=== PATIENT | female | born 1945 | race African-American/Black ===

== ENCOUNTER 2016-02-15 19:03 | Inpatient (IN) ==
[2016-02-15] MEDS ORDERED: LEVOFLOXACIN INJ 750 MG in PREMIX 1 EACH IV STA (19:20)
[2016-02-15] MEDS ORDERED: methylPREDNISolone SOD SUC 125 MG/2 ML VIAL IV STA (19:20)
[2016-02-15] MEDS ORDERED: ALBUTEROL/IPRATROPIUM 3 ML NEB RESP TX STA ×2 (19:20→20:26)
--- NOTE | 2016-02-15 19:30 | EKG Report ---
Stationary ECG Study [facility] ER Test Date: 02/15/2016 7:30:07 PM Pat Name: LAW MARTE Department: Room: Gender: F Tiler'S Assistant: YOBANY : 1945 Requested by: Brennen Winters Order Number: [id number] Reading MD: MICHAELLE LENTZ Intervals [place] Rate: 86 P: 46 OR: 186 QRS: 27 QRSD: 93 T: -8 QT: 370 QTc: 414 Interpretive Statements SINUS RHYTHM POSSIBLE LEFT ATRIAL ENLARGEMENT INDETERMINATE AXIS INCOMPLETE RIGHT BUNDLE BRANCH BLOCK NONSPECIFIC T-WAVE ABNORMALITY Electronically Signed On 02-16-16 04:11:19 INFORMATION DEVELOPER by MICHAELLE LENTZ [email or web address]
[2016-02-15 19:53] LABS: ABG Base Excess 2.7 MMOL/L (-2.5-2.5); ABG HCO3 26.6 MMOL/L (20-26); ABG Oxygen Saturation 90.3 % (95-100); ABG PCO2 34.1 MM HG (35-48); ABG PH 7.484 (7.35-7.45); ABG PO2 57.5 MM HG (80-95); ABG TCO2 22.3 MMOL/L (23-27); Allen Test Positive
[2016-02-15] MEDS ORDERED: methylPREDNISolone SOD SUC 125 MG/2 ML VIAL ONE (19:55)
--- NOTE | 2016-02-15 20:02 | XRay Report ---
XR chest 1V portable Indication: Shortness of breath. Comparison: Chest x-ray 04/06/2015 Technique: Portable AP chest was performed. Findings: Heart size is upper limits of normal. Linear and reticular interstitial markings in the lower right chest are demonstrated. The left lung base is not well visualized. Upper lungs are clear. Elevation right hemidiaphragm is noted. Pulmonary vasculature is within normal limits. Bones and soft tissues demonstrate no evidence of acute pathology. Impression: 1. The appearance of the right lung base has differential considerations including pulmonary edema as well as infection. A component of atelectasis is not excluded. Opacities in the left lung base are not excluded. 02/15/2016 7:57 PM PROCEDURE INTERPRETED AT [facility] DEPARTMENT OF RADIOLOGY Final Report Signed by: Dr. Eyal Meyer
[2016-02-15] MEDS ORDERED: LEVOFLOXACIN INJ 150 ML IV ONE (20:12)
[2016-02-15 20:16] LABS: Basophils # 0.1 10*3/uL (0.0-0.2); Eosinophils # 0.4 10*3/uL (0.0-0.87); Eosinophils % 6.8 % (0.00-10.9); Hematocrit 40.2 VOL% (35.7-47.0); Hemoglobin 13.1 GM/DL (12.0-16.0); Immature Granulocytes % 0.3 %; Immature Granulocytes Absolute 0.02 #; Lymphocytes % 33.3 % (21.3-54.2); Mean Corpuscular HGB Conc 32.6 GM/DL (32-36); Mean Corpuscular Hemoglobin 28 PG (27-34); Mean Corpuscular Volume 86.8 FL (87-102); Mean Platelet Volume 10.4 FL (9.6-12.0); Monocytes # 0.5 10*3/uL (0.11-0.8); Monocytes % 8.2 % (1.7-12.7); Neutrophils % 50.4 % (38.7-73.9); Platelet Count 222 10*3/uL (130-400); Red Blood Count 4.63 10*6/uL (3.8-5.5); Red Cell Distribution Width 14.3 % (9.3-17.3)
[2016-02-15 20:47] LABS: Albumin 3.6 G/DL (3.4-5.0); Bilirubin,Total 0.5 MG/DL (0.2-1.0); Osmolality,Calculated 288.8 MOS/KG (273-304); Potassium 3.7 MMOL/L (3.5-5.1); Total Protein 6.8 G/DL (6.4-8.3)
--- NOTE | 2016-02-15 20:57 | Emergency Department Note ---
Kimo Brantley Brooke, am scribing for, and in the presence of, Brennen Winters MD 19:24. Vianey Brantley Hans, MD, personally performed the services described in this documentation, ascribed by Ale Malin in my presence, and it is both accurate and complete . Arrival - Arrival Chief Complaint: Shortness of Breath Stated Complaint: sob, n/v, aching ED Nursing Triage Note: C/O SOB and weakness X "several weeks" but worse over the past two days. Pt on home O22L NC. Tachypnea noted in triage. Mode of Arrival: Wheelchair Limitations: No Limitations Source: Patient, RN Notes Reviewed Time Seen by Provider: 02/15/16 19:15 - History of Present Illness HPI Narrative: Patient is a 71 year old female who presents to the ED with c/o difficulty breathing that has been going on for the past couple of days but continues to worsen over time. Patient has history of pulmonary fibriosis and uses home oxygen. She says she does not have a Consumer Affairs Specialist in [place]. Patient also complains of having a non productive cough, headache, and "upset stomach" but denies having any leg edema or fever. Patient denies any recent traveling. She also has PMHx of IDDM, HTN, thyroid disorder, RA, and GERD. Onset (ago): day(s) ("last couple of days") Allergies/Adverse Reactions: Allergies Allergy/AdvReac Type Severity Reaction Status Date / Time No Known Allergies Allergy Verified 02/15/16 19:07 Home Medications: Home Medications Medication Instructions Recorded Confirmed Type Aliskiren [Tekturna] 150 mg PO BID 01/27/15 02/15/16 History Mycophenolate Mofetil [Cellcept] 1,000 mg PO BID 01/27/15 02/15/16 History Montelukast Tab [Singulair Tab] 10 mg PO BEDTIME #60 tablet 04/08/15 02/15/16 Rx Adalimumab [Humira] 40 mg SUBCUT Q14D 02/15/16 02/15/16 History Albuterol Neb [Proventil Neb] 0.63 mg RESP TX TID PRN 02/15/16 02/15/16 History Insulin Aspart Prot/Asp 70/30 See Protocol SUBCUT DAILY PRN 02/15/16 02/15/16 History [NovoLOG Mix 70/30] Levothyroxine Tab [Synthroid Tab] 200 mcg PO DAILY 02/15/16 02/15/16 History Omeprazole [Prilosec] 40 mg PO QPM 02/15/16 02/15/16 History amLODIPine [Norvasc] 5 mg PO DAILY 02/15/16 02/15/16 History cloNIDine TAB [Catapres Tab] 0.2 mg PO QAM 02/15/16 02/15/16 History cloNIDine TAB [Catapres Tab] 0.3 mg PO QPM 02/15/16 02/15/16 History Review of System - Review of System 12 point system: reviewed and no additional remarkable complaints except as stated - Review of System Constitutional: Absent: fever Respiratory: Present: cough (nonproductive), other ("difficulty breathing") Gastrointestinal: Present: abdominal pain ("upset stomach") Skin: Absent: rash Neurological: Present: headache Medical,Surgical,& Family Hx - Medical History Cardio: History of: Hypertension Neurology: No history of: Seizures Endocrine: History of: Diabetes Mellitus (IDDM), Thyroid Disorder Rheumatology: History of;: Rheumatoid Arthritis Respiratory: History of: Respiratory Problems (PULMONARY FIBROSIS LUNG BX HOME O2) Gastrointestinal: History of: GERD - Surgical History Thoracic Surgeries: Patient denies;: Lobectomy HEENT Surgeries: Surgical HX of: Thyroid Surgery - Social History Smoking Status: Never smoker Frequency of Alcohol Use: None Type of Drug Use: None Exam Vital Signs: Vital Signs Temperature 97.1 F L 02/15/16 19:08 Pulse Rate 98 H 02/15/16 19:08 Respiratory Rate 24 02/15/16 19:08 Blood Pressure 141/108 02/15/16 19:08 O2 Sat by Pulse Oximetry 100 02/15/16 19:08 - General General appearance: alert, in no apparent distress - Head Head exam: Present: atraumatic, normocephalic - Eye Eye exam: Present: normal appearance, PERRL, EOMI - ENT ENT exam: Present: normal exam - Neck Neck exam: Present: other (distended neck veins) - Chest Chest inspection: Present: normal inspection, symmetric chest wall rise - Respiratory Respiratory exam: Present: wheezes (bilaterally but worse on the left) - Cardiovascular Cardiovascular exam: Present: normal rhythm, tachycardia, normal heart sounds - Abdominal Exam Abdominal exam: Present: soft. Absent: distention, tenderness - Extremities Exam Extremities exam: Present: normal inspection - Back Exam Back exam: Present: normal inspection - Neurological Exam Neurological exam: Present: alert, oriented X3 - Psychiatric Psychiatric exam: Present: normal affect, normal mood - Skin Skin exam: Present: warm, dry, intact, normal color Course Course Narrative: This patient was evaluated with chest x-ray and lab work. She had a normal white blood cell count and she was treated with Solu-Medrol and to relieve treatments for expiratory wheezing. She improved some but still had some wheezing and because of her home oxygen dependence and possible right basal infiltrate I discussed her presentation with the hospitalist who agreed to come and see her in the ER to evaluate her for admission. Results - Labs CBC & BMP: 02/15/16 20:00 02/15/16 20:00 Lab Results: I have reviewed the patients labs Labs: Laboratory Tests 02/15/16 19:40 ABG pH 7.484 H ABG pCO2 34.1 L ABG pO2 57.5 L ABG HCO3 26.6 H ABG Total CO2 22.3 L ABG O2 Saturation 90.3 L ABG Base Excess 2.7 H Microbiology 02/15/16 20:18 Nasal Aspirate Influenza Types A,B Antigen (EMMANUEL) - Final Negative for Influenza A Ag Negative for Influenza B Ag Laboratory Tests 02/15/16 20:00 MCV 86.8 L Baso % (Auto) 1.0 H Laboratory Tests 02/15/16 20:00 Anion Gap 16.7 H Creatinine 1.30 H Glucose 130 H - Diagnostic Findings Procedure: Chest x-ray: report reviewed by me (1. The appearance of the right lung base has differential considerations including pulmonary edema as well as infection. A component of atelectasis is not excluded. Opacities in the left lung base are not excluded.) Disposition Clinical Impression: Acute exacerbation of chronic obstructive airways disease, Pulmonary fibrosis Case discussed with: patient Disposition: Still a Patient Condition: Guarded Instructions: Pulmonary Fibrosis (ED) Time of Disposition: 20:57
--- NOTE | 2016-02-15 21:36 | Hospitalist History & Physical ---
Assessment and Plan (1) Acute exacerbation of chronic obstructive airways disease Status: Acute Current Visit: Yes (2) Pulmonary fibrosis Status: Acute Current Visit: Yes (3) HTN (hypertension) Status: Chronic Current Visit: No (4) Type 2 diabetes mellitus Status: Chronic Current Visit: No (5) Community acquired pneumonia Status: Acute Current Visit: No (6) Acute on chronic respiratory failure Status: Acute Current Visit: No (7) Hypothyroidism Status: Acute Assessment and plan: Plan for this patient #1 admit the patient our service #2 IV antibiotics with Levaquin #3 sputum culture if possible current cough is dry #4 IV steroids #5 Accu-Cheks before meals and at bedtime with sliding scale #6 Singulair #7 Mucinex Current Visit: No History of Present Illness Chief complaint: shortness of breath History of present illness: Ms. Bowens is a 71 year old female known past medical history of pulmonary fibrosis and diabetes who reports shortness of breath 2 weeks. She said that her sats are been running in the 80s to the high 70s at times. She's had dyspnea on a least exertion. She says that she can hardly do anything right now. She reports that her on a short requirements steadily increased over the past 2 weeks and that she is on O2 [id number] now. She came into our hospital for further evaluation. Her chest x-ray had a possible infiltrate. She is to Her O2 sats on oxygen after breathing treatments 100%. Patient does need to be admitted for further evaluation and IV antibiotics steroids and breathing treatments. Home Medications Medication Instructions Recorded Confirmed Type Aliskiren [Tekturna] 150 mg PO BID 01/27/15 02/15/16 History Mycophenolate Mofetil [Cellcept] 1,000 mg PO BID 01/27/15 02/15/16 History Montelukast Tab [Singulair Tab] 10 mg PO BEDTIME #60 tablet 04/08/15 02/15/16 Rx Adalimumab [Humira] 40 mg SUBCUT Q14D 02/15/16 02/15/16 History Albuterol Neb [Proventil Neb] 0.63 mg RESP TX TID PRN 02/15/16 02/15/16 History Insulin Aspart Prot/Asp 70/30 See Protocol SUBCUT DAILY PRN 02/15/16 02/15/16 History [NovoLOG Mix 70/30] Levothyroxine Tab [Synthroid Tab] 200 mcg PO DAILY 02/15/16 02/15/16 History Omeprazole [Prilosec] 40 mg PO QPM 02/15/16 02/15/16 History amLODIPine [Norvasc] 5 mg PO DAILY 02/15/16 02/15/16 History cloNIDine TAB [Catapres Tab] 0.2 mg PO QAM 02/15/16 02/15/16 History cloNIDine TAB [Catapres Tab] 0.3 mg PO QPM 02/15/16 02/15/16 History Allergies Allergy/AdvReac Type Severity Reaction Status Date / Time No Known Allergies Allergy Verified 02/15/16 19:07 Medical,Surgical,& Family Hx - Medical History Cardio: History of: Hypertension Neurology: No history of: Seizures Endocrine: History of: Diabetes Mellitus (IDDM), Thyroid Disorder Rheumatology: History of;: Rheumatoid Arthritis Respiratory: History of: Respiratory Problems (PULMONARY FIBROSIS LUNG BX HOME O2) Gastrointestinal: History of: GERD - Surgical History Thoracic Surgeries: Patient denies;: Lobectomy HEENT Surgeries: Surgical HX of: Thyroid Surgery - Family History Family History: noncontributory - Social History Smoking Status: Never smoker Frequency of Alcohol Use: None Type of Drug Use: None 12 point system: reviewed and no additional remarkable complaints except as stated Exam - Constitutional Vitals: Period Temp Pulse Resp BP Sys/Parks Pulse Ox Last 24 Hr 97.1 F-97.1 F 98-98 24-24 141-141/108-108 100 General appearance: mild distress - Head Head exam: Present: normal inspection - Eye Eye exam: Present: EOMI Pupils: Present: BRANDI - ENT ENT exam: Present: normal exam - Neck Neck exam: Present: normal inspection - Respiratory Respiratory exam: Present: rales (diffuse), wheezes - Cardiovascular Cardiovascular exam: Present: regular rate and rhythm - GI/Abdominal GI/Abdominal exam: Present: normal bowel sounds - Extremities Exam Extremities exam: Present: normal inspection - Back Exam Back exam: Present: normal inspection - Neurological Exam Neurological exam: Present: alert, oriented X3 - Psychiatric Psychiatric exam: Present: normal affect, normal mood - Skin Skin exam: Present: normal color Results - Labs CBC & BMP: 02/15/16 20:00 02/15/16 20:00
[2016-02-15] MEDS ORDERED: ZALEPLON 5 MG CAPSULE PO PRN (21:41)
[2016-02-15] MEDS ORDERED: ALBUTEROL 2.5 MG/3 ML NEB RESP TX PRN (21:41)
[2016-02-15] MEDS ORDERED: GLUCAGON 1 MG VIAL IM PRN ×2 (21:41)
[2016-02-15] MEDS ORDERED: DEXTROSE 50% 25 GM/50 ML VIAL IV PRN ×2 (21:41)
[2016-02-15] MEDS: ACETAMINOPHEN 325 MG TABLET PO PRN (22:45)
[2016-02-15 23:14] LABS: Apearance,Urine CLEAR (Clear); Bilirubin,Urine Negative (Negative); Blood, Urine Negative (Negative); Glucose,Urine (UA) Negative (Negative); Ketones,Urine 5 mg/dL (Negative); Nitrite,Urine Negative (Negative); Protein,Urine 30 MG/DL; RBC,Urine <1 /HPF (0-4); Squamous Epithelial Cell,Urine Occasional /HPF (0-10); Urine Color Straw (Yellow); Urine Specific Gravity 1.006 (1.001-1.035); Urine Urobilinogen < 2.0 EU/DL (0.2-1.0); WBC,Urine 1 /HPF (0-6)
[2016-02-15] MEDS: ENOXAPARIN 40 MG/0.4 ML SYRINGE SUBCUT SCH (23:33)
[2016-02-16] MEDS: ALBUTEROL/IPRATROPIUM 3 ML NEB RESP TX SCH ×4 (00:40→19:30)
[2016-02-16 05:36] LABS: Basophils % 0.2 % (0.0-0.8); Hemoglobin 13.2 GM/DL (12.0-16.0); Immature Granulocytes % 0.5 %; Immature Granulocytes Absolute 0.02 #; Lymphocytes # 0.6 10*3/uL (1.4-4.0); Mean Corpuscular HGB Conc 32.2 GM/DL (32-36); Mean Corpuscular Hemoglobin 28 PG (27-34); Mean Corpuscular Volume 86.3 FL (87-102); Mean Platelet Volume 10.1 FL (9.6-12.0); Monocytes % 0.9 % (1.7-12.7); Neutrophils # 3.6 10*3/uL (1.4-7.4); Neutrophils % 84.4 % (38.7-73.9); Platelet Count 295 10*3/uL (130-400); Red Blood Count 4.75 10*6/uL (3.8-5.5); White Blood Count 4.3 10*3/uL (4.5-13.71)
[2016-02-16 06:04] LABS: Calcium 9.3 MG/DL (8.5-10.1); Osmolality,Calculated 291.3 MOS/KG (273-304); Potassium 3.5 MMOL/L (3.5-5.1)
[2016-02-16] MEDS: LEVOTHYROXINE 200 MCG TABLET PO SCH (06:34)
[2016-02-16] MEDS: methylPREDNISolone SOD SUC 125 MG/2 ML VIAL IV SCH ×3 (06:35→22:35)
[2016-02-16] MEDS: PANTOPRAZOLE 40 MG TABLET PO SCH (08:39)
[2016-02-16] MEDS: INSULIN REGULAR 100 UNIT/ML SUBCUT SCH ×4 (08:39→22:29)
[2016-02-16] MEDS: MYCOPHENOLATE MOFETIL 250 MG CAPSULE PO SCH ×2 (08:39→22:32)
[2016-02-16] MEDS: amLODIPine 5 MG TABLET PO SCH (08:39)
[2016-02-16] MEDS: MONTELUKAST 10 MG TABLET PO SCH (08:40)
--- NOTE | 2016-02-16 10:21 | Hospitalist Progress Note ---
Assessment and Plan (1) Acute exacerbation of chronic obstructive airways disease Status: Acute Current Visit: Yes (2) Pulmonary fibrosis Status: Acute Current Visit: Yes (3) HTN (hypertension) Status: Chronic Current Visit: No (4) Type 2 diabetes mellitus Status: Chronic Current Visit: No (5) Community acquired pneumonia Status: Acute Current Visit: No (6) Acute on chronic respiratory failure Status: Acute Current Visit: No (7) Hypothyroidism Status: Acute Assessment and plan: Plan for this patient #1 admit the patient our service #2 IV antibiotics with Levaquin #3 sputum culture if possible current cough is dry #4 IV steroids #5 Accu-Cheks before meals and at bedtime with sliding scale #6 Singulair #7 Mucinex 02/16/16 we'll continue current level of care treatment of the patient. Dr. Guo is going to see the patient in consultation. Appreciate his help. Overall the patient does seem to be going to right direction. Still the cough is dry. Current Visit: No Hospitalist: Subjective Interval history: patient reports feeling much better today. She says with the breathing has improved. She is not is dyspneic Exam - Constitutional Vitals: Period Temp Pulse Resp BP Sys/Parks Pulse Ox Last 24 Hr 97.5 F-98.1 F 78-89 18-24 132-145/86-101 96-100 General appearance: mild distress has improved - Head Head exam: Present: normal inspection - Eye Eye exam: Present: EOMI Pupils: Present: BRANDI - ENT ENT exam: Present: normal exam - Neck Neck exam: Present: normal inspection - Respiratory Respiratory exam: Present: rales (diffuse), wheezes - Cardiovascular Cardiovascular exam: Present: regular rate and rhythm - GI/Abdominal GI/Abdominal exam: Present: normal bowel sounds - Extremities Exam Extremities exam: Present: normal inspection - Back Exam Back exam: Present: normal inspection - Neurological Exam Neurological exam: Present: alert, oriented X3 - Psychiatric Psychiatric exam: Present: normal affect, normal mood - Skin Skin exam: Present: normal color Results - Labs CBC & BMP: 02/16/16 04:54 02/16/16 04:54 Quality Measures - Stroke Symptom Onset Unknown: No Specialty Discharge - Follow Up or Referrals - Discharge Medications No Action Mycophenolate Mofetil [Cellcept] 1,000 mg PO BID Aliskiren [Tekturna] 150 mg PO BID Montelukast Tab [Singulair Tab] 10 mg PO BEDTIME #60 tablet Insulin Aspart Prot/Asp 70/30 [NovoLOG Mix 70/30] See Protocol SUBCUT DAILY PRN PRN Reason: Glucose Management cloNIDine TAB [Catapres Tab] 0.3 mg PO QPM cloNIDine TAB [Catapres Tab] 0.2 mg PO QAM amLODIPine [Norvasc] 5 mg PO DAILY Albuterol Neb [Proventil Neb] 0.63 mg RESP TX TID PRN PRN Reason: Shortness Of Breath Adalimumab [Humira] 40 mg SUBCUT Q14D Omeprazole [Prilosec] 40 mg PO QPM Levothyroxine Tab [Synthroid Tab] 200 mcg PO DAILY
--- NOTE | 2016-02-16 10:23 | Pulmonology Consult Note ---
History of Present Illness Chief complaint: cough congestion History of present illness: Ms. Bowens is a 71 year old female who has rheumatoid arthritis and interstitial lung disease associated with that. She is chronically on CellCept and Humira. She had the acute onset about 2 weeks ago of congestion and cough and just hasn't felt well. She noted that her oxygen saturation was dropping from the low 90s to the 80s on room air. She was admitted placed on intravenous Levaquin. Also on Solu-Medrol. She feels a bit better this morning. She's not coughing up any blood. There is no pleuritic pain. She does not think she's had any fever. Since I'm unable to use the assessment and plan section we will list diagnoses and recommendations here: #1 rheumatoid arthritis on immunosuppressive drugs #2 interstitial lung disease associated with rheumatoid arthritis on CellCept. #3 acute bronchitis and possibly bronchopneumonia community-acquired an immunocompromised host. We'll recommend broadening antibiotics with Merrem. Agree with Solu-Medrol. Watch glucoses closely. #4 diabetes mellitus insulin requiring. Sliding scale insulin. Home Medications Medication Instructions Recorded Confirmed Type Aliskiren [Tekturna] 150 mg PO BID 01/27/15 02/15/16 History Mycophenolate Mofetil [Cellcept] 1,000 mg PO BID 01/27/15 02/15/16 History Montelukast Tab [Singulair Tab] 10 mg PO BEDTIME #60 tablet 04/08/15 02/15/16 Rx Adalimumab [Humira] 40 mg SUBCUT Q14D 02/15/16 02/15/16 History Albuterol Neb [Proventil Neb] 0.63 mg RESP TX TID PRN 02/15/16 02/15/16 History Insulin Aspart Prot/Asp 70/30 See Protocol SUBCUT DAILY PRN 02/15/16 02/15/16 History [NovoLOG Mix 70/30] Levothyroxine Tab [Synthroid Tab] 200 mcg PO DAILY 02/15/16 02/15/16 History Omeprazole [Prilosec] 40 mg PO QPM 02/15/16 02/15/16 History amLODIPine [Norvasc] 5 mg PO DAILY 02/15/16 02/15/16 History cloNIDine TAB [Catapres Tab] 0.2 mg PO QAM 02/15/16 02/15/16 History cloNIDine TAB [Catapres Tab] 0.3 mg PO QPM 02/15/16 02/15/16 History Allergies Allergy/AdvReac Type Severity Reaction Status Date / Time No Known Allergies Allergy Verified 02/15/16 19:07 12 point system: reviewed and no additional remarkable complaints except as stated - Constitutional Constitutional: Present: fatigue, malaise - Respiratory Respiratory: Present: cough, dyspnea on exertion - Musculoskeletal Musculoskeletal: Present: arthralgias - Endocrine Endocrine: Present: other (she is diabetic on insulin.) Exam (Pulmonay) H&P - Constitutional Vitals: Period Temp Pulse Resp BP Sys/Parks Pulse Ox Last 24 Hr 97.5 F-98.1 F 78-89 18-24 132-145/86-101 96-100 Exam: Vital signs normal. O2 sat 100% on 3 L. HEENT: Pupils react to light. Throat is clear. Neck supple no bruits. Chest sounds clear posteriorly. I do hear some expiratory rhonchi anteriorly best over the upper lobes. Heart normal rate rhythm no murmurs no rubs no gallops. Abdomen soft nontender no masses. Extremities no clubbing cyanosis or edema. Calves nontender. Medical,Surgical,& Family Hx - Medical History Cardio: History of: Hypertension Neurology: No history of: Seizures Endocrine: History of: Diabetes Mellitus (IDDM), Thyroid Disorder Rheumatology: History of;: Rheumatoid Arthritis Respiratory: History of: Respiratory Problems (PULMONARY FIBROSIS LUNG BX HOME O2) Gastrointestinal: History of: GERD - Surgical History Thoracic Surgeries: Patient denies;: Lobectomy HEENT Surgeries: Surgical HX of: Thyroid Surgery - Social History Smoking Status: Never smoker Frequency of Alcohol Use: None Type of Drug Use: None Results - Labs CBC & BMP: 02/16/16 04:54 02/16/16 04:54 Lab Results: I have reviewed the past 24 hour labs - Diagnostic Findings Procedure: Chest x-ray: image reviewed by me (yesterday's chest x-ray shows slightly increased interstitial markings in the bases. He has known interstitial lung disease. Difficult to say she has a superimposed bronchopneumonia.) Quality Measures - Stroke Symptom Onset Unknown: No Specialty Discharge - Follow Up or Referrals - Discharge Medications No Action Mycophenolate Mofetil [Cellcept] 1,000 mg PO BID Aliskiren [Tekturna] 150 mg PO BID Montelukast Tab [Singulair Tab] 10 mg PO BEDTIME #60 tablet Insulin Aspart Prot/Asp 70/30 [NovoLOG Mix 70/30] See Protocol SUBCUT DAILY PRN PRN Reason: Glucose Management cloNIDine TAB [Catapres Tab] 0.3 mg PO QPM cloNIDine TAB [Catapres Tab] 0.2 mg PO QAM amLODIPine [Norvasc] 5 mg PO DAILY Albuterol Neb [Proventil Neb] 0.63 mg RESP TX TID PRN PRN Reason: Shortness Of Breath Adalimumab [Humira] 40 mg SUBCUT Q14D Omeprazole [Prilosec] 40 mg PO QPM Levothyroxine Tab [Synthroid Tab] 200 mcg PO DAILY
--- NOTE | 2016-02-16 10:51 | Pulmonology Consult Note ---
History of Present Illness Chief complaint: Pneumonia. Pulmonary fibrosis. RA. DM. HPV. HBP History of present illness: Ms. Bowens is a 71 year old female Home Medications Medication Instructions Recorded Confirmed Type Aliskiren [Tekturna] 150 mg PO BID 01/27/15 02/15/16 History Mycophenolate Mofetil [Cellcept] 1,000 mg PO BID 01/27/15 02/15/16 History Montelukast Tab [Singulair Tab] 10 mg PO BEDTIME #60 tablet 04/08/15 02/15/16 Rx Adalimumab [Humira] 40 mg SUBCUT Q14D 02/15/16 02/15/16 History Albuterol Neb [Proventil Neb] 0.63 mg RESP TX TID PRN 02/15/16 02/15/16 History Insulin Aspart Prot/Asp 70/30 See Protocol SUBCUT DAILY PRN 02/15/16 02/15/16 History [NovoLOG Mix 70/30] Levothyroxine Tab [Synthroid Tab] 200 mcg PO DAILY 02/15/16 02/15/16 History Omeprazole [Prilosec] 40 mg PO QPM 02/15/16 02/15/16 History amLODIPine [Norvasc] 5 mg PO DAILY 02/15/16 02/15/16 History cloNIDine TAB [Catapres Tab] 0.2 mg PO QAM 02/15/16 02/15/16 History cloNIDine TAB [Catapres Tab] 0.3 mg PO QPM 02/15/16 02/15/16 History Allergies Allergy/AdvReac Type Severity Reaction Status Date / Time No Known Allergies Allergy Verified 02/15/16 19:07 Exam (Pulmonay) H&P - Constitutional Vitals: Period Temp Pulse Resp BP Sys/Parks Pulse Ox Last 24 Hr 97.5 F-98.1 F 78-89 18-24 132-145/86-101 96-100 Medical,Surgical,& Family Hx - Medical History Cardio: History of: Hypertension Neurology: No history of: Seizures Endocrine: History of: Diabetes Mellitus (IDDM), Thyroid Disorder Rheumatology: History of;: Rheumatoid Arthritis Respiratory: History of: Respiratory Problems (PULMONARY FIBROSIS LUNG BX HOME O2) Gastrointestinal: History of: GERD - Surgical History Thoracic Surgeries: Patient denies;: Lobectomy HEENT Surgeries: Surgical HX of: Thyroid Surgery - Social History Smoking Status: Never smoker Frequency of Alcohol Use: None Type of Drug Use: None Results - Labs CBC & BMP: 02/16/16 04:54 02/16/16 04:54 Quality Measures - Stroke Symptom Onset Unknown: No Specialty Discharge - Follow Up or Referrals - Discharge Medications No Action Mycophenolate Mofetil [Cellcept] 1,000 mg PO BID Aliskiren [Tekturna] 150 mg PO BID Montelukast Tab [Singulair Tab] 10 mg PO BEDTIME #60 tablet Insulin Aspart Prot/Asp 70/30 [NovoLOG Mix 70/30] See Protocol SUBCUT DAILY PRN PRN Reason: Glucose Management cloNIDine TAB [Catapres Tab] 0.3 mg PO QPM cloNIDine TAB [Catapres Tab] 0.2 mg PO QAM amLODIPine [Norvasc] 5 mg PO DAILY Albuterol Neb [Proventil Neb] 0.63 mg RESP TX TID PRN PRN Reason: Shortness Of Breath Adalimumab [Humira] 40 mg SUBCUT Q14D Omeprazole [Prilosec] 40 mg PO QPM Levothyroxine Tab [Synthroid Tab] 200 mcg PO DAILY
[2016-02-16] MEDS: MEROPENEM 1,000 MG in SODIUM CHLORIDE 0.9% 100 ML IV SCH ×2 (13:20→18:34)
[2016-02-16] MEDS: ENOXAPARIN 40 MG/0.4 ML SYRINGE SUBCUT SCH (22:30)
[2016-02-16] MEDS: ALISKIREN 150 MG TABLET PO SCH (22:30)
[2016-02-16] MEDS: ACETAMINOPHEN 325 MG TABLET PO PRN (22:32)
[2016-02-16] MEDS: LEVOFLOXACIN INJ 750 MG in PREMIX 1 EACH IV SCH (22:42)
[2016-02-17] MEDS: ALBUTEROL/IPRATROPIUM 3 ML NEB RESP TX SCH ×4 (00:55→21:26)
[2016-02-17] MEDS: MEROPENEM 1,000 MG in SODIUM CHLORIDE 0.9% 100 ML IV SCH ×3 (02:45→18:04)
[2016-02-17] MEDS: LEVOTHYROXINE 200 MCG TABLET PO SCH (07:12)
[2016-02-17] MEDS: methylPREDNISolone SOD SUC 125 MG/2 ML VIAL IV SCH ×3 (07:20→21:49)
[2016-02-17] MEDS: INSULIN REGULAR 100 UNIT/ML SUBCUT SCH ×4 (08:52→21:45)
[2016-02-17] MEDS: PANTOPRAZOLE 40 MG TABLET PO SCH (08:53)
[2016-02-17] MEDS: MONTELUKAST 10 MG TABLET PO SCH (08:53)
[2016-02-17] MEDS: ALISKIREN 150 MG TABLET PO SCH ×2 (08:53→21:57)
[2016-02-17] MEDS: MYCOPHENOLATE MOFETIL 250 MG CAPSULE PO SCH ×2 (08:53→21:47)
[2016-02-17] MEDS: amLODIPine 5 MG TABLET PO SCH (08:54)
[2016-02-17] MEDS: ACETAMINOPHEN 325 MG TABLET PO PRN ×2 (08:54→14:25)
[2016-02-17] MEDS: ONDANSETRON 4 MG/2 ML VIAL IV PRN (09:04)
--- NOTE | 2016-02-17 09:26 | Pulmonology Progress Note ---
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 She is on immunosuppressive drugs long- term. She came in with an acute episode of bronchitis and probably bronchopneumonia. She feels better today. She still coughing up some phlegm. No fever. Exam (Progress Note) - Constitutional Vitals: Period Temp Pulse Resp BP Sys/Parks Pulse Ox Last 24 Hr 97.5 F-98.4 F 64-83 18-20 113-133/78-90 97-100 Exam: She is alert oriented vital signs are normal. HEENT: Pupils react to light. Throat is clear. Neck supple no bruits. Chest reveals minimal expiratory physical rhonchi. Minimal basilar crackles the bases. Heart normal rate rhythm no murmurs. Abdomen soft nontender no masses. Bowel sounds present. Extremities no clubbing cyanosis or edema. Calves nontender. Results - Labs CBC & BMP: 02/16/16 04:54 02/16/16 04:54 Lab Results: I have reviewed the past 24 hour labs Assessment and Plan (1) Rheumatoid arthritis Status: Acute Assessment and plan: Patient has long-term history of a maternal arthritis and is on Humira for that. She is immunocompromised with that. Current Visit: Yes (2) Nonspecific interstitial pneumonitis Status: Acute Assessment and plan: She has interstitial lung disease that is associated with her rheumatoid arthritis. She takes CellCept for that long-term. Again she is immunocompromised from that medication. Current Visit: Yes (3) Acute bronchitis Status: Acute Assessment and plan: Patient came in with cough congestion sputum production and some bronchospasm. Being treated with broad-spectrum antibiotics and Solu-Medrol as well as bronchodilators. Current Visit: Yes (4) Bronchopneumonia Status: Acute Assessment and plan: I do think she has some acute bronchopneumonia. She is on broad-spectrum antibiotics. Current Visit: Yes (5) Diabetes mellitus Status: Acute Assessment and plan: Watch glucoses closely on steroids. Glucoses are running from 180-220. Current Visit: Yes Specialty Discharge - Follow Up or Referrals - Discharge Medications No Action Mycophenolate Mofetil [Cellcept] 1,000 mg PO BID Aliskiren [Tekturna] 150 mg PO BID Montelukast Tab [Singulair Tab] 10 mg PO BEDTIME #60 tablet Insulin Aspart Prot/Asp 70/30 [NovoLOG Mix 70/30] See Protocol SUBCUT DAILY PRN PRN Reason: Glucose Management cloNIDine TAB [Catapres Tab] 0.3 mg PO QPM cloNIDine TAB [Catapres Tab] 0.2 mg PO QAM amLODIPine [Norvasc] 5 mg PO DAILY Albuterol Neb [Proventil Neb] 0.63 mg RESP TX TID PRN PRN Reason: Shortness Of Breath Adalimumab [Humira] 40 mg SUBCUT Q14D Omeprazole [Prilosec] 40 mg PO QPM Levothyroxine Tab [Synthroid Tab] 200 mcg PO DAILY
--- NOTE | 2016-02-17 14:32 | Hospitalist Progress Note ---
Assessment and Plan (1) Acute exacerbation of chronic obstructive airways disease Status: Acute Current Visit: Yes (2) Pulmonary fibrosis Status: Acute Current Visit: Yes (3) HTN (hypertension) Status: Chronic Current Visit: No (4) Type 2 diabetes mellitus Status: Chronic Current Visit: No (5) Community acquired pneumonia Status: Acute Current Visit: No (6) Acute on chronic respiratory failure Status: Acute Current Visit: No (7) Hypothyroidism Status: Acute Assessment and plan: Plan for this patient #1 admit the patient our service #2 IV antibiotics with Levaquin #3 sputum culture if possible current cough is dry #4 IV steroids #5 Accu-Cheks before meals and at bedtime with sliding scale #6 Singulair #7 Mucinex 02/16/16 we'll continue current level of care treatment of the patient. Dr. Guo is going to see the patient in consultation. Appreciate his help. Overall the patient does seem to be going to right direction. Still the cough is dry. 02/17/16 we'll continue current level of care for this patient. She is on broad coverage antibiotics. She is starting to mobilize her sputum a little bit more. Glucose is running a little bit on the higher side with the steroids. Continue to watch that Current Visit: No Hospitalist: Subjective Interval history: Patient reports that her breathing has gotten better. She'll get short winded with exertion but overall she has made some improvement Exam - Constitutional Vitals: Period Temp Pulse Resp BP Sys/Parks Pulse Ox Last 24 Hr 97.0 F-98.4 F 64-83 18-20 113-133/71-90 91-100 General appearance: mild distress has improved - Head Head exam: Present: normal inspection - Eye Eye exam: Present: EOMI Pupils: Present: BRANDI - ENT ENT exam: Present: normal exam - Neck Neck exam: Present: normal inspection - Respiratory Respiratory exam: Present: rales bases, wheezes improved - Cardiovascular Cardiovascular exam: Present: regular rate and rhythm - GI/Abdominal GI/Abdominal exam: Present: normal bowel sounds - Extremities Exam Extremities exam: Present: normal inspection - Back Exam Back exam: Present: normal inspection - Neurological Exam Neurological exam: Present: alert, oriented X3 - Psychiatric Psychiatric exam: Present: normal affect, normal mood - Skin Skin exam: Present: normal color Results - Labs CBC & BMP: 02/16/16 04:54 02/16/16 04:54 Quality Measures - Stroke Symptom Onset Unknown: No Specialty Discharge - Follow Up or Referrals - Discharge Medications No Action Mycophenolate Mofetil [Cellcept] 1,000 mg PO BID Aliskiren [Tekturna] 150 mg PO BID Montelukast Tab [Singulair Tab] 10 mg PO BEDTIME #60 tablet Insulin Aspart Prot/Asp 70/30 [NovoLOG Mix 70/30] See Protocol SUBCUT DAILY PRN PRN Reason: Glucose Management cloNIDine TAB [Catapres Tab] 0.3 mg PO QPM cloNIDine TAB [Catapres Tab] 0.2 mg PO QAM amLODIPine [Norvasc] 5 mg PO DAILY Albuterol Neb [Proventil Neb] 0.63 mg RESP TX TID PRN PRN Reason: Shortness Of Breath Adalimumab [Humira] 40 mg SUBCUT Q14D Omeprazole [Prilosec] 40 mg PO QPM Levothyroxine Tab [Synthroid Tab] 200 mcg PO DAILY
[2016-02-17] MEDS: ENOXAPARIN 40 MG/0.4 ML SYRINGE SUBCUT SCH (21:45)
[2016-02-17] MEDS: LEVOFLOXACIN INJ 750 MG in PREMIX 1 EACH IV SCH (21:56)
[2016-02-18] MEDS: MEROPENEM 1,000 MG in SODIUM CHLORIDE 0.9% 100 ML IV SCH ×3 (02:15→18:14)
[2016-02-18] MEDS: ALBUTEROL/IPRATROPIUM 3 ML NEB RESP TX SCH ×4 (03:39→19:05)
[2016-02-18 05:45] LABS: Basophils % 0.1 % (0.0-0.8); Hematocrit 40.8 VOL% (35.7-47.0); Immature Granulocytes % 1.2 %; Immature Granulocytes Absolute 0.21 #; Lymphocytes # 0.7 10*3/uL (1.4-4.0); Lymphocytes % 3.8 % (21.3-54.2); Mean Corpuscular HGB Conc 31.9 GM/DL (32-36); Mean Corpuscular Hemoglobin 28 PG (27-34); Mean Corpuscular Volume 87.6 FL (87-102); Mean Platelet Volume 10.5 FL (9.6-12.0); Monocytes # 0.3 10*3/uL (0.11-0.8); Monocytes % 1.8 % (1.7-12.7); Neutrophils # 16.8 10*3/uL (1.4-7.4); Neutrophils % 93.1 % (38.7-73.9); Platelet Count 272 10*3/uL (130-400); Red Blood Count 4.66 10*6/uL (3.8-5.5); Red Cell Distribution Width 14.3 % (9.3-17.3)
[2016-02-18 06:15] LABS: Band Neutrophils 1 % (0-10); Hypochromasia 1+; Lymphocytes 2 % (20-55); Nucleated Red Blood Cells 1 (0-5); Segmented Neutrophils 96 % (50-85); Total Cells Counted 100
[2016-02-18 06:16] LABS: Microcytosis Slight; Platelet Estimate Adequate
[2016-02-18 06:20] LABS: Calcium 8.9 MG/DL (8.5-10.1); Magnesium 1.9 MG/DL (1.8-2.4); Osmolality,Calculated 285.4 MOS/KG (273-304); Potassium 3.9 MMOL/L (3.5-5.1)
[2016-02-18] MEDS: methylPREDNISolone SOD SUC 125 MG/2 ML VIAL IV SCH ×3 (07:10→21:24)
[2016-02-18] MEDS: LEVOTHYROXINE 200 MCG TABLET PO SCH (07:13)
--- NOTE | 2016-02-18 08:46 | Pulmonology Progress Note ---
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 She is on immunosuppressive drugs long- term. She came in with an acute episode of bronchitis and probably bronchopneumonia. She feels better today. She still coughing up some phlegm. No fever. 02/18/2016 patient is feeling a little better but he gets very short of breath with minimal effort. She asked me today if I will follow her from a pulmonary standpoint post discharge. She will continue to follow at [facility] pulmonary clinic , as well. It may be a few more days before she can be discharged. Exam (Progress Note) - Constitutional Vitals: Period Temp Pulse Resp BP Sys/Parks Pulse Ox Last 24 Hr 97.0 F-97.9 F 6-116 16-22 111-128/71-82 91-100 Exam: She is alert oriented vital signs are normal. HEENT: Pupils react to light. Throat is clear. Neck supple no bruits. Chest reveals minimal expiratory rhonchi. Minimal basilar crackles the bases. Heart normal rate rhythm no murmurs. Abdomen soft nontender no masses. Bowel sounds present. Extremities no clubbing cyanosis or edema. Calves nontender. Results - Labs CBC & BMP: 02/18/16 04:39 02/18/16 04:39 Lab Results: I have reviewed the past 24 hour labs Assessment and Plan (1) Rheumatoid arthritis Status: Acute Assessment and plan: Patient has long-term history of a maternal arthritis and is on Humira for that. She is immunocompromised with that. 02/18/2016 continuing medications for RA. Current Visit: Yes (2) Nonspecific interstitial pneumonitis Status: Acute Assessment and plan: She has interstitial lung disease that is associated with her rheumatoid arthritis. She takes CellCept for that long-term. Again she is immunocompromised from that medication. 02/18/2016 interstitial lung disease associated with rheumatoid arthritis. On CellCept. Also getting Humira. Current Visit: Yes (3) Acute bronchitis Status: Acute Assessment and plan: Patient came in with cough congestion sputum production and some bronchospasm. Being treated with broad-spectrum antibiotics and Solu-Medrol as well as bronchodilators. 02/18/2016 empiric antibiotics and steroids for acute bronchitis. Cultures negative thus far. Current Visit: Yes (4) Bronchopneumonia Status: Acute Assessment and plan: I do think she has some acute bronchopneumonia. She is on broad-spectrum antibiotics. 02/18/2016 again we're continuing antibiotics. Current Visit: Yes (5) Diabetes mellitus Status: Acute Assessment and plan: Watch glucoses closely on steroids. Glucoses are running from 180-220. 02/18/2016 glucose is fairly well controlled now. Current Visit: Yes Specialty Discharge - Follow Up or Referrals - Discharge Medications No Action Mycophenolate Mofetil [Cellcept] 1,000 mg PO BID Aliskiren [Tekturna] 150 mg PO BID Montelukast Tab [Singulair Tab] 10 mg PO BEDTIME #60 tablet Insulin Aspart Prot/Asp 70/30 [NovoLOG Mix 70/30] See Protocol SUBCUT DAILY PRN PRN Reason: Glucose Management cloNIDine TAB [Catapres Tab] 0.3 mg PO QPM cloNIDine TAB [Catapres Tab] 0.2 mg PO QAM amLODIPine [Norvasc] 5 mg PO DAILY Albuterol Neb [Proventil Neb] 0.63 mg RESP TX TID PRN PRN Reason: Shortness Of Breath Adalimumab [Humira] 40 mg SUBCUT Q14D Omeprazole [Prilosec] 40 mg PO QPM Levothyroxine Tab [Synthroid Tab] 200 mcg PO DAILY
[2016-02-18] MEDS: MONTELUKAST 10 MG TABLET PO SCH (09:43)
[2016-02-18] MEDS: MYCOPHENOLATE MOFETIL 250 MG CAPSULE PO SCH ×2 (09:44→21:31)
[2016-02-18] MEDS: PANTOPRAZOLE 40 MG TABLET PO SCH (09:44)
[2016-02-18] MEDS: ALISKIREN 150 MG TABLET PO SCH ×2 (09:44→21:33)
[2016-02-18] MEDS: INSULIN REGULAR 100 UNIT/ML SUBCUT SCH ×5 (09:44→21:22)
[2016-02-18] MEDS: ACETAMINOPHEN 325 MG TABLET PO PRN (09:51)
[2016-02-18] MEDS: amLODIPine 5 MG TABLET PO SCH (10:54)
--- NOTE | 2016-02-18 15:08 | Hospitalist Progress Note ---
Assessment and Plan (1) Acute exacerbation of chronic obstructive airways disease Status: Acute Current Visit: Yes (2) Pulmonary fibrosis Status: Acute Current Visit: Yes (3) HTN (hypertension) Status: Chronic Current Visit: No (4) Type 2 diabetes mellitus Status: Chronic Current Visit: No (5) Community acquired pneumonia Status: Acute Current Visit: No (6) Acute on chronic respiratory failure Status: Acute Current Visit: No (7) Hypothyroidism Status: Acute Assessment and plan: Plan for this patient #1 admit the patient our service #2 IV antibiotics with Levaquin #3 sputum culture if possible current cough is dry #4 IV steroids #5 Accu-Cheks before meals and at bedtime with sliding scale #6 Singulair #7 Mucinex 02/16/16 we'll continue current level of care treatment of the patient. Dr. Guo is going to see the patient in consultation. Appreciate his help. Overall the patient does seem to be going to right direction. Still the cough is dry. 02/17/16 we'll continue current level of care for this patient. She is on broad coverage antibiotics. She is starting to mobilize her sputum a little bit more. Glucose is running a little bit on the higher side with the steroids. Continue to watch that 02/18/16 patient continues to improve she should probably most likely require a few more days of IV antibiotics. Current Visit: No Hospitalist: Subjective Interval history: She reports that her breathing is gotten a little bit better today Exam - Constitutional Vitals: Period Temp Pulse Resp BP Sys/Parks Pulse Ox Last 24 Hr 97.5 F-98.3 F 6-116 16-22 111-135/77-90 96-100 General appearance: mild distress has improved - Head Head exam: Present: normal inspection - Eye Eye exam: Present: EOMI Pupils: Present: BRANDI - ENT ENT exam: Present: normal exam - Neck Neck exam: Present: normal inspection - Respiratory Respiratory exam: Present: rales bases, wheezes improved - Cardiovascular Cardiovascular exam: Present: regular rate and rhythm - GI/Abdominal GI/Abdominal exam: Present: normal bowel sounds - Extremities Exam Extremities exam: Present: normal inspection - Back Exam Back exam: Present: normal inspection - Neurological Exam Neurological exam: Present: alert, oriented X3 - Psychiatric Psychiatric exam: Present: normal affect, normal mood - Skin Skin exam: Present: normal color Results - Labs CBC & BMP: 02/18/16 04:39 02/18/16 04:39 Quality Measures - Stroke Symptom Onset Unknown: No Specialty Discharge - Follow Up or Referrals - Discharge Medications No Action Mycophenolate Mofetil [Cellcept] 1,000 mg PO BID Aliskiren [Tekturna] 150 mg PO BID Montelukast Tab [Singulair Tab] 10 mg PO BEDTIME #60 tablet Insulin Aspart Prot/Asp 70/30 [NovoLOG Mix 70/30] See Protocol SUBCUT DAILY PRN PRN Reason: Glucose Management cloNIDine TAB [Catapres Tab] 0.3 mg PO QPM cloNIDine TAB [Catapres Tab] 0.2 mg PO QAM amLODIPine [Norvasc] 5 mg PO DAILY Albuterol Neb [Proventil Neb] 0.63 mg RESP TX TID PRN PRN Reason: Shortness Of Breath Adalimumab [Humira] 40 mg SUBCUT Q14D Omeprazole [Prilosec] 40 mg PO QPM Levothyroxine Tab [Synthroid Tab] 200 mcg PO DAILY
[2016-02-18] MEDS: ENOXAPARIN 40 MG/0.4 ML SYRINGE SUBCUT SCH (21:21)
[2016-02-18] MEDS: ACETAMINOPHEN/CODEINE 300-30 MG TABLET PO PRN (21:32)
[2016-02-18] MEDS: LEVOFLOXACIN INJ 750 MG in PREMIX 1 EACH IV SCH (21:33)
[2016-02-19] MEDS: ALBUTEROL/IPRATROPIUM 3 ML NEB RESP TX SCH ×4 (01:21→19:10)
[2016-02-19] MEDS: MEROPENEM 1,000 MG in SODIUM CHLORIDE 0.9% 100 ML IV SCH ×3 (02:17→17:56)
[2016-02-19 06:24] LABS: Free T4 (Free Thyroxine) 0.48 NG/DL (0.76-1.46); Thyroid Stimulating Hormone 1.39 uIU/ml (0.358-3.74)
[2016-02-19] MEDS: LEVOTHYROXINE 200 MCG TABLET PO SCH (07:06)
[2016-02-19] MEDS: methylPREDNISolone SOD SUC 125 MG/2 ML VIAL IV SCH (07:16)
--- NOTE | 2016-02-19 08:19 | Pulmonology Progress Note ---
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 She is on immunosuppressive drugs long- term. She came in with an acute episode of bronchitis and probably bronchopneumonia. She feels better today. She still coughing up some phlegm. No fever. 02/18/2016 patient is feeling a little better but he gets very short of breath with minimal effort. She asked me today if I will follow her from a pulmonary standpoint post discharge. She will continue to follow at [facility] pulmonary clinic , as well. It may be a few more days before she can be discharged. 02/19/2016 she is less dyspneic with effort. She does have some nausea today. Will be given Zofran. Reducing steroids. Exam (Progress Note) - Constitutional Vitals: Period Temp Pulse Resp BP Sys/Parks Pulse Ox Last 24 Hr 96.8 F-98 F 67-96 16-20 111-137/68-90 96-100 Exam: She is alert oriented vital signs are normal. HEENT: Pupils react to light. Throat is clear. Neck supple no bruits. Chest sounds clear. Heart normal rate rhythm no murmurs. Abdomen soft nontender no masses. Bowel sounds present. Extremities no clubbing cyanosis or edema. Calves nontender. Results - Labs CBC & BMP: 02/18/16 04:39 02/18/16 04:39 Lab Results: I have reviewed the past 24 hour labs Assessment and Plan (1) Rheumatoid arthritis Status: Acute Assessment and plan: Patient has long-term history of a maternal arthritis and is on Humira for that. She is immunocompromised with that. 02/18/2016 continuing medications for RA. Current Visit: Yes (2) Nonspecific interstitial pneumonitis Status: Acute Assessment and plan: She has interstitial lung disease that is associated with her rheumatoid arthritis. She takes CellCept for that long-term. Again she is immunocompromised from that medication. 02/18/2016 interstitial lung disease associated with rheumatoid arthritis. On CellCept. Also getting Humira. 02/19/2016 getting steroids and antibiotics for acute exacerbation. She has sputum production which certainly sounds like acute bronchitis with bronchopneumonia. Current Visit: Yes (3) Acute bronchitis Status: Acute Assessment and plan: Patient came in with cough congestion sputum production and some bronchospasm. Being treated with broad-spectrum antibiotics and Solu-Medrol as well as bronchodilators. 02/18/2016 empiric antibiotics and steroids for acute bronchitis. Cultures negative thus far. 02/19/2016 symptoms better. She's not wheezing. Cultures are negative. Taper steroids. Current Visit: Yes (4) Bronchopneumonia Status: Acute Assessment and plan: I do think she has some acute bronchopneumonia. She is on broad-spectrum antibiotics. 02/18/2016 again we're continuing antibiotics. 02/19/2016 she is on Levaquin. Current Visit: Yes (5) Diabetes mellitus Status: Acute Assessment and plan: Watch glucoses closely on steroids. Glucoses are running from 180-220. 02/18/2016 glucose is fairly well controlled now. 02/19/2016 blood sugars continue to be fairly well controlled. Current Visit: Yes Specialty Discharge - Follow Up or Referrals - Discharge Medications No Action Mycophenolate Mofetil [Cellcept] 1,000 mg PO BID Aliskiren [Tekturna] 150 mg PO BID Montelukast Tab [Singulair Tab] 10 mg PO BEDTIME #60 tablet Insulin Aspart Prot/Asp 70/30 [NovoLOG Mix 70/30] See Protocol SUBCUT DAILY PRN PRN Reason: Glucose Management cloNIDine TAB [Catapres Tab] 0.3 mg PO QPM cloNIDine TAB [Catapres Tab] 0.2 mg PO QAM amLODIPine [Norvasc] 5 mg PO DAILY Albuterol Neb [Proventil Neb] 0.63 mg RESP TX TID PRN PRN Reason: Shortness Of Breath Adalimumab [Humira] 40 mg SUBCUT Q14D Omeprazole [Prilosec] 40 mg PO QPM Levothyroxine Tab [Synthroid Tab] 200 mcg PO DAILY
[2016-02-19] MEDS: INSULIN REGULAR 100 UNIT/ML SUBCUT SCH ×4 (09:01→21:58)
--- NOTE | 2016-02-19 09:26 | Hospitalist Progress Note ---
<Paula Mcgowan N - Last Filed: 02/19/16 09:24> Assessment and Plan (1) Pulmonary fibrosis Status: Acute Assessment and plan: Pulmonolgy has seen this morning as well and agrees that she will need a few more days of IV anbx. They will decrease her steroid dose. She is improving, moving more air, easy respirations she will be given PRN meds to help with her constipation, nausea and headache Current Visit: Yes Hospitalist: Subjective Interval history: Ms. Bowens is seen this morning lying flat in bed resting quietly. She states that she is constipated and while trying to have a BM this morning she began to vomit and now has a headache. I have spoken with her nurse about giving her some PRN meds for all of this. She states that her breathing is much easier, she seems to have no increased respiratory effort. She did begin to cough on deep inspirations. Some mild crackles in bases but moving good air. Exam - Constitutional Vitals: Period Temp Pulse Resp BP Sys/Parks Pulse Ox Last 24 Hr 96.8 F-98 F 59-96 16-20 111-152/68-98 96-100 General appearance: no acute distress - Head Head exam: Present: normal inspection, normocephalic - Eye Eye exam: Present: EOMI. Absent: scleral icterus Pupils: Present: BRANDI, normal accommodation - ENT ENT exam: Present: normal exam, normal oropharynx - Neck Neck exam: Present: normal inspection. Absent: lymphadenopathy - Respiratory Respiratory exam: Present: other (mild crackles bibasilar). Absent: wheezes - Cardiovascular Cardiovascular exam: Present: regular rate and rhythm. Absent: tachycardia - GI/Abdominal GI/Abdominal exam: Present: normal bowel sounds, soft. Absent: tenderness - Extremities Exam Extremities exam: Present: normal inspection, full ROM. Absent: edema - Back Exam Back exam: Present: normal inspection. Absent: muscle spasm - Neurological Exam Neurological exam: Present: alert, oriented X3 - Psychiatric Psychiatric exam: Present: normal affect, normal mood - Skin Skin exam: Present: normal color, warm, dry Results - Labs CBC & BMP: 02/18/16 04:39 02/18/16 04:39 Lab Results: I have reviewed the past 24 hour labs Quality Measures - Stroke Symptom Onset Unknown: No Specialty Discharge - Follow Up or Referrals - Discharge Medications No Action Mycophenolate Mofetil [Cellcept] 1,000 mg PO BID Aliskiren [Tekturna] 150 mg PO BID Montelukast Tab [Singulair Tab] 10 mg PO BEDTIME #60 tablet Insulin Aspart Prot/Asp 70/30 [NovoLOG Mix 70/30] See Protocol SUBCUT DAILY PRN PRN Reason: Glucose Management cloNIDine TAB [Catapres Tab] 0.3 mg PO QPM cloNIDine TAB [Catapres Tab] 0.2 mg PO QAM amLODIPine [Norvasc] 5 mg PO DAILY Albuterol Neb [Proventil Neb] 0.63 mg RESP TX TID PRN PRN Reason: Shortness Of Breath Adalimumab [Humira] 40 mg SUBCUT Q14D Omeprazole [Prilosec] 40 mg PO QPM Levothyroxine Tab [Synthroid Tab] 200 mcg PO DAILY <Julio Cesar Benz - Last Filed: 02/19/16 13:41> Assessment and Plan (1) Acute exacerbation of chronic obstructive airways disease Status: Acute Current Visit: Yes (2) Pulmonary fibrosis Status: Acute Current Visit: Yes (3) HTN (hypertension) Status: Chronic Current Visit: No (4) Type 2 diabetes mellitus Status: Chronic Current Visit: No (5) Community acquired pneumonia Status: Acute Current Visit: No (6) Acute on chronic respiratory failure Status: Acute Current Visit: No (7) Hypothyroidism Status: Acute Current Visit: No Exam - Constitutional Vitals: Period Temp Pulse Resp BP Sys/Parks Pulse Ox Last 24 Hr 96.8 F-97.8 F 59-96 16-20 111-152/68-98 96-100 Results - Labs CBC & BMP: 02/18/16 04:39 02/18/16 04:39
[2016-02-19] MEDS: methylPREDNISolone SOD SUC 40 MG/1 ML VIAL IV SCH ×2 (10:03→21:58)
[2016-02-19] MEDS: MYCOPHENOLATE MOFETIL 250 MG CAPSULE PO SCH ×2 (10:03→21:59)
[2016-02-19] MEDS: ONDANSETRON 4 MG/2 ML VIAL IV PRN ×3 (10:03→22:11)
[2016-02-19] MEDS: ACETAMINOPHEN/CODEINE 300-30 MG TABLET PO PRN ×2 (10:04→21:59)
[2016-02-19] MEDS: PANTOPRAZOLE 40 MG TABLET PO SCH (10:04)
[2016-02-19] MEDS: ALISKIREN 150 MG TABLET PO SCH ×2 (10:04→22:03)
[2016-02-19] MEDS: amLODIPine 5 MG TABLET PO SCH (10:04)
[2016-02-19] MEDS: MONTELUKAST 10 MG TABLET PO SCH (10:04)
[2016-02-19] MEDS: ENOXAPARIN 40 MG/0.4 ML SYRINGE SUBCUT SCH (21:57)
[2016-02-19] MEDS: LEVOFLOXACIN INJ 750 MG in PREMIX 1 EACH IV SCH (21:58)
[2016-02-20] MEDS: ALBUTEROL/IPRATROPIUM 3 ML NEB RESP TX SCH ×4 (00:04→19:40)
[2016-02-20] MEDS: MEROPENEM 1,000 MG in SODIUM CHLORIDE 0.9% 100 ML IV SCH ×3 (03:31→17:33)
[2016-02-20] MEDS: LEVOTHYROXINE 200 MCG TABLET PO SCH (06:31)
[2016-02-20 07:13] LABS: Basophils % 0.1 % (0.0-0.8); Hematocrit 44.7 VOL% (35.7-47.0); Hemoglobin 14.2 GM/DL (12.0-16.0); Immature Granulocytes % 0.8 %; Immature Granulocytes Absolute 0.11 #; Lymphocytes # 1.4 10*3/uL (1.4-4.0); Lymphocytes % 10.2 % (21.3-54.2); Mean Corpuscular HGB Conc 31.8 GM/DL (32-36); Mean Corpuscular Hemoglobin 28 PG (27-34); Mean Corpuscular Volume 87.1 FL (87-102); Mean Platelet Volume 10.7 FL (9.6-12.0); Monocytes # 0.5 10*3/uL (0.11-0.8); Monocytes % 3.9 % (1.7-12.7); Neutrophils # 11.5 10*3/uL (1.4-7.4); Platelet Count 268 10*3/uL (130-400); Red Blood Count 5.13 10*6/uL (3.8-5.5); Red Cell Distribution Width 14.2 % (9.3-17.3); White Blood Count 13.6 10*3/uL (4.5-13.71)
[2016-02-20 07:43] LABS: Calcium 8.9 MG/DL (8.5-10.1); Osmolality,Calculated 291.8 MOS/KG (273-304); Potassium 4.4 MMOL/L (3.5-5.1)
[2016-02-20] MEDS: INSULIN REGULAR 100 UNIT/ML SUBCUT SCH ×4 (08:37→20:31)
[2016-02-20] MEDS: ALISKIREN 150 MG TABLET PO SCH ×2 (10:47→20:30)
[2016-02-20] MEDS: MYCOPHENOLATE MOFETIL 250 MG CAPSULE PO SCH ×2 (10:48→20:30)
[2016-02-20] MEDS: PANTOPRAZOLE 40 MG TABLET PO SCH (10:48)
[2016-02-20] MEDS: ONDANSETRON 4 MG/2 ML VIAL IV PRN ×2 (10:49→17:07)
[2016-02-20] MEDS: amLODIPine 5 MG TABLET PO SCH (10:49)
[2016-02-20] MEDS: ACETAMINOPHEN/CODEINE 300-30 MG TABLET PO PRN (10:49)
[2016-02-20] MEDS: methylPREDNISolone SOD SUC 40 MG/1 ML VIAL IV SCH ×2 (10:50→20:30)
[2016-02-20] MEDS: MONTELUKAST 10 MG TABLET PO SCH (10:51)
--- NOTE | 2016-02-20 11:09 | Pulmonology Progress Note ---
Pulmonary - PN: Subj Interval history: This is a 71-year-old black female whom I am seeing for . This patient has rheumatoid arthritis and interstitial lung disease. She is on immunosuppressant drugs. She was admitted with bronchitis and bronchopneumonia and she is making good improvement. She still has some sputum production she feels like she is moving air much better. She is also has some problems with nausea but this seems to be better today. She is soft followed at [facility]. Labs been reviewed. CBC and BMP appear to be normal. Creatinine is dropped from 1.4-1.1. Thyroid function tests are abnormal. Physical exam. Vital signs. See below General. No apparent distress Face is symmetrical. Eyes are normal. Neck is symmetrical with no meningismus. Lymphatics. No submandibular cervical or supraclavicular or epitrochlear adenopathy. Cranial nerves are intact. Long track motor functions intact. Chest. Mild coarse large airway congestion. Heart. No gallop Abdomen. Positive bowel sounds Lower extremities. Nothing to suggest deep venous thrombophlebitis The remainder the physical exam is negative. Plan. 1. Continue present regimen. 2. Refer back to [facility] with patient's discharge for Exam (Progress Note) - Constitutional Vitals: Period Temp Pulse Resp BP Sys/Parks Pulse Ox Last 24 Hr 97.1 F-97.5 F 66-75 18-20 123-156/74-101 97-100 Results - Labs CBC & BMP: 02/20/16 06:20 02/20/16 06:20 Specialty Discharge - Follow Up or Referrals - Discharge Medications No Action Mycophenolate Mofetil [Cellcept] 1,000 mg PO BID Aliskiren [Tekturna] 150 mg PO BID Montelukast Tab [Singulair Tab] 10 mg PO BEDTIME #60 tablet Insulin Aspart Prot/Asp 70/30 [NovoLOG Mix 70/30] See Protocol SUBCUT DAILY PRN PRN Reason: Glucose Management cloNIDine TAB [Catapres Tab] 0.3 mg PO QPM cloNIDine TAB [Catapres Tab] 0.2 mg PO QAM amLODIPine [Norvasc] 5 mg PO DAILY Albuterol Neb [Proventil Neb] 0.63 mg RESP TX TID PRN PRN Reason: Shortness Of Breath Adalimumab [Humira] 40 mg SUBCUT Q14D Omeprazole [Prilosec] 40 mg PO QPM Levothyroxine Tab [Synthroid Tab] 200 mcg PO DAILY
--- NOTE | 2016-02-20 17:02 | Hospitalist Progress Note ---
Assessment and Plan (1) Acute exacerbation of chronic obstructive airways disease Status: Acute Current Visit: Yes (2) Pulmonary fibrosis Status: Acute Current Visit: Yes (3) HTN (hypertension) Status: Chronic Current Visit: No (4) Type 2 diabetes mellitus Status: Chronic Current Visit: No (5) Acute on chronic respiratory failure Status: Acute Assessment and plan: Plan: 02/19: Continue Levaquin and Merrem, steroids, nebulized breathing treatments and her supplemental oxygen which is currently at her baseline level. Encourage ambulation. Hopefully discharge in the next 24-48 hours. Current Visit: No Hospitalist: Subjective Interval history: Ms. Bowens reports improvement in her breathing. She is bringing up some phlegm which she was unable to before. She is up in the chair. She does become tired with physical activity however much improved than on presentation. No nausea vomiting or diarrhea. Otherwise no complaints. Exam - Constitutional Vitals: Period Temp Pulse Resp BP Sys/Parks Pulse Ox Last 24 Hr 96.9 F-97.4 F 64-83 17-20 123-156/79-101 97-100 Exam: EXAM: CONSTITUTIONAL: non toxic, NAD HEENT: NC, AT, OP benign, BRANDI, EOMI CV: RRR no m/g/r RESP: Coarse B/L, scant wheeze expiratory GI: abd soft, NT, ND, +bowel sounds INTEGUMENTARY: no lesions or rash EXTREMITIES: no c/c/e NEURO: no focal deficits PSYCH: unremarkable, A/O x3 Results - Labs CBC & BMP: 02/20/16 06:20 02/20/16 06:20 Lab Results: I have reviewed the past 24 hour labs Quality Measures - Stroke Symptom Onset Unknown: No Specialty Discharge - Follow Up or Referrals - Discharge Medications No Action Mycophenolate Mofetil [Cellcept] 1,000 mg PO BID Aliskiren [Tekturna] 150 mg PO BID Montelukast Tab [Singulair Tab] 10 mg PO BEDTIME #60 tablet Insulin Aspart Prot/Asp 70/30 [NovoLOG Mix 70/30] See Protocol SUBCUT DAILY PRN PRN Reason: Glucose Management cloNIDine TAB [Catapres Tab] 0.3 mg PO QPM cloNIDine TAB [Catapres Tab] 0.2 mg PO QAM amLODIPine [Norvasc] 5 mg PO DAILY Albuterol Neb [Proventil Neb] 0.63 mg RESP TX TID PRN PRN Reason: Shortness Of Breath Adalimumab [Humira] 40 mg SUBCUT Q14D Omeprazole [Prilosec] 40 mg PO QPM Levothyroxine Tab [Synthroid Tab] 200 mcg PO DAILY
[2016-02-20] MEDS: ENOXAPARIN 40 MG/0.4 ML SYRINGE SUBCUT SCH (20:29)
[2016-02-20] MEDS: LEVOFLOXACIN INJ 750 MG in PREMIX 1 EACH IV SCH (20:29)
[2016-02-21] MEDS: ALBUTEROL/IPRATROPIUM 3 ML NEB RESP TX SCH ×4 (00:12→20:06)
[2016-02-21] MEDS: MEROPENEM 1,000 MG in SODIUM CHLORIDE 0.9% 100 ML IV SCH ×3 (02:29→18:52)
[2016-02-21] MEDS: LEVOTHYROXINE 200 MCG TABLET PO SCH (06:27)
[2016-02-21] MEDS: INSULIN REGULAR 100 UNIT/ML SUBCUT SCH ×4 (09:41→22:05)
[2016-02-21] MEDS: methylPREDNISolone SOD SUC 40 MG/1 ML VIAL IV SCH ×2 (10:32→21:51)
[2016-02-21] MEDS: PANTOPRAZOLE 40 MG TABLET PO SCH (10:33)
[2016-02-21] MEDS: amLODIPine 5 MG TABLET PO SCH (10:33)
[2016-02-21] MEDS: ALISKIREN 150 MG TABLET PO SCH ×2 (10:34→21:52)
[2016-02-21] MEDS: MYCOPHENOLATE MOFETIL 250 MG CAPSULE PO SCH ×2 (10:34→21:52)
[2016-02-21] MEDS: ONDANSETRON 4 MG/2 ML VIAL IV PRN (10:35)
[2016-02-21] MEDS: MONTELUKAST 10 MG TABLET PO SCH ×2 (10:35→21:53)
[2016-02-21] MEDS: ACETAMINOPHEN/CODEINE 300-30 MG TABLET PO PRN (10:36)
--- NOTE | 2016-02-21 11:57 | Pulmonology Progress Note ---
Pulmonary - PN: Subj Interval history: 02/20/2016. This is a 71-year-old black female whom I am seeing for . This patient has rheumatoid arthritis and interstitial lung disease. She is on immunosuppressant drugs. She was admitted with bronchitis and bronchopneumonia and she is making good improvement. She still has some sputum production she feels like she is moving air much better. She is also has some problems with nausea but this seems to be better today. She is soft followed at [facility]. Labs been reviewed. CBC and BMP appear to be normal. Creatinine is dropped from 1.4-1.1. Thyroid function tests are abnormal. 02/21/2016. Patient says she feels a little better today she still cough and mobilize and sputum. Her chest exam is unchanged. There are no positive cultures. Creatinine is dropped from 1.4-1.1. Electrolytes are normal. White count is 13,685 segs. H&H 14.2/44.7. Platelets are 268,000. Patient still has some dyspnea on exertion and at times she gets lightheaded when she stands up quickly. Physical exam. Vital signs. See below General. No apparent distress Face is symmetrical. Eyes are normal. Neck is symmetrical with no meningismus. Lymphatics. No submandibular cervical or supraclavicular or epitrochlear adenopathy. Cranial nerves are intact. Long track motor functions intact. Chest. Mild coarse large airway congestion. Heart. No gallop Abdomen. Positive bowel sounds Lower extremities. Nothing to suggest deep venous thrombophlebitis The remainder the physical exam is negative. Plan. 1. Continue present regimen. 2. Refer back to [facility] when the patient is discharged Exam (Progress Note) - Constitutional Vitals: Period Temp Pulse Resp BP Sys/Parks Pulse Ox Last 24 Hr 97.3 F-97.8 F 59-96 14-20 131-156/62-99 89-100 Results - Labs CBC & BMP: 02/20/16 06:20 02/20/16 06:20 Specialty Discharge - Follow Up or Referrals - Discharge Medications No Action Mycophenolate Mofetil [Cellcept] 1,000 mg PO BID Aliskiren [Tekturna] 150 mg PO BID Montelukast Tab [Singulair Tab] 10 mg PO BEDTIME #60 tablet Insulin Aspart Prot/Asp 70/30 [NovoLOG Mix 70/30] See Protocol SUBCUT DAILY PRN PRN Reason: Glucose Management cloNIDine TAB [Catapres Tab] 0.3 mg PO QPM cloNIDine TAB [Catapres Tab] 0.2 mg PO QAM amLODIPine [Norvasc] 5 mg PO DAILY Albuterol Neb [Proventil Neb] 0.63 mg RESP TX TID PRN PRN Reason: Shortness Of Breath Adalimumab [Humira] 40 mg SUBCUT Q14D Omeprazole [Prilosec] 40 mg PO QPM Levothyroxine Tab [Synthroid Tab] 200 mcg PO DAILY
--- NOTE | 2016-02-21 16:02 | Hospitalist Progress Note ---
Assessment and Plan (1) Acute exacerbation of chronic obstructive airways disease Status: Acute Current Visit: Yes (2) Pulmonary fibrosis Status: Acute Current Visit: Yes (3) HTN (hypertension) Status: Chronic Current Visit: No (4) Type 2 diabetes mellitus Status: Chronic Current Visit: No (5) Oral candidiasis Status: Acute Current Visit: Yes (6) Acute on chronic respiratory failure Status: Acute Assessment and plan: Plan: 02/19: Continue Levaquin and Merrem, steroids, nebulized breathing treatments and her supplemental oxygen which is currently at her baseline level. Encourage ambulation. Hopefully discharge in the next 24-48 hours. 02/20: From a respiratory standpoint I think she is likely near baseline however given her dysphagia we'll keep her today and have GI evaluate her tomorrow for EGD. Suspect will likely discharge soon after depending on EGD findings. Start antifungal treatment. Current Visit: No Hospitalist: Subjective Interval history: Ms. Bowens is complaining of dysphagia, and describes "food getting stuck," in the proximal and distal esophagus. She also has evidence of thrush. Otherwise she appears to be breathing comfortably. Exam - Constitutional Vitals: Period Temp Pulse Resp BP Sys/Parks Pulse Ox Last 24 Hr 97.3 F-97.8 F 57-96 14-20 131-156/62-95 89-100 Exam: EXAM: CONSTITUTIONAL: non toxic, NAD HEENT: NC, AT, OP consistent with thrush, BRANDI, EOMI CV: RRR no m/g/r RESP: Coarse B/L, scant wheeze expiratory GI: abd soft, NT, ND, +bowel sounds INTEGUMENTARY: no lesions or rash EXTREMITIES: no c/c/e NEURO: no focal deficits PSYCH: unremarkable, A/O x3 Results - Labs CBC & BMP: 02/20/16 06:20 02/20/16 06:20 Lab Results: I have reviewed the past 24 hour labs Quality Measures - Stroke Symptom Onset Unknown: No Specialty Discharge - Follow Up or Referrals - Discharge Medications No Action Mycophenolate Mofetil [Cellcept] 1,000 mg PO BID Aliskiren [Tekturna] 150 mg PO BID Montelukast Tab [Singulair Tab] 10 mg PO BEDTIME #60 tablet Insulin Aspart Prot/Asp 70/30 [NovoLOG Mix 70/30] See Protocol SUBCUT DAILY PRN PRN Reason: Glucose Management cloNIDine TAB [Catapres Tab] 0.3 mg PO QPM cloNIDine TAB [Catapres Tab] 0.2 mg PO QAM amLODIPine [Norvasc] 5 mg PO DAILY Albuterol Neb [Proventil Neb] 0.63 mg RESP TX TID PRN PRN Reason: Shortness Of Breath Adalimumab [Humira] 40 mg SUBCUT Q14D Omeprazole [Prilosec] 40 mg PO QPM Levothyroxine Tab [Synthroid Tab] 200 mcg PO DAILY
[2016-02-21] MEDS: FLUCONAZOLE 100 MG TABLET PO SCH (18:51)
[2016-02-21] MEDS: NYSTATIN 500,000 UNIT/5 ML UDCUP SWISH/SWAL SCH ×2 (18:52→21:53)
[2016-02-21] MEDS: ENOXAPARIN 40 MG/0.4 ML SYRINGE SUBCUT SCH (21:51)
[2016-02-21] MEDS: LEVOFLOXACIN INJ 750 MG in PREMIX 1 EACH IV SCH (21:51)
[2016-02-22] MEDS: ALBUTEROL/IPRATROPIUM 3 ML NEB RESP TX SCH ×4 (01:10→19:29)
[2016-02-22] MEDS: MEROPENEM 1,000 MG in SODIUM CHLORIDE 0.9% 100 ML IV SCH (02:39)
[2016-02-22 05:51] LABS: Basophils % 0.1 % (0.0-0.8); Hematocrit 48.6 VOL% (35.7-47.0); Hemoglobin 15.4 GM/DL (12.0-16.0); Immature Granulocytes % 0.8 %; Immature Granulocytes Absolute 0.06 #; Lymphocytes # 1.1 10*3/uL (1.4-4.0); Lymphocytes % 14.2 % (21.3-54.2); Mean Corpuscular HGB Conc 31.7 GM/DL (32-36); Mean Corpuscular Hemoglobin 28 PG (27-34); Mean Corpuscular Volume 86.6 FL (87-102); Mean Platelet Volume 10.6 FL (9.6-12.0); Monocytes # 0.2 10*3/uL (0.11-0.8); Monocytes % 2.1 % (1.7-12.7); Neutrophils # 6.4 10*3/uL (1.4-7.4); Neutrophils % 82.8 % (38.7-73.9); Platelet Count 206 10*3/uL (130-400); Red Blood Count 5.61 10*6/uL (3.8-5.5); Red Cell Distribution Width 13.9 % (9.3-17.3); White Blood Count 7.7 10*3/uL (4.5-13.71)
[2016-02-22 06:07] LABS: INR 1.2; PT Patient Result 12.9 SECS
[2016-02-22 06:22] LABS: Calcium 9.2 MG/DL (8.5-10.1); Osmolality,Calculated 281.5 MOS/KG (273-304); Potassium 4.1 MMOL/L (3.5-5.1)
[2016-02-22] MEDS: LEVOTHYROXINE 200 MCG TABLET PO SCH (06:37)
--- NOTE | 2016-02-22 09:16 | Pulmonology Progress Note ---
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 She is on immunosuppressive drugs long- term. She came in with an acute episode of bronchitis and probably bronchopneumonia. She feels better today. She still coughing up some phlegm. No fever. 02/18/2016 patient is feeling a little better but he gets very short of breath with minimal effort. She asked me today if I will follow her from a pulmonary standpoint post discharge. She will continue to follow at [facility] pulmonary clinic , as well. It may be a few more days before she can be discharged. 02/19/2016 she is less dyspneic with effort. She does have some nausea today. Will be given Zofran. Reducing steroids. 02/22/2016 dyspnea is improved. She has a sensation of something in her throat causing her difficulty swallowing. Airway is open. She is on antifungal medications. We'll change her to oral medications. She can be discharged. May want to get her set up with GI to evaluate her throat. Exam (Progress Note) - Constitutional Vitals: Period Temp Pulse Resp BP Sys/Parks Pulse Ox Last 24 Hr 96.9 F-98.3 F 57-77 16-20 135-145/50-104 98-100 Exam: She is alert oriented vital signs are normal. HEENT: Pupils react to light. Throat is clear. Neck supple no bruits. Chest sounds clear. Heart normal rate rhythm no murmurs. Abdomen soft nontender no masses. Bowel sounds present. Extremities no clubbing cyanosis or edema. Calves nontender. Little change from Monday. Results - Labs CBC & BMP: 02/22/16 04:34 02/22/16 04:34 Lab Results: I have reviewed the past 24 hour labs Assessment and Plan (1) Rheumatoid arthritis Status: Acute Assessment and plan: Patient has long-term history of a maternal arthritis and is on Humira for that. She is immunocompromised with that. 02/18/2016 continuing medications for RA. 02/22/2016 continuing her rheumatoid arthritis medications and follow-up with rheumatology. Current Visit: Yes (2) Nonspecific interstitial pneumonitis Status: Acute Assessment and plan: She has interstitial lung disease that is associated with her rheumatoid arthritis. She takes CellCept for that long-term. Again she is immunocompromised from that medication. 02/18/2016 interstitial lung disease associated with rheumatoid arthritis. On CellCept. Also getting Humira. 02/19/2016 getting steroids and antibiotics for acute exacerbation. She has sputum production which certainly sounds like acute bronchitis with bronchopneumonia. 02/22/2016 this is related to her rheumatoid arthritis. On chronic low-dose prednisone for that. Also on CellCept. Follow-up at [facility]. She has asked me to follow her here as well. Current Visit: Yes (3) Acute bronchitis Status: Acute Assessment and plan: Patient came in with cough congestion sputum production and some bronchospasm. Being treated with broad-spectrum antibiotics and Solu-Medrol as well as bronchodilators. 02/18/2016 empiric antibiotics and steroids for acute bronchitis. Cultures negative thus far. 02/19/2016 symptoms better. She's not wheezing. Cultures are negative. Taper steroids. 02/22/2016 symptoms much better. No coughing or wheezing. Current Visit: Yes (4) Bronchopneumonia Status: Acute Assessment and plan: I do think she has some acute bronchopneumonia. She is on broad-spectrum antibiotics. 02/18/2016 again we're continuing antibiotics. 02/19/2016 she is on Levaquin. 02/22/2016 can be discharged on oral Levaquin. Current Visit: Yes (5) Diabetes mellitus Status: Acute Assessment and plan: Watch glucoses closely on steroids. Glucoses are running from 180-220. 02/18/2016 glucose is fairly well controlled now. 02/19/2016 blood sugars continue to be fairly well controlled. 197 today glucoses well controlled despite prednisone. Current Visit: Yes Specialty Discharge - Follow Up or Referrals - Discharge Medications No Action Mycophenolate Mofetil [Cellcept] 1,000 mg PO BID Aliskiren [Tekturna] 150 mg PO BID Montelukast Tab [Singulair Tab] 10 mg PO BEDTIME #60 tablet Insulin Aspart Prot/Asp 70/30 [NovoLOG Mix 70/30] See Protocol SUBCUT DAILY PRN PRN Reason: Glucose Management cloNIDine TAB [Catapres Tab] 0.3 mg PO QPM cloNIDine TAB [Catapres Tab] 0.2 mg PO QAM amLODIPine [Norvasc] 5 mg PO DAILY Albuterol Neb [Proventil Neb] 0.63 mg RESP TX TID PRN PRN Reason: Shortness Of Breath Adalimumab [Humira] 40 mg SUBCUT Q14D Omeprazole [Prilosec] 40 mg PO QPM Levothyroxine Tab [Synthroid Tab] 200 mcg PO DAILY
[2016-02-22] MEDS: methylPREDNISolone SOD SUC 40 MG/1 ML VIAL IV SCH (09:22)
[2016-02-22] MEDS: INSULIN REGULAR 100 UNIT/ML SUBCUT SCH ×4 (09:28→20:43)
[2016-02-22] MEDS: amLODIPine 5 MG TABLET PO SCH (09:30)
[2016-02-22] MEDS: PANTOPRAZOLE 40 MG TABLET PO SCH (09:31)
[2016-02-22] MEDS: FLUCONAZOLE 100 MG TABLET PO SCH (09:32)
[2016-02-22] MEDS: MONTELUKAST 10 MG TABLET PO SCH ×2 (09:32→20:44)
[2016-02-22] MEDS: MYCOPHENOLATE MOFETIL 250 MG CAPSULE PO SCH ×2 (09:34→20:44)
[2016-02-22] MEDS: ALISKIREN 150 MG TABLET PO SCH ×2 (09:34→20:44)
[2016-02-22] MEDS: NYSTATIN 500,000 UNIT/5 ML UDCUP SWISH/SWAL SCH ×4 (09:36→20:43)
--- NOTE | 2016-02-22 14:22 | Gastrointestinal Consult Note ---
Assessment and Plan (1) Dysphagia Status: Acute Assessment and plan: 02/21-One week history of difficulty, painful at times, swallowing with solids. On antifungals. Reported nausea and regurgitation. Hx of GERD and esophageal stricture. EGD a year ago at [facility] with dilation. Plan for tentative EGD tomorrow if remains stable from resp standpoint. Hold Lovenox. Plan and addendum to follow by Dr Arellano. Current Visit: Yes History of Present Illness Chief complaint: Dysphagia, GERD History of present illness: Ms. Bowens is a 71 year old female who was admitted to the hospital on 02/14 with SOB. She has a history of pulmonary fibrosis with complaints of weakness and difficulty breathing over the last several weeks. She was admitted for further workup. She brought forth that she has had some difficulty swallowing since admission. She has a prior history of esophageal stricture in the past and states she had an EGD and C-scope done last year in [place] at the [facility] with dilation of her esophagus. She states this did help and has done well until the illness. Pt states that she is having trouble swallowing solids and at times has to regurgitate them due to they wont go down. She also states that she is having early satiety because the food fills stuck at times. Denies any difficulty with pills or liquids. She has had some nausea as well without vomiting. Denies any abdominal pain. Denies any melena or hematochezia. She also states that she does have some pain, discomfort with swallowing that seemed to start about the same time. She tells me that the pain seems to be in her upper chest and feels like this is the food "sticking". No oral lesions noted. States she has been constipated since admission but has not been very mobile and not eating as much due to the dysphagia. Home Medications Medication Instructions Recorded Confirmed Type Aliskiren [Tekturna] 150 mg PO BID 01/27/15 02/15/16 History Mycophenolate Mofetil [Cellcept] 1,000 mg PO BID 01/27/15 02/15/16 History Montelukast Tab [Singulair Tab] 10 mg PO BEDTIME #60 tablet 04/08/15 02/15/16 Rx Adalimumab [Humira] 40 mg SUBCUT Q14D 02/15/16 02/15/16 History Albuterol Neb [Proventil Neb] 0.63 mg RESP TX TID PRN 02/15/16 02/15/16 History Insulin Aspart Prot/Asp 70/30 See Protocol SUBCUT DAILY PRN 02/15/16 02/15/16 History [NovoLOG Mix 70/30] Levothyroxine Tab [Synthroid Tab] 200 mcg PO DAILY 02/15/16 02/15/16 History Omeprazole [Prilosec] 40 mg PO QPM 02/15/16 02/15/16 History amLODIPine [Norvasc] 5 mg PO DAILY 02/15/16 02/15/16 History cloNIDine TAB [Catapres Tab] 0.2 mg PO QAM 02/15/16 02/15/16 History cloNIDine TAB [Catapres Tab] 0.3 mg PO QPM 02/15/16 02/15/16 History Allergies Allergy/AdvReac Type Severity Reaction Status Date / Time No Known Allergies Allergy Verified 02/15/16 19:07 Medical,Surgical,& Family Hx - Medical History Cardio: History of: Hypertension Neurology: No history of: Seizures Endocrine: History of: Diabetes Mellitus (IDDM), Thyroid Disorder Rheumatology: History of;: Rheumatoid Arthritis Respiratory: History of: Respiratory Problems (PULMONARY FIBROSIS LUNG BX HOME O2) Gastrointestinal: History of: GERD - Surgical History Thoracic Surgeries: Patient denies;: Lobectomy HEENT Surgeries: Surgical HX of: Thyroid Surgery - Social History Smoking Status: Never smoker Frequency of Alcohol Use: None Type of Drug Use: None 12 point system: reviewed and no additional remarkable complaints except as stated - Constitutional Constitutional: Present: as per HPI - EENT Eyes: Present: as per HPI Ears: Present: as per HPI Nose, mouth and throat: Present: as per HPI, dysphagia - Cardiovascular Cardiovascular: Present: as per HPI - Respiratory Respiratory: Present: as per HPI - Gastrointestinal Gastrointestinal: Present: as per HPI, dyspepsia, dysphagia, early satiety, heartburn, nausea - Genitourinary Genitourinary: Present: as per HPI - Musculoskeletal Musculoskeletal: Present: as per HPI - Neurological Neurological: Present: as per HPI - Psychiatric Psychiatric: Present: as per HPI - Endocrine Endocrine: Present: as per HPI - Hematologic/Lymphatic Hematologic/Lymphatic: Present: as per HPI Exam - Constitutional Vitals: Period Temp Pulse Resp BP Sys/Parks Pulse Ox Last 24 Hr 97.2 F-98.3 F 61-77 16-20 131-145/50-99 98-100 General appearance: normal weight, no acute distress - Head Head exam: Present: normal inspection, normocephalic - Eye Eye exam: Present: other (lids and conjunctiva unremarkable). Absent: scleral icterus - ENT ENT exam: Present: normal exam, normal oropharynx - Neck Neck exam: Present: normal inspection - Respiratory Respiratory exam: Present: clear to auscultation bilaterally. Absent: rales, rhonchi, wheezes - Cardiovascular Cardiovascular exam: Present: regular rate and rhythm. Absent: diastolic murmur , JVD, systolic murmur - GI/Abdominal GI/Abdominal exam: Present: normal bowel sounds, soft. Absent: ascites, distended, mass, organomegaly, tenderness - Extremities Exam Extremities exam: Present: normal inspection, full ROM - Back Exam Back exam: Present: normal inspection - Neurological Exam Neurological exam: Present: alert, oriented X3 - Psychiatric Psychiatric exam: Present: normal affect, normal mood - Skin Skin exam: Present: normal color, warm, dry Results - Labs CBC & BMP: 02/22/16 04:34 02/22/16 04:34 Lab Results: I have reviewed the past 24 hour labs Quality Measures - Stroke Symptom Onset Unknown: No Specialty Discharge - Follow Up or Referrals Follow up with: Jerel Guo MD [Physician] - - Discharge Medications No Action Mycophenolate Mofetil [Cellcept] 1,000 mg PO BID Aliskiren [Tekturna] 150 mg PO BID Montelukast Tab [Singulair Tab] 10 mg PO BEDTIME #60 tablet Insulin Aspart Prot/Asp 70/30 [NovoLOG Mix 70/30] See Protocol SUBCUT DAILY PRN PRN Reason: Glucose Management cloNIDine TAB [Catapres Tab] 0.3 mg PO QPM cloNIDine TAB [Catapres Tab] 0.2 mg PO QAM amLODIPine [Norvasc] 5 mg PO DAILY Albuterol Neb [Proventil Neb] 0.63 mg RESP TX TID PRN PRN Reason: Shortness Of Breath Adalimumab [Humira] 40 mg SUBCUT Q14D Omeprazole [Prilosec] 40 mg PO QPM Levothyroxine Tab [Synthroid Tab] 200 mcg PO DAILY
[2016-02-22] MEDS: ACETAMINOPHEN/CODEINE 300-30 MG TABLET PO PRN (20:48)
[2016-02-22] MEDS: ENOXAPARIN 40 MG/0.4 ML SYRINGE SUBCUT SCH (22:02)
[2016-02-23] MEDS: ALBUTEROL/IPRATROPIUM 3 ML NEB RESP TX SCH ×2 (01:06→07:25)
[2016-02-23] MEDS: LEVOTHYROXINE 200 MCG TABLET PO SCH (06:57)
[2016-02-23] MEDS ORDERED: predniSONE 20 MG TABLET PO SCH (09:00)
[2016-02-23] MEDS ORDERED: LEVOFLOXACIN 500 MG TABLET PO SCH (09:00)
[2016-02-23] MEDS: INSULIN REGULAR 100 UNIT/ML SUBCUT SCH ×2 (09:03→13:40)
--- NOTE | 2016-02-23 10:19 | Pulmonology Progress Note ---
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 She is on immunosuppressive drugs long- term. She came in with an acute episode of bronchitis and probably bronchopneumonia. She feels better today. She still coughing up some phlegm. No fever. 02/18/2016 patient is feeling a little better but he gets very short of breath with minimal effort. She asked me today if I will follow her from a pulmonary standpoint post discharge. She will continue to follow at [facility] pulmonary clinic , as well. It may be a few more days before she can be discharged. 02/19/2016 she is less dyspneic with effort. She does have some nausea today. Will be given Zofran. Reducing steroids. 02/22/2016 dyspnea is improved. She has a sensation of something in her throat causing her difficulty swallowing. Airway is open. She is on antifungal medications. We'll change her to oral medications. She can be discharged. May want to get her set up with GI to evaluate her throat. 02/23/2016 patient is improved. Still having some difficulty with swallowing. She is set up for an EGD. Exam (Progress Note) - Constitutional Vitals: Period Temp Pulse Resp BP Sys/Parks Pulse Ox Last 24 Hr 96.9 F-97.7 F 61-98 16-20 118-154/82-97 93-100 Exam: She is alert oriented vital signs are normal. HEENT: Pupils react to light. Throat is clear. Neck supple no bruits. Chest sounds clear. Heart normal rate rhythm no murmurs. Abdomen soft nontender no masses. Bowel sounds present. Extremities no clubbing cyanosis or edema. Calves nontender. Results - Labs CBC & BMP: 02/22/16 04:34 02/22/16 04:34 Lab Results: I have reviewed the past 24 hour labs Assessment and Plan (1) Rheumatoid arthritis Status: Acute Assessment and plan: Patient has long-term history of a maternal arthritis and is on Humira for that. She is immunocompromised with that. 02/18/2016 continuing medications for RA. 02/22/2016 continuing her rheumatoid arthritis medications and follow-up with rheumatology. 02/23/2016 continue rheumatoid medications. Current Visit: Yes (2) Nonspecific interstitial pneumonitis Status: Acute Assessment and plan: She has interstitial lung disease that is associated with her rheumatoid arthritis. She takes CellCept for that long-term. Again she is immunocompromised from that medication. 02/18/2016 interstitial lung disease associated with rheumatoid arthritis. On CellCept. Also getting Humira. 02/19/2016 getting steroids and antibiotics for acute exacerbation. She has sputum production which certainly sounds like acute bronchitis with bronchopneumonia. 02/22/2016 this is related to her rheumatoid arthritis. On chronic low-dose prednisone for that. Also on CellCept. Follow-up at [facility]. She has asked me to follow her here as well. 02/23/2016 continuing prednisone and CellCept. She is immunocompromised from this. She follows at [facility]. She is asked me to follow her here as well. Current Visit: Yes (3) Acute bronchitis Status: Acute Assessment and plan: Patient came in with cough congestion sputum production and some bronchospasm. Being treated with broad-spectrum antibiotics and Solu-Medrol as well as bronchodilators. 02/18/2016 empiric antibiotics and steroids for acute bronchitis. Cultures negative thus far. 02/19/2016 symptoms better. She's not wheezing. Cultures are negative. Taper steroids. 02/22/2016 symptoms much better. No coughing or wheezing. Her graft 2016 bronchitis improved. Now on oral medications. Can be discharged as soon as dysphagia evaluated and treated. Current Visit: Yes (4) Bronchopneumonia Status: Acute Assessment and plan: I do think she has some acute bronchopneumonia. She is on broad-spectrum antibiotics. 02/18/2016 again we're continuing antibiotics. 02/19/2016 she is on Levaquin. 02/22/2016 can be discharged on oral Levaquin. Current Visit: Yes (5) Diabetes mellitus Status: Acute Assessment and plan: Watch glucoses closely on steroids. Glucoses are running from 180-220. 02/18/2016 glucose is fairly well controlled now. 02/19/2016 blood sugars continue to be fairly well controlled. 02/22/16 glucoses well controlled despite prednisone. 02/23/2016 glucoses continue to be well controlled. Current Visit: Yes Specialty Discharge - Follow Up or Referrals Follow up with: Jerel Guo MD [Physician] - 03/07/16 2:00 pm - Discharge Medications No Action Mycophenolate Mofetil [Cellcept] 1,000 mg PO BID Aliskiren [Tekturna] 150 mg PO BID Montelukast Tab [Singulair Tab] 10 mg PO BEDTIME #60 tablet Insulin Aspart Prot/Asp 70/30 [NovoLOG Mix 70/30] See Protocol SUBCUT DAILY PRN PRN Reason: Glucose Management cloNIDine TAB [Catapres Tab] 0.3 mg PO QPM cloNIDine TAB [Catapres Tab] 0.2 mg PO QAM amLODIPine [Norvasc] 5 mg PO DAILY Albuterol Neb [Proventil Neb] 0.63 mg RESP TX TID PRN PRN Reason: Shortness Of Breath Adalimumab [Humira] 40 mg SUBCUT Q14D Omeprazole [Prilosec] 40 mg PO QPM Levothyroxine Tab [Synthroid Tab] 200 mcg PO DAILY
[2016-02-23] MEDS: MONTELUKAST 10 MG TABLET PO SCH (10:36)
[2016-02-23] MEDS: PANTOPRAZOLE 40 MG TABLET PO SCH (10:38)
[2016-02-23] MEDS: amLODIPine 5 MG TABLET PO SCH (10:38)
[2016-02-23] MEDS: FLUCONAZOLE 100 MG TABLET PO SCH (10:38)
[2016-02-23] MEDS: ALISKIREN 150 MG TABLET PO SCH (10:39)
[2016-02-23] MEDS: MYCOPHENOLATE MOFETIL 250 MG CAPSULE PO SCH (10:40)
[2016-02-23] MEDS: NYSTATIN 500,000 UNIT/5 ML UDCUP SWISH/SWAL SCH (10:41)
--- NOTE | 2016-02-23 11:35 | Discharge Summary ---
Hospital Course - Hospital Course Hospital Course: This walker was admitted with acute on chronic respiratory failure due to exacerbation of pulmonary fibrosis along with bronchopneumonia. She was treated with IV antibiotics, steroids, nebulized breathing treatments and supplemental oxygen. She wears oxygen at home as well. She did well on this therapy and seems to be at or near baseline in terms of her pulmonary status. She did report dysphagia during her hospitalization and also showed evidence of oral candidiasis. She was set up for an EGD however she has eaten today, surprisingly without much difficulty, and will be set up for an outpatient EGD. She may be discharged today. - Time spent with patient Time with patient DS: Greater than 30 minutes Diagnosis - Discharge Diagnosis (1) Acute exacerbation of chronic obstructive airways disease Status: Acute (2) Pulmonary fibrosis Status: Acute (3) HTN (hypertension) Status: Chronic (4) Type 2 diabetes mellitus Status: Chronic (5) Oral candidiasis Status: Acute (6) Acute on chronic respiratory failure Status: Acute Specialty Discharge - Follow Up or Referrals Follow up with: Jerel Guo MD [Physician] - 03/07/16 2:00 pm - Speciality Discharge Instructions Hospitalist Instructions: outpatient EGD w Dr Arellano to be scheduled - Discharge Medications No Action Mycophenolate Mofetil [Cellcept] 1,000 mg PO BID Aliskiren [Tekturna] 150 mg PO BID Montelukast Tab [Singulair Tab] 10 mg PO BEDTIME #60 tablet Insulin Aspart Prot/Asp 70/30 [NovoLOG Mix 70/30] See Protocol SUBCUT DAILY PRN PRN Reason: Glucose Management cloNIDine TAB [Catapres Tab] 0.3 mg PO QPM cloNIDine TAB [Catapres Tab] 0.2 mg PO QAM amLODIPine [Norvasc] 5 mg PO DAILY Albuterol Neb [Proventil Neb] 0.63 mg RESP TX TID PRN PRN Reason: Shortness Of Breath Adalimumab [Humira] 40 mg SUBCUT Q14D Omeprazole [Prilosec] 40 mg PO QPM Levothyroxine Tab [Synthroid Tab] 200 mcg PO DAILY Discharge Plan - Discharge Data Disposition: Disch To Home/Self Care Condition at Discharge: Stable - Discharge Medications New Fluconazole Tab [Diflucan Tab] 100 mg PO DAILY #5 tablet Levofloxacin Tab [Levaquin Tab] 500 mg PO DAILY #5 tablet Montelukast Tab [Singulair Tab] 10 mg PO DAILY #30 tablet predniSONE TAB [PredniSONE] 10 mg PO DAILY #15 tablet Continue Mycophenolate Mofetil [Cellcept] 1,000 mg PO BID Aliskiren [Tekturna] 150 mg PO BID Montelukast Tab [Singulair Tab] 10 mg PO BEDTIME #60 tablet Insulin Aspart Prot/Asp 70/30 [NovoLOG Mix 70/30] See Protocol SUBCUT DAILY PRN PRN Reason: Glucose Management cloNIDine TAB [Catapres Tab] 0.3 mg PO QPM cloNIDine TAB [Catapres Tab] 0.2 mg PO QAM amLODIPine [Norvasc] 5 mg PO DAILY Albuterol Neb [Proventil Neb] 0.63 mg RESP TX TID PRN PRN Reason: Shortness Of Breath Adalimumab [Humira] 40 mg SUBCUT Q14D Omeprazole [Prilosec] 40 mg PO QPM Levothyroxine Tab [Synthroid Tab] 200 mcg PO DAILY - Follow Up or Referral Follow Up: Jerel Guo MD [Physician] - 03/07/16 2:00 pm - Forms/Instructions Instructions: Pulmonary Fibrosis (ED) Exam - Constitutional Vitals: Period Temp Pulse Resp BP Sys/Parks Pulse Ox Last 24 Hr 96.9 F-97.7 F 61-98 16-20 118-154/82-97 93-100 Exam: EXAM: CONSTITUTIONAL: non toxic, NAD HEENT: NC, AT, OP clear, BRANDI, EOMI CV: RRR no m/g/r RESP: Coarse B/L, scant expiratory wheeze GI: abd soft, NT, ND, +bowel sounds INTEGUMENTARY: no lesions or rash EXTREMITIES: no c/c/e NEURO: no focal deficits PSYCH: unremarkable, A/O x3 Discharge Results Labs on day of discharge: Labs from last 24 hours 02/23/16 02/23/16 02/22/16 11:23 07:02 20:19 POC Glucose 133 H 133 H 178 H 02/22/16 02/22/16 16:34 11:39 POC Glucose 121 H 169 H DS: Provider Date of admission: 02/15/16 21:41 Primary care physician: . No PCP Attending physician on admission: Julio Cesar Benz MD Consults: 02/15/16 22:42 Consult to Pharmacy [CONS] Routine Reason for Pharmacy Consult: Adjust Meds Renal Funct 02/21/16 15:59 Consult to Physician [CONS] Routine Comment: dysphagia, "food getting stuck" thrush Consulting Provider: Maxim Arellano Consulting Provider Notified: Yes When should Consulting Provider be notified: Now Consult to Specialist Group: Gastroenterology When should Consulting Provider be notified: In am Person Notified: arianna eaton Date Notified: 02/22/16 Time Notified: 11:47 Discharging clinician: Arie Lang DO Expected date of discharge: 02/23/16
--- NOTE | 2016-02-23 13:26 | History and Physical Update ---
History and Physical Update - Physical Exam Mental Status: alert and oriented Heart: regular rate and rhythm Lung: clear to auscultation Abdomen: within normal limits Vitals: within normal limits History and Physical Changes: 71-year-old female has had recent odynophagia and dysphagia symptoms.
[2016-02-23 13:41] VITALS: BP 151/91
== END 2016-02-23 13:40 | disposition home or self-care (01) | DRG 190 ==
LOC: N.ED 19:03 → SUATTDRO 21:41 → N.EDINP 21:41 → N.3E 22:27
PROVIDERS: ADMIT Internal Medicine; ATTEND Internal Medicine

== ENCOUNTER 2016-04-07 18:28 | Inpatient (IN) ==
[2016-04-07] MEDS ORDERED: methylPREDNISolone SOD SUC 125 MG/2 ML VIAL IV STA (18:58)
[2016-04-07] MEDS ORDERED: ALBUTEROL/IPRATROPIUM 3 ML NEB RESP TX STA (18:58)
[2016-04-07] MEDS ORDERED: AZITHROMYCIN INJ 500 MG in SODIUM CHLORIDE 0.9% 250 ML IV STA (18:58)
[2016-04-07] MEDS ORDERED: FUROSEMIDE 100 MG/10 ML VIAL IV STA (18:58)
--- NOTE | 2016-04-07 19:05 | Emergency Department Note ---
Arrival - Arrival Chief Complaint: Shortness of Breath Stated Complaint: shortness of breath swelling in chest/legs ED Nursing Triage Note: C/O leg edema and SOB starting yesterday but much worse today. Pt has labored breaThing in triage. Pt is on continous O4LNC due to pulmonary fibrosis. Pt states sats drop drastically with any light activity. Mode of Arrival: Ambulatory Limitations: No Limitations Source: Patient Time Seen by Provider: 04/07/16 18:58 - History of Present Illness HPI Narrative: This 71-year-old black female with long-standing history of chronic fibrosis which has been progressive of etiology unknown who was most recently bumped from 2 L to 4 L a minute on home O2 presents with onset in the last 48 hours of significant pedal edema and marked upswing in dyspnea at rest. She does normally have severe dyspnea on exertion with precipitous drops in oxygen saturation with any type of exertion. She denies any chills, fever, or sputum production associated with this. She denies a history of congestive heart failure and of any ischemic heart disease previously. In this regard she has had no chest pain in association with this escalation and breathlessness. Currently at rest she is still dyspneic. Onset (ago): day(s) (patient presents 2 days post-onset of symptoms) Consistency: constant Severity: severe Allergies/Adverse Reactions: Allergies Allergy/AdvReac Type Severity Reaction Status Date / Time No Known Allergies Allergy Verified 04/07/16 18:47 Home Medications: Home Medications Medication Instructions Recorded Confirmed Type Aliskiren [Tekturna] 150 mg PO BID 01/27/15 02/26/16 History Mycophenolate Mofetil [Cellcept] 1,000 mg PO BID 01/27/15 02/26/16 History Montelukast Tab [Singulair Tab] 10 mg PO BEDTIME #60 tablet 04/08/15 02/26/16 Rx Adalimumab [Humira] 40 mg SUBCUT Q14D 02/15/16 02/26/16 History Albuterol Neb [Proventil Neb] 0.63 mg RESP TX TID PRN 02/15/16 02/26/16 History Insulin Aspart Prot/Asp 70/30 See Protocol SUBCUT DAILY PRN 02/15/16 02/26/16 History [NovoLOG Mix 70/30] Levothyroxine Tab [Synthroid Tab] 200 mcg PO DAILY 02/15/16 02/26/16 History Omeprazole [Prilosec] 40 mg PO QPM 02/15/16 02/26/16 History amLODIPine [Norvasc] 5 mg PO DAILY 02/15/16 02/26/16 History cloNIDine TAB [Catapres Tab] 0.2 mg PO QAM 02/15/16 02/26/16 History cloNIDine TAB [Catapres Tab] 0.3 mg PO QPM 02/15/16 02/26/16 History Review of System - Review of System 12 point system: reviewed and no additional remarkable complaints except as stated - Review of System Constitutional: Present: as per HPI Respiratory: Present: as per HPI Cardiovascular: Present: as per HPI Medical,Surgical,& Family Hx - Medical History Cardio: History of: Cardiac Dysrhythmia (in past), Hypertension No history of: CHF, [place], Pacemaker Neurology: No history of: Seizures Endocrine: History of: Diabetes Mellitus (IDDM), Thyroid Disorder Rheumatology: History of;: Rheumatoid Arthritis Respiratory: History of: Pneumonia, Respiratory Problems (PULMONARY FIBROSIS LUNG BX HOME O2) No history of: Asthma, COPD Gastrointestinal: History of: GERD, GI Problems (dysphagia) No history of: Hepatitis, Liver Problems Hematology: History of: Anemia No history of: Blood Transfusion Reaction Other: No history of: Anesthesia Reactions, Cancer - Surgical History Cardiac Surgeries: Patient Denies: Cardiac Catheterization, Carotid Endarterectomy Thoracic Surgeries: Patient denies;: Lobectomy HEENT Surgeries: Surgical HX of: Eye Surgery (cataracts), Thyroid Surgery ( thyroidectomy-2002) Patient denies: Carotid Endarterectomy, Tonsilectomy & Adenoidectomy Abdominal Surgeries: Surgical HX of: Colonoscopy, EGD Patient denies: Abdominal Surgery, Appendectomy, Cholecystectomy, Hernia Repair Reproductive Surgeries: Patient denies;: Breast Surgery Orthopedic Surgeries: Patient denies;: Orthopedic Surgery, Total Hip Replacement, Total Knee Replacement - Social History Smoking Status: Never smoker Frequency of Alcohol Use: None Type of Drug Use: None Exam Physical Examination: GENERAL: Well developed, well nourished distant black female in mild respiratory distress HEENT: Normocephalic. No trauma. Moist mucous membranes. EOMI. PERRLA. ENT clear NECK: Supple. No adenopathy. CARDIAC: Regular. No murmurs. Heart rate 100 CHEST: Diffuse Velcro rales. Mild respiratory distress. O2 sat on 4 L 95% ABDOMEN: Soft. Nontender. Active bowel sounds. EXTREMITIES: No trauma. Normal ROM. 2+ pedal edema. SKIN: No diaphoresis. No rash. NEURO: Alert. Neuro intact. No focal deficits. Vital Signs: Vital Signs Temperature 97.7 F 04/07/16 18:47 Pulse Rate 118 H 04/07/16 19:16 Respiratory Rate 16 04/07/16 19:16 Blood Pressure 140/83 04/07/16 18:47 O2 Sat by Pulse Oximetry 100 04/07/16 19:16 Course - Reevaluation(s) Reevaluation #1: Discussed with patient that despite the relative normalcy of her laboratories her chest x-ray and clinical presentation would seem to indicate an escalation in her pulmonary fibrosis with complicating cor pulmonale. To this end she will be hospitalized for further diuresis and stabilization. - Consultations Consultation #1: Discussed with hospitalist service who will admit for further evaluation and treatment. Results - Labs CBC & BMP: 04/07/16 20:02 04/07/16 00:00 Labs: I reviewed the patient's laboratory and noted its relative normalcy. - Impressions EKG: Sinus rhythm at 94 with normal CO interval and QRS duration. Left atrial enlargement with right ventricular hypertrophy. Nonspecific ST changes. No acute injury pattern noted. - Diagnostic Findings Procedure: Chest x-ray: image reviewed by me, report reviewed by me ( progression of parenchymal changes with possibility of not only fibrosis's of fluid) Disposition Clinical Impression: progressive pulmonary fibrosis, cor pulmonale Case discussed with: patient Disposition: Still a Patient Condition: Stable Instructions: Pulmonary Fibrosis (ED) Time of Disposition: 00:41
[2016-04-07] MEDS ORDERED: methylPREDNISolone SOD SUC 125 MG/2 ML VIAL ONE (19:06)
[2016-04-07] MEDS ORDERED: FUROSEMIDE 100 MG/10 ML VIAL ONE (19:06)
[2016-04-07] MEDS ORDERED: AZITHROMYCIN 500 MG VIAL IV ONE (19:06)
--- NOTE | 2016-04-07 19:13 | XRay Report ---
Exam: XR chest 2V Indication: Shortness of breath Comparison study: 02/15/2016 Findings: Cardiac silhouette is mildly enlarged, similar to prior. Low lung volumes are noted with slight worsening of perihilar and basilar interstitial/airspace opacities, which may represent pulmonary edema changes, basilar atelectasis or infectious/inflammatory infiltrates. There is no focal consolidation or pneumothorax. There is a sclerotic lesion within the proximal left humerus measuring approximately 1.3 cm, which is unchanged from a March 2015 CT and therefore may represent a nonaggressive lesion. Impression: Cardiomegaly with slight worsening of perihilar and basilar opacities may represent pulmonary edema changes versus atelectasis and/or infectious/inflammatory infiltrates. PROCEDURE INTERPRETED AT [facility] Final Report Signed by: Mikel Lee
--- NOTE | 2016-04-07 19:57 | EKG Report ---
Stationary ECG Study [facility] ER Test Date: 04/07/2016 7:56:10 PM Pat Name: LAW MATRE Department: Room: Gender: F Admissions Clinician: : 1945 Requested by: Chong Jacques Order Number: [id number] Reading MD: VLADIMIR LIND Intervals Morton Rate: 94 P: 49 SD: 160 QRS: 104 QRSD: 90 T: 30 QT: 368 QTc: 420 Interpretive Statements SINUS RHYTHM LEFT ATRIAL ENLARGEMENT POSSIBLE RIGHT VENTRICULAR HYPERTROPHY NONSPECIFIC T-WAVE ABNORMALITY Electronically Signed On 04-07-16 23:32:15 [employer]INT [employer] by VLADIMIR LIND [email or web address]
[2016-04-07 20:58] LABS: Apearance,Urine CLEAR (Clear); Bilirubin,Urine Negative (Negative); Blood, Urine Negative (Negative); Glucose,Urine (UA) Negative (Negative); Hyaline Casts,Urine 3 /LPF (0-3); Ketones,Urine Negative (Negative); Mucus,Urine Occasional /LPF (Occasional); Nitrite,Urine Negative (Negative); Protein,Urine 100 MG/DL; RBC,Urine <1 /HPF (0-4); Squamous Epithelial Cell,Urine Occasional /HPF (0-10); Urine Color Yellow (Yellow); Urine Specific Gravity 1.024 (1.001-1.035); Urine Urobilinogen < 2.0 EU/DL (0.2-1.0); WBC,Urine <1 /HPF (0-6)
[2016-04-07 22:21] LABS: Basophils # 0.1 10*3/uL (0.0-0.2); Basophils % 1.2 % (0.0-0.8); Eosinophils # 0.2 10*3/uL (0.0-0.87); Hematocrit 42.9 VOL% (35.7-47.0); Hemoglobin 13.4 GM/DL (12.0-16.0); Immature Granulocytes % 0.4 %; Immature Granulocytes Absolute 0.03 #; Lymphocytes % 26.1 % (21.3-54.2); Mean Corpuscular HGB Conc 31.2 GM/DL (32-36); Mean Corpuscular Hemoglobin 28 PG (27-34); Mean Corpuscular Volume 88.8 FL (87-102); Mean Platelet Volume 10.5 FL (9.6-12.0); Monocytes # 0.5 10*3/uL (0.11-0.8); Monocytes % 6.6 % (1.7-12.7); Neutrophils # 4.8 10*3/uL (1.4-7.4); Neutrophils % 62.7 % (38.7-73.9); Platelet Count 308 T/CUMM (130-400); Red Blood Count 4.83 MC/CUMM (3.8-5.5); White Blood Count 7.7 T/CUMM (4-12)
[2016-04-07] MEDS ORDERED: FUROSEMIDE 40 MG/4 ML VIAL IV STA (23:28)
[2016-04-08] MEDS ORDERED: FUROSEMIDE 40 MG/4 ML VIAL ONE
[2016-04-08 00:16] LABS: INR 1.2; PT Patient Result 13.1 SECS; Partial Thromboplastin Time 23.9 SECS (0-40)
[2016-04-08 00:32] LABS: Albumin 3.5 G/DL (3.4-5.0); Bilirubin,Total 0.6 MG/DL (0.2-1.0); Calcium 9.2 MG/DL (8.5-10.1); Osmolality,Calculated 291.8 MOS/KG (273-304); Potassium 4.1 MMOL/L (3.5-5.1); Total Protein 6.7 G/DL (6.4-8.3)
[2016-04-08] MEDS ORDERED: ZALEPLON 5 MG CAPSULE PO PRN (01:04)
[2016-04-08] MEDS ORDERED: ONDANSETRON 4 MG/2 ML VIAL IV PRN (01:04)
--- NOTE | 2016-04-08 01:04 | Hospitalist History & Physical ---
Assessment and Plan (1) Dyspnea Status: Acute Assessment and plan: start steroids and nebulizer treatments Current Visit: Yes Qualifiers: Dyspnea type: shortness of breath Qualified Code(s): R06.02 - Shortness of breath (2) Cor pulmonale Status: Acute Assessment and plan: lasix given in er. aldactone added Current Visit: Yes (3) Pulmonary fibrosis Status: Acute Assessment and plan: consult Dr. Guo Current Visit: Yes (4) Rheumatoid arthritis Status: Chronic Assessment and plan: on humira Current Visit: No Qualifiers: Laterality: bilateral (5) HTN (hypertension) Status: Chronic Current Visit: No Qualifiers: Hypertension type: essential hypertension Qualified Code(s): I10 - Essential (primary) hypertension (6) Type 2 diabetes mellitus Status: Chronic Current Visit: No Qualifiers: Diabetes mellitus complication status: without complication History of Present Illness Chief complaint: SOB and leg edema History of present illness: Ms. Bowens is a 71 year old female with a long-standing history of chronic pulmonary fibrosis which has been progressive. She was most recently increased from 2 L to 4 L a minute on home O2. She reports onset in the last 48 hours of significant pedal edema and marked upswing in dyspnea at rest. She does normally have severe dyspnea on exertion with precipitous drops in oxygen saturation with any type of exertion. She denies any chills, fever, or sputum production associated with this. She denies a history of congestive heart failure and of any ischemic heart disease previously. In this regard she has had no chest pain in association with this escalation and breathlessness. Currently at rest she is still dyspneic. She reports a 13 lbs weight gain in a matter of a few days- presumably fluid. Home Medications Medication Instructions Recorded Confirmed Type Aliskiren [Tekturna] 150 mg PO BID 01/27/15 02/26/16 History Mycophenolate Mofetil [Cellcept] 1,000 mg PO BID 01/27/15 02/26/16 History Montelukast Tab [Singulair Tab] 10 mg PO BEDTIME #60 tablet 04/08/15 02/26/16 Rx Adalimumab [Humira] 40 mg SUBCUT Q14D 02/15/16 02/26/16 History Albuterol Neb [Proventil Neb] 0.63 mg RESP TX TID PRN 02/15/16 02/26/16 History Insulin Aspart Prot/Asp 70/30 See Protocol SUBCUT DAILY PRN 02/15/16 02/26/16 History [NovoLOG Mix 70/30] Levothyroxine Tab [Synthroid Tab] 200 mcg PO DAILY 02/15/16 02/26/16 History Omeprazole [Prilosec] 40 mg PO QPM 02/15/16 02/26/16 History amLODIPine [Norvasc] 5 mg PO DAILY 02/15/16 02/26/16 History cloNIDine TAB [Catapres Tab] 0.2 mg PO QAM 02/15/16 02/26/16 History cloNIDine TAB [Catapres Tab] 0.3 mg PO QPM 02/15/16 02/26/16 History Allergies Allergy/AdvReac Type Severity Reaction Status Date / Time No Known Allergies Allergy Verified 04/07/16 18:47 Medical,Surgical,& Family Hx - Medical History Cardio: History of: Cardiac Dysrhythmia (in past), Hypertension No history of: CHF, [place], Pacemaker Neurology: No history of: Seizures Endocrine: History of: Diabetes Mellitus (IDDM), Thyroid Disorder Rheumatology: History of;: Rheumatoid Arthritis Respiratory: History of: Pneumonia, Respiratory Problems (PULMONARY FIBROSIS LUNG BX HOME O2) No history of: Asthma, COPD Gastrointestinal: History of: GERD, GI Problems (dysphagia) No history of: Hepatitis, Liver Problems Hematology: History of: Anemia No history of: Blood Transfusion Reaction Other: No history of: Anesthesia Reactions, Cancer - Surgical History Cardiac Surgeries: Patient Denies: Cardiac Catheterization, Carotid Endarterectomy Thoracic Surgeries: Patient denies;: Lobectomy HEENT Surgeries: Surgical HX of: Eye Surgery (cataracts), Thyroid Surgery ( thyroidectomy-2002) Patient denies: Carotid Endarterectomy, Tonsilectomy & Adenoidectomy Abdominal Surgeries: Surgical HX of: Colonoscopy, EGD Patient denies: Abdominal Surgery, Appendectomy, Cholecystectomy, Hernia Repair Reproductive Surgeries: Patient denies;: Breast Surgery Orthopedic Surgeries: Patient denies;: Orthopedic Surgery, Total Hip Replacement, Total Knee Replacement - Social History Smoking Status: Never smoker Have you smoked in the last 12 months: No Frequency of Alcohol Use: None Type of Drug Use: None Functional capacity: independent ambulation 12 point system: reviewed and no additional remarkable complaints except as stated - Constitutional Constitutional: Present: fatigue, weight gain (fluid related) - Cardiovascular Cardiovascular: Present: edema - Respiratory Respiratory: Present: cough, dyspnea Exam - Constitutional Vitals: Period Temp Pulse Resp BP Sys/Parks Pulse Ox Last 24 Hr 97.7 F-97.7 F 100-118 16-18 140-140/83-83 95-100 General appearance: mild distress - Head Head exam: Present: normal inspection, normocephalic, atraumatic - Eye Eye exam: Present: EOMI Pupils: Present: BRANDI - ENT ENT exam: Present: normal exam, normal oropharynx - Neck Neck exam: Present: normal inspection. Absent: lymphadenopathy, tenderness - Respiratory Respiratory exam: Present: clear to auscultation bilaterally, wheezes - Cardiovascular Cardiovascular exam: Present: regular rate and rhythm - GI/Abdominal GI/Abdominal exam: Present: normal bowel sounds, soft. Absent: tenderness, rebound - Extremities Exam Extremities exam: Present: normal inspection, full ROM, edema. Absent: calf tenderness - Back Exam Back exam: Present: normal inspection - Neurological Exam Neurological exam: Present: alert, oriented X3 - Psychiatric Psychiatric exam: Present: normal affect, normal mood - Skin Skin exam: Present: normal color, warm, dry Results - Labs CBC & BMP: 04/07/16 20:02 04/07/16 00:00 Lab Results: I have reviewed the past 24 hour labs
[2016-04-08] MEDS ORDERED: ALBUTEROL 0.63 MG/3 ML NEB RESP TX PRN (01:08)
[2016-04-08] MEDS ORDERED: GLUCAGON 1 MG VIAL IM PRN (01:14)
[2016-04-08] MEDS ORDERED: DEXTROSE 50% 25 GM/50 ML VIAL IV PRN (01:14)
[2016-04-08] MEDS ORDERED: NON-FORMULARY MEDICATION (Adalimumab [Humira] 40 MG) SUBCUT SCH (01:15)
[2016-04-08] MEDS ORDERED: methylPREDNISolone SOD SUC 40 MG/1 ML VIAL IV SCH (03:00)
[2016-04-08 06:58] LABS: Calcium 8.9 MG/DL (8.5-10.1); Magnesium 1.7 MG/DL (1.8-2.4); Osmolality,Calculated 294.1 MOS/KG (273-304); Potassium 4.4 MMOL/L (3.5-5.1)
[2016-04-08] MEDS: ALBUTEROL/IPRATROPIUM 3 ML NEB RESP TX SCH ×3 (07:15→20:02)
[2016-04-08] MEDS: INSULIN LISPRO 100 UNIT/ML SUBCUT SCH ×4 (08:13→20:31)
--- NOTE | 2016-04-08 08:19 | Pulmonology Consult Note ---
Assessment and Plan (1) Cor pulmonale Status: Acute Assessment and plan: She has edema, jugular venous distention, increased interstitial markings, and a BNP in the 800s. We need to check an echocardiogram to see if this is indeed cor pulmonale or if she has some left heart disease. Agree with diuresing gently. 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 She is on CellCept and Humira for both the arthritis in the interstitial pneumonitis. This renders her at immunocompromised state. However she does not have signs and symptoms of an acute infection. Current Visit: No (3) Rheumatoid arthritis Status: Chronic Assessment and plan: Continue home medications for this. Current Visit: No Qualifiers: Laterality: bilateral (4) Type 2 diabetes mellitus Status: Chronic Assessment and plan: Defer to primary service. Sliding scale insulin might be helpful. Would not treat with high-dose steroids at this point. Current Visit: No Qualifiers: Diabetes mellitus complication status: without complication History of Present Illness Chief complaint: Edema shortness of breath History of present illness: Ms. Bowens is a 71 year old female has rheumatoid arthritis and interstitial lung disease associated with that. She takes CellCept and Humira chronically for both. Over the last 2 days she has had the onset of swelling in her legs and increased shortness of breath. She denies cough fever sputum production or pleuritic chest pain. She has not had anything to eat unusual. She has not had any change in her medications. She is diabetic. She has hypothyroidism. She was admitted and was found to have an elevated BNP, increased interstitial markings, and edema. She thinks she is gaining 20 pounds but looking back at her white last admission her weight is only up about 2 kg. Home Medications Medication Instructions Recorded Confirmed Type Aliskiren [Tekturna] 150 mg PO BID 01/27/15 02/26/16 History Mycophenolate Mofetil [Cellcept] 1,000 mg PO BID 01/27/15 02/26/16 History Montelukast Tab [Singulair Tab] 10 mg PO BEDTIME #60 tablet 04/08/15 02/26/16 Rx Adalimumab [Humira] 40 mg SUBCUT Q14D 02/15/16 02/26/16 History Albuterol Neb [Proventil Neb] 0.63 mg RESP TX TID PRN 02/15/16 02/26/16 History Insulin Aspart Prot/Asp 70/30 See Protocol SUBCUT DAILY PRN 02/15/16 02/26/16 History [NovoLOG Mix 70/30] Levothyroxine Tab [Synthroid Tab] 200 mcg PO DAILY 02/15/16 02/26/16 History Omeprazole [Prilosec] 40 mg PO QPM 02/15/16 02/26/16 History amLODIPine [Norvasc] 5 mg PO DAILY 02/15/16 02/26/16 History cloNIDine TAB [Catapres Tab] 0.2 mg PO QAM 02/15/16 02/26/16 History cloNIDine TAB [Catapres Tab] 0.3 mg PO QPM 02/15/16 02/26/16 History Allergies Allergy/AdvReac Type Severity Reaction Status Date / Time No Known Allergies Allergy Verified 04/07/16 18:47 12 point system: reviewed and no additional remarkable complaints except as stated - Constitutional Constitutional: Present: fatigue, malaise - Cardiovascular Cardiovascular: Present: dyspnea, dyspnea on exertion, edema, orthopnea - Respiratory Respiratory: Present: dyspnea, dyspnea on exertion - Musculoskeletal Musculoskeletal: Present: arthralgias Exam (Pulmonay) H&P - Constitutional Vitals: Period Temp Pulse Resp BP Sys/Parks Pulse Ox Last 24 Hr 97.4 F-98 F 96-108 18-22 115-123/87-89 96-99 Exam: Vital signs are normal. O2 sat is 96% on 4 L nasal oxygen. She normally wears 2 L. Pupils react to light. Throat is clear. Neck supple no bruits. Mild jugular venous distention. Chest reveals some bibasilar crackles. Heart normal rate and rhythm no murmurs no rubs no gallops. Abdomen soft nontender no masses. Extremities she has 2+ edema of ankles and it is pitting. Calves are nontender. Medical,Surgical,& Family Hx - Medical History Cardio: History of: Cardiac Dysrhythmia (in past), Hypertension No history of: CHF, [place], Pacemaker Neurology: No history of: Brain Aneurysm, Cerebral Hemorrhage, Cerebrovascular Accident , Cerebral Palsy, Dementia, Migraine, Multiple Sclerosis, Parkinson's Disease, Peripheral Neuropathy, Seizures, TIA, Vertigo, Neurologocal Cancer Endocrine: History of: Diabetes Mellitus (IDDM), Thyroid Disorder Rheumatology: History of;: Rheumatoid Arthritis Respiratory: History of: Pneumonia, Respiratory Problems (PULMONARY FIBROSIS LUNG BX HOME O2) No history of: Asthma, COPD Gastrointestinal: History of: GERD, GI Problems (dysphagia) No history of: Hepatitis, Liver Problems Hematology: History of: Anemia No history of: Blood Transfusion Reaction Other: No history of: Anesthesia Reactions, Cancer - Surgical History Cardiac Surgeries: Patient Denies: Cardiac Catheterization, Carotid Endarterectomy Thoracic Surgeries: Patient denies;: Lobectomy Neurologic Surgeries: Patient denies: Brain Aneurysm, Cerebral Hemorrhage, Neurologic Surgery HEENT Surgeries: Surgical HX of: Eye Surgery (cataracts), Thyroid Surgery ( thyroidectomy-2002) Patient denies: Carotid Endarterectomy, Tonsilectomy & Adenoidectomy Abdominal Surgeries: Surgical HX of: Colonoscopy, EGD Patient denies: Abdominal Surgery, Appendectomy, Cholecystectomy, Hernia Repair Reproductive Surgeries: Patient denies;: Breast Surgery Orthopedic Surgeries: Patient denies;: Orthopedic Surgery, Total Hip Replacement, Total Knee Replacement - Social History Smoking Status: Never smoker Frequency of Alcohol Use: None Type of Drug Use: None Results - Labs CBC & BMP: 04/07/16 20:02 04/08/16 06:06 Lab Results: I have reviewed the past 24 hour labs - Diagnostic Findings Procedure: Chest x-ray: image reviewed by me (Chronic interstitial lung disease with slightly increased markings consistent with congestive heart failure. Could also represent progression of her interstitial lung disease but that is less likely.) Specialty Discharge - Follow Up or Referrals
[2016-04-08] MEDS: cloNIDine 0.1 MG TABLET PO SCH ×2 (08:50→18:16)
[2016-04-08] MEDS: SPIRONOLACTONE 25 MG TABLET PO SCH ×2 (08:50→20:16)
[2016-04-08] MEDS: LEVOTHYROXINE 200 MCG TABLET PO SCH (08:51)
[2016-04-08] MEDS: PANTOPRAZOLE 40 MG TABLET PO SCH (08:51)
[2016-04-08] MEDS: amLODIPine 5 MG TABLET PO SCH (08:51)
[2016-04-08] MEDS: ALISKIREN 150 MG TABLET PO SCH ×2 (08:51→20:19)
[2016-04-08] MEDS: MYCOPHENOLATE MOFETIL 250 MG CAPSULE PO SCH ×2 (08:52→20:16)
[2016-04-08] MEDS: ENOXAPARIN 40 MG/0.4 ML SYRINGE SUBCUT SCH (08:52)
[2016-04-08] MEDS ORDERED: MAGNESIUM SULF RIDER 2 GM in PREMIX 1 EACH IV ONE (09:04)
--- NOTE | 2016-04-08 09:07 | Hospitalist Progress Note ---
Assessment and Plan (1) Dyspnea Status: Acute Assessment and plan: avoid steroids per pulmonary continue nebulizer treatments Current Visit: Yes Qualifiers: Dyspnea type: shortness of breath Qualified Code(s): R06.02 - Shortness of breath (2) Cor pulmonale Status: Acute Assessment and plan: IV lasix added aldactone added follow up echo Current Visit: Yes (3) Pulmonary fibrosis Status: Acute Assessment and plan: consult Dr. Guo Current Visit: Yes (4) Rheumatoid arthritis Status: Chronic Assessment and plan: on humira and cellcept Current Visit: No Qualifiers: Laterality: bilateral (5) HTN (hypertension) Status: Chronic Current Visit: No Qualifiers: Hypertension type: essential hypertension Qualified Code(s): I10 - Essential (primary) hypertension (6) Type 2 diabetes mellitus Status: Chronic Current Visit: No Qualifiers: Diabetes mellitus complication status: without complication (7) Nonspecific interstitial pneumonitis Status: Acute Assessment and plan: related to RA Current Visit: No Hospitalist: Subjective Interval history: Seen and examined. No acute events. Has good urine output with lasix. Consult from pulmonary reviewed. magnesium is low and will be replaced. Exam - Constitutional Vitals: Period Temp Pulse Resp BP Sys/Parks Pulse Ox Last 24 Hr 97.4 F-98 F 92-108 16-22 115-123/87-89 96-99 General appearance: no acute distress - Head Head exam: Present: normal inspection, normocephalic, atraumatic - Respiratory Respiratory exam: Present: clear to auscultation bilaterally - Cardiovascular Cardiovascular exam: Present: regular rate and rhythm - GI/Abdominal GI/Abdominal exam: Present: normal bowel sounds, soft. Absent: tenderness, rebound - Extremities Exam Extremities exam: Present: edema - Neurological Exam Neurological exam: Present: alert, oriented X3 - Psychiatric Psychiatric exam: Present: normal affect, normal mood Results - Labs CBC & BMP: 04/07/16 20:02 04/08/16 06:06 Lab Results: I have reviewed the past 24 hour labs Specialty Discharge - Follow Up or Referrals
[2016-04-08] MEDS: FUROSEMIDE 20 MG/2 ML VIAL IV SCH (10:15)
--- NOTE | 2016-04-08 19:43 | ECHO Report ---
Carmencita Bowens Exam Date: 04/08/2016 09:20 Referring Physician: Technologist: Alba BRUNSON Age: 71 Ht (in): Wt (lb): Gender: F Exam Location: [facility] Echo Indications: DM, HTN, dyspnea, Cor pulmonale, pulmonary fibrosis BP: / HR: Rhythm: Sinus Technical Quality: IMPRESSIONS Normal left ventricular size, with mild concentric hypertrophy. Abnormal septal motion, with normal systolic thickening. Estimated left ventricle ejection fraction 50%. Dilated right-sided heart chambers, with decreased right ventricular systolic function, with severe tricuspid regurgitation and severe pulmonary hypertension. Mild left atrial enlargement. Moderate mitral regurgitation. Aortic valve sclerosis, without stenosis. Trace pericardial effusion. Moderate pulmonary valve insufficiency. MEASUREMENTS (Male / Female) Normal Values 2D ECHO LV Diastolic Diameter PLAX 3.6 cm 4.2 - 5.9 / 3.9 - 5.3 cm LV Systolic Diameter PLAX 2.4 cm LV Fractional Shortening PLAX 35.3 % IVS Diastolic Thickness 1.4 cm 0.6 - 1.0 / 0.6 - 0.9 cm LVPW Diastolic Thickness 1.4 cm 0.6 - 1.0 / 0.6 - 0.9 cm RV Internal Dim ED PLAX 3.8 cm Aortic Root Diameter 2.3 cm LA Systolic Diameter LX 3.9 cm 3.0 - 4.0 / 2.7 - 3.8 cm DOPPLER TR Peak Velocity 412.0 cm/s TR Peak Gradient 67.9 mmHg FINDINGS Left Ventricle Normal left ventricular size, with mild concentric hypertrophy. Abnormal septal motion, with normal systolic thickening. Estimated left ventricle ejection fraction 50%. Insufficient data to estimate diastolic function. Right Ventricle The right ventricle is moderately dilated, with decreased systolic function. Right Atrium Severely dilated right atrium. Left Atrium Mildly increased left atrial diameter. Mitral Valve Mildly thickened mitral valve with moderate concentric mitral regurgitation. Aortic Valve Aortic valve sclerosis without stenosis. Trace aortic valve regurgitation. Tricuspid Valve Morphologically normal tricuspid valve. Severe tricuspid valve regurgitation. Tricuspid regurgitation velocities suggest a PAP of 67.9 mmHg + RAP, which may be underestimated due to the severity of the regurgitation. Pulmonic Valve Morphologically normal pulmonic valve. Moderate pulmonary valve regurgitation. Pericardium Trace pericardial effusion. Aorta Normal size aortic root and proximal ascending aorta. Devang Cordova (Electronically Signed) Final Date: 08 April 2016 19:43
[2016-04-08] MEDS: MONTELUKAST 10 MG TABLET PO SCH (20:19)
[2016-04-09] MEDS: ALBUTEROL/IPRATROPIUM 3 ML NEB RESP TX SCH ×4 (00:11→19:35)
[2016-04-09 07:28] LABS: Calcium 8.6 MG/DL (8.5-10.1); Magnesium 2.1 MG/DL (1.8-2.4); Osmolality,Calculated 286.1 MOS/KG (273-304); Potassium 3.9 MMOL/L (3.5-5.1)
--- NOTE | 2016-04-09 08:02 | XRay Report ---
Exam: Chest 2 views Date: April 09, 2016 at 7:19 AM Comparison: Chest 2 views April 07, 2016 Reason: Nonspecific interstitial pneumonitis, congestive heart failure Findings: The cardiac silhouette is again enlarged, and there is persistent mild elevation of the right hemidiaphragm. The interstitial markings are prominent bilaterally, and there are mild scattered opacities within both lungs, mainly at the lung bases. This could represent mild pulmonary edema and atelectasis, but an infectious process or fibrosis is not excluded. No pneumothorax is identified, but there may be minimal right pleural fluid. The osseous structures appear stable. Of note, a sclerotic density was seen within the proximal left humerus on the previous x-ray but is not included in the field of view on today's study. Impression: There has been no significant change. PROCEDURE INTERPRETED AT [facility] DEPARTMENT OF RADIOLOGY Final Report Signed by: Dr. Ursula Lindsey
[2016-04-09] MEDS: FUROSEMIDE 20 MG/2 ML VIAL IV SCH (09:23)
[2016-04-09] MEDS: ENOXAPARIN 40 MG/0.4 ML SYRINGE SUBCUT SCH (09:23)
[2016-04-09] MEDS: MYCOPHENOLATE MOFETIL 250 MG CAPSULE PO SCH ×2 (09:24→20:28)
[2016-04-09] MEDS: PANTOPRAZOLE 40 MG TABLET PO SCH (09:25)
[2016-04-09] MEDS: cloNIDine 0.1 MG TABLET PO SCH ×2 (09:25→18:26)
[2016-04-09] MEDS: SPIRONOLACTONE 25 MG TABLET PO SCH ×2 (09:25→20:28)
[2016-04-09] MEDS: amLODIPine 5 MG TABLET PO SCH (09:25)
[2016-04-09] MEDS: ALISKIREN 150 MG TABLET PO SCH ×2 (09:25→20:26)
[2016-04-09] MEDS: LEVOTHYROXINE 200 MCG TABLET PO SCH (09:26)
[2016-04-09] MEDS: INSULIN LISPRO 100 UNIT/ML SUBCUT SCH ×4 (09:27→20:26)
--- NOTE | 2016-04-09 10:01 | Pulmonology Progress Note ---
Pulmonary - PN: Subj Interval history: There is a 71-year-old black female whom I am seeing for Dr. cezar Guo. This patient has rheumatoid arthritis and she has had a nonspecific nonspecific interstitial lung disease. She was admitted with increased edema and acute pneumonia. She is immunocompromised from being on CellCept and Humira. The patient complains of a cough she is having a hard time mobilizing sputum. Her chest x-ray shows mild cardiomegaly she has undergone a background of mild interstitial lung disease and she has a residual right lower lung infiltrate. She also has a right paratracheal lymph node. Microbiology. No positive results. Lab. Creatinine is 1.4 BUN is 18 electrolytes are normal glucose is 142 magnesium is normal. Physical exam. General. Short of breath. Prominent cough. Vital signs. See below Psychiatric oriented 3 Neurologic. Cranial nerves are intact long track motor functions intact Neck. Symmetrical. No meningismus. Lymphatics. No submandibular cervical supraclavicular or epitrochlear adenopathy. Chest tracheal and large airway wheeze with associated coarse congestion. Coughs with forced expiration. Heart. No gallop Abdomen. Nontender. Positive bowel sounds Extremities. Residual +1/4 pedal and pretibial edema on the right. Residual +2 /4 pedal and pretibial edema on the left. The remainder the physical exam is negative. Plan. Mucinex 600 mg p.o. twice daily Add inhalation therapy with Pulmozyme twice a day Exam (Progress Note) - Constitutional Vitals: Period Temp Pulse Resp BP Sys/Parks Pulse Ox Last 24 Hr 97.1 F-97.9 F 83-112 17-22 99-117/72-85 92-100 Results - Labs CBC & BMP: 04/07/16 20:02 04/09/16 06:29 Specialty Discharge - Follow Up or Referrals
--- NOTE | 2016-04-09 10:30 | Hospitalist Progress Note ---
Assessment and Plan - Time spent with patient Time spent with patient: Greater than 30 minutes (1) Acute exacerbation of chronic obstructive airways disease Status: Acute Current Visit: No (2) Rheumatoid arthritis Status: Chronic Current Visit: No Qualifiers: Laterality: bilateral (3) Nonspecific interstitial pneumonitis Status: Acute Current Visit: No (4) Bronchopneumonia Status: Acute Current Visit: No (5) Cor pulmonale Status: Acute Current Visit: Yes (6) HTN (hypertension) Status: Chronic Assessment and plan: Still with significant edema and crackles so we will continue diuresis with with low dose IV Lasix and monitor renal function and i/o Continue supplemental Oxygen therapy and monitor Continue CHF regimen Continue resp therapy DC lorenzo and allow patient OOB to chair Current Visit: No Qualifiers: Hypertension type: essential hypertension Qualified Code(s): I10 - Essential (primary) hypertension Hospitalist: Subjective Interval history: Hx of Interstitial fibrosis due to RA and now with cardiomegaly, elevated BNP and congestion on CXR and crackles. Echo showing Diastolic dysfunction likely due to prolonged IPF I discussed echo finding and diagnosis with patient. She is slightly better with current management. Oxygen saturation is better but still drops with some exertion No fever, I doubt that there is any infective component to this Exam - Constitutional Vitals: Period Temp Pulse Resp BP Sys/Parks Pulse Ox Last 24 Hr 97.1 F-97.9 F 83-112 17-22 99-117/72-85 92-100 Exam: General appearance: no acute distress - Head Head exam: Present: normal inspection, normocephalic, atraumatic - Respiratory Respiratory exam: Present: Good a/e bilaterally, crackles ++ at the lung bases - Cardiovascular Cardiovascular exam: Present: regular rate and rhythm - GI/Abdominal GI/Abdominal exam: Present: normal bowel sounds, soft. Absent: tenderness, rebound - Extremities Exam Extremities exam: Present: edema - Neurological Exam Neurological exam: Present: alert, oriented X3 - Psychiatric Psychiatric exam: Present: normal affect, normal mood Results - Labs CBC & BMP: 04/07/16 20:02 04/09/16 06:29 Lab Results: I have reviewed the past 24 hour labs Specialty Discharge - Follow Up or Referrals
[2016-04-09] MEDS: DORNASE ALFA 2.5 MG/2.5 ML VIAL RESP TX SCH ×2 (11:16→19:35)
[2016-04-09] MEDS: MONTELUKAST 10 MG TABLET PO SCH (20:28)
[2016-04-10] MEDS: ALBUTEROL/IPRATROPIUM 3 ML NEB RESP TX SCH ×4 (01:24→20:39)
[2016-04-10] MEDS: DORNASE ALFA 2.5 MG/2.5 ML VIAL RESP TX SCH ×2 (07:34→20:39)
--- NOTE | 2016-04-10 09:15 | Hospitalist Progress Note ---
Assessment and Plan - Time spent with patient Time spent with patient: Greater than 30 minutes (1) Acute exacerbation of chronic obstructive airways disease Status: Acute Current Visit: No (2) Rheumatoid arthritis Status: Chronic Current Visit: No Qualifiers: Laterality: bilateral (3) Nonspecific interstitial pneumonitis Status: Acute Current Visit: No (4) Bronchopneumonia Status: Acute Current Visit: No (5) Cor pulmonale Status: Acute Current Visit: Yes (6) HTN (hypertension) Status: Chronic Assessment and plan: Her edema and crackles are persisting with only little change, so we will increase Lasix to 40mg and see if her kidney function tolerates it, monitor renal function and i/o and wgt. Continue supplemental Oxygen therapy and monitor Continue CHF regimen Continue resp therapy Not sure if there is an infective process associated with this though there is questionable infiltrate on CXR report. We will check CRP and procalcitonin if available. DVT ppx Current Visit: No Qualifiers: Hypertension type: essential hypertension Qualified Code(s): I10 - Essential (primary) hypertension Hospitalist: Subjective Interval history: 71YO lady with hx of RA who was admitted for progressive dyspnea on exertion. Imaging shows chronic changes suggestive of possible IPF and echo showing diastolic dysfunction, probably rat exterminator effect of her chronic lung disease Her breathing is slightly better and sputum is a little looser, she is still dyspneac on exertion and his persisting LE edema. No fever O2 sats drop to the 80's with minimal exertion No chest pains Exam - Constitutional Vitals: Period Temp Pulse Resp BP Sys/Parks Pulse Ox Last 24 Hr 97.2 F-98.5 F 73-98 18-24 94-121/65-88 8-100 Exam: General appearance: no acute distress - Head Head exam: Present: normal inspection, normocephalic, atraumatic - Respiratory Respiratory exam: Present: Good a/e bilaterally, crackles ++ at the lung bases, rhonchi ++ - Cardiovascular Cardiovascular exam: Present: regular rate and rhythm - GI/Abdominal GI/Abdominal exam: Present: normal bowel sounds, soft. Absent: tenderness, rebound - Extremities Exam Extremities exam: Present: edema - Neurological Exam Neurological exam: Present: alert, oriented X3 - Psychiatric Psychiatric exam: Present: normal affect, normal mood Results - Labs CBC & BMP: 04/07/16 20:02 04/09/16 06:29 Lab Results: I have reviewed the past 24 hour labs Specialty Discharge - Follow Up or Referrals
[2016-04-10] MEDS: ENOXAPARIN 40 MG/0.4 ML SYRINGE SUBCUT SCH (11:06)
[2016-04-10] MEDS: SPIRONOLACTONE 25 MG TABLET PO SCH ×2 (11:07→21:11)
[2016-04-10] MEDS: FUROSEMIDE 20 MG/2 ML VIAL IV SCH (11:07)
[2016-04-10] MEDS: PANTOPRAZOLE 40 MG TABLET PO SCH (11:07)
[2016-04-10] MEDS: cloNIDine 0.1 MG TABLET PO SCH ×2 (11:07→18:29)
[2016-04-10] MEDS: amLODIPine 5 MG TABLET PO SCH (11:08)
[2016-04-10] MEDS: MYCOPHENOLATE MOFETIL 250 MG CAPSULE PO SCH ×2 (11:08→21:10)
[2016-04-10] MEDS: LEVOTHYROXINE 200 MCG TABLET PO SCH (11:08)
[2016-04-10] MEDS: INSULIN LISPRO 100 UNIT/ML SUBCUT SCH ×4 (11:09→21:11)
[2016-04-10] MEDS: ALISKIREN 150 MG TABLET PO SCH ×2 (15:23→21:11)
[2016-04-10] MEDS: MONTELUKAST 10 MG TABLET PO SCH (21:11)
[2016-04-11] MEDS: ALBUTEROL/IPRATROPIUM 3 ML NEB RESP TX SCH ×4 (01:58→19:04)
[2016-04-11 06:19] LABS: Basophils # 0.1 10*3/uL (0.0-0.2); Eosinophils # 1.1 10*3/uL (0.0-0.87); Eosinophils % 11.2 % (0.00-10.9); Hematocrit 41.3 VOL% (35.7-47.0); Hemoglobin 12.5 GM/DL (12.0-16.0); Immature Granulocytes % 0.3 %; Immature Granulocytes Absolute 0.03 #; Lymphocytes # 4.1 10*3/uL (1.4-4.0); Mean Corpuscular HGB Conc 30.3 GM/DL (32-36); Mean Corpuscular Hemoglobin 27 PG (27-34); Mean Corpuscular Volume 90.6 FL (87-102); Mean Platelet Volume 9.8 FL (9.6-12.0); Monocytes # 0.4 10*3/uL (0.11-0.8); Monocytes % 4.4 % (1.7-12.7); Neutrophils % 41.1 % (38.7-73.9); Platelet Count 258 T/CUMM (130-400); Red Blood Count 4.56 MC/CUMM (3.8-5.5); Red Cell Distribution Width 16.9 % (9.3-17.3); White Blood Count 9.8 T/CUMM (4-12)
[2016-04-11 06:59] LABS: Eosinophils 12 % (0-10); Lymphocytes 38 % (20-55); Segmented Neutrophils 44 % (50-85); Total Cells Counted 100
[2016-04-11 07:00] LABS: Hypochromasia 2+; Microcytosis 1+; Platelet Estimate Adequate; Target Cells Slight
[2016-04-11] MEDS: DORNASE ALFA 2.5 MG/2.5 ML VIAL RESP TX SCH (07:04)
[2016-04-11 07:06] LABS: Albumin 2.8 G/DL (3.4-5.0); Bilirubin,Total 0.8 MG/DL (0.2-1.0); Calcium 8.6 MG/DL (8.5-10.1); Osmolality,Calculated 281.1 MOS/KG (273-304); Potassium 3.4 MMOL/L (3.5-5.1); Total Protein 5.4 G/DL (6.4-8.3)
--- NOTE | 2016-04-11 07:32 | XRay Report ---
Exam: XR chest 1V Date: 04/11/2016 4:00 AM Indication: IPF CHF shortness of breath Comparison: 04-09-2016 Technical: AP portable Findings: Cardiomegaly is present. Mild interstitial thickening in tiny effusion is present in the bases. External cardiac leads are present. Mediastinum structures are intact. Degenerative lateral marginal osteophytes thoracic spine. Impression: Cardiomegaly with patchy interstitial densities in tiny effusions bilaterally similar to previous study PROCEDURE INTERPRETED AT [facility] DEPARTMENT OF RADIOLOGY Final Report Signed by: Dr. Maxim Tucker
--- NOTE | 2016-04-11 07:34 | Physician Query Form ---
CLICK EDIT DOCUMENT TO SELECT QUERY ANSWER --> OK --> SIGN Leisa Meyer RN, CCDS Certified Clinical Heat Treater Helper W) [phone] (f) [phone] [email or web address] PROVIDERS: Make your selection(s) from the choices in EACH section by typing an "x" and enter comments in the comment section. Please use your independent medical judgment in providing your response. This request does not imply that any particular answer is desired or expected. CLINICAL INDICATORS: (Providers should not edit this section) The medical record indicates that the patient was admitted with cor pulmonale, congestive heart failure, BNP of 864#, "Echo showing Diastolic dysfunction likely due to prolonged IPF" and the patient was treated with IV Lasix. Please provide further specificity regarding CHF. ACUITY: ( ) Acute ( ) Chronic ( ) Acute on Chronic ( ) Clinically unable to determine TYPE: ( ) Systolic ( ) Diastolic ( ) Combined Systolic/Diastolic ( ) Other, please specify: ( ) Clinically unable to determine ( ) The patient does NOT have CHF COMMENTS: Use of terms such as suspected, likely, or probable (associated with a specific diagnosis that is being evaluated, monitored, or treated as if it exists) are acceptable and can be restated in the discharge summary if not ruled out. MTDD
--- NOTE | 2016-04-11 07:36 | Physician Query Form ---
CLICK EDIT DOCUMENT TO SELECT QUERY ANSWER --> OK --> SIGN Leisa Meyer RN, CCDS Certified Clinical Clinic Manager W) [phone] (f) [phone] [email or web address] PROVIDERS: Make your selection(s) from the choices in EACH section by typing an "x" and enter comments in the comment section. Please use your independent medical judgment in providing your response. This request does not imply that any particular answer is desired or expected. CLINICAL INDICATORS: (Providers should not edit this section) The medical record indicates that the patient was admitted with cor pulmonale, congestive heart failure, "chronic fibrosis which has been progressive of etiology unknown who was most recently bumped from 2 L to 4 L a minute on home O2' and the patient was placed on 2---4 liters while in the hospital. Based on the above, could you clarify the appropriate diagnosis, if significant , that supports the above abnormalities and additional evaluation, monitoring, and/or treatment rendered: ( ) patient is being treated or monitored for chronic respiratory failure ( ) patient is not being treated or monitored for chronic respiratory failure ( ) Other, please specify: ( ) Clinically unable to determine COMMENTS: Use of terms such as suspected, likely, or probable (associated with a specific diagnosis that is being evaluated, monitored, or treated as if it exists) are acceptable and can be restated in the discharge summary if not ruled out. MTDD
[2016-04-11] MEDS ORDERED: FUROSEMIDE 20 MG/2 ML VIAL ONE (08:25)
--- NOTE | 2016-04-11 08:49 | Pulmonology Progress Note ---
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 She came in with an acute bronchitis. She is still wheezing today. We need to put her on Solu-Medrol. She does have diabetes and we need to watch her blood sugars. Exam (Progress Note) - Constitutional Vitals: Period Temp Pulse Resp BP Sys/Parks Pulse Ox Last 24 Hr 97.9 F-98.2 F 64-105 18-22 96-114/58-85 83-100 Exam: She is alert and oriented. Vital signs normal. O2 sats in the upper 90s on 2 L nasal prongs. HEENT: Pupils react to light. Throat is clear. Neck supple no bruits. She does show some expiratory wheezes and musical rhonchi. Heart normal rate and rhythm no murmurs. Abdomen soft nontender no masses. Extremities no clubbing cyanosis or edema. Calves nontender. Results - Labs CBC & BMP: 04/11/16 05:15 04/11/16 05:15 Lab Results: I have reviewed the past 24 hour labs - Diagnostic Findings Procedure: Chest x-ray: image reviewed by me (Chronic interstitial disease with no acute infiltrate.) Assessment and Plan (1) Cor pulmonale Status: Acute Assessment and plan: She has edema, jugular venous distention, increased interstitial markings, and a BNP in the 800s. We need to check an echocardiogram to see if this is indeed cor pulmonale or if she has some left heart disease. Agree with diuresing gently. 04/11/2016 she has improved with diuresis. Echocardiogram shows ejection fraction 50% with mitral regurgitation. She also has severe pulmonary hypertension with peak pulmonary artery pressure estimated at 68+ right atrial pressure which would put her up into the 70s likely. This is likely due to her underlying chronic lung disease as well as some left ventricular dysfunction. 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 She is on CellCept and Humira for both the arthritis in the interstitial pneumonitis. This renders her at immunocompromised state. However she does not have signs and symptoms of an acute infection. 04/11/2016 this is associated with rheumatoid arthritis. She is on 2 medications for both. Current Visit: No (3) Rheumatoid arthritis Status: Chronic Assessment and plan: Continue home medications for this. Current Visit: No Qualifiers: Laterality: bilateral (4) Type 2 diabetes mellitus Status: Chronic Assessment and plan: Defer to primary service. Sliding scale insulin might be helpful. Would not treat with high-dose steroids at this point. 04/11/2016 I am starting steroids because of persistent bronchospasm. Watch glucoses closely. Current Visit: No Qualifiers: Diabetes mellitus complication status: without complication Specialty Discharge - Follow Up or Referrals
[2016-04-11] MEDS: INSULIN LISPRO 100 UNIT/ML SUBCUT SCH ×4 (09:37→21:25)
--- NOTE | 2016-04-11 09:38 | Hospitalist Progress Note ---
Assessment and Plan (1) Nonspecific interstitial pneumonitis Status: Acute Assessment and plan: 1)chronic resp failure from nonspecific interstitial pneumonitis related to RA- on cellcept and humira. Wheezing today on Dr Guo's exam and steroids started, watch glucose. echo with EF 50%, very high pulmonary pressures. diuresing gently. 2)DM- on medium intensity SSI- increase to high SSI while on IV steroids. 3)RA 4)LE edema Current Visit: No (2) Rheumatoid arthritis Status: Chronic Current Visit: No Qualifiers: Laterality: bilateral (3) Bronchopneumonia Status: Acute Current Visit: No (4) Diabetes mellitus Status: Acute Current Visit: No (5) Cor pulmonale Status: Acute Current Visit: Yes (6) Pulmonary fibrosis Status: Acute Current Visit: Yes (7) Acute on chronic respiratory failure Status: Acute Current Visit: No (8) Hypothyroidism Status: Acute Current Visit: No Hospitalist: Subjective Interval history: mrs Bowens is feeling ok, and she notes her LE edema continues to improve. She is bereathing comfortably at rest but becomes winded when seh gets up, micah without oxygen. 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 Exam - Constitutional Vitals: Period Temp Pulse Resp BP Sys/Parks Pulse Ox Last 24 Hr 97.9 F-98.2 F 64-105 18-22 96-114/58-85 83-100 General appearance: normal weight, no acute distress - Head Head exam: Present: normocephalic, atraumatic - Eye Eye exam: Present: EOMI. Absent: scleral icterus - Respiratory Respiratory exam: Present: other (inspiratory crackles, good air movement.) - Cardiovascular Cardiovascular exam: Present: regular rate and rhythm - GI/Abdominal GI/Abdominal exam: Present: normal bowel sounds, soft. Absent: tenderness - Extremities Exam Extremities exam: Present: edema (1+-2+) - Neurological Exam Neurological exam: Present: alert, oriented X3 - Skin Skin exam: Present: warm, dry Results - Labs CBC & BMP: 04/11/16 05:15 04/11/16 05:15 Lab Results: I have reviewed the past 24 hour labs Specialty Discharge - Follow Up or Referrals
[2016-04-11] MEDS: ALISKIREN 150 MG TABLET PO SCH ×2 (09:41→21:26)
[2016-04-11] MEDS: MYCOPHENOLATE MOFETIL 250 MG CAPSULE PO SCH ×2 (09:41→21:25)
[2016-04-11] MEDS: amLODIPine 5 MG TABLET PO SCH (09:42)
[2016-04-11] MEDS: SPIRONOLACTONE 25 MG TABLET PO SCH ×2 (09:42→21:26)
[2016-04-11] MEDS: LEVOTHYROXINE 200 MCG TABLET PO SCH (09:42)
[2016-04-11] MEDS: PANTOPRAZOLE 40 MG TABLET PO SCH (09:42)
[2016-04-11] MEDS: cloNIDine 0.1 MG TABLET PO SCH ×2 (09:42→18:11)
[2016-04-11] MEDS: ENOXAPARIN 40 MG/0.4 ML SYRINGE SUBCUT SCH (09:43)
[2016-04-11] MEDS: FUROSEMIDE 40 MG/4 ML VIAL IV SCH (09:43)
[2016-04-11] MEDS ORDERED: POTASSIUM CHLORIDE 20 MEQ TABLET PO ONE (10:00)
[2016-04-11] MEDS: methylPREDNISolone SOD SUC 40 MG/1 ML VIAL IV SCH ×2 (10:06→21:25)
[2016-04-11] MEDS: ACETAMINOPHEN 325 MG TABLET PO PRN (13:29)
[2016-04-11] MEDS: MONTELUKAST 10 MG TABLET PO SCH (21:25)
[2016-04-12] MEDS: ALBUTEROL/IPRATROPIUM 3 ML NEB RESP TX SCH ×5 (00:20→23:59)
[2016-04-12] MEDS: INSULIN LISPRO 100 UNIT/ML SUBCUT SCH ×4 (08:45→20:50)
[2016-04-12] MEDS: methylPREDNISolone SOD SUC 40 MG/1 ML VIAL IV SCH ×2 (08:47→20:51)
[2016-04-12] MEDS: FUROSEMIDE 40 MG/4 ML VIAL IV SCH (08:48)
[2016-04-12] MEDS: MYCOPHENOLATE MOFETIL 250 MG CAPSULE PO SCH ×2 (08:49→20:50)
[2016-04-12] MEDS: LEVOTHYROXINE 200 MCG TABLET PO SCH (08:49)
[2016-04-12] MEDS: amLODIPine 5 MG TABLET PO SCH (08:49)
[2016-04-12] MEDS: SPIRONOLACTONE 25 MG TABLET PO SCH ×2 (08:51→20:51)
[2016-04-12] MEDS: ENOXAPARIN 40 MG/0.4 ML SYRINGE SUBCUT SCH (08:51)
[2016-04-12] MEDS: PANTOPRAZOLE 40 MG TABLET PO SCH (08:51)
[2016-04-12] MEDS: cloNIDine 0.1 MG TABLET PO SCH ×3 (08:51→18:20)
[2016-04-12] MEDS: ALISKIREN 150 MG TABLET PO SCH ×2 (08:52→20:51)
[2016-04-12] MEDS: ACETAMINOPHEN 325 MG TABLET PO PRN (09:02)
--- NOTE | 2016-04-12 09:48 | Pulmonology Progress Note ---
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 She came in with an acute bronchitis. She is still wheezing today. We need to put her on Solu-Medrol. She does have diabetes and we need to watch her blood sugars. 04/12/2016 bronchospasm she was having yesterday seems to be much better today. She is coughing up a little phlegm now. Need to continue current medications for a few days. Exam (Progress Note) - Constitutional Vitals: Period Temp Pulse Resp BP Sys/Parks Pulse Ox Last 24 Hr 97.1 F-97.8 F 76-89 16-24 92-114/69-82 94-100 Exam: She is alert and oriented. Vital signs normal. O2 sats in the upper 90s on 2 L nasal prongs. HEENT: Pupils react to light. Throat is clear. Neck supple no bruits. She does show some mild rhonchi. Heart normal rate and rhythm no murmurs. Abdomen soft nontender no masses. Extremities no clubbing cyanosis or edema. Calves nontender. Results - Labs CBC & BMP: 04/11/16 05:15 04/11/16 05:15 Lab Results: I have reviewed the past 24 hour labs Assessment and Plan (1) Cor pulmonale Status: Acute Assessment and plan: She has edema, jugular venous distention, increased interstitial markings, and a BNP in the 800s. We need to check an echocardiogram to see if this is indeed cor pulmonale or if she has some left heart disease. Agree with diuresing gently. 04/11/2016 she has improved with diuresis. Echocardiogram shows ejection fraction 50% with mitral regurgitation. She also has severe pulmonary hypertension with peak pulmonary artery pressure estimated at 68+ right atrial pressure which would put her up into the 70s likely. This is likely due to her underlying chronic lung disease as well as some left ventricular dysfunction. 04/12/2016 responded to diuresis. 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 She is on CellCept and Humira for both the arthritis in the interstitial pneumonitis. This renders her at immunocompromised state. However she does not have signs and symptoms of an acute infection. 04/11/2016 this is associated with rheumatoid arthritis. She is on 2 medications for both. 04/12/2016 continuing rheumatoid medications. Current Visit: No (3) Rheumatoid arthritis Status: Chronic Assessment and plan: Continue home medications for this. Current Visit: No Qualifiers: Laterality: bilateral (4) Type 2 diabetes mellitus Status: Chronic Assessment and plan: Defer to primary service. Sliding scale insulin might be helpful. Would not treat with high-dose steroids at this point. 04/11/2016 I am starting steroids because of persistent bronchospasm. Watch glucoses closely. 04/12/2016 thus far glucoses are fairly well controlled despite the steroids. Current Visit: No Qualifiers: Diabetes mellitus complication status: without complication Specialty Discharge - Follow Up or Referrals
--- NOTE | 2016-04-12 14:46 | Hospitalist Progress Note ---
Assessment and Plan (1) Cor pulmonale Status: Acute Assessment and plan: cont lasix and spironolactone Current Visit: Yes (2) Nonspecific interstitial pneumonitis Status: Acute Assessment and plan: Continue duo nebs, and steroids Current Visit: No (3) Rheumatoid arthritis Status: Chronic Current Visit: No Qualifiers: Laterality: bilateral (4) Diabetes mellitus Status: Acute Assessment and plan: Blood sugars elevated due to steroids. ISC Current Visit: No Hospitalist: Subjective Interval history: Patient says she is breathing better today. Exam - Constitutional Vitals: Period Temp Pulse Resp BP Sys/Parks Pulse Ox Last 24 Hr 97.1 F-97.8 F 80-100 16-29 101-125/70-90 94-100 Exam: Heart Rate-[RRR] Lungs-[diminished] GI-[+bs soft, NT] Ext-[no edema] Results - Labs CBC & BMP: 04/11/16 05:15 04/11/16 05:15 Lab Results: I have reviewed the past 24 hour labs Labs: Blood cultures 2 are negative Specialty Discharge - Follow Up or Referrals
[2016-04-12] MEDS: MONTELUKAST 10 MG TABLET PO SCH (20:52)
[2016-04-13] MEDS: ALBUTEROL/IPRATROPIUM 3 ML NEB RESP TX SCH ×3 (07:07→19:41)
--- NOTE | 2016-04-13 08:39 | Pulmonology Progress Note ---
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 She came in with an acute bronchitis. She is still wheezing today. We need to put her on Solu-Medrol. She does have diabetes and we need to watch her blood sugars. 04/12/2016 bronchospasm she was having yesterday seems to be much better today. She is coughing up a little phlegm now. Need to continue current medications for a few days. 04/13/2016 she is feeling better. Her chest is almost clear. Change to oral meds with prednisone and Levaquin. I think she will be ready for discharge by Monday. She is immunocompromised and we need to treat a little longer in her. Exam (Progress Note) - Constitutional Vitals: Period Temp Pulse Resp BP Sys/Parks Pulse Ox Last 24 Hr 97.2 F-98.3 F 80-100 18-24 103-119/70-77 94-100 Exam: She is alert and oriented. Vital signs normal. O2 sats in the upper 90s on 2 L nasal prongs. HEENT: Pupils react to light. Throat is clear. Neck supple no bruits. She does show some mild rhonchi, sounds almost completely clear now. Heart normal rate and rhythm no murmurs. Abdomen soft nontender no masses. Extremities no clubbing cyanosis or edema. Calves nontender. Little change from yesterday. Results - Labs CBC & BMP: 04/11/16 05:15 04/11/16 05:15 Lab Results: I have reviewed the past 24 hour labs Assessment and Plan (1) Cor pulmonale Status: Acute Assessment and plan: She has edema, jugular venous distention, increased interstitial markings, and a BNP in the 800s. We need to check an echocardiogram to see if this is indeed cor pulmonale or if she has some left heart disease. Agree with diuresing gently. 04/11/2016 she has improved with diuresis. Echocardiogram shows ejection fraction 50% with mitral regurgitation. She also has severe pulmonary hypertension with peak pulmonary artery pressure estimated at 68+ right atrial pressure which would put her up into the 70s likely. This is likely due to her underlying chronic lung disease as well as some left ventricular dysfunction. 04/12/2016 responded to diuresis. 04/13/2016 edema resolved. 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 She is on CellCept and Humira for both the arthritis in the interstitial pneumonitis. This renders her at immunocompromised state. However she does not have signs and symptoms of an acute infection. 04/11/2016 this is associated with rheumatoid arthritis. She is on 2 medications for both. 04/12/2016 continuing rheumatoid medications. 04/13/2016 chronic underlying problem related to her rheumatoid arthritis. Current Visit: No (3) Rheumatoid arthritis Status: Chronic Assessment and plan: Continue home medications for this. Current Visit: No Qualifiers: Laterality: bilateral (4) Type 2 diabetes mellitus Status: Chronic Assessment and plan: Defer to primary service. Sliding scale insulin might be helpful. Would not treat with high-dose steroids at this point. 04/11/2016 I am starting steroids because of persistent bronchospasm. Watch glucoses closely. 04/12/2016 thus far glucoses are fairly well controlled despite the steroids. 04/13/2016 blood sugars look good. Tapering steroids. Current Visit: No Qualifiers: Diabetes mellitus complication status: without complication Specialty Discharge - Follow Up or Referrals
[2016-04-13] MEDS: INSULIN LISPRO 100 UNIT/ML SUBCUT SCH ×4 (08:53→20:41)
[2016-04-13] MEDS: amLODIPine 5 MG TABLET PO SCH (08:55)
[2016-04-13] MEDS: FUROSEMIDE 40 MG/4 ML VIAL IV SCH (08:55)
[2016-04-13] MEDS: MYCOPHENOLATE MOFETIL 250 MG CAPSULE PO SCH ×2 (08:55→20:41)
[2016-04-13] MEDS: PANTOPRAZOLE 40 MG TABLET PO SCH (08:56)
[2016-04-13] MEDS: LEVOTHYROXINE 200 MCG TABLET PO SCH (08:56)
[2016-04-13] MEDS: ALISKIREN 150 MG TABLET PO SCH ×2 (08:56→20:41)
[2016-04-13] MEDS: cloNIDine 0.1 MG TABLET PO SCH ×2 (08:56→18:44)
[2016-04-13] MEDS: SPIRONOLACTONE 25 MG TABLET PO SCH ×2 (08:56→20:41)
[2016-04-13] MEDS: ENOXAPARIN 40 MG/0.4 ML SYRINGE SUBCUT SCH (08:58)
[2016-04-13] MEDS: predniSONE 20 MG TABLET PO SCH (09:16)
[2016-04-13] MEDS: LEVOFLOXACIN 500 MG TABLET PO SCH (09:16)
--- NOTE | 2016-04-13 16:00 | Hospitalist Progress Note ---
Assessment and Plan (1) Cor pulmonale Status: Acute Assessment and plan: cont lasix and spironolactone Current Visit: Yes (2) Nonspecific interstitial pneumonitis Status: Acute Assessment and plan: Continue duo nebs, antibiotics and steroids Current Visit: No (3) Rheumatoid arthritis Status: Chronic Assessment and plan: Humira on hold Current Visit: No Qualifiers: Laterality: bilateral (4) Diabetes mellitus Status: Acute Assessment and plan: Blood sugars elevated due to steroids. ISC started low-dose Lantus Current Visit: No (5) Hypothyroidism Status: Acute Assessment and plan: Check free T4 and tsh and adjust synthyroid as needed Current Visit: Yes Hospitalist: Subjective Interval history: Patient says she takes Humira twice a months she was due last Monday. When to put this on hold due to her recent bout of infection. She also we talked about a 2 L fluid restriction on her she was unaware with heart failure she had to have one. She is also concerned about her potassium as [place] and will repeat her potassium level. She said she has not had her Synthroid adjusted in several years and has not seen an laboratory miller. Will check her TSH Exam - Constitutional Vitals: Period Temp Pulse Resp BP Sys/Parks Pulse Ox Last 24 Hr 97.2 F-98.7 F 80-99 18-22 105-120/70-77 96-100 Exam: Heart Rate-[tachy] Lungs-[some wheezes but better air movement ] GI-[+bs soft, NT] Neurological alert and oriented 3, motor 5 out of 5 Psych normal mood and affect General no acute distress Results - Labs CBC & BMP: 04/11/16 05:15 04/11/16 05:15 Lab Results: I have reviewed the past 24 hour labs Labs: Blood cultures 2 negative no growth Specialty Discharge - Follow Up or Referrals
[2016-04-13 16:29] LABS: Osmolality,Calculated 290.8 MOS/KG (273-304); Potassium 4.2 MMOL/L (3.5-5.1)
[2016-04-13] MEDS: INSULIN GLARGINE 100 UNIT/ML SUBCUT SCH (16:29)
[2016-04-13] MEDS: POTASSIUM CHLORIDE 20 MEQ TABLET PO SCH (16:29)
[2016-04-13 16:48] LABS: Thyroid Stimulating Hormone 0.539 uIU/ml (0.358-3.74)
[2016-04-13] MEDS: MONTELUKAST 10 MG TABLET PO SCH (20:41)
[2016-04-14] MEDS: ALBUTEROL/IPRATROPIUM 3 ML NEB RESP TX SCH ×4 (01:39→19:20)
[2016-04-14] MEDS: INSULIN LISPRO 100 UNIT/ML SUBCUT SCH ×5 (08:32→21:19)
--- NOTE | 2016-04-14 08:34 | Pulmonology Progress Note ---
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 She came in with an acute bronchitis. She is still wheezing today. We need to put her on Solu-Medrol. She does have diabetes and we need to watch her blood sugars. 04/12/2016 bronchospasm she was having yesterday seems to be much better today. She is coughing up a little phlegm now. Need to continue current medications for a few days. 04/13/2016 she is feeling better. Her chest is almost clear. Change to oral meds with prednisone and Levaquin. I think she will be ready for discharge by Monday. She is immunocompromised and we need to treat a little longer in her. 04/14/16 she is feeling better. Still coughing up some sputum but it is clear now. She is on oral medications. I think we can shoot for discharge tomorrow. She has pulmonary hypertension on her echo. She was supposed to see a hose sprayer in [place] in October. She wants to get all of her care consolidated in [place]. I discussed the case with Dr. Lang. We will have cardiology to see her here for her pulmonary hypertension. It is secondary to her interstitial lung disease. It is not primary pulmonary hypertension. Exam (Progress Note) - Constitutional Vitals: Period Temp Pulse Resp BP Sys/Parks Pulse Ox Last 24 Hr 97.5 F-98.0 F 87-102 18-22 98-129/53-76 94-100 Exam: She is alert and oriented. Vital signs normal. O2 sats in the upper 90s on 2 L nasal prongs. HEENT: Pupils react to light. Throat is clear. Neck supple no bruits. She does show some mild rhonchi, sounds almost completely clear now. Heart normal rate and rhythm no murmurs. Abdomen soft nontender no masses. Extremities no clubbing cyanosis or edema. Calves nontender. Results - Labs CBC & BMP: 04/11/16 05:15 04/13/16 15:46 Lab Results: I have reviewed the past 24 hour labs Assessment and Plan (1) Cor pulmonale Status: Acute Assessment and plan: She has edema, jugular venous distention, increased interstitial markings, and a BNP in the 800s. We need to check an echocardiogram to see if this is indeed cor pulmonale or if she has some left heart disease. Agree with diuresing gently. 04/11/2016 she has improved with diuresis. Echocardiogram shows ejection fraction 50% with mitral regurgitation. She also has severe pulmonary hypertension with peak pulmonary artery pressure estimated at 68+ right atrial pressure which would put her up into the 70s likely. This is likely due to her underlying chronic lung disease as well as some left ventricular dysfunction. 04/12/2016 responded to diuresis. 04/13/2016 edema resolved. 04/14/16 her fluid retention is due to pulmonary hypertension with cor pulmonale. We are going to have cardiology help us with this as well. 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 She is on CellCept and Humira for both the arthritis in the interstitial pneumonitis. This renders her at immunocompromised state. However she does not have signs and symptoms of an acute infection. 04/11/2016 this is associated with rheumatoid arthritis. She is on 2 medications for both. 04/12/2016 continuing rheumatoid medications. 04/13/2016 chronic underlying problem related to her rheumatoid arthritis. 04/14/16 this is related to her rheumatoid arthritis and is the cause of her pulmonary hypertension. She continues with medications for the rheumatoid arthritis. I agree with holding Humira for about a week to get over the acute bronchitis. She can take the injection at home in about a week. It is ordered by Dr. Carlin, who is her automated logistics specialist in [place]. Current Visit: No (3) Rheumatoid arthritis Status: Chronic Assessment and plan: Continue home medications for this. Current Visit: No Qualifiers: Laterality: bilateral (4) Type 2 diabetes mellitus Status: Chronic Assessment and plan: Defer to primary service. Sliding scale insulin might be helpful. Would not treat with high-dose steroids at this point. 04/11/2016 I am starting steroids because of persistent bronchospasm. Watch glucoses closely. 04/12/2016 thus far glucoses are fairly well controlled despite the steroids. 04/13/2016 blood sugars look good. Tapering steroids. 04/14/16 glucoses look okay. Current Visit: No Qualifiers: Diabetes mellitus complication status: without complication Specialty Discharge - Follow Up or Referrals
[2016-04-14] MEDS: SPIRONOLACTONE 25 MG TABLET PO SCH (09:16)
[2016-04-14] MEDS: cloNIDine 0.1 MG TABLET PO SCH ×2 (09:16→21:18)
[2016-04-14] MEDS: amLODIPine 5 MG TABLET PO SCH (09:17)
[2016-04-14] MEDS: FUROSEMIDE 40 MG/4 ML VIAL IV SCH (09:17)
[2016-04-14] MEDS: PANTOPRAZOLE 40 MG TABLET PO SCH (09:17)
[2016-04-14] MEDS: LEVOTHYROXINE 200 MCG TABLET PO SCH (09:17)
[2016-04-14] MEDS: predniSONE 20 MG TABLET PO SCH (09:17)
[2016-04-14] MEDS: INSULIN GLARGINE 100 UNIT/ML SUBCUT SCH (09:17)
[2016-04-14] MEDS: ENOXAPARIN 40 MG/0.4 ML SYRINGE SUBCUT SCH (09:17)
[2016-04-14] MEDS: POTASSIUM CHLORIDE 20 MEQ TABLET PO SCH (09:17)
[2016-04-14] MEDS: LEVOFLOXACIN 500 MG TABLET PO SCH (09:17)
[2016-04-14] MEDS: MYCOPHENOLATE MOFETIL 250 MG CAPSULE PO SCH ×2 (09:17→21:18)
[2016-04-14] MEDS: ALISKIREN 150 MG TABLET PO SCH ×2 (09:18→21:19)
--- NOTE | 2016-04-14 14:27 | Cardiology Consult Note ---
Karlos Brantley Rachel, RN, am scribing for, and in the presence of, Amy Willett DO 13:57. Assessment and Plan (1) Cor pulmonale Status: Chronic Assessment and plan: Patient has flattening of the interventricular septum and mildly depressed EF at 50% with what appears to be moderate MR. Current Visit: Yes (2) Hypothyroidism Status: Chronic Assessment and plan: Continue current plan of care with Synthroid. Current Visit: Yes (3) Pulmonary fibrosis Status: Chronic Assessment and plan: Management per Dr. Guo. Current Visit: Yes (4) Diabetes mellitus Status: Chronic Assessment and plan: Continue current plan of care. Current Visit: No (5) Rheumatoid arteritis Status: Chronic Current Visit: No (6) HTN (hypertension) Status: Chronic Assessment and plan: This is clinically stable. Continue current plan of care. Current Visit: No Qualifiers: Hypertension type: essential hypertension Qualified Code(s): I10 - Essential (primary) hypertension (7) Mitral regurgitation Status: Chronic Assessment and plan: This appears to be moderate. Recommend is beneath vasodilators as the patient' s blood pressure will tolerate. Current Visit: Yes History of Present Illness - Data of Consult Patient: new to practice Consult date: 04/14/16 Requesting Physician: Connie Lang - Consult Narrative Reason for consult: Heart failure History of present illness: Ms. Bowens is a 71 year old female without known coronary artery disease, not routinely followed by a local well cleaner. She tells me that she last saw a well cleaner at the [facility] in [place] in 2013. She presented to the ER for the for further evaluation of shortness of breath and lower extremity swelling. She has risk factors significant for advanced age, hypertension and diabetes. She has past medical history of pulmonary fibrosis ( requires home oxygen), hypothyroidism and rheumatoid arthritis. She denies any significant family history of heart disease. She reports that she has never smoked in the past. She denies a history of congestive heart failure and of any ischemic heart disease previously. She was in her usual state of health until last Monday when she began to experience lower extremity swelling. She reports that she has never experienced this before and she was concerned so she presented to the ER for further evaluation. She tells me that last October she began taking Humira for her rheumatoid arthritis and ever since then she has experienced a worsening shortness of breath and has required more oxygen at home. She was also admitted in February of this year with pneumonia. Since being discharged home, she has had a problem with her oxygen saturations. She tells me that they range anywhere from the 70s to mid 80s with activity. Because of this, she has had to increase her oxygen from 2 L as needed to 4 L continuously. Chest x-ray revealed cardiomegaly with slight worsening of bibasilar opacities which may represent pulmonary edema versus infectious process. She has been afebrile this admission with normal white blood cell count. Her BNP on arrival was 864. Patient was started on Lasix 40 IV daily and Aldactone was initiated. She denies any chest discomfort, heaviness or tightness. She also denies fever , chills, cough, abdominal pain, melena, nausea, vomiting and palpitations. She does however confirm orthopnea, 13 pound weight gain in a matter of a few days, PND and significant lower extremity edema. Patient was seen and examined on 2 . She was sitting up in chair in no acute distress. She is currently requiring oxygen at 2 L via nasal cannula. She reports that she has improved clinically since her admission. It appears that she is diuresing well with Aldactone and Lasix. Unfortunately, no daily weights have been recorded. She confirms that her lower extremity edema has greatly improved. Her blood pressure is well controlled. Patient is not currently on nat instructor. O2 saturations are stable ranging from 95-97%. Echocardiogram was done this admission and revealed normal left ventricular size with mild concentric hypertrophy. Estimated left ventricular ejection fraction of 50%. Severe tricuspid regurgitation and pulmonary hypertension with peak pulmonary artery pressure estimated at 68+. Moderate mitral regurgitation, moderate pulmonary valve insufficiency and trace pericardial effusion were all demonstrated. I saw and examined the patient with Ms. Everett. I agree with the above assessment. The patient has right heart failure and pulmonary hypertension she has flattening of the interventricular septum due to elevated right-sided pressures her ejection fraction is possibly 50% and there is no regional wall motion abnormality. There is what appears to be at least moderate mitral regurgitation. CC: Connie Lang MD - Home Medications and Allergies Home Medications: Home Medications Medication Instructions Recorded Confirmed Type Aliskiren [Tekturna] 150 mg PO BID 01/27/15 04/11/16 History Mycophenolate Mofetil [Cellcept] 1,000 mg PO BID 01/27/15 04/11/16 History Montelukast Tab [Singulair Tab] 10 mg PO BEDTIME #60 tablet 04/08/15 04/11/16 Rx Adalimumab [Humira] 40 mg SUBCUT Q14D 02/15/16 04/11/16 History Insulin Aspart Prot/Asp 70/30 20 unit SUBCUT BID W/MEALS 02/15/16 04/11/16 History [NovoLOG Mix 70/30] Levothyroxine Tab [Synthroid Tab] 200 mcg PO DAILY 02/15/16 04/11/16 History Omeprazole [Prilosec] 40 mg PO DAILY 02/15/16 04/11/16 History amLODIPine [Norvasc] 5 mg PO DAILY 02/15/16 04/11/16 History cloNIDine TAB [Catapres Tab] 0.2 mg PO DAILY 02/15/16 04/11/16 History cloNIDine TAB [Catapres Tab] 0.3 mg PO BEDTIME 02/15/16 04/11/16 History Allergies/Adverse Reactions: Allergies Allergy/AdvReac Type Severity Reaction Status Date / Time No Known Allergies Allergy Verified 04/07/16 18:47 - Constitutional Constitutional: Present: fatigue, weakness, weight gain. Absent: chills, fever( s), frequent falls, headache(s) - Cardiovascular Cardiovascular: Present: dyspnea, dyspnea on exertion, edema, orthopnea, PND. Absent: chest pain at rest, chest pain with activity, claudication, diaphoresis , radiating jaw, neck or arm pain, lightheadedness, palpitations - Respiratory Respiratory: Present: cough, dyspnea, dyspnea on exertion. Absent: pain on inspiration, change in phlegm color - Gastrointestinal Gastrointestinal: Absent: abdominal pain, change in bowel habits, coffee ground emesis, constipation, diarrhea, heartburn, hematemesis, hematochezia, loose stools, melena, nausea, vomiting - Neurological Neurological: Absent: abnormal gait, abnormal speech, behavioral changes, disequilibrium, dizziness, focal weakness, frequent falls, headache(s), syncope Medical,Surgical,& Family Hx - Medical History Cardio: History of: Hypertension Endocrine: History of: Diabetes Mellitus (IDDM), Thyroid Disorder Rheumatology: History of;: Rheumatoid Arthritis Respiratory: History of: Pneumonia, Respiratory Problems (Pulmonary fibrosis and secondary pulmonary hypertension from primary rheuma) Gastrointestinal: History of: GERD, GI Problems (dysphagia) Hematology: History of: Anemia No history of: Blood Transfusion Reaction Other: No history of: Anesthesia Reactions, Cancer - Surgical History Cardiac Surgeries: Patient Denies: Cardiac Catheterization, Carotid Endarterectomy Thoracic Surgeries: Patient denies;: Lobectomy Neurologic Surgeries: Patient denies: Brain Aneurysm, Cerebral Hemorrhage, Neurologic Surgery HEENT Surgeries: Surgical HX of: Eye Surgery (cataracts), Thyroid Surgery ( thyroidectomy-2002) Patient denies: Carotid Endarterectomy, Tonsilectomy & Adenoidectomy Abdominal Surgeries: Surgical HX of: Colonoscopy, EGD Patient denies: Abdominal Surgery, Appendectomy, Cholecystectomy, Hernia Repair Reproductive Surgeries: Patient denies;: Breast Surgery Orthopedic Surgeries: Patient denies;: Orthopedic Surgery, Total Hip Replacement, Total Knee Replacement - Family History Family History: Denies;: Family Heart Disease - Social History Smoking Status: Never smoker Frequency of Alcohol Use: None Type of Drug Use: None Marital Status: Single Lives With:: She lives with her mother Functional capacity: independent ambulation (She states she desats with minimal ambulation) Physical Examination Vital Signs Temp Pulse Resp BP Pulse Ox 97.7 F 100 H 18 140/83 95 04/07/16 18:47 04/07/16 18:47 04/07/16 18:47 04/07/16 18:47 04/07/16 18:47 General: Present: Appears Well, No Apparent Distress Neck: Present: Supple Neck, Midline Trachea, No Masses, No Bruit Cardiac: Present: Reg Rate and Rhythm, Regular Rate, Regular Rhythm, S1/S2, Other (Prominent venous A waves are seen during exam) Lungs: Present: Normal Exam, Decreased Breath Sounds, Other (She has dry crackles) Abdomen: Present: Soft, Active Bowel Sounds, No Masses, No Pulsations/Bruits, Non-Tender Skin: Present: Clear. Absent: Rash, Suspicious Lesions, Ulceration Gait: Present: Normal Gait Extremities: Present: Normal Gait, No Clubbing, No Cyanosis, Normal Upper Extr. Pulses, Normal Lower Extr. Pulses, +1 Edema (Bilateral lower extremities) Result/EKG - Labs CBC & BMP: 04/11/16 05:15 04/13/16 15:46 Lab Results: I have reviewed the past 24 hour labs Labs: Laboratory Results - last 24 hr 04/11/16 04/13/16 04/13/16 05:15 15:23 15:46 Sodium 144 Potassium 4.2 Chloride 100 Carbon Dioxide 30 Anion Gap 18.2 H BUN 21 H Creatinine 1.40 H GFR Calculation 47 BUN/Creatinine Ratio 15.00 Glucose 140 H POC Glucose 157 H Calculated Osmolality 290.8 Calcium 9.0 Procalcitonin < 0.10 Free T4 TSH 3rd Generation 04/13/16 04/13/16 04/14/16 15:46 19:29 06:51 Sodium Potassium Chloride Carbon Dioxide Anion Gap BUN Creatinine GFR Calculation BUN/Creatinine Ratio Glucose POC Glucose 229 H 145 H Calculated Osmolality Calcium Procalcitonin Free T4 1.00 TSH 3rd Generation 0.539 Specialty Discharge - Follow Up or Referrals ITamie Shea, DO, personally performed the services described in this documentation, ascribed by Sabrina Everett, RN in my presence, and it is both accurate and complete [id number] .
--- NOTE | 2016-04-14 15:41 | Hospitalist Progress Note ---
Assessment and Plan (1) Cor pulmonale Status: Chronic Assessment and plan: cont lasix and spironolactone Current Visit: Yes (2) Nonspecific interstitial pneumonitis Status: Acute Assessment and plan: Continue duonebs, antibiotics and steroids Current Visit: No (3) Rheumatoid arthritis Status: Chronic Assessment and plan: Humira on hold Current Visit: No Qualifiers: Laterality: bilateral (4) Diabetes mellitus Status: Chronic Assessment and plan: Continue Lantus Current Visit: No (5) Hypothyroidism Status: Chronic Assessment and plan: Continue Synthroid as prescribed Current Visit: Yes (6) Acute on chronic systolic (congestive) heart failure Status: Acute Assessment and plan: Echocardiogram showed an EF of 50% with severe tricuspid regurg, moderate mitral regurg and severe pulmonary hypertension, cont lasix po. Mostly right sided heart failure due to pul htn Current Visit: Yes Hospitalist: Subjective Interval history: Dr. Guo requested that Dr. Willett, and see patient today explaining her congestive heart failure. Exam - Constitutional Vitals: Period Temp Pulse Resp BP Sys/Parks Pulse Ox Last 24 Hr 97.4 F-98.7 F 70-102 18-24 98-129/53-89 94-100 Exam: Heart Rate-[RRR] Lungs-[ctab GI-[+bs soft, NT] Neurological alert and oriented 3, motor 5 out of 5 Psych normal mood and affect General no acute distress Results - Labs CBC & BMP: 04/11/16 05:15 04/13/16 15:46 Lab Results: I have reviewed the past 24 hour labs Labs: blood cultures times 2 Specialty Discharge - Follow Up or Referrals
[2016-04-14] MEDS: MONTELUKAST 10 MG TABLET PO SCH (21:18)
[2016-04-15] MEDS: ALBUTEROL/IPRATROPIUM 3 ML NEB RESP TX SCH ×2 (00:40→07:05)
[2016-04-15] MEDS: INSULIN LISPRO 100 UNIT/ML SUBCUT SCH (08:56)
[2016-04-15] MEDS: LEVOTHYROXINE 200 MCG TABLET PO SCH (08:57)
[2016-04-15] MEDS: predniSONE 20 MG TABLET PO SCH (08:57)
[2016-04-15] MEDS: POTASSIUM CHLORIDE 20 MEQ TABLET PO SCH (08:57)
[2016-04-15] MEDS: amLODIPine 5 MG TABLET PO SCH (08:57)
[2016-04-15] MEDS: PANTOPRAZOLE 40 MG TABLET PO SCH (08:58)
[2016-04-15] MEDS: INSULIN GLARGINE 100 UNIT/ML SUBCUT SCH (08:58)
[2016-04-15] MEDS: cloNIDine 0.1 MG TABLET PO SCH (08:58)
[2016-04-15] MEDS: MYCOPHENOLATE MOFETIL 250 MG CAPSULE PO SCH (08:58)
[2016-04-15] MEDS: ENOXAPARIN 40 MG/0.4 ML SYRINGE SUBCUT SCH (08:59)
[2016-04-15] MEDS ORDERED: FUROSEMIDE 40 MG TABLET PO SCH (09:00)
--- NOTE | 2016-04-15 09:00 | Pulmonology Progress Note ---
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 She came in with an acute bronchitis. She is still wheezing today. We need to put her on Solu-Medrol. She does have diabetes and we need to watch her blood sugars. 04/12/2016 bronchospasm she was having yesterday seems to be much better today. She is coughing up a little phlegm now. Need to continue current medications for a few days. 04/13/2016 she is feeling better. Her chest is almost clear. Change to oral meds with prednisone and Levaquin. I think she will be ready for discharge by Monday. She is immunocompromised and we need to treat a little longer in her. 04/14/16 she is feeling better. Still coughing up some sputum but it is clear now. She is on oral medications. I think we can shoot for discharge tomorrow. She has pulmonary hypertension on her echo. She was supposed to see a headlight assembler in [place] in October. She wants to get all of her care consolidated in [place]. I discussed the case with Dr. Lang. We will have cardiology to see her here for her pulmonary hypertension. It is secondary to her interstitial lung disease. It is not primary pulmonary hypertension. 04/15/2016 patient doing much better. Agree with plans for discharge. Appreciate cardiology input. Patient will need annual echo for follow-up of her pulmonary hypertension. She prefers to get her care in [place] now. She will need to follow-up with rheumatology in [place] however. Exam (Progress Note) - Constitutional Vitals: Period Temp Pulse Resp BP Sys/Parks Pulse Ox Last 24 Hr 97.4 F-98.1 F 72-97 16-24 108-127/49-92 89-100 Exam: She is alert and oriented. Vital signs normal. O2 sats in the upper 90s on 2 L nasal prongs. HEENT: Pupils react to light. Throat is clear. Neck supple no bruits. She does show some mild rhonchi, sounds almost completely clear now. Heart normal rate and rhythm no murmurs. Abdomen soft nontender no masses. Extremities no clubbing cyanosis or edema. Calves nontender. Results - Labs CBC & BMP: 04/11/16 05:15 04/13/16 15:46 Lab Results: I have reviewed the past 24 hour labs Assessment and Plan (1) Cor pulmonale Status: Chronic Assessment and plan: She has edema, jugular venous distention, increased interstitial markings, and a BNP in the 800s. We need to check an echocardiogram to see if this is indeed cor pulmonale or if she has some left heart disease. Agree with diuresing gently. 04/11/2016 she has improved with diuresis. Echocardiogram shows ejection fraction 50% with mitral regurgitation. She also has severe pulmonary hypertension with peak pulmonary artery pressure estimated at 68+ right atrial pressure which would put her up into the 70s likely. This is likely due to her underlying chronic lung disease as well as some left ventricular dysfunction. 04/12/2016 responded to diuresis. 04/13/2016 edema resolved. 04/14/16 her fluid retention is due to pulmonary hypertension with cor pulmonale. We are going to have cardiology help us with this as well. 04/15/2016 she has pulmonary hypertension secondary to her chronic lung disease. Developed cor pulmonale. Needs low-dose diuretics. I will follow this in the clinic. 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 She is on CellCept and Humira for both the arthritis in the interstitial pneumonitis. This renders her at immunocompromised state. However she does not have signs and symptoms of an acute infection. 04/11/2016 this is associated with rheumatoid arthritis. She is on 2 medications for both. 04/12/2016 continuing rheumatoid medications. 04/13/2016 chronic underlying problem related to her rheumatoid arthritis. 04/14/16 this is related to her rheumatoid arthritis and is the cause of her pulmonary hypertension. She continues with medications for the rheumatoid arthritis. I agree with holding Humira for about a week to get over the acute bronchitis. She can take the injection at home in about a week. It is ordered by Dr. Carlin, who is her black puller in [place]. 04/15/2016 continuing her rheumatoid medications. Current Visit: No (3) Rheumatoid arthritis Status: Chronic Assessment and plan: Continue home medications for this. 04/15/2016 she is to take her Humira toward the end of next week. Current Visit: No Qualifiers: Laterality: bilateral (4) Type 2 diabetes mellitus Status: Chronic Assessment and plan: Defer to primary service. Sliding scale insulin might be helpful. Would not treat with high-dose steroids at this point. 04/11/2016 I am starting steroids because of persistent bronchospasm. Watch glucoses closely. 04/12/2016 thus far glucoses are fairly well controlled despite the steroids. 04/13/2016 blood sugars look good. Tapering steroids. 04/14/16 glucoses look okay. 04/15/2016 good control. Current Visit: No Qualifiers: Diabetes mellitus complication status: without complication Specialty Discharge - Follow Up or Referrals
[2016-04-15] MEDS: LEVOFLOXACIN 500 MG TABLET PO SCH (09:05)
--- NOTE | 2016-04-15 09:48 | Discharge Summary ---
Hospital Course - Hospital Course Hospital Course: 71-year-old -Japanese female with a history of chronic pulmonary fibrosis who presents to the emergency room with increasing O2 requirement more shortness of breath. She has had a productive cough. Chest x-ray shows no evidence of actual pneumonia. Patient is high risk for pneumonia however due to her rheumatoid arthritis she is on both Humira and CellCept. Dr. Guo was consulted and has been managing her pulmonary fibrosis she sounds so much better today and her wheezing is controlled. I will switch her over to duo nebs every 6 hours and will do a slow steroid taper. We will continue her Levaquin for [address] Pierce said she can resume her Humira next week. Patient had evidence of heart failure and Dr. Willett was consulted. Patient is mainly having right-sided heart failure due to pulmonary hypertension. Her echocardiogram showed an EF of 50% with severe tricuspid regurg and pulmonary hypertension. Dr. Willett will continue to follow her as an outpatient. - Time spent with patient Time with patient DS: Greater than 30 minutes Diagnosis - Discharge Diagnosis (1) Cor pulmonale Status: Chronic (2) Nonspecific interstitial pneumonitis Status: Acute (3) Rheumatoid arthritis Status: Chronic (4) Diabetes mellitus Status: Chronic (5) Hypothyroidism Status: Chronic (6) Acute on chronic systolic (congestive) heart failure Status: Acute Specialty Discharge - Follow Up or Referrals Discharge Plan - Discharge Data Disposition: Home Health Service Condition at Discharge: Stable Discharge Diet: diabetic diet Activity: resume usual activities as tolerated, wear oxygen at all times Hygiene: no restrictions Weight Bearing at Discharge: full weight bearing - Discharge Medications New Furosemide Tab [Lasix Tab] 40 mg PO DAILY #30 tablet Levofloxacin Tab [Levaquin Tab] 500 mg PO Q24H #7 tablet Insulin Aspart Prot/Asp 70/30 [NovoLOG Mix 70/30] 10 unit SUBCUT BID #100 ml Potassium Chloride Cap/Tab [K Dur] 20 meq PO DAILY #30 tablet Continue Mycophenolate Mofetil [Cellcept] 1,000 mg PO BID Aliskiren [Tekturna] 150 mg PO BID Montelukast Tab [Singulair Tab] 10 mg PO BEDTIME #60 tablet cloNIDine TAB [Catapres Tab] 0.3 mg PO BEDTIME cloNIDine TAB [Catapres Tab] 0.2 mg PO DAILY amLODIPine [Norvasc] 5 mg PO DAILY predniSONE TAB [PredniSONE] 20 mg PO DAILY #45 tablet Omeprazole [Prilosec] 40 mg PO DAILY Levothyroxine Tab [Synthroid Tab] 200 mcg PO DAILY Adalimumab [Humira] 40 mg SUBCUT Q14D #0 Albuterol/Ipratropium Neb [Duoneb] 3 ml RESP TX TID #90 vial Discontinued Insulin Aspart Prot/Asp 70/30 [NovoLOG Mix 70/30] 20 unit SUBCUT BID W/MEALS - Follow Up or Referral Follow Up: Jerel Guo MD [Physician] - 2 Weeks Amy Willett DO [Physician] - 1 Month - Forms/Instructions Instructions: Pulmonary Fibrosis (ED) Additional Discharge Instructions: would recommend ASA ec 81 mg daily for prevention of stroke and heart attack Exam - Constitutional Vitals: Period Temp Pulse Resp BP Sys/Parks Pulse Ox Last 24 Hr 97.4 F-98.1 F 72-97 16-24 108-127/49-92 89-100 General appearance: normal weight, no acute distress - Respiratory Respiratory exam: Present: clear to auscultation bilaterally. Absent: rhonchi, wheezes - Cardiovascular Cardiovascular exam: Present: regular rate and rhythm. Absent: systolic murmur - GI/Abdominal GI/Abdominal exam: Present: normal bowel sounds, soft. Absent: tenderness - Extremities Exam Extremities exam: Present: normal inspection, normal capillary refill - Neurological Exam Neurological exam: Present: alert, oriented X3 Discharge Results Labs on day of discharge: Labs from last 24 hours 04/15/16 04/14/16 04/14/16 07:52 18:58 15:36 POC Glucose 119 H 261 H 68 L Procalcitonin 04/14/16 04/11/16 11:56 05:15 POC Glucose 171 H Procalcitonin < 0.10 DS: Provider Date of admission: 04/08/16 01:04 Primary care physician: . No PCP Attending physician on admission: Florencio Still MD Consults: 04/08/16 02:01 Consult to Pharmacy [CONS] Routine Reason for Pharmacy Consult: Adjust Meds Renal Funct 04/14/16 10:20 Consult to Physician [CONS] Routine Comment: Dr Guo would like card to see her for chf Consulting Provider: Juan Broderick Person Notified: AUGUSTO Date Notified: 04/14/16 Time Notified: 11:59 Discharging clinician: Connie Lang MD
[2016-04-15 10:01] VITALS: BP 133/85
[2016-04-15] MEDS: ALISKIREN 150 MG TABLET PO SCH (10:25)
--- NOTE | 2016-04-15 10:32 | Discharge Summary ---
<Brandon Castellon - Last Filed: 04/15/16 10:29> Specialty Discharge - Follow Up or Referrals Follow up with: Jerel Guo MD [Physician] - 05/04/16 1:30 pm Amy Willett DO [Physician] - 05/12/16 1:30 pm Discharge Plan - Discharge Data Disposition: Home Health Service - Discharge Medications New Furosemide Tab [Lasix Tab] 40 mg PO DAILY #30 tablet Levofloxacin Tab [Levaquin Tab] 500 mg PO Q24H #7 tablet Insulin Aspart Prot/Asp 70/30 [NovoLOG Mix 70/30] 10 unit SUBCUT BID #100 ml Potassium Chloride Cap/Tab [K Dur] 20 meq PO DAILY #30 tablet Continue Mycophenolate Mofetil [Cellcept] 1,000 mg PO BID Aliskiren [Tekturna] 150 mg PO BID Montelukast Tab [Singulair Tab] 10 mg PO BEDTIME #60 tablet cloNIDine TAB [Catapres Tab] 0.3 mg PO BEDTIME cloNIDine TAB [Catapres Tab] 0.2 mg PO DAILY amLODIPine [Norvasc] 5 mg PO DAILY predniSONE TAB [PredniSONE] 20 mg PO DAILY #45 tablet Omeprazole [Prilosec] 40 mg PO DAILY Levothyroxine Tab [Synthroid Tab] 200 mcg PO DAILY Adalimumab [Humira] 40 mg SUBCUT Q14D #0 Albuterol/Ipratropium Neb [Duoneb] 3 ml RESP TX TID #90 vial Discontinued Insulin Aspart Prot/Asp 70/30 [NovoLOG Mix 70/30] 20 unit SUBCUT BID W/MEALS - Follow Up or Referral Follow Up: Jerel Guo MD [Physician] - 05/04/16 1:30 pm Amy Willett DO [Physician] - 05/12/16 1:30 pm - Forms/Instructions Instructions: Pulmonary Fibrosis (ED) Exam - Constitutional Vitals: Period Temp Pulse Resp BP Sys/Parks Pulse Ox Last 24 Hr 97.4 F-98.1 F 61-97 16-24 108-133/49-92 89-100 Discharge Results Labs on day of discharge: Labs from last 24 hours 04/15/16 04/14/16 04/14/16 07:52 18:58 15:36 POC Glucose 119 H 261 H 68 L 04/14/16 11:56 POC Glucose 171 H DS: Provider Date of admission: 04/08/16 01:04 Primary care physician: . No PCP Attending physician on admission: Florencio Still MD Consults: 04/08/16 02:01 Consult to Pharmacy [CONS] Routine Reason for Pharmacy Consult: Adjust Meds Renal Funct 04/14/16 10:20 Consult to Physician [CONS] Routine Comment: Dr Guo would like card to see her for chf Consulting Provider: Juan Broderick Person Notified: AUGUSTO Date Notified: 04/14/16 Time Notified: 11:59 Discharging clinician: Brandon Castellon NP <Connie Lang R - Last Filed: 04/15/16 11:20> Hospital Course - Hospital Course Hospital Course: see my summray Diagnosis - Discharge Diagnosis (1) Cor pulmonale Status: Chronic (2) Nonspecific interstitial pneumonitis Status: Acute (3) Rheumatoid arthritis Status: Chronic (4) Diabetes mellitus Status: Chronic (5) Hypothyroidism Status: Chronic (6) Acute on chronic systolic (congestive) heart failure Status: Acute
--- NOTE | 2016-04-18 09:28 | Physician Query Form ---
CLICK EDIT DOCUMENT TO SELECT QUERY ANSWER --> OK --> SIGN Leisa Meyer RN, CCDS Certified Clinical Lines Tender W) [phone] (f) [phone] [email or web address]: Make your selection(s) from the choices in EACH section by typing an "x" and enter comments in the comment section. Please use your independent medical judgment in providing your response. This request does not imply that any particular answer is desired or expected. CLINICAL INDICATORS: (Providers should not edit this section) The medical record indicates that the patient was admitted with cor pulmonale, congestive heart failure, BNP of 864#, "Echo showing Diastolic dysfunction likely due to prolonged IPF" and the patient was treated with IV Lasix. Please provide further specificity regarding CHF. ACUITY: ( ) Acute ( ) Chronic ( ) Acute on Chronic ( ) Clinically unable to determine TYPE: ( ) Systolic ( ) Diastolic ( ) Combined Systolic/Diastolic ( ) Other, please specify: ( ) Clinically unable to determine ( ) The patient does NOT have CHF COMMENTS: Use of terms such as suspected, likely, or probable (associated with a specific diagnosis that is being evaluated, monitored, or treated as if it exists) are acceptable and can be restated in the discharge summary if not ruled out. MTDD
== END 2016-04-15 10:44 | disposition home or self-care (01) | DRG 292 ==
LOC: N.ED 18:28 → N.EDINP 04-08 01:04 → SUATTDRO 04-08 01:04 → N.EDINP 04-08 01:38 → N.2E 04-08 01:53
PROVIDERS: ADMIT Internal Medicine; ATTEND Internal Medicine

== ENCOUNTER 2016-04-29 12:03 | Inpatient (IN) ==
[2016-04-29] MEDS ORDERED: FUROSEMIDE 100 MG/10 ML VIAL IV STA (12:24)
--- NOTE | 2016-04-29 12:42 | Emergency Department Note ---
Arrival - Arrival Chief Complaint: Shortness of Breath Stated Complaint: SOB/fliuids on ankles ED Nursing Triage Note: reports increased sob since 0400 this morning. wears o2 at home at 3l nc has increased to 4l this mornig. edema in lower ext pt is obviously sob in triage Mode of Arrival: Ambulatory Limitations: No Limitations Source: Patient, RN Notes Reviewed Time Seen by Provider: 04/29/16 12:24 - History of Present Illness HPI Narrative: Patient is a 71-year-old black female routinely followed by Dr. Guo who presents to the emergency department today with shortness of breath. Patient became extremely short of breath this morning. Shortness of breath is worse with exertion and supine positioning. Patient has had some substernal chest pain. Onset (ago): hour(s) (4-5) Consistency: constant Severity: moderate Allergies/Adverse Reactions: Allergies Allergy/AdvReac Type Severity Reaction Status Date / Time No Known Allergies Allergy Verified 04/07/16 18:47 Home Medications: Home Medications Medication Instructions Recorded Confirmed Type Aliskiren [Tekturna] 150 mg PO DAILY 01/27/15 04/29/16 History Mycophenolate Mofetil [Cellcept] 1,000 mg PO BID 01/27/15 04/29/16 History Montelukast Tab [Singulair Tab] 10 mg PO BEDTIME #60 tablet 04/08/15 04/29/16 Rx Levothyroxine Tab [Synthroid Tab] 200 mcg PO DAILY 02/15/16 04/29/16 History Omeprazole [Prilosec] 40 mg PO DAILY 02/15/16 04/29/16 History amLODIPine [Norvasc] 5 mg PO DAILY 02/15/16 04/29/16 History cloNIDine TAB [Catapres Tab] 0.2 mg PO DAILY 02/15/16 04/29/16 History cloNIDine TAB [Catapres Tab] 0.3 mg PO BEDTIME 02/15/16 04/29/16 History Adalimumab [Humira] 40 mg SUBCUT Q14D #0 04/15/16 04/29/16 Rx Albuterol/Ipratropium Neb [Duoneb] 3 ml RESP TX TID #90 vial 04/15/16 04/29/16 Rx Furosemide Tab [Lasix Tab] 40 mg PO DAILY #30 tablet 04/15/16 04/29/16 Rx Potassium Chloride Cap/Tab [K Dur] 20 meq PO DAILY #30 tablet 04/15/16 04/29/16 Rx Insulin Aspart Prot/Asp 70/30 20 unit SUBCUT BID 04/29/16 04/29/16 History [NovoLOG Mix 70/30] predniSONE TAB [PredniSONE] 10 mg PO DAILY 04/29/16 04/29/16 History Review of System - Review of System 12 point system: reviewed and no additional remarkable complaints except as stated - Review of System Constitutional: Absent: chills, fever Respiratory: Present: respiratory distress. Absent: cough Cardiovascular: Present: chest pain Gastrointestinal: Absent: abdominal pain Medical,Surgical,& Family Hx - Medical History Cardio: History of: Cardiac Dysrhythmia (in past), Hypertension No history of: CHF, [place], Pacemaker Neurology: No history of: Brain Aneurysm, Cerebral Hemorrhage, Cerebrovascular Accident , Cerebral Palsy, Dementia, Migraine, Multiple Sclerosis, Parkinson's Disease, Peripheral Neuropathy, Seizures, TIA, Vertigo, Neurologocal Cancer Endocrine: History of: Diabetes Mellitus (IDDM), Thyroid Disorder Rheumatology: History of;: Rheumatoid Arthritis Respiratory: History of: Pneumonia, Respiratory Problems (Pulmonary fibrosis and secondary pulmonary hypertension from primary rheuma) No history of: Asthma, COPD Gastrointestinal: History of: GERD, GI Problems (dysphagia) No history of: Hepatitis, Liver Problems Hematology: History of: Anemia No history of: Blood Transfusion Reaction Other: No history of: Anesthesia Reactions, Cancer - Surgical History Cardiac Surgeries: Patient Denies: Cardiac Catheterization, Carotid Endarterectomy Thoracic Surgeries: Patient denies;: Lobectomy Neurologic Surgeries: Patient denies: Brain Aneurysm, Cerebral Hemorrhage, Neurologic Surgery HEENT Surgeries: Surgical HX of: Eye Surgery (cataracts), Thyroid Surgery ( thyroidectomy-2002) Patient denies: Carotid Endarterectomy, Tonsilectomy & Adenoidectomy Abdominal Surgeries: Surgical HX of: Colonoscopy, EGD Patient denies: Abdominal Surgery, Appendectomy, Cholecystectomy, Hernia Repair Reproductive Surgeries: Patient denies;: Breast Surgery Orthopedic Surgeries: Patient denies;: Orthopedic Surgery, Total Hip Replacement, Total Knee Replacement - Family History Family History: Denies;: Family Heart Disease - Social History Smoking Status: Never smoker Exam Vital Signs: Vital Signs Temperature 98.1 F 04/29/16 12:12 Pulse Rate 113 H 04/29/16 12:12 Respiratory Rate 28 H 04/29/16 12:25 Blood Pressure 106/90 04/29/16 12:12 O2 Sat by Pulse Oximetry 82 L 04/29/16 12:12 GENERAL: This is a well-nourished well-developed black female in mild to moderate respiratory distress. VITAL SIGNS: Reviewed HEENT: Head is atraumatic and normocephalic. Pupils are equal round react to light. Extraocular movements are intact. Oropharynx is benign with moist mucous membranes. NECK: Neck is soft and supple without tenderness. There are no masses. There is no lymphadenopathy. LUNGS: Lungs are clear to auscultation. Chest rises symmetrically. There is no chest wall tenderness. CV: Heart is rapid rate, regular rhythm without murmurs rubs or gallops. JVD is present to the angle of the mandible. ABDOMEN: Abdomen is soft, nontender to palpation. There are no abdominal abnormal masses palpated. There is no organomegaly. Bowel sounds are present and active. SKIN: Skin is warm and dry. No rash. EXTREMITIES: Patient has full range of motion without tenderness. There is 2+ pitting pedal edema. NEUROLOGIC: Awake alert and oriented 4. Cranial nerves II through XII are grossly intact. Motor is 5 over 5 in all extremities bilaterally. Results - Labs CBC & BMP: 04/29/16 14:01 Lab Results: I have reviewed the patients labs - EKG EKG results: interpreted by ERMD - Diagnostic Findings Procedure: Chest x-ray: image reviewed by me (Cardiomegaly with increased pulmonary markings bilaterally) Disposition Clinical Impression: Dyspnea, Pulmonary fibrosis, Cor pulmonale, Essential (primary) hypertension, Diabetes mellitus Case discussed with: patient Disposition: Still a Patient Condition: Guarded
[2016-04-29] MEDS ORDERED: FUROSEMIDE 100 MG/10 ML VIAL ONE (12:45)
--- NOTE | 2016-04-29 12:51 | XRay Report ---
Exam: XR chest 1V portable Indication: Cardiomegaly, shortness of breath Comparison study: 04/11/2016 Findings: Cardiac silhouette is enlarged, similar to prior. The heart, mediastinum and bony structures are stable from prior. Perihilar and basilar interstitial and airspace opacities are noted, which are similar to prior. Elevation of the right hemidiaphragm is also again noted. Upper lungs appear predominantly clear. There is no focal consolidation or pneumothorax. Impression: Cardiomegaly with findings suggestive of a degree of heart failure/interstitial edema. Minimal basilar atelectasis and effusions are not excluded. PROCEDURE INTERPRETED AT [facility] [place] DEPARTMENT OF RADIOLOGY Final Report Signed by: Mikel Lee
[2016-04-29 14:18] LABS: Basophils # 0.1 10*3/uL (0.0-0.2); Basophils % 0.4 % (0.0-0.8); Eosinophils # 0.1 10*3/uL (0.0-0.87); Eosinophils % 0.4 % (0.00-10.9); Hematocrit 40.1 VOL% (35.7-47.0); Immature Granulocytes % 0.5 %; Immature Granulocytes Absolute 0.06 #; Lymphocytes # 1.3 10*3/uL (1.4-4.0); Lymphocytes % 10.9 % (21.3-54.2); Mean Corpuscular HGB Conc 32.4 GM/DL (32-36); Mean Corpuscular Hemoglobin 27 PG (27-34); Mean Platelet Volume 9.8 FL (9.6-12.0); Monocytes # 0.4 10*3/uL (0.11-0.8); Neutrophils # 10.4 10*3/uL (1.4-7.4); Neutrophils % 84.8 % (38.7-73.9); Platelet Count 216 T/CUMM (130-400); Red Blood Count 4.83 MC/CUMM (3.8-5.5); Red Cell Distribution Width 18.1 % (9.3-17.3); White Blood Count 12.2 T/CUMM (4-12)
[2016-04-29 14:24] LABS: Apearance,Urine CLEAR (Clear); Bilirubin,Urine Negative (Negative); Blood, Urine Negative (Negative); Glucose,Urine (UA) 50 mg/dL (Negative); Ketones,Urine Negative (Negative); Mucus,Urine Occasional /LPF (Occasional); Nitrite,Urine Negative (Negative); Protein,Urine 30 MG/DL; RBC,Urine 1 /HPF (0-4); Squamous Epithelial Cell,Urine Occasional /HPF (0-10); Urine Color Straw (Yellow); Urine Specific Gravity 1.005 (1.001-1.035); Urine Urobilinogen < 2.0 EU/DL (0.2-1.0); WBC,Urine <1 /HPF (0-6)
[2016-04-29 14:35] LABS: INR 1.3; PT Patient Result 13.4 SECS
[2016-04-29 14:42] LABS: Albumin 3.4 G/DL (3.4-5.0); Bilirubin,Total 1.8 MG/DL (0.2-1.0); Calcium 9.2 MG/DL (8.5-10.1); Potassium 3.9 MMOL/L (3.5-5.1); Total Protein 5.8 G/DL (6.4-8.3)
[2016-04-29 14:45] LABS: Troponin I Only 0.073 NG/ML (0.00-0.045)
--- NOTE | 2016-04-29 17:09 | Hospitalist History & Physical ---
Assessment and Plan - Time spent with patient Time spent with patient: Greater than 30 minutes (1) Acute exacerbation of chronic obstructive airways disease Status: Acute Assessment and plan: Labile oxygen saturations from mid 80s to mid 90s on 3 L oxygen per nasal cannula. We will continue to give oxygen. Consult pulmonology for recommendations. Current Visit: No (2) Pulmonary fibrosis Status: Chronic Assessment and plan: Patient notes that she was diagnosed with pulmonary fibrosis in 2009. She has been on prednisone since April 07, 2016 for this. She is being followed by pulmonology. Current Visit: No (3) Essential (primary) hypertension Status: Acute Assessment and plan: Patient is noted to have diastolic dysfunction. Blood pressure at the time of exam 139/112. Current Visit: Yes (4) Diabetes mellitus Status: Acute Assessment and plan: Blood glucose 234. We will initiate sliding scale protocol. It is of note that the patient is taking prednisone. Current Visit: Yes History of Present Illness Chief complaint: SOB, CHF History of present illness: Ms. Bowens is a 71 year old -[place] female with a history significant for pulmonary fibrosis, CHF, diabetes mellitus, hypertension who presents to the emergency room today with complaints of shortness of breath since this morning. Patient states that she became extremely short of breath this morning that is worse on exertion. She noted that her oxygen saturations were in the upper 70s to mid 80s on exertion. She also notes that she is on continuous oxygen at 2-3 L per nasal cannula. She does report some substernal chest pain that is nonreproducible. It is of note that the patient was recently hospitalized here and seen by Dr. Guo for pulmonary fibrosis and subsequent shortness of breath. She was discharged on April 15, 2016. At the time of the exam, the patient was tachycardic low 100s, oxygen saturation 93% on 3 L, BP 139 /112. Patient is white count is 12.2, BUN 19, creatinine 1.2, glucose 245. It is of note that the patient has been on prednisone since April 07 for pulmonary fibrosis. She will be admitted to the hospital medicine team for further management and evaluation. We will consult pulmonology for recommendations. Home Medications Medication Instructions Recorded Confirmed Type Aliskiren [Tekturna] 150 mg PO DAILY 01/27/15 04/29/16 History Mycophenolate Mofetil [Cellcept] 1,000 mg PO BID 01/27/15 04/29/16 History Montelukast Tab [Singulair Tab] 10 mg PO BEDTIME #60 tablet 04/08/15 04/29/16 Rx Levothyroxine Tab [Synthroid Tab] 200 mcg PO DAILY 02/15/16 04/29/16 History Omeprazole [Prilosec] 40 mg PO DAILY 02/15/16 04/29/16 History amLODIPine [Norvasc] 5 mg PO DAILY 02/15/16 04/29/16 History cloNIDine TAB [Catapres Tab] 0.2 mg PO DAILY 02/15/16 04/29/16 History cloNIDine TAB [Catapres Tab] 0.3 mg PO BEDTIME 02/15/16 04/29/16 History Adalimumab [Humira] 40 mg SUBCUT Q14D #0 04/15/16 04/29/16 Rx Albuterol/Ipratropium Neb [Duoneb] 3 ml RESP TX TID #90 vial 04/15/16 04/29/16 Rx Furosemide Tab [Lasix Tab] 40 mg PO DAILY #30 tablet 04/15/16 04/29/16 Rx Potassium Chloride Cap/Tab [K Dur] 20 meq PO DAILY #30 tablet 04/15/16 04/29/16 Rx Insulin Aspart Prot/Asp 70/30 20 unit SUBCUT BID 04/29/16 04/29/16 History [NovoLOG Mix 70/30] predniSONE TAB [PredniSONE] 10 mg PO DAILY 04/29/16 04/29/16 History Allergies Allergy/AdvReac Type Severity Reaction Status Date / Time No Known Allergies Allergy Verified 04/07/16 18:47 Medical,Surgical,& Family Hx - Medical History Cardio: History of: Cardiac Dysrhythmia (in past), Hypertension No history of: CHF, [place], Pacemaker Neurology: No history of: Brain Aneurysm, Cerebral Hemorrhage, Cerebrovascular Accident , Cerebral Palsy, Dementia, Migraine, Multiple Sclerosis, Parkinson's Disease, Peripheral Neuropathy, Seizures, TIA, Vertigo, Neurologocal Cancer Endocrine: History of: Diabetes Mellitus (IDDM), Thyroid Disorder Rheumatology: History of;: Rheumatoid Arthritis Respiratory: History of: Pneumonia, Respiratory Problems (Pulmonary fibrosis and secondary pulmonary hypertension from primary rheuma) No history of: Asthma, COPD Gastrointestinal: History of: GERD, GI Problems (dysphagia) No history of: Hepatitis, Liver Problems Hematology: History of: Anemia No history of: Blood Transfusion Reaction Other: No history of: Anesthesia Reactions, Cancer - Surgical History Cardiac Surgeries: Patient Denies: Cardiac Catheterization, Carotid Endarterectomy Thoracic Surgeries: Patient denies;: Lobectomy Neurologic Surgeries: Patient denies: Brain Aneurysm, Cerebral Hemorrhage, Neurologic Surgery HEENT Surgeries: Surgical HX of: Eye Surgery (cataracts), Thyroid Surgery ( thyroidectomy-2003) Patient denies: Carotid Endarterectomy, Tonsilectomy & Adenoidectomy Abdominal Surgeries: Surgical HX of: Colonoscopy, EGD Patient denies: Abdominal Surgery, Appendectomy, Cholecystectomy, Hernia Repair Reproductive Surgeries: Patient denies;: Breast Surgery Orthopedic Surgeries: Patient denies;: Orthopedic Surgery, Total Hip Replacement, Total Knee Replacement - Family History Family History: Denies;: Family Heart Disease - Social History Smoking Status: Never smoker - Constitutional Constitutional: Present: fatigue, weakness. Absent: anorexia, chills, daytime sleepiness, fever(s), frequent falls, night sweats, stops breathing during sleep - EENT Eyes: Absent: blurry vision, loss of vision Nose, mouth and throat: Absent: headache(s), neck mass, neck pain, sore throat - Cardiovascular Cardiovascular: Present: dyspnea, dyspnea on exertion, edema. Absent: chest pain at rest - Respiratory Respiratory: Present: cough, dyspnea, dyspnea on exertion, wheezing. Absent: hemoptysis, pain on inspiration - Gastrointestinal Gastrointestinal: Absent: abdominal pain, change in bowel habits - Neurological Neurological: Absent: abnormal speech, headache(s), numbness, syncope - Hematologic/Lymphatic Hematologic/Lymphatic: Absent: easy bleeding, easy bruising Exam - Constitutional Vitals: Period Temp Pulse Resp BP Sys/Parks Pulse Ox Last 24 Hr 98.1 F 92-113 20-26 106-129/90-96 95-98 Exam: General appearance: normal weight, no acute distress - Head Head exam: Present: normocephalic, atraumatic - Eye Eye exam: Present: EOMI. Absent: conjunctival injection, nystagmus Pupils: Present: BRANDI, normal accommodation - ENT ENT exam: Present: normal exam, normal external ear exam - Neck Neck exam: Present: normal inspection. Absent: lymphadenopathy, tenderness, thyromegaly - Respiratory Respiratory exam: Present: decreased breath sounds. Absent: rales, rhonchi, wheezes - Cardiovascular Cardiovascular exam: Present: tachycardia. Absent: carotid bruit, rubs - GI/Abdominal GI/Abdominal exam: Present: normal bowel sounds. Absent: ascites, distended, mass - Extremities Exam Extremities exam: Present: edema bilaterally (1+ on Right, 2+ on Left) normal capillary refill. Absent: cyanosis - Back Exam Back exam: Absent: CVA tenderness (L), CVA tenderness (R) - Neurological Exam Neurological exam: Present: alert, oriented X3 - Psychiatric Psychiatric exam: Present: normal affect, normal mood - Skin Skin exam: Present: normal color, warm, dry Results - Labs CBC & BMP: 04/29/16 14:01 04/29/16 14:01 Lab Results: I have reviewed the past 24 hour labs - EKG EKG results: interpreted by KENNETH - Diagnostic Findings Procedure: Chest x-ray: image reviewed by me, report reviewed by me
[2016-04-29] MEDS: ENOXAPARIN 40 MG/0.4 ML SYRINGE SUBCUT SCH (19:09)
[2016-04-29] MEDS: LEVOFLOXACIN INJ 500 MG in PREMIX 1 EACH IV SCH (19:09)
[2016-04-29] MEDS: ALBUTEROL/IPRATROPIUM 3 ML NEB RESP TX SCH (20:06)
[2016-04-29] MEDS: INSULIN ASPART PROTAMINE/ASPART 70/30 100 UNIT/ML SUBCUT SCH (21:05)
[2016-04-29] MEDS: MONTELUKAST 10 MG TABLET PO SCH (21:05)
[2016-04-30 03:46] LABS: Basophils # 0.1 10*3/uL (0.0-0.2); Basophils % 0.5 % (0.0-0.8); Eosinophils # 0.3 10*3/uL (0.0-0.87); Eosinophils % 2.3 % (0.00-10.9); Hematocrit 39.3 VOL% (35.7-47.0); Hemoglobin 12.7 GM/DL (12.0-16.0); Immature Granulocytes % 0.3 %; Immature Granulocytes Absolute 0.03 #; Lymphocytes # 4.2 10*3/uL (1.4-4.0); Lymphocytes % 38.1 % (21.3-54.2); Mean Corpuscular HGB Conc 32.3 GM/DL (32-36); Mean Corpuscular Hemoglobin 27 PG (27-34); Mean Corpuscular Volume 84.3 FL (87-102); Mean Platelet Volume 10.2 FL (9.6-12.0); Monocytes # 0.7 10*3/uL (0.11-0.8); Neutrophils # 5.8 10*3/uL (1.4-7.4); Neutrophils % 52.8 % (38.7-73.9); Platelet Count 199 T/CUMM (130-400); Red Blood Count 4.66 MC/CUMM (3.8-5.5)
[2016-04-30 04:14] LABS: Albumin 2.9 G/DL (3.4-5.0); Bilirubin,Total 1.6 MG/DL (0.2-1.0); Calcium 9.1 MG/DL (8.5-10.1); Osmolality,Calculated 289.7 MOS/KG (273-304); Potassium 3.5 MMOL/L (3.5-5.1); Total Protein 5.3 G/DL (6.4-8.3)
[2016-04-30] MEDS: ALBUTEROL/IPRATROPIUM 3 ML NEB RESP TX SCH ×3 (07:30→19:11)
[2016-04-30] MEDS ORDERED: predniSONE 10 MG TABLET PO SCH (09:00)
[2016-04-30] MEDS: FUROSEMIDE 40 MG TABLET PO SCH (10:09)
[2016-04-30] MEDS: POTASSIUM CHLORIDE 20 MEQ TABLET PO SCH (10:09)
[2016-04-30] MEDS: PANTOPRAZOLE 40 MG TABLET PO SCH (10:09)
[2016-04-30] MEDS: LEVOTHYROXINE 200 MCG TABLET PO SCH (10:09)
[2016-04-30] MEDS: amLODIPine 5 MG TABLET PO SCH (10:09)
[2016-04-30] MEDS: INSULIN ASPART PROTAMINE/ASPART 70/30 100 UNIT/ML SUBCUT SCH ×2 (10:09→22:15)
[2016-04-30] MEDS: ALISKIREN 150 MG TABLET PO SCH (10:09)
[2016-04-30] MEDS: INSULIN LISPRO 100 UNIT/ML SUBCUT SCH ×3 (12:54→22:15)
[2016-04-30] MEDS: ACETAMINOPHEN 325 MG TABLET PO PRN (14:50)
--- NOTE | 2016-04-30 16:35 | Hospitalist Progress Note ---
Assessment and Plan (1) Acute exacerbation of chronic obstructive airways disease Status: Acute Current Visit: No (2) Rheumatoid arthritis Status: Chronic Current Visit: No Qualifiers: Laterality: bilateral (3) Nonspecific interstitial pneumonitis Status: Acute Current Visit: No (4) Diabetes mellitus Status: Chronic Current Visit: No (5) Pulmonary fibrosis Status: Chronic Current Visit: No (6) Hypothyroidism Status: Chronic Current Visit: No (7) Rheumatoid arteritis Status: Chronic Current Visit: No Hospitalist: Subjective Interval history: Feels slightly better. Still not sure what happened to her. She she got weak and had a near fall and then became hypoxic. Today she feels better. She normally sees Dr. Guo. She is on Humira and prednisone and is immunosuppressed. Assessment and plan 04/30/2016: With history of COPD Hypoxia interstitial pneumonia versus edema Lower extremity edema left greater than right Increase prednisone to 40 mg. Continue antibiotics and nebulizers. Pulmonary to see the patient in consultation. We will also check Dopplers of left lower extremity Exam - Constitutional Vitals: Period Temp Pulse Resp BP Sys/Parks Pulse Ox Last 24 Hr 98.1 F-99.0 F 61-116 12-26 105-131/73-90 90-99 Exam: Gen.: In no acute distress Head and neck: Pupils are reactive neck is supple Cardiovascular: S1-S2 with regular rate and rhythm Respiratory: Lungs are clear to auscultation and percussion Abdomen: Soft, bowel sounds are positive Extremities: 2+ edema in left lower extremity and 1+ edema in the right lower extremity Neuro: Grossly intact Results - Labs CBC & BMP: 04/30/16 02:44 04/30/16 02:44 Lab Results: I have reviewed the past 24 hour labs
--- NOTE | 2016-04-30 17:40 | Ultrasound Report ---
History: Left lower extremity swelling Date: 04/30/2016 Study: Left lower extremity color-flow venous Doppler study Comparison exam: Venous ultrasound June 07, 2010 Color Doppler, wave form analysis, and compression analysis of the deep veins of the left lower extremity from the common femoral vein level through the popliteal vein level shows that the veins are readily compressible. There is no abnormal intraluminal material to suggest thrombus. Waveform analysis is unremarkable. Ultrasound images were captured and archived Impression: Normal left lower extremity color flow venous Doppler study. No evidence of acute DVT on the left PROCEDURE INTERPRETED AT [facility] DEPARTMENT OF RADIOLOGY Final Report Signed by: Dr. Hanny Arellano
[2016-04-30] MEDS: ENOXAPARIN 40 MG/0.4 ML SYRINGE SUBCUT SCH (18:41)
[2016-04-30] MEDS: LEVOFLOXACIN INJ 500 MG in PREMIX 1 EACH IV SCH (18:41)
[2016-04-30] MEDS: MONTELUKAST 10 MG TABLET PO SCH (22:16)
[2016-05-01 06:32] LABS: Calcium 9.8 MG/DL (8.5-10.1); Magnesium 2.2 MG/DL (1.8-2.4); Osmolality,Calculated 291.6 MOS/KG (273-304); Potassium 3.3 MMOL/L (3.5-5.1)
[2016-05-01 07:43] LABS: Basophils % 0.5 % (0.0-0.8); Eosinophils # 0.1 10*3/uL (0.0-0.87); Eosinophils % 0.7 % (0.00-10.9); Hemoglobin 14.1 GM/DL (12.0-16.0); Immature Granulocytes % 0.5 %; Immature Granulocytes Absolute 0.04 #; Lymphocytes % 24.1 % (21.3-54.2); Mean Corpuscular HGB Conc 30.7 GM/DL (32-36); Mean Corpuscular Hemoglobin 27 PG (27-34); Mean Platelet Volume 9.5 FL (9.6-12.0); Monocytes # 0.7 10*3/uL (0.11-0.8); Monocytes % 7.8 % (1.7-12.7); NRBC # 0.02 10*3/uL; Neutrophils # 5.5 10*3/uL (1.4-7.4); Neutrophils % 66.4 % (38.7-73.9); Platelet Count 218 T/CUMM (130-400); Red Blood Count 5.17 MC/CUMM (3.8-5.5); Red Cell Distribution Width 18.6 % (9.3-17.3); White Blood Count 8.3 T/CUMM (4-12)
[2016-05-01] MEDS: ALBUTEROL/IPRATROPIUM 3 ML NEB RESP TX SCH ×3 (07:44→19:50)
[2016-05-01] MEDS: POTASSIUM CHLORIDE 20 MEQ TABLET PO SCH ×2 (10:15→22:19)
--- NOTE | 2016-05-01 10:15 | Pulmonology Consult Note ---
Assessment and Plan (1) Rheumatoid arthritis Status: Chronic Assessment and plan: The patient has rheumatoid arthritis and likely has interstitial lung disease related to this. Current Visit: No Qualifiers: Laterality: bilateral (2) Nonspecific interstitial pneumonitis Status: Acute Assessment and plan: The patient is being treated for interstitial lung disease. Current Visit: No (3) Cor pulmonale Status: Chronic Assessment and plan: Patient had worsening shortness of breath and some of this may be extra fluid. She is getting some diuretics. Current Visit: No (4) Acute on chronic systolic (congestive) heart failure Status: Acute Assessment and plan: She is getting diuretics and will see if she is breathing better. Current Visit: No (5) Type 2 diabetes mellitus Status: Chronic Assessment and plan: Patient's glucoses will be monitored. Current Visit: No Qualifiers: Diabetes mellitus complication status: without complication (6) Acute on chronic respiratory failure Status: Acute Assessment and plan: Patient looks like she has interstitial lung disease. It is hard to tell if she has infection now. She is getting some antibiotics and prednisone. She has been started on some diuretics. Dr. Guo will evaluate tomorrow. Current Visit: No History of Present Illness Chief complaint: Shortness of breath History of present illness: Ms. Bowens is a 71 year old black female that has a history of having rheumatoid arthritis and has been on immunosuppressive therapy in the past. She has been followed by Dr. Guo with some interstitial lung disease. She has been found to have some pulmonary hypertension. She says her Humira has been held for the past month. She comes back in with worsening shortness of breath and now does have worsening infiltrate in the left chest. She has not had any fever or purulent secretions. She does have worsening peripheral edema. She has been diuresing a little. She does get short of breath fairly easily. Home Medications Medication Instructions Recorded Confirmed Type Aliskiren [Tekturna] 150 mg PO DAILY 01/27/15 04/29/16 History Mycophenolate Mofetil [Cellcept] 1,000 mg PO BID 01/27/15 04/29/16 History Montelukast Tab [Singulair Tab] 10 mg PO BEDTIME #60 tablet 04/08/15 04/29/16 Rx Levothyroxine Tab [Synthroid Tab] 200 mcg PO DAILY 02/15/16 04/29/16 History Omeprazole [Prilosec] 40 mg PO DAILY 02/15/16 04/29/16 History amLODIPine [Norvasc] 5 mg PO DAILY 02/15/16 04/29/16 History cloNIDine TAB [Catapres Tab] 0.2 mg PO DAILY 02/15/16 04/29/16 History cloNIDine TAB [Catapres Tab] 0.3 mg PO BEDTIME 02/15/16 04/29/16 History Adalimumab [Humira] 40 mg SUBCUT Q14D #0 04/15/16 04/29/16 Rx Albuterol/Ipratropium Neb [Duoneb] 3 ml RESP TX TID #90 vial 04/15/16 04/29/16 Rx Furosemide Tab [Lasix Tab] 40 mg PO DAILY #30 tablet 04/15/16 04/29/16 Rx Potassium Chloride Cap/Tab [K Dur] 20 meq PO DAILY #30 tablet 04/15/16 04/29/16 Rx Insulin Aspart Prot/Asp 70/30 20 unit SUBCUT BID 04/29/16 04/29/16 History [NovoLOG Mix 70/30] predniSONE TAB [PredniSONE] 10 mg PO DAILY 04/29/16 04/29/16 History Allergies Allergy/AdvReac Type Severity Reaction Status Date / Time No Known Allergies Allergy Verified 04/07/16 18:47 - Constitutional Constitutional: Present: fatigue, weakness, weight gain. Absent: chills, fever( s) - EENT Eyes: Absent: loss of vision Ears: Absent: decreased hearing Nose, mouth and throat: Absent: dysphagia, headache(s), sinus pressure, sore throat - Cardiovascular Cardiovascular: Present: dyspnea, dyspnea on exertion, edema, orthopnea. Absent : chest pain at rest, palpitations - Respiratory Respiratory: Present: cough. Absent: hemoptysis, pain on inspiration, change in phlegm color - Gastrointestinal Gastrointestinal: Absent: abdominal pain, change in bowel habits, nausea, vomiting - Genitourinary Genitourinary: Absent: dysuria, hematuria, urinary frequency - Musculoskeletal Musculoskeletal: Present: arthralgias - Neurological Neurological: Absent: abnormal speech, focal weakness, paresthesias - Psychiatric Psychiatric: Absent: depression - Hematologic/Lymphatic Hematologic/Lymphatic: Present: easy bleeding, easy bruising Exam (Pulmonay) H&P - Constitutional Vitals: Period Temp Pulse Resp BP Sys/Parks Pulse Ox Last 24 Hr 96.7 F-99.0 F 86-116 18-22 114-130/81-95 83-100 General appearance: normal weight, no acute distress - Head Head exam: Present: normal inspection, normocephalic - Eye Eye exam: Present: EOMI. Absent: scleral icterus Pupils: Present: BRANDI - ENT ENT exam: Present: normal exam - Neck Neck exam: Present: normal inspection. Absent: lymphadenopathy, thyromegaly - Respiratory Respiratory exam: Present: rales (She does have inspiratory crackles bilaterally.). Absent: accessory muscle use - Cardiovascular Cardiovascular exam: Present: regular rate and rhythm, tachycardia. Absent: gallop, systolic murmur - GI/Abdominal GI/Abdominal exam: Present: normal bowel sounds, soft. Absent: organomegaly, tenderness - Extremities Exam Extremities exam: Present: edema. Absent: calf tenderness - Neurological Exam Neurological exam: Present: alert, oriented X3, CN II-XII intact - Psychiatric Psychiatric exam: Present: normal affect - Skin Skin exam: Present: warm, dry Medical,Surgical,& Family Hx - Medical History Cardio: History of: Cardiac Dysrhythmia (in past), Hypertension No history of: CHF, [place], Pacemaker Neurology: No history of: Brain Aneurysm, Cerebral Hemorrhage, Cerebrovascular Accident , Cerebral Palsy, Dementia, Migraine, Multiple Sclerosis, Parkinson's Disease, Peripheral Neuropathy, Seizures, TIA, Vertigo, Neurologocal Cancer Endocrine: History of: Diabetes Mellitus (IDDM), Thyroid Disorder Rheumatology: History of;: Rheumatoid Arthritis Respiratory: History of: Pneumonia, Respiratory Problems (Pulmonary fibrosis and secondary pulmonary hypertension from primary rheuma) No history of: Asthma, COPD Gastrointestinal: History of: GERD, GI Problems (dysphagia) No history of: Hepatitis, Liver Problems Hematology: History of: Anemia No history of: Blood Transfusion Reaction Other: No history of: Anesthesia Reactions, Cancer - Surgical History Cardiac Surgeries: Patient Denies: Cardiac Catheterization, Carotid Endarterectomy Thoracic Surgeries: Patient denies;: Lobectomy Neurologic Surgeries: Patient denies: Brain Aneurysm, Cerebral Hemorrhage, Neurologic Surgery HEENT Surgeries: Surgical HX of: Eye Surgery (cataracts), Thyroid Surgery ( thyroidectomy-2003) Patient denies: Carotid Endarterectomy, Tonsilectomy & Adenoidectomy Abdominal Surgeries: Surgical HX of: Colonoscopy, EGD Patient denies: Abdominal Surgery, Appendectomy, Cholecystectomy, Hernia Repair Reproductive Surgeries: Patient denies;: Breast Surgery, Hysterectomy, Tubal Ligation Orthopedic Surgeries: Patient denies;: Orthopedic Surgery, Total Hip Replacement, Total Knee Replacement - Family History Family History: Reports;: Family Cancer (aunt- cervical cancer, aunt- breast cancer), Family Diabetes (mother) Denies;: Family Heart Disease - Social History Smoking Status: Never smoker Frequency of Alcohol Use: None Results - Labs CBC & BMP: 05/01/16 07:34 05/01/16 03:20 - Diagnostic Findings Procedure: Chest x-ray: image reviewed by me, report reviewed by me (Chest x- ray does show cardiomegaly and worsening interstitial infiltrates especially in the left lung)
[2016-05-01] MEDS: PANTOPRAZOLE 40 MG TABLET PO SCH (10:20)
[2016-05-01] MEDS: LEVOTHYROXINE 200 MCG TABLET PO SCH (10:20)
[2016-05-01] MEDS: ALISKIREN 150 MG TABLET PO SCH (10:20)
[2016-05-01] MEDS: amLODIPine 5 MG TABLET PO SCH (10:20)
[2016-05-01] MEDS: predniSONE 20 MG TABLET PO SCH (10:20)
[2016-05-01] MEDS: FUROSEMIDE 40 MG TABLET PO SCH (10:20)
[2016-05-01] MEDS: INSULIN LISPRO 100 UNIT/ML SUBCUT SCH ×4 (11:08→22:19)
[2016-05-01] MEDS: INSULIN ASPART PROTAMINE/ASPART 70/30 100 UNIT/ML SUBCUT SCH ×2 (11:20→22:19)
--- NOTE | 2016-05-01 15:01 | Hospitalist Progress Note ---
Assessment and Plan (1) Acute exacerbation of chronic obstructive airways disease Status: Acute Current Visit: No (2) Rheumatoid arthritis Status: Chronic Current Visit: No Qualifiers: Laterality: bilateral (3) Nonspecific interstitial pneumonitis Status: Acute Current Visit: No (4) Diabetes mellitus Status: Chronic Current Visit: No (5) Pulmonary fibrosis Status: Chronic Current Visit: No (6) Hypothyroidism Status: Chronic Current Visit: No (7) Rheumatoid arteritis Status: Chronic Current Visit: No (8) Hypokalemia Status: Acute Current Visit: Yes Hospitalist: Subjective Interval history: Shortness of breath is better today. She's not coughed anymore brown sputum. Assessment and plan 05/01/2016: Clinically improving. Continue with antibiotics and we did increase her prednisone to 40 mg. Doppler of left lower extremity was negative. Dr. Guo from pulmonary to see her tomorrow is her regular physician. Hopefully transition to oral agents sewn and discharged home if okay with pulmonary. We will supplement potassium. Exam - Constitutional Vitals: Period Temp Pulse Resp BP Sys/Parks Pulse Ox Last 24 Hr 96.7 F-99.0 F 86-116 18-22 114-130/81-95 83-100 Exam: Gen.: In no acute distress Head and neck: Pupils are reactive neck is supple Cardiovascular: S1-S2 with regular rate and rhythm Respiratory: Lungs are clear to auscultation and percussion Abdomen: Soft, bowel sounds are positive Extremities: Swelling has improved in both lower extremities Neuro: Grossly intact Results - Labs CBC & BMP: 05/01/16 07:34 05/01/16 03:20 Lab Results: I have reviewed the past 24 hour labs
[2016-05-01] MEDS: ENOXAPARIN 40 MG/0.4 ML SYRINGE SUBCUT SCH (17:18)
[2016-05-01] MEDS: LEVOFLOXACIN INJ 500 MG in PREMIX 1 EACH IV SCH (17:18)
[2016-05-01] MEDS: MONTELUKAST 10 MG TABLET PO SCH (22:19)
[2016-05-02 05:26] LABS: Basophils % 0.2 % (0.0-0.8); Eosinophils % 0.2 % (0.00-10.9); Hematocrit 41.1 VOL% (35.7-47.0); Immature Granulocytes % 0.3 %; Immature Granulocytes Absolute 0.02 #; Lymphocytes # 1.3 10*3/uL (1.4-4.0); Lymphocytes % 20.1 % (21.3-54.2); Mean Corpuscular HGB Conc 31.6 GM/DL (32-36); Mean Corpuscular Hemoglobin 27 PG (27-34); Mean Corpuscular Volume 85.4 FL (87-102); Monocytes # 0.6 10*3/uL (0.11-0.8); Monocytes % 8.6 % (1.7-12.7); Neutrophils # 4.7 10*3/uL (1.4-7.4); Neutrophils % 70.6 % (38.7-73.9); Platelet Count 205 T/CUMM (130-400); Red Blood Count 4.81 MC/CUMM (3.8-5.5); Red Cell Distribution Width 18.6 % (9.3-17.3); White Blood Count 6.6 T/CUMM (4-12)
[2016-05-02 05:50] LABS: Calcium 9.2 MG/DL (8.5-10.1); Magnesium 1.9 MG/DL (1.8-2.4); Osmolality,Calculated 291.7 MOS/KG (273-304)
[2016-05-02] MEDS: ALBUTEROL/IPRATROPIUM 3 ML NEB RESP TX SCH ×3 (07:35→20:21)
--- NOTE | 2016-05-02 07:41 | XRay Report ---
Portable chest Date: 05/02/2016 Clinical history: Shortness of breath Comparison: 04/29/2016 Technique: Portable AP sitting chest Findings: Stable cardiomegaly with reduced parenchymal findings in the lungs and smaller pleural effusions. Stable mediastinum and osseous structures. Impression: Improved CHF with smaller pleural effusions. PROCEDURE INTERPRETED AT [facility] DEPARTMENT OF RADIOLOGY Final Report Signed by: Dr. Macie Mckinney
[2016-05-02] MEDS: INSULIN LISPRO 100 UNIT/ML SUBCUT SCH ×4 (09:05→22:56)
[2016-05-02] MEDS: INSULIN ASPART PROTAMINE/ASPART 70/30 100 UNIT/ML SUBCUT SCH ×2 (09:05→23:09)
[2016-05-02] MEDS ORDERED: predniSONE 20 MG TABLET PO SCH (09:11)
--- NOTE | 2016-05-02 09:15 | Pulmonology Progress Note ---
Pulmonary - PN: Subj Interval history: This 71-year-old black female has rheumatoid arthritis and has rheumatoid associated interstitial lung disease. She has been holding her Humira for the last month since an episode of pneumonia. She takes CellCept on a regular basis. This is primarily for her interstitial lung disease. She came in with increased interstitial markings and look wet. She had peripheral edema. She does have pulmonary hypertension. We will reduce her steroids. She is artery been diuresed and looks much better. Her chest x-ray looks much better. This means that this is primarily interstitial edema. I think we should treat her pulmonary hypertension although it is caused by her rheumatoid lung apparently. I will put her on low-dose Revatio. Could go to oral antibiotics and plan discharge tomorrow in my opinion. Exam (Progress Note) - Constitutional Vitals: Period Temp Pulse Resp BP Sys/Parks Pulse Ox Last 24 Hr 96.9 F-98.6 F 81-110 18-24 112-138/69-97 90-100 Exam: Patient's alert. Vital signs normal. O2 sat 95% on 2 L. Pupils react to light. Throat is clear. Neck supple no bruits. Chest actually sounds clear today. Heart normal rate rhythm no murmurs. P2 is slightly loud. Abdomen soft nontender no masses. Extremities no clubbing cyanosis and no edema today. Calves are nontender Results - Labs CBC & BMP: 05/02/16 05:07 05/02/16 05:07 Lab Results: I have reviewed the past 24 hour labs - Diagnostic Findings Procedure: Chest x-ray: image reviewed by me (Cardiomegaly. Interstitial infiltrates much improved since 04/29/16 chest x-ray.) Assessment and Plan (1) Cor pulmonale Status: Acute Assessment and plan: Her edema and pulmonary edema probably related to pulmonary hypertension with cor pulmonale. It has responded to diuresis. I do think we need to treat her for her pulmonary hypertension although it is caused by her rheumatoid lung. I will put her on low-dose Revatio 10 mg 3 times daily. In a couple of weeks we can increase to 20 mg 3 times daily. Will need to check an echo after she has been on it a while. Current Visit: Yes (2) Nonspecific interstitial pneumonitis Status: Acute Assessment and plan: This is related to her rheumatoid arthritis and is managed primarily with CellCept. Also low-dose prednisone Current Visit: No (3) Rheumatoid arthritis Status: Chronic Assessment and plan: Needs to resume her Humira. I do not think she has an active infection. Current Visit: No Qualifiers: Laterality: bilateral
--- NOTE | 2016-05-02 09:46 | Hospitalist Progress Note ---
Assessment and Plan (1) Acute exacerbation of chronic obstructive airways disease Status: Acute Assessment and plan: We will continue ABT as previously ordered. Agree with pulmonary recommendations to start Revatio. Will assess if appropriate for discharge in AM ; if okay with pulmonary. Current Visit: No (2) Diabetes mellitus Status: Acute Assessment and plan: Continue accuchecks and sliding scale coverage as previously ordered. Current Visit: Yes Hospitalist: Subjective Interval history: Patient seen and evaluated. No significant overnight events reported. Exam - Constitutional Vitals: Period Temp Pulse Resp BP Sys/Parks Pulse Ox Last 24 Hr 96.9 F-98.6 F 81-110 18-24 112-138/69-97 90-100 General appearance: normal weight, no acute distress - Head Head exam: Present: normal inspection - Eye Eye exam: Absent: nystagmus, periorbital swelling, scleral icterus Pupils: Present: BRANDI - ENT ENT exam: Present: normal exam - Neck Neck exam: Absent: lymphadenopathy, meningismus, tenderness, thyromegaly - Respiratory Respiratory exam: Present: decreased breath sounds - Cardiovascular Cardiovascular exam: Present: regular rate and rhythm. Absent: carotid bruit, diastolic murmur, gallop, JVD, rubs, systolic murmur - GI/Abdominal GI/Abdominal exam: Present: normal bowel sounds, soft - Extremities Exam Extremities exam: Present: normal inspection, full ROM - Back Exam Back exam: Present: normal inspection - Neurological Exam Neurological exam: Present: alert, oriented X3, reflexes normal - Psychiatric Psychiatric exam: Present: normal affect - Skin Skin exam: Present: normal color, dry Results - Labs CBC & BMP: 05/02/16 05:07 05/02/16 05:07 - Diagnostic Findings Procedure: Chest x-ray: other (Improved CHF with smaller pleural effusions)
[2016-05-02] MEDS: LEVOTHYROXINE 200 MCG TABLET PO SCH (09:47)
[2016-05-02] MEDS: FUROSEMIDE 40 MG TABLET PO SCH (09:47)
[2016-05-02] MEDS: amLODIPine 5 MG TABLET PO SCH (09:47)
[2016-05-02] MEDS: PANTOPRAZOLE 40 MG TABLET PO SCH (09:47)
[2016-05-02] MEDS: ALISKIREN 150 MG TABLET PO SCH (09:47)
[2016-05-02] MEDS: POTASSIUM CHLORIDE 20 MEQ TABLET PO SCH ×2 (09:48→23:09)
[2016-05-02] MEDS: predniSONE 20 MG TABLET PO SCH (09:49)
[2016-05-02] MEDS: SILDENAFIL 20 MG TABLET PO SCH ×2 (15:05→23:09)
[2016-05-02] MEDS: LEVOFLOXACIN INJ 500 MG in PREMIX 1 EACH IV SCH (17:40)
[2016-05-02] MEDS: ENOXAPARIN 40 MG/0.4 ML SYRINGE SUBCUT SCH (17:42)
[2016-05-02] MEDS: MONTELUKAST 10 MG TABLET PO SCH (23:09)
[2016-05-02] MEDS: ACETAMINOPHEN 325 MG TABLET PO PRN (23:12)
--- NOTE | 2016-05-03 07:12 | Discharge Summary ---
Discharge Plan - Discharge Medications New Ciprofloxacin Tab [Cipro Tab] 250 mg PO BID #10 tablet Sildenafil [Revatio] 10 mg PO TID #100 tablet Continue Mycophenolate Mofetil [Cellcept] 1,000 mg PO BID Aliskiren [Tekturna] 150 mg PO DAILY Montelukast Tab [Singulair Tab] 10 mg PO BEDTIME #60 tablet cloNIDine TAB [Catapres Tab] 0.3 mg PO BEDTIME cloNIDine TAB [Catapres Tab] 0.2 mg PO DAILY amLODIPine [Norvasc] 5 mg PO DAILY Furosemide Tab [Lasix Tab] 40 mg PO DAILY #30 tablet Insulin Aspart Prot/Asp 70/30 [NovoLOG Mix 70/30] 20 unit SUBCUT BID Omeprazole [Prilosec] 40 mg PO DAILY Levothyroxine Tab [Synthroid Tab] 200 mcg PO DAILY Potassium Chloride Cap/Tab [K Dur] 20 meq PO DAILY #30 tablet Adalimumab [Humira] 40 mg SUBCUT Q14D #0 Albuterol/Ipratropium Neb [Duoneb] 3 ml RESP TX TID #90 vial predniSONE TAB [PredniSONE] 10 mg PO DAILY - Follow Up or Referral - Forms/Instructions Exam - Constitutional Vitals: Period Temp Pulse Resp BP Sys/Parks Pulse Ox Last 24 Hr 96.5 F-99.0 F 86-112 18-22 106-139/77-105 90-100 Discharge Results Labs on day of discharge: Labs from last 24 hours 05/03/16 05/03/16 05/02/16 04:45 03:00 20:26 POC Glucose 79 29 L* 101 05/02/16 05/02/16 05/02/16 16:18 11:42 06:55 POC Glucose 175 H 193 H 70 L DS: Provider Date of admission: 04/29/16 14:22 Primary care physician: . No PCP Attending physician on admission: Brandon Bartholomew MD Consults: 04/29/16 17:22 Consult to Pharmacy [CONS] Routine Reason for Pharmacy Consult: Adjust Meds Renal Funct 04/29/16 18:12 Consult to Physician [CONS] Routine Comment: Consulting Provider: Consult to Specialist Group: Pulmonology When should Consulting Provider be notified: Now Consult Notification Comment: History of interstitial pneumonia with hypoxia Discharging clinician: Vinnie Min MD
[2016-05-03] MEDS: INSULIN LISPRO 100 UNIT/ML SUBCUT SCH ×2 (07:30→13:37)
[2016-05-03] MEDS: ALBUTEROL/IPRATROPIUM 3 ML NEB RESP TX SCH (07:35)
--- NOTE | 2016-05-03 07:40 | Pulmonology Progress Note ---
Pulmonary - PN: Subj Interval history: This 71-year-old black female has rheumatoid arthritis and has rheumatoid associated interstitial lung disease. She has been holding her Humira for the last month since an episode of pneumonia. She takes CellCept on a regular basis. This is primarily for her interstitial lung disease. She came in with increased interstitial markings and look wet. She had peripheral edema. She does have pulmonary hypertension. We will reduce her steroids. She is artery been diuresed and looks much better. Her chest x-ray looks much better. This means that this is primarily interstitial edema. I think we should treat her pulmonary hypertension although it is caused by her rheumatoid lung apparently. I will put her on low-dose Revatio. Could go to oral antibiotics and plan discharge tomorrow in my opinion. 05/03/2016 patient is feeling better. I think much of her symptoms were due to right heart failure/cor pulmonale. She has been placed on low-dose Revatio. I plan to gradually increase that depending on what her follow-up pulmonary artery pressures look like on echo. I will see her back in the office in about a month. Exam (Progress Note) - Constitutional Vitals: Period Temp Pulse Resp BP Sys/Parks Pulse Ox Last 24 Hr 96.5 F-99.0 F 86-112 18-22 106-139/77-105 94-100 Exam: Patient's alert. Vital signs normal. O2 sat 100%. Pupils react to light. Throat is clear. Neck supple no bruits. Chest actually sounds clear today. Heart normal rate rhythm no murmurs. P2 is slightly loud. Abdomen soft nontender no masses. Extremities no clubbing cyanosis and no edema today. Calves are nontender. little change from yesterday. Results - Labs CBC & BMP: 05/02/16 05:07 05/02/16 05:07 Lab Results: I have reviewed the past 24 hour labs Assessment and Plan (1) Cor pulmonale Status: Acute Assessment and plan: Her edema and pulmonary edema probably related to pulmonary hypertension with cor pulmonale. It has responded to diuresis. I do think we need to treat her for her pulmonary hypertension although it is caused by her rheumatoid lung. I will put her on low-dose Revatio 10 mg 3 times daily. In a couple of weeks we can increase to 20 mg 3 times daily. Will need to check an echo after she has been on it a while. 05/03/2016 patient feeling better and her edema is resolved. Will follow pulmonary hypertension outpatient Current Visit: Yes (2) Nonspecific interstitial pneumonitis Status: Acute Assessment and plan: This is related to her rheumatoid arthritis and is managed primarily with CellCept. Also low-dose prednisone 05/03/2016 continue current medications. Okay for patient to resume her Humira. Current Visit: No (3) Rheumatoid arthritis Status: Chronic Assessment and plan: Needs to resume her Humira. I do not think she has an active infection. 05/03/2016 continue CellCept and Humira for her arthritis and rheumatoid lung. Also low-dose prednisone Current Visit: No Qualifiers: Laterality: bilateral
--- NOTE | 2016-05-03 08:12 | Discharge Summary ---
<Christen Sheada - Last Filed: 05/03/16 08:01> Hospital Course - Hospital Course Hospital Course: This is a 71 year old -[place] female with a history significant for pulmonary fibrosis, congestive heart failure diabetes mellitus, hypertension who presented to the ED on 04/29 with a complaint of shortness of breath since that morning. Patient reported profound dyspnea with worsening on exertion. At the time of admission, she reported oxygen saturations were in the upper 70s to mid 80s on exertion despite the use of continuous oxygen. She also reported some substernal chest pain that was non-reproducible. She had been recently admitted in early April for complications secondary to pulmonary fibrosis. Pulmonary was consulted to assist in the management of this patient. Her symptoms have improved. She is appropriate for discharge from both the medical and pulmonary standpoint. Diagnosis - Discharge Diagnosis (1) Acute exacerbation of chronic obstructive airways disease Status: Acute (2) Diabetes mellitus Status: Acute Discharge Plan - Discharge Data Disposition: Disch To Home/Self Care - Discharge Medications New Ciprofloxacin Tab [Cipro Tab] 250 mg PO BID #10 tablet Sildenafil [Revatio] 10 mg PO TID #100 tablet Continue Mycophenolate Mofetil [Cellcept] 1,000 mg PO BID Aliskiren [Tekturna] 150 mg PO DAILY Montelukast Tab [Singulair Tab] 10 mg PO BEDTIME #60 tablet cloNIDine TAB [Catapres Tab] 0.3 mg PO BEDTIME cloNIDine TAB [Catapres Tab] 0.2 mg PO DAILY amLODIPine [Norvasc] 5 mg PO DAILY Furosemide Tab [Lasix Tab] 40 mg PO DAILY #30 tablet Insulin Aspart Prot/Asp 70/30 [NovoLOG Mix 70/30] 20 unit SUBCUT BID Omeprazole [Prilosec] 40 mg PO DAILY Levothyroxine Tab [Synthroid Tab] 200 mcg PO DAILY Potassium Chloride Cap/Tab [K Dur] 20 meq PO DAILY #30 tablet Adalimumab [Humira] 40 mg SUBCUT Q14D #0 Albuterol/Ipratropium Neb [Duoneb] 3 ml RESP TX TID #90 vial predniSONE TAB [PredniSONE] 10 mg PO DAILY - Follow Up or Referral Follow Up: Jerel Guo MD [Physician] - - Forms/Instructions Exam - Constitutional Vitals: Period Temp Pulse Resp BP Sys/Parks Pulse Ox Last 24 Hr 96.5 F-99.0 F 86-112 18- 106-139/77-105 94-100 Discharge Results Labs on day of discharge: Labs from last 24 hours 05/03/16 05/03/16 05/03/16 08:23 07:09 04:45 POC Glucose 221 H 35 L* 79 05/03/16 05/02/16 05/02/16 03:00 20:26 16:18 POC Glucose 29 L* 101 175 H 05/02/16 11:42 POC Glucose 193 H DS: Provider Date of admission: 04/29/16 14:22 Primary care physician: . No PCP Attending physician on admission: Brandon Bartholomew MD Consults: 04/29/16 17:22 Consult to Pharmacy [CONS] Routine Reason for Pharmacy Consult: Adjust Meds Renal Funct 04/29/16 18:12 Consult to Physician [CONS] Routine Comment: Consulting Provider: Consult to Specialist Group: Pulmonology When should Consulting Provider be notified: Now Consult Notification Comment: History of interstitial pneumonia with hypoxia Discharging clinician: Loulou Shea CNP <Vinnie Min - Last Filed: 05/03/16 08:41> Discharge Plan - Discharge Data Condition at Discharge: Stable Discharge Diet: advance to your usual diet Activity: resume usual activities as tolerated
[2016-05-03] MEDS: INSULIN ASPART PROTAMINE/ASPART 70/30 100 UNIT/ML SUBCUT SCH (09:56)
[2016-05-03] MEDS: FUROSEMIDE 40 MG TABLET PO SCH (09:59)
[2016-05-03] MEDS: PANTOPRAZOLE 40 MG TABLET PO SCH (10:00)
[2016-05-03] MEDS: SILDENAFIL 20 MG TABLET PO SCH (10:00)
[2016-05-03] MEDS: POTASSIUM CHLORIDE 20 MEQ TABLET PO SCH (10:00)
[2016-05-03] MEDS: amLODIPine 5 MG TABLET PO SCH (10:01)
[2016-05-03] MEDS: ALISKIREN 150 MG TABLET PO SCH (10:02)
[2016-05-03] MEDS: LEVOTHYROXINE 200 MCG TABLET PO SCH (10:02)
[2016-05-03 13:42] VITALS: BP 131/92
== END 2016-05-03 14:15 | disposition home or self-care (01) | DRG 314 ==
LOC: N.ED 12:03 → SUATTDRO 14:22 → N.EDINP 14:22 → N.3E 17:17
PROVIDERS: ADMIT Internal Medicine; ATTEND Internal Medicine

== ENCOUNTER 2016-06-01 11:25 | Inpatient (IN) ==
[2016-06-01] MEDS ORDERED: ONDANSETRON 4 MG/2 ML VIAL IV PRN (13:16)
[2016-06-01] MEDS ORDERED: ACETAMINOPHEN 325 MG TABLET PO PRN (13:16)
[2016-06-01] MEDS ORDERED: diphenhydrAMINE CAP 25 MG CAPSULE PO PRN (13:16)
[2016-06-01] MEDS ORDERED: DOCUSATE SODIUM 100 MG CAPSULE PO PRN (13:16)
[2016-06-01] MEDS ORDERED: MORPHINE 2 MG/1 ML SYRINGE IV PRN (13:16)
[2016-06-01] MEDS ORDERED: SODIUM CHLORIDE 0.9% 1,000 ML IV SCH (13:30)
--- NOTE | 2016-06-01 13:35 | Hospitalist History & Physical ---
<Starr Knight - Last Filed: 06/01/16 13:21> Assessment and Plan - Time spent with patient Time spent with patient: Greater than 30 minutes (1) Rheumatoid arthritis Status: Chronic Assessment and plan: Ms. Bowens is a very pleasant 71-year-old -[place] female with history of rheumatoid arthritis, pulmonary hypertension, pulmonary fibrosis, diabetes, and hypothyroidism admitted as a direct admit from Dr. Erazo's office with worsening tachypnea and shortness of breath. Dr. Miles has seen and examined patient and further recommendations to follow per her lab work and x-rays that are all pending at this time. Patient's medicines have all been restarted. Dr. Guo and Dr. Erazo have been consulted. Patient is satting at 100% on 4 L nasal cannula right now. Current Visit: No Qualifiers: Laterality: bilateral (2) Diabetes mellitus Status: Chronic Current Visit: No (3) Pulmonary fibrosis Status: Chronic Current Visit: No (4) Hypothyroidism Status: Chronic Current Visit: No (5) Acute on chronic systolic (congestive) heart failure Status: Acute Current Visit: No (6) Essential (primary) hypertension Status: Acute Current Visit: No History of Present Illness Chief complaint: Shortness of breath History of present illness: Ms. Bowens is a 71 year old -[place] female with history of pulmonary fibrosis, pulmonary hypertension, hypertension, CHF, diabetes, and hypothyroidism presenting to Dr. Erazo's office today with increasing shortness of breath. Patient sees Dr. Guo for her pulmonary fibrosis and Dr. Willett felt patient needed to be admitted for her shortness of breath and tachypnea. Dr. Guo requested that hospitalist services admit the patient and consult him. Patient states she has been having problems with shortness of breath and dyspnea on exertion since February. Patient has had multiple admissions to the hospital for complications from her pulmonary fibrosis, CHF exacerbations, and pneumonia. Patient was last seen in the ED on 05/25/[address] Lang from hospital medicine consulted to the ED. She felt her symptoms were more from obstructive sleep apnea but the patient has not followed up with Dr. Lira yet. Patient uses between 2 and 4 L of oxygen at home. Patient seems to be more worried about her mother who is a patient up on fifth floor. She denies headache, blurred vision, dysphasia, chest pain, abdominal pain, diarrhea or constipation, or lower extremity edema. Upon exam patient is tachypneic that increases with conversation. Chest with few rails, left greater than the right and she is tachycardic with heart rate in the 100s. Patient has not taken her heart medicines this morning yet. Labs, x-rays etc. are all pending. Dr. Miles is the admitting hospitalist. Home Medications Medication Instructions Recorded Confirmed Type Aliskiren [Tekturna] 150 mg PO QAM 01/27/15 06/01/16 History Mycophenolate Mofetil [Cellcept] 1,000 mg PO BID 01/27/15 06/01/16 History Montelukast Tab [Singulair Tab] 10 mg PO BEDTIME #60 tablet 04/08/15 06/01/16 Rx Levothyroxine Tab [Synthroid Tab] 200 mcg PO QAM 02/15/16 06/01/16 History Omeprazole [Prilosec] 40 mg PO QPM 02/15/16 06/01/16 History Albuterol/Ipratropium Neb [Duoneb] 3 ml RESP TX TID #90 vial 04/15/16 06/01/16 Rx Insulin Aspart Prot/Asp 70/30 15 unit SUBCUT BID 04/29/16 06/01/16 History [NovoLOG Mix 70/30] predniSONE TAB [PredniSONE] 10 mg PO QAM 04/29/16 06/01/16 History Sildenafil [Revatio] 10 mg PO TID #100 tablet 05/03/16 06/01/16 Rx Furosemide Tab [Lasix Tab] 40 mg PO BID #60 tablet 05/25/16 06/01/16 Rx Tamsulosin [Flomax] 0.4 mg PO DAILY #30 capsule 05/25/16 06/01/16 Rx Potassium Chloride Cap/Tab [K Dur] 10 meq PO DAILY W/BREAKFAST 06/01/16 History Allergies Allergy/AdvReac Type Severity Reaction Status Date / Time No Known Allergies Allergy Verified 04/07/16 18:47 Medical,Surgical,& Family Hx - Medical History Cardio: History of: Cardiac Dysrhythmia (in past), Hypertension No history of: CHF, AL, Pacemaker Neurology: No history of: Brain Aneurysm, Cerebral Hemorrhage, Cerebrovascular Accident , Cerebral Palsy, Dementia, Migraine, Multiple Sclerosis, Parkinson's Disease, Peripheral Neuropathy, Seizures, TIA, Vertigo, Neurologocal Cancer Endocrine: History of: Diabetes Mellitus (IDDM), Thyroid Disorder Rheumatology: History of;: Rheumatoid Arthritis Respiratory: History of: Pneumonia, Respiratory Problems (Pulmonary fibrosis and secondary pulmonary hypertension from primary rheuma) No history of: Asthma, COPD Gastrointestinal: History of: GERD, GI Problems (dysphagia) No history of: Hepatitis, Liver Problems Hematology: History of: Anemia No history of: Blood Transfusion Reaction Other: No history of: Anesthesia Reactions, Cancer - Surgical History Cardiac Surgeries: Patient Denies: Cardiac Catheterization, Carotid Endarterectomy Thoracic Surgeries: Patient denies;: Lobectomy Neurologic Surgeries: Patient denies: Brain Aneurysm, Cerebral Hemorrhage, Neurologic Surgery HEENT Surgeries: Surgical HX of: Eye Surgery (cataracts), Thyroid Surgery ( thyroidectomy-2002) Patient denies: Carotid Endarterectomy, Tonsilectomy & Adenoidectomy Abdominal Surgeries: Surgical HX of: Colonoscopy, EGD Patient denies: Abdominal Surgery, Appendectomy, Cholecystectomy, Hernia Repair Reproductive Surgeries: Patient denies;: Breast Surgery, Hysterectomy, Tubal Ligation Orthopedic Surgeries: Patient denies;: Orthopedic Surgery, Total Hip Replacement, Total Knee Replacement - Family History Family History: Reports;: Family Cancer (aunt- cervical cancer, aunt- breast cancer), Family Diabetes (mother) Denies;: Family Heart Disease - Social History Smoking Status: Never smoker Frequency of Alcohol Use: None Type of Drug Use: None Marital Status: Single Lives With:: Parent Functional capacity: independent ambulation Review of systems: A complete 10 system review of systems was obtained and pertinent negatives and positives are per HPI Exam - Constitutional Vitals: Period Temp Pulse Resp BP Sys/Parks Pulse Ox Last 24 Hr 98.4 F 108 19 131/85 Exam: Constitutional System: Mild distress. No tremulousness. Head: Normocephalic, atraumatic. Ears, Nose and Throat System: No evidence of Otitis or Mastoiditis. No epistaxis or discharge Eyes System: Pupils equal, round, and reactive. Extraocular muscles intact. Neck: Supple, without adenopathy, No jugular venous distention. No thyromegaly, neck mass. Respiratory System: Chest few rhonchi, left greater than the right to auscultation. Cardiovascular System: Heart with tachycardia rate and normal sinus rhythm. No murmur. GI System: Abdomen soft, nontender. Normo active bowel sounds present. Musculoskeletal System: limbs with no pedal edema. Full distal pulses. Neurological System: No discernable sensory deficit. No aphasia Psychiatric System: Conversation is rational Results - Labs Labs: All labs and x-rays are pending at this time <JdReganjessee - Last Filed: 06/01/16 17:33> History of Present Illness History of present illness: Patient seen and examined along with GABRIELA Knight, agree with history, assessment and plan as documented. 71 y/o AAF with pulmonary fibrosis, pulmonary hypertension and CHF who presents from clinic with shortness of breath. Cardiology and pulmonary have already been consulted. She is also noted to have JERRY. Will actually hold on IV fluids right now given CHF. Agree with the early nephrology consult. Exam - Constitutional Vitals: Period Temp Pulse Resp BP Sys/Parks Pulse Ox Last 24 Hr 98.4 F-98.5 F 102-111 12-31 105-131/81-99 97-100 Results - Labs CBC & BMP: 06/01/16 13:47 06/01/16 13:37
[2016-06-01] MEDS: MYCOPHENOLATE MOFETIL 250 MG CAPSULE PO SCH ×2 (13:40→21:52)
[2016-06-01] MEDS: FUROSEMIDE 40 MG TABLET PO SCH ×2 (13:41→21:52)
[2016-06-01] MEDS: ENOXAPARIN 30 MG/0.3 ML SYRINGE SUBCUT SCH (13:41)
[2016-06-01] MEDS: PANTOPRAZOLE 40 MG TABLET PO SCH (13:41)
[2016-06-01] MEDS: TAMSULOSIN 0.4 MG CAPSULE PO SCH (13:41)
--- NOTE | 2016-06-01 13:44 | XRay Report ---
XR chest 1V portable Indication: Shortness of breath Comparison: 25 May 2016 Findings: The heart and mediastinum are normal in size and configuration. The pulmonary vascularity is normal in caliber. Small amount interstitial densities seen in the lung bases. No other lung infiltrates, effusions, pneumothorax or other abnormality is demonstrated. Impression: No significant change from previous study. PROCEDURE INTERPRETED AT [facility] Final Report Signed by: Dr. Saeed Azevedo
[2016-06-01 13:58] LABS: Basophils % 0.2 % (0.0-0.8); Hematocrit 44.1 VOL% (35.7-47.0); Hemoglobin 13.7 GM/DL (12.0-16.0); Immature Granulocytes % 0.4 %; Immature Granulocytes Absolute 0.02 #; Lymphocytes # 1.3 10*3/uL (1.4-4.0); Lymphocytes % 27.1 % (21.3-54.2); Mean Corpuscular HGB Conc 31.1 GM/DL (32-36); Mean Corpuscular Hemoglobin 26 PG (27-34); Mean Corpuscular Volume 84.5 FL (87-102); Mean Platelet Volume 9.5 FL (9.6-12.0); Monocytes # 0.5 10*3/uL (0.11-0.8); NRBC # 0.02 10*3/uL; Neutrophils # 2.9 10*3/uL (1.4-7.4); Neutrophils % 62.3 % (38.7-73.9); Platelet Count 234 T/CUMM (130-400); Red Blood Count 5.22 MC/CUMM (3.8-5.5); Red Cell Distribution Width 18.4 % (9.3-17.3); White Blood Count 4.7 T/CUMM (4-12)
--- NOTE | 2016-06-01 14:32 | EKG Report ---
Stationary ECG Study [facility] Test Date: 06/01/2016 2:31:28 PM Pat Name: LAW MARTE Department: Room: 111 Gender: F Degree Clerk: AYANNA : 1945 Requested by: Starr Knight Order Number: [id number] Reading MD: URIEL RENTERIA Intervals [place] Rate: 108 P: 55 IA: 155 QRS: 126 QRSD: 92 T: 80 QT: 340 QTc: 403 Interpretive Statements SINUS TACHYCARDIA RIGHT ATRIAL ENLARGEMENT LEFT ATRIAL ENLARGEMENT INCOMPLETE RIGHT BUNDLE BRANCH BLOCK RIGHT VENTRICULAR HYPERTROPHY POSSIBLE ANTEROSEPTAL MYOCARDIAL INFARCTION, PROBABLY OLD Electronically Signed On 06-06-16 11:21:07 CDT by URIEL RENTERIA [email or web address]
[2016-06-01 14:35] LABS: Albumin 2.9 G/DL (3.4-5.0); Bilirubin,Total 0.7 MG/DL (0.2-1.0); Calcium 8.5 MG/DL (8.5-10.1); Magnesium 1.7 MG/DL (1.8-2.4); Osmolality,Calculated 292.1 MOS/KG (273-304); Potassium 4.7 MMOL/L (3.5-5.1); Thyroid Stimulating Hormone 0.139 uIU/ml (0.358-3.74); Total Protein 5.8 G/DL (6.4-8.3)
[2016-06-01] MEDS ORDERED: ALBUTEROL/IPRATROPIUM 3 ML NEB RESP TX SCH (15:00)
[2016-06-01] MEDS: INSULIN ASPART PROTAMINE/ASPART 70/30 100 UNIT/ML SUBCUT SCH ×2 (15:24→21:52)
[2016-06-01] MEDS: SILDENAFIL 20 MG TABLET PO SCH ×2 (15:24→21:51)
--- NOTE | 2016-06-01 15:34 | Cardiology Consult Note ---
<Taylor Valenzuela E - Last Filed: 06/01/16 15:32> Assessment and Plan - Time spent with patient Time spent with patient: Greater than 30 minutes (due to assessment, plan, and documentation) (1) Acute on chronic systolic (congestive) heart failure Status: Acute Assessment and plan: EF 50% per echocardiogram 04/08/16. Will maximinze medical therapy and adjust medications as patient tolerates. Currently on 4L O2 via NBP. Remains tachypneic but reports her dyspnea has improved after breathing treatment. Dr. Cobb to follow with further plan and addendum. Current Visit: No (2) Essential (primary) hypertension Status: Chronic Assessment and plan: Currently well controlled. Will continue to monitor and adjust medications as needed. Current Visit: No (3) Hypothyroidism Status: Chronic Assessment and plan: Hospital medicine following. Current Visit: No (4) Pulmonary fibrosis Status: Chronic Assessment and plan: She is on immunocompromising agents and has an abnormal lung exam that is worse than her baseline. She has some conversational dyspnea. Dr. Guo has been consulted. Current Visit: No (5) Pulmonary hypertension Status: Chronic Assessment and plan: Continue current plan of care. Current Visit: No (6) Mitral regurgitation Status: Chronic Assessment and plan: Severe per recent echocardiogram. Current Visit: No (7) Type 2 diabetes mellitus Status: Chronic Assessment and plan: Hospital medicine following. Current Visit: No Qualifiers: Diabetes mellitus complication status: without complication (8) Rheumatoid arthritis Status: Chronic Current Visit: No Qualifiers: Laterality: bilateral (9) Acute renal failure Status: Acute Assessment and plan: Creatinine has jumped from 1.2 to 2.0 since 05/25/16. GFR 28. Will recheck BMP in AM. Current Visit: Yes History of Present Illness - Data of Consult Patient: known to practice within the last 3 years (new patient of Dr. Hunt) Consult date: 06/01/16 Requesting Physician: Starr Knight - Consult Narrative Reason for consult: SOB History of present illness: [employer] OFFICER: DR. HUNT PCP: NONE Ms. Bowens is a 71 year old female who is a new patient of Dr. Hunt. She has a history of rheumatoid arthritis, pulmonary fibrosis, and severe pulmonary hypertension with right heart failure in the past. She has moderate mitral regurgitation and a history of hypothyroidism, type 2 diabetes mellitus, and hypertension. Risk factors are significant for: diabetes, hypertension. She went to see Dr. Hunt today for hospital follow up and was noted to be tachypneic and was subsequently admitted to the hospital to hospitalist services. We were consulted to follow her as well. Ms. Bowens reports having progressive dyspnea on exertion for the past several weeks. She also reports orthopnea, having to sleep on 6 or 7 pills per night. She denies lower extremity edema but does complain of a dry cough that has worsened during the past several weeks as well. She denies recent chest pain, fever, or chills. She reports she was placed on a fluid restriction by someone and her urine output has decreased. At the time of exam and interview today, she still has some conversational dyspnea although she reports she feels better now after receiving a breathing treatment. Her mother is in the hospital on the fifth floor and she seems to be very worried about her. Upon admission, her creatinine was noted to be elevated to 2.0, having previously been 1.2 on 05/25/16. Recent echocardiogram done April 08, 2016 reveals mild concentric hypertrophy, EF 50%, severe tricuspid regurgitation severe pulmonary hypertension, moderate mitral regurgitation, dilated right heart chambers, aortic valve sclerosis without stenosis. EKG from the clinic today shows sinus tachycardia, incomplete right bundle branch block, biatrial abnormality, right ventricular hypertrophy. Dr. Cobb to follow with further plan and addendum. CC: Андрей Miles MD - Home Medications and Allergies Home Medications: Home Medications Medication Instructions Recorded Confirmed Type Aliskiren [Tekturna] 150 mg PO QAM 01/27/15 06/01/16 History Mycophenolate Mofetil [Cellcept] 1,000 mg PO BID 01/27/15 06/01/16 History Montelukast Tab [Singulair Tab] 10 mg PO BEDTIME #60 tablet 04/08/15 06/01/16 Rx Levothyroxine Tab [Synthroid Tab] 200 mcg PO QAM 02/15/16 06/01/16 History Omeprazole [Prilosec] 40 mg PO QPM 02/15/16 06/01/16 History Albuterol/Ipratropium Neb [Duoneb] 3 ml RESP TX TID #90 vial 04/15/16 06/01/16 Rx Insulin Aspart Prot/Asp 70/30 15 unit SUBCUT BID 04/29/16 06/01/16 History [NovoLOG Mix 70/30] predniSONE TAB [PredniSONE] 10 mg PO QAM 04/29/16 06/01/16 History Sildenafil [Revatio] 10 mg PO TID #100 tablet 05/03/16 06/01/16 Rx Furosemide Tab [Lasix Tab] 40 mg PO BID #60 tablet 05/25/16 06/01/16 Rx Tamsulosin [Flomax] 0.4 mg PO DAILY #30 capsule 05/25/16 06/01/16 Rx Potassium Chloride Cap/Tab [K Dur] 10 meq PO DAILY W/BREAKFAST 06/01/16 History Allergies/Adverse Reactions: Allergies Allergy/AdvReac Type Severity Reaction Status Date / Time No Known Allergies Allergy Verified 04/07/16 18:47 Review of systems: - Constitutional: Present: As per HPI. Absent: anorexia, chills, daytime sleepiness, excessive sweating, fever(s), frequent falls, headache(s), increased appetite, lethargy, malaise, night sweats, stops breathing during sleep, weakness, weight gain, weight loss, fatigue. - EENT Eyes: Present: As per HPI. Absent: blurry vision, diplopia, loss of vision Ears: Present: As per HPI. Absent: decreased hearing, ear discharge, ear pain Nose, mouth and throat: Present: As per HPI. Absent: dysphagia, epistaxis, headache(s), hoarseness, lip swelling, nasal congestion, neck mass, neck pain, sinus pressure, sore throat, throat swelling, tongue swelling, vertigo - Cardiovascular: Present: dyspnea, dyspnea on exertion, orthopnea, as per HPI. Absent: chest pain at rest, chest pain with activity, edema, claudication , diaphoresis, radiating jaw, neck or arm pain, lightheadedness, palpitations, PND - Respiratory: Present: dyspnea, dyspnea on exertion, cough, as per HPI. Absent : hemoptysis, wheezing, snoring, pain on inspiration - Gastrointestinal: Present: As per HPI. Absent: abdominal pain, bloating, change in bowel habits, constipation, diarrhea, heartburn, hematemesis, hematochezia, loose stools, melena, nausea, vomiting - Genitourinary: Present: As per HPI. Absent: difficulty urinating, dysuria, flank pain, hematuria, nocturia, urinary frequency, urinary incontinence - Musculoskeletal: Present: muscle weakness, As per HPI. Absent: arthralgias, back pain, joint swelling, limited range of motion, muscle cramps, myalgias - Neurological: Present: As per HPI. Absent: abnormal gait, abnormal speech, behavioral changes, confusion, convulsions, disequilibrium, dizziness, focal weakness, frequent falls, headache(s), memory loss, numbness, paresthesias, radicular pain, syncope, tremor(s) - Psychiatric: Present: As per HPI. Absent: anxiety, confusion, depression, panic attacks - Endocrine: Present: As per HPI. Absent: cold intolerance, fatigue, heat intolerance, polydipsia, polyphagia - Hematologic/Lymphatic: Present: As per HPI. Absent: easy bleeding, easy bruising, lymphadenopathy Medical,Surgical,& Family Hx - Medical History Cardio: History of: Cardiac Dysrhythmia (in past), Hypertension No history of: [place], Pacemaker Neurology: No history of: Brain Aneurysm, Cerebral Hemorrhage, Cerebrovascular Accident , Cerebral Palsy, Dementia, Migraine, Multiple Sclerosis, Parkinson's Disease, Peripheral Neuropathy, Seizures, TIA, Vertigo, Neurologocal Cancer Endocrine: History of: Diabetes Mellitus (IDDM), Thyroid Disorder Rheumatology: History of;: Rheumatoid Arthritis Respiratory: History of: Pneumonia, Respiratory Problems (Pulmonary fibrosis and secondary pulmonary hypertension from primary rheuma) No history of: Asthma, COPD Gastrointestinal: History of: GERD, GI Problems (dysphagia) No history of: Hepatitis, Liver Problems Hematology: History of: Anemia No history of: Blood Transfusion Reaction Other: No history of: Anesthesia Reactions, Cancer - Surgical History Cardiac Surgeries: Patient Denies: Cardiac Catheterization, Carotid Endarterectomy Thoracic Surgeries: Patient denies;: Lobectomy Neurologic Surgeries: Patient denies: Brain Aneurysm, Cerebral Hemorrhage, Neurologic Surgery HEENT Surgeries: Surgical HX of: Eye Surgery (cataracts), Thyroid Surgery ( thyroidectomy-2002) Patient denies: Carotid Endarterectomy, Tonsilectomy & Adenoidectomy Abdominal Surgeries: Surgical HX of: Colonoscopy, EGD Patient denies: Abdominal Surgery, Appendectomy, Cholecystectomy, Hernia Repair Reproductive Surgeries: Patient denies;: Breast Surgery, Hysterectomy, Tubal Ligation Orthopedic Surgeries: Patient denies;: Orthopedic Surgery, Total Hip Replacement, Total Knee Replacement - Family History Family History: Reports;: Family Cancer (aunt- cervical cancer, aunt- breast cancer), Family Diabetes (mother) Denies;: Family Heart Disease - Social History Smoking Status: Never smoker Frequency of Alcohol Use: None Type of Drug Use: None Marital Status: Single Lives With:: Parent Functional capacity: independent ambulation Physical Examination Vital Signs Temp Pulse Resp BP 98.4 F 108 H 19 131/85 06/01/16 12:19 06/01/16 12:19 06/01/16 12:19 06/01/16 12:19 Other: General appearance: Pleasant and cooperative. Normal weight, mild conversational dyspnea - Head Head exam: Present: normal inspection, normocephalic, atraumatic. Absent: hematoma, laceration - Eye Eye exam: Present: EOMI. Absent: conjunctival injection, nystagmus, periorbital swelling, scleral icterus, laceration to eyelids Pupils: Present: PERRL. Absent: constricted, dilated, fixed, irregular, unequal - ENT ENT exam: Present: normal exam, normal external ear exam - Neck Neck exam: Present: normal inspection. Absent: lymphadenopathy, meningismus, tenderness, thyromegaly - Respiratory Respiratory exam: Present: Tachypnea, normal breath sounds. Absent: accessory muscle use, chest wall tenderness - Cardiovascular Cardiovascular exam: Present: regular rate and rhythm, tachycardic, grade 2 systolic murmur. Absent: carotid bruit, gallop, JVD, rubs - GI/Abdominal GI/Abdominal exam: Present: normal bowel sounds, soft. Absent: distended, firm , guarding, hernia, mass, tenderness, rebound. - Extremities Exam Extremities exam: Present: normal inspection, normal capillary refill. Upper extremity pulses 2+. Lower extremity pulses 2+. Absent: calf tenderness, edema - Back Exam Back exam: Present: normal inspection. Absent: muscle spasm, vertebral tenderness - Neurological Exam Neurological exam: Present: alert, oriented X3, grossly intact without resting or essential tremor - Psychiatric Psychiatric exam: Present: normal affect, normal mood - Skin Skin exam: Present: normal color, warm, dry, intact. Absent: cyanosis, diaphoretic, rash, urticaria Result/EKG - Labs CBC & BMP: 06/01/16 13:47 06/01/16 13:37 Lab Results: I have reviewed the past 24 hour labs Labs: Laboratory Results - last 24 hr 06/01/16 06/01/16 06/01/16 13:37 13:37 13:47 WBC 4.7 RBC 5.22 Hgb 13.7 Hct 44.1 MCV 84.5 L MCH 26 L MCHC 31.1 L RDW 18.4 H Plt Count 234 MPV 9.5 L Neut % (Auto) 62.3 Lymph % (Auto) 27.1 Grainger % (Auto) 10.0 Eos % (Auto) 0.0 Baso % (Auto) 0.2 Neut # (Auto) 2.9 Lymph # (Auto) 1.3 L Grainger # (Auto) 0.5 Eos # (Auto) 0.0 Baso # (Auto) 0.0 Immature Gran % 0.4 Nucleated RBC % 0.4 Immature Gran # 0.02 Nucleated RBCs # 0.02 Sodium 142 Potassium 4.7 Chloride 104 Carbon Dioxide 27 Anion Gap 15.7 H BUN 33 H Creatinine 2.00 H GFR Calculation 28 BUN/Creatinine Ratio 16.00 Glucose 161 H Calculated Osmolality 292.1 Calcium 8.5 Magnesium 1.7 L Total Bilirubin 0.70 AST 33 ALT 24 Alkaline Phosphatase 68 B-Natriuretic Peptide 1025 H Total Protein 5.8 L Albumin 2.9 L Globulin 2.9 Albumin/Globulin Ratio 1.0 L TSH 3rd Generation 0.139 L - EKG EKG results: interpreted by me, sinus rhythm EKG shows: tachycardia (with incomplete right bundle branch block) <Julio Cesar Cobb - Last Filed: 06/01/16 17:42> History of Present Illness - Consult Narrative History of present illness: Patient interviewed and examined and chart reviewed. I discussed the case with Taylor Valenzuela NP. Ms. Bowens is a 71 year old female who has source of breath she was admitted with. This is felt to be a progression of her whole thing and baseline symptoms. She has poor fibrosis and cor pulmonale/severe pulmonary hypertension and followed by Dr. Guo. She does have mitral regurgitation that has been at least moderate previously. She seen by Dr. Hunt today and have the patient admitted to the hospitalist service for pulmonary medicine. On the patient's echocardiogram she had a ejection fraction is normal. She may have some element of diastolic dysfunction. Her symptomatology is more pulmonary than cardiac. Brain metastases we'll be evaluating the patient. We will follow with this. CC: Андрей Miles MD Physical Examination Vital Signs Temp Pulse Resp BP 98.4 F 108 H 19 131/85 06/01/16 12:19 06/01/16 12:19 06/01/16 12:19 06/01/16 12:19 Result/EKG - Labs CBC & BMP: 06/01/16 13:47 06/01/16 13:37 Labs: Laboratory Results - last 24 hr 06/01/16 06/01/16 06/01/16 13:37 13:37 13:47 WBC 4.7 RBC 5.22 Hgb 13.7 Hct 44.1 MCV 84.5 L MCH 26 L MCHC 31.1 L RDW 18.4 H Plt Count 234 MPV 9.5 L Neut % (Auto) 62.3 Lymph % (Auto) 27.1 Grainger % (Auto) 10.0 Eos % (Auto) 0.0 Baso % (Auto) 0.2 Neut # (Auto) 2.9 Lymph # (Auto) 1.3 L Grainger # (Auto) 0.5 Eos # (Auto) 0.0 Baso # (Auto) 0.0 Immature Gran % 0.4 Nucleated RBC % 0.4 Immature Gran # 0.02 Nucleated RBCs # 0.02 Sodium 142 Potassium 4.7 Chloride 104 Carbon Dioxide 27 Anion Gap 15.7 H BUN 33 H Creatinine 2.00 H GFR Calculation 28 BUN/Creatinine Ratio 16.00 Glucose 161 H Calculated Osmolality 292.1 Calcium 8.5 Magnesium 1.7 L Total Bilirubin 0.70 AST 33 ALT 24 Alkaline Phosphatase 68 B-Natriuretic Peptide 1025 H Total Protein 5.8 L Albumin 2.9 L Globulin 2.9 Albumin/Globulin Ratio 1.0 L TSH 3rd Generation 0.139 L
--- NOTE | 2016-06-01 16:51 | Pulmonology Consult Note ---
Assessment and Plan (1) Nonspecific interstitial pneumonitis Status: Acute Assessment and plan: This is related to her rheumatoid arthritis and she has indeed rheumatoid lung. She is on CellCept and prednisone for this long-term. She has increased risk of pneumonia because of the disease and medications. However there is no pneumonia on her x-ray. Current Visit: No (2) Cor pulmonale Status: Chronic Assessment and plan: She has edema. Her BNP is elevated. She also has mitral insufficiency. At present with a creatinine of 2 she is getting some IV fluids. We need to be very careful with that. Treat with oxygen and steroids. Current Visit: No (3) Mitral regurgitation Status: Chronic Assessment and plan: Defer to cardiology as far as any management of her mitral regurgitation. Current Visit: No (4) Rheumatoid arthritis Status: Chronic Assessment and plan: She is on chronic medications for that and her arthritic problems are stable Current Visit: No Qualifiers: Laterality: bilateral (5) Acute kidney injury Status: Acute Assessment and plan: Creatinine is 2.0. It was 1.2 about 3 or 4 weeks ago. I will ask renal to see her. We need to watch this closely Current Visit: Yes History of Present Illness Chief complaint: Shortness of breath History of present illness: Ms. Bowens is a 71 year old female who has rheumatoid arthritis and rheumatoid lung with nonspecific interstitial pneumonitis. She also has pulmonary hypertension and cor pulmonale. We have put her on Revatio for that. She comes in now with increased cough and really no sputum production. She has been sick for about a week. Her renal function is a little worse now with a creatinine up to a little over 2. She has peripheral edema. She has not had any fever. No purulent sputum. She does feel better after getting a respiratory therapy treatment. she is chronically on CellCept and is immunocompromised with that. Home Medications Medication Instructions Recorded Confirmed Type Aliskiren [Tekturna] 150 mg PO QAM 01/27/15 06/01/16 History Mycophenolate Mofetil [Cellcept] 1,000 mg PO BID 01/27/15 06/01/16 History Montelukast Tab [Singulair Tab] 10 mg PO BEDTIME #60 tablet 04/08/15 06/01/16 Rx Levothyroxine Tab [Synthroid Tab] 200 mcg PO QAM 02/15/16 06/01/16 History Omeprazole [Prilosec] 40 mg PO QPM 02/15/16 06/01/16 History Albuterol/Ipratropium Neb [Duoneb] 3 ml RESP TX TID #90 vial 04/15/16 06/01/16 Rx Insulin Aspart Prot/Asp 70/30 15 unit SUBCUT BID 04/29/16 06/01/16 History [NovoLOG Mix 70/30] predniSONE TAB [PredniSONE] 10 mg PO QAM 04/29/16 06/01/16 History Sildenafil [Revatio] 10 mg PO TID #100 tablet 05/03/16 06/01/16 Rx Furosemide Tab [Lasix Tab] 40 mg PO BID #60 tablet 05/25/16 06/01/16 Rx Tamsulosin [Flomax] 0.4 mg PO DAILY #30 capsule 05/25/16 06/01/16 Rx Potassium Chloride Cap/Tab [K Dur] 10 meq PO DAILY W/BREAKFAST 06/01/16 History Allergies Allergy/AdvReac Type Severity Reaction Status Date / Time No Known Allergies Allergy Verified 04/07/16 18:47 12 point system: reviewed and no additional remarkable complaints except as stated - Cardiovascular Cardiovascular: Present: dyspnea, dyspnea on exertion, edema - Respiratory Respiratory: Present: cough, dyspnea, wheezing - Musculoskeletal Musculoskeletal: Present: arthralgias - Hematologic/Lymphatic Hematologic/Lymphatic: Present: easy bruising Exam (Pulmonay) H&P - Constitutional Vitals: Period Temp Pulse Resp BP Sys/Parks Pulse Ox Last 24 Hr 98.4 F-98.5 F 102-111 12-31 105-131/81-99 97-100 Exam: Vital signs normal except pulse of 105. O2 sats 97% on 4 L. HEENT: Pupils react to light. Throat is clear. Neck supple no bruits. Chest shows a few expiratory rhonchi. I do not hear any crackles. Heart normal rate rhythm no murmurs. Abdomen soft nontender no masses. Extremities he she has 1+ edema. Calves nontender. Medical,Surgical,& Family Hx - Medical History Cardio: History of: Cardiac Dysrhythmia (in past), Hypertension No history of: CHF, [place], Pacemaker Neurology: No history of: Brain Aneurysm, Cerebral Hemorrhage, Cerebrovascular Accident , Cerebral Palsy, Dementia, Migraine, Multiple Sclerosis, Parkinson's Disease, Peripheral Neuropathy, Seizures, TIA, Vertigo, Neurologocal Cancer Endocrine: History of: Diabetes Mellitus (IDDM), Thyroid Disorder Rheumatology: History of;: Rheumatoid Arthritis Respiratory: History of: Pneumonia, Respiratory Problems (Pulmonary fibrosis and secondary pulmonary hypertension from primary rheuma) No history of: Asthma, COPD Gastrointestinal: History of: GERD, GI Problems (dysphagia) No history of: Hepatitis, Liver Problems Hematology: History of: Anemia No history of: Blood Transfusion Reaction Other: No history of: Anesthesia Reactions, Cancer - Surgical History Cardiac Surgeries: Patient Denies: Cardiac Catheterization, Carotid Endarterectomy Thoracic Surgeries: Patient denies;: Lobectomy Neurologic Surgeries: Patient denies: Brain Aneurysm, Cerebral Hemorrhage, Neurologic Surgery HEENT Surgeries: Surgical HX of: Eye Surgery (cataracts), Thyroid Surgery ( thyroidectomy-2002) Patient denies: Carotid Endarterectomy, Tonsilectomy & Adenoidectomy Abdominal Surgeries: Surgical HX of: Colonoscopy, EGD Patient denies: Abdominal Surgery, Appendectomy, Cholecystectomy, Hernia Repair Reproductive Surgeries: Patient denies;: Breast Surgery, Hysterectomy, Tubal Ligation Orthopedic Surgeries: Patient denies;: Orthopedic Surgery, Total Hip Replacement, Total Knee Replacement - Family History Family History: Reports;: Family Cancer (aunt- cervical cancer, aunt- breast cancer), Family Diabetes (mother) Denies;: Family Heart Disease - Social History Smoking Status: Never smoker Frequency of Alcohol Use: None Type of Drug Use: None Results - Labs CBC & BMP: 06/01/16 13:47 06/01/16 13:37 Lab Results: I have reviewed the past 24 hour labs - Diagnostic Findings Procedure: Chest x-ray: image reviewed by me (Mild cardiomegaly no acute infiltrates. She does have some chronic interstitial changes.)
[2016-06-01] MEDS: methylPREDNISolone SOD SUC 40 MG/1 ML VIAL IV SCH (17:27)
[2016-06-01] MEDS: ALBUTEROL/IPRATROPIUM 3 ML NEB RESP TX SCH ×2 (19:50→22:30)
[2016-06-01] MEDS: MONTELUKAST 10 MG TABLET PO SCH (21:52)
[2016-06-02 04:18] LABS: Hemoglobin 12.2 GM/DL (12.0-16.0); Immature Granulocytes % 0.7 %; Immature Granulocytes Absolute 0.02 #; Lymphocytes # 0.8 10*3/uL (1.4-4.0); Mean Corpuscular HGB Conc 31.3 GM/DL (32-36); Mean Corpuscular Hemoglobin 26 PG (27-34); Monocytes # 0.1 10*3/uL (0.11-0.8); Monocytes % 3.5 % (1.7-12.7); Neutrophils # 1.9 10*3/uL (1.4-7.4); Neutrophils % 67.8 % (38.7-73.9); Platelet Count 198 T/CUMM (130-400); Red Cell Distribution Width 17.9 % (9.3-17.3); White Blood Count 2.9 T/CUMM (4-12)
[2016-06-02] MEDS: methylPREDNISolone SOD SUC 40 MG/1 ML VIAL IV SCH ×2 (04:45→16:54)
[2016-06-02 04:46] LABS: Calcium 8.5 MG/DL (8.5-10.1); Magnesium 1.9 MG/DL (1.8-2.4); Osmolality,Calculated 291.1 MOS/KG (273-304); Potassium 4.1 MMOL/L (3.5-5.1)
[2016-06-02 05:09] LABS: Burr Cells Slight; Elliptocytes Few; Hypochromasia 1+; Platelet Estimate Normal
--- NOTE | 2016-06-02 06:43 | Pulmonology Progress Note ---
Pulmonary - PN: Subj Interval history: This 71-year-old white female has rheumatoid arthritis and rheumatoid lung. She also has pulmonary hypertension. She is on Revatio. Mitral regurgitation. She came in with increased shortness of breath. Her chest x-ray does not look bad. She is hypotensive but has edema. She is on Tekturna. Her systolic blood pressures running 87 this morning. I think we need to hold the Tekturna. Defer to cardiology on adjusting heart medicines otherwise. She is better this morning and should be able to go to the floor. Exam (Progress Note) - Constitutional Vitals: Period Temp Pulse Resp BP Sys/Parks Pulse Ox Last 24 Hr 98.1 F-99.3 F 84-111 12-31 83-131/58-99 93-100 Exam: Patient's alert and afebrile. Weight stable. Pupils react to light. Throat is clear. Neck supple no bruits. Chest reveals a few rhonchi equal breath sounds. Heart normal rate and rhythm grade 1/6 systolic murmur left sternal border. Abdomen soft nontender no masses. Bowel sounds present. Extremities no clubbing or cyanosis trace of edema. Calves nontender. Results - Labs CBC & BMP: 06/02/16 03:41 06/02/16 03:41 Lab Results: I have reviewed the past 24 hour labs Assessment and Plan (1) Nonspecific interstitial pneumonitis Status: Acute Assessment and plan: This is related to her rheumatoid arthritis and she has indeed rheumatoid lung. She is on CellCept and prednisone for this long-term. She has increased risk of pneumonia because of the disease and medications. However there is no pneumonia on her x-ray. 06/02/2016 we will hold CellCept. She is immunocompromised and has a superimposed bronchitis. Current Visit: No (2) Cor pulmonale Status: Chronic Assessment and plan: She has edema. Her BNP is elevated. She also has mitral insufficiency. At present with a creatinine of 2 she is getting some IV fluids. We need to be very careful with that. Treat with oxygen and steroids. 06/02/2016 has peripheral edema but is hypotensive. Creatinine has come down to 1.6. Current Visit: No (3) Mitral regurgitation Status: Chronic Assessment and plan: Defer to cardiology as far as any management of her mitral regurgitation. Current Visit: No (4) Rheumatoid arthritis Status: Chronic Assessment and plan: She is on chronic medications for that and her arthritic problems are stable Current Visit: No Qualifiers: Laterality: bilateral (5) Acute kidney injury Status: Acute Assessment and plan: Creatinine is 2.0. It was 1.2 about 3 or 4 weeks ago. I will ask renal to see her. We need to watch this closely 06/02/2016 renal function improved with creatinine down to 1.6. Current Visit: Yes
[2016-06-02] MEDS: TAMSULOSIN 0.4 MG CAPSULE PO SCH (08:21)
[2016-06-02] MEDS: LEVOTHYROXINE 200 MCG TABLET PO SCH (08:21)
[2016-06-02] MEDS: PANTOPRAZOLE 40 MG TABLET PO SCH (08:22)
[2016-06-02] MEDS: FUROSEMIDE 40 MG TABLET PO SCH ×2 (08:22→20:47)
[2016-06-02] MEDS: POTASSIUM CHLORIDE 20 MEQ TABLET PO SCH (08:22)
[2016-06-02] MEDS: MYCOPHENOLATE MOFETIL 250 MG CAPSULE PO SCH (08:23)
[2016-06-02] MEDS: SILDENAFIL 20 MG TABLET PO SCH ×3 (08:23→20:47)
[2016-06-02] MEDS: predniSONE 10 MG TABLET PO SCH (08:23)
[2016-06-02] MEDS: INSULIN ASPART PROTAMINE/ASPART 70/30 100 UNIT/ML SUBCUT SCH ×2 (08:24→20:48)
[2016-06-02] MEDS: ALBUTEROL/IPRATROPIUM 3 ML NEB RESP TX SCH ×3 (08:54→19:28)
[2016-06-02] MEDS ORDERED: ALISKIREN 150 MG TABLET PO SCH (09:00)
--- NOTE | 2016-06-02 09:09 | Physician Query Form ---
CLICK EDIT DOCUMENT TO SELECT QUERY ANSWER --> OK --> SIGN Loren Jensen RN Clinical Camera Mechanic W) [phone] (f) [phone] [email or web address] PROVIDERS: Make your selection(s) from the choices in EACH section by typing an "x" and enter comments in the comment section. Please use your independent medical judgment in providing your response. This request does not imply that any particular answer is desired or expected. 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" "satting 100% on 4L nasal canula" If possible, please further clarify the type and acuity of respiratory diagnosis : ACUITY: () Acute ( ) Chronic (x ) Acute on Chronic TYPE: ( ) Respiratory failure with hypoxia ( ) Respiratory failure with hypercapnia ( ) Respiratory Arrest ( ) ARDS (Adult/Acute Respiratory Distress Syndrome) ( x) Other, please specify: Respiratory distress ( ) Clinically unable to determine Recognized criteria for respiratory failure PH <7.35 or >7.45 PO2 <60 PCO2 >50 RR >24 O2 Sat <90% on RA or <95% on O2 Use of accessory muscles Unable to speak in full sentences Intubation is not required COMMENTS: Use of terms such as suspected, likely, or probable (associated with a specific diagnosis that is being evaluated, monitored, or treated as if it exists) are acceptable and can be restated in the discharge summary if not ruled out. MTDD
--- NOTE | 2016-06-02 09:44 | Cardiology Progress Note ---
<Taylor Valenzuela E - Last Filed: 06/02/16 09:41> Assessment and Plan - Time spent with patient Time spent with patient: Less than 30 minutes (1) Acute on chronic systolic (congestive) heart failure Status: Acute Assessment and plan: EF 50% per echocardiogram 04/08/16. Will maximinze medical therapy and adjust medications as patient tolerates. Currently on O2 via NBP. Breathing is much improved today. Current Visit: No (2) Essential (primary) hypertension Status: Chronic Assessment and plan: Has had some low blood pressure readings, but overall BP has been well controlled. Will continue to monitor and adjust medications as needed. Current Visit: No (3) Hypothyroidism Status: Chronic Assessment and plan: Hospital medicine following. Current Visit: No (4) Pulmonary fibrosis Status: Chronic Assessment and plan: She is on immunocompromising agents and has an abnormal lung exam that is worse than her baseline. Pulmonology is following. Current Visit: No (5) Mitral regurgitation Status: Chronic Assessment and plan: Has been at least moderate previously. Noted to be severe per recent echocardiogram. Current Visit: No (6) Type 2 diabetes mellitus Status: Chronic Assessment and plan: Hospital medicine following. Current Visit: No Qualifiers: Diabetes mellitus complication status: without complication (7) Rheumatoid arthritis Status: Chronic Current Visit: No Qualifiers: Laterality: bilateral (8) Acute renal failure Status: Acute Assessment and plan: Creatinine down to 1.6 with GFR 37. Will monitor BMP. Current Visit: Yes Cardiology - PN: Subj Interval history: Museum Service Scheduler: Dr. Willett PCP: none Ms. Bowens reports she is feeling much better this morning. She has just received a breathing treatment and tells me her breathing is much improved. She has been borderline hypotensive and her Tekturna has been held this morning. She does have some mild BLE edema today, but otherwise has no further complaints. She is on O2 via NBP. I believe she may be transferred upstairs today if a bed is available. Exam (Progress Note) - Constitutional Vitals: Period Temp Pulse Resp BP Sys/Parks Pulse Ox Last 24 Hr 98.1 F-99.3 F 83-111 12-31 83-131/58-99 93-100 Exam: General: Present: Appears Well, No Apparent Distress. Pleasant and cooperative. Appears comfortable. HEENT: Present: PERRL, Normocephaly, atraumatic. Mucus Membranes Moist. No jaundice noted. Conjunctiva moist and clear, sclerae anicteric Neck: Present: Supple Neck, Midline Trachea, No Masses, No Bruit, No tenderness Cardiac: Present: Regular Rate and Rhythm, grade 2 systolic Murmur Lungs: Present: Clear to auscultation bilaterally, no wheeze, rhonchi, rales. Neuro: Present: Awake, alert, and oriented x3. Moves all extremities well without hemiparesis or paralysis. Grossly Intact. Absent: Resting Tremor, Essential Tremor Abdomen: Present: Soft, Active Bowel Sounds, No Masses, Non-Tender, nondistended. No abdominal bruit or thrill noted. Skin: Present: Clear. Absent: Rash, No skin breakdown. Back: Normal inspection, no vertebral tenderness. Musculoskeletal: Present: No Fluid Collection, No Pain, Normal Range of Motion Extremities: Present: Normal Gait, No Clubbing, No Cyanosis, Upper Extr. Pulses 2+, Lower Extr. Pulses 2+, Trace pitting edema to LLE. Capillary refill less than 3 seconds. Result/EKG - Labs CBC & BMP: 06/02/16 03:41 06/02/16 03:41 Lab Results: I have reviewed the past 24 hour labs Labs: Laboratory Results - last 24 hr 06/01/16 06/01/16 06/01/16 13:37 13:37 13:47 WBC 4.7 RBC 5.22 Hgb 13.7 Hct 44.1 MCV 84.5 L MCH 26 L MCHC 31.1 L RDW 18.4 H Plt Count 234 MPV 9.5 L Neut % (Auto) 62.3 Lymph % (Auto) 27.1 Lipscomb % (Auto) 10.0 Eos % (Auto) 0.0 Baso % (Auto) 0.2 Neut # (Auto) 2.9 Lymph # (Auto) 1.3 L Lipscomb # (Auto) 0.5 Eos # (Auto) 0.0 Baso # (Auto) 0.0 Immature Gran % 0.4 Nucleated RBC % 0.4 Immature Gran # 0.02 Nucleated RBCs # 0.02 Platelet Estimate Hypochromasia [place] Cells Elliptocytes Morphology Comment Sodium 142 Potassium 4.7 Chloride 104 Carbon Dioxide 27 Anion Gap 15.7 H BUN 33 H Creatinine 2.00 H GFR Calculation 28 BUN/Creatinine Ratio 16.00 Glucose 161 H POC Glucose Calculated Osmolality 292.1 Calcium 8.5 Magnesium 1.7 L Total Bilirubin 0.70 AST 33 ALT 24 Alkaline Phosphatase 68 B-Natriuretic Peptide 1025 H Total Protein 5.8 L Albumin 2.9 L Globulin 2.9 Albumin/Globulin Ratio 1.0 L TSH 3rd Generation 0.139 L 06/01/16 06/02/16 06/02/16 21:38 03:41 03:41 WBC 2.9 L D RBC 4.70 Hgb 12.2 Hct 39.0 MCV 83.0 L MCH 26 L MCHC 31.3 L RDW 17.9 H Plt Count 198 MPV 10.0 Neut % (Auto) 67.8 Lymph % (Auto) 28.0 Lipscomb % (Auto) 3.5 Eos % (Auto) 0.0 Baso % (Auto) 0.0 Neut # (Auto) 1.9 Lymph # (Auto) 0.8 L Lipscomb # (Auto) 0.1 L Eos # (Auto) 0.0 Baso # (Auto) 0.0 Immature Gran % 0.7 Nucleated RBC % 0.0 Immature Gran # 0.02 Nucleated RBCs # 0.00 Platelet Estimate Normal Hypochromasia 1+ Markus Cells Slight Elliptocytes Few Morphology Comment Sodium 142 Potassium 4.1 Chloride 105 Carbon Dioxide 25 Anion Gap 16.1 H BUN 28 H Creatinine 1.60 H GFR Calculation 37 BUN/Creatinine Ratio 17.00 Glucose 150 H POC Glucose 145 H Calculated Osmolality 291.1 Calcium 8.5 Magnesium 1.9 Total Bilirubin AST ALT Alkaline Phosphatase B-Natriuretic Peptide Total Protein Albumin Globulin Albumin/Globulin Ratio [facility] 3rd Generation 06/02/16 07:47 WBC RBC Hgb Hct MCV MCH MCHC RDW Plt Count MPV Neut % (Auto) Lymph % (Auto) Lipscomb % (Auto) Eos % (Auto) Baso % (Auto) Neut # (Auto) Lymph # (Auto) Lipscomb # (Auto) Eos # (Auto) Baso # (Auto) Immature Gran % Nucleated RBC % Immature Gran # Nucleated RBCs # Platelet Estimate Hypochromasia Markus Cells Elliptocytes Morphology Comment Sodium Potassium Chloride Carbon Dioxide Anion Gap BUN Creatinine GFR Calculation BUN/Creatinine Ratio Glucose POC Glucose 146 H Calculated Osmolality Calcium Magnesium Total Bilirubin AST ALT Alkaline Phosphatase B-Natriuretic Peptide Total Protein Albumin Globulin Albumin/Globulin Ratio [facility] 3rd Generation - EKG EKG results: interpreted by me, sinus rhythm <Julio Cesar Cobb - Last Filed: 06/02/16 13:10> Cardiology - PN: Subj Interval history: The patient was interviewed and examined and chart reviewed. Discussed case with Jamal Valenzuela VIRTUAL REALITY SPECIALIST. Agree with history as well as exam and assessment. In addition a summation the patient's most immediate problem is that of pulmonary hypertension and pulmonary fibrosis. Her blood pressure was a little low morning and her Tekturna was held. We will monitor this to the day and make a decision in regard to other medical therapy or changes. We'll watch her heart rate is well. We will do other changes as needed and indicated. Exam (Progress Note) - Constitutional Vitals: Period Temp Pulse Resp BP Sys/Parks Pulse Ox Last 24 Hr 98.1 F-99.3 F 83-108 12-31 83-131/58-99 93-100 Result/EKG - Labs CBC & BMP: 06/02/16 03:41 06/02/16 03:41 Labs: Laboratory Results - last 24 hr 06/01/16 06/01/16 06/01/16 13:37 13:37 13:47 WBC 4.7 RBC 5.22 Hgb 13.7 Hct 44.1 MCV 84.5 L MCH 26 L MCHC 31.1 L RDW 18.4 H Plt Count 234 MPV 9.5 L Neut % (Auto) 62.3 Lymph % (Auto) 27.1 Lipscomb % (Auto) 10.0 Eos % (Auto) 0.0 Baso % (Auto) 0.2 Neut # (Auto) 2.9 Lymph # (Auto) 1.3 L Lipscomb # (Auto) 0.5 Eos # (Auto) 0.0 Baso # (Auto) 0.0 Immature Gran % 0.4 Nucleated RBC % 0.4 Immature Gran # 0.02 Nucleated RBCs # 0.02 Platelet Estimate Hypochromasia [place] Cells Elliptocytes Morphology Comment Sodium 142 Potassium 4.7 Chloride 104 Carbon Dioxide 27 Anion Gap 15.7 H BUN 33 H Creatinine 2.00 H GFR Calculation 28 BUN/Creatinine Ratio 16.00 Glucose 161 H POC Glucose Calculated Osmolality 292.1 Calcium 8.5 Magnesium 1.7 L Total Bilirubin 0.70 AST 33 ALT 24 Alkaline Phosphatase 68 B-Natriuretic Peptide 1025 H Total Protein 5.8 L Albumin 2.9 L Globulin 2.9 Albumin/Globulin Ratio 1.0 L TSH 3rd Generation 0.139 L 06/01/16 06/02/16 06/02/16 21:38 03:41 03:41 WBC 2.9 L D RBC 4.70 Hgb 12.2 Hct 39.0 MCV 83.0 L MCH 26 L MCHC 31.3 L RDW 17.9 H Plt Count 198 MPV 10.0 Neut % (Auto) 67.8 Lymph % (Auto) 28.0 Lipscomb % (Auto) 3.5 Eos % (Auto) 0.0 Baso % (Auto) 0.0 Neut # (Auto) 1.9 Lymph # (Auto) 0.8 L Lipscomb # (Auto) 0.1 L Eos # (Auto) 0.0 Baso # (Auto) 0.0 Immature Gran % 0.7 Nucleated RBC % 0.0 Immature Gran # 0.02 Nucleated RBCs # 0.00 Platelet Estimate Normal Hypochromasia 1+ Markus Cells Slight Elliptocytes Few Morphology Comment Sodium 142 Potassium 4.1 Chloride 105 Carbon Dioxide 25 Anion Gap 16.1 H BUN 28 H Creatinine 1.60 H GFR Calculation 37 BUN/Creatinine Ratio 17.00 Glucose 150 H POC Glucose 145 H Calculated Osmolality 291.1 Calcium 8.5 Magnesium 1.9 Total Bilirubin AST ALT Alkaline Phosphatase B-Natriuretic Peptide Total Protein Albumin Globulin Albumin/Globulin Ratio [facility] 3rd Generation 06/02/16 06/02/16 07:47 12:02 WBC RBC Hgb Hct MCV MCH MCHC RDW Plt Count MPV Neut % (Auto) Lymph % (Auto) Lipscomb % (Auto) Eos % (Auto) Baso % (Auto) Neut # (Auto) Lymph # (Auto) Lipscomb # (Auto) Eos # (Auto) Baso # (Auto) Immature Gran % Nucleated RBC % Immature Gran # Nucleated RBCs # Platelet Estimate Hypochromasia Markus Cells Elliptocytes Morphology Comment Sodium Potassium Chloride Carbon Dioxide Anion Gap BUN Creatinine GFR Calculation BUN/Creatinine Ratio Glucose POC Glucose 146 H 220 H Calculated Osmolality Calcium Magnesium Total Bilirubin AST ALT Alkaline Phosphatase B-Natriuretic Peptide Total Protein Albumin Globulin Albumin/Globulin Ratio [facility] 3rd Generation
--- NOTE | 2016-06-02 09:47 | Hospitalist Progress Note ---
Assessment and Plan - Time spent with patient Time spent with patient: Less than 30 minutes (1) Acute kidney injury Status: Acute Current Visit: Yes (2) Nonspecific interstitial pneumonitis Status: Acute Current Visit: No (3) Diabetes mellitus Status: Chronic Current Visit: No (4) Essential (primary) hypertension Status: Chronic Assessment and plan: Blood pressure is actually borderline low today Current Visit: No Hospitalist: Subjective Interval history: No acute events overnight. She reports that her breathing is much better today but still not at her baseline. Pulmonary assisting. Creatinine is down to 1.6 today. Blood pressure is borderline low. Will transfer to the floor today. Acute Kidney Injury- Down to 1.6. Nephrology has been consulted. Holding on fluids given edema and hx of pulmonary edema, currently on low dose lasix, might have to hold Nonspecific interstitial pneumonitis- Secondary to rheumatoid. Pulmonary managing. Holding cellcept. Diabetes Mellitus- continue home meds Hypothyroid- continue home meds Exam - Constitutional Vitals: Period Temp Pulse Resp BP Sys/Parks Pulse Ox Last 24 Hr 98.1 F-99.3 F 83-111 12-31 83-131/58-99 93-100 General appearance: normal weight - Head Head exam: Present: normocephalic, atraumatic - Eye Eye exam: Present: EOMI Pupils: Present: BRANDI - ENT ENT exam: Present: normal exam - Neck Neck exam: Present: normal inspection - Respiratory Respiratory exam: Present: rhonchi. Absent: wheezes - Cardiovascular Cardiovascular exam: Present: regular rate and rhythm - GI/Abdominal GI/Abdominal exam: Present: normal bowel sounds, soft. Absent: tenderness, rebound - Extremities Exam Extremities exam: Present: normal inspection - Back Exam Back exam: Present: normal inspection - Neurological Exam Neurological exam: Present: alert, oriented X3 - Psychiatric Psychiatric exam: Present: normal affect, normal mood - Skin Skin exam: Present: warm, intact Results - Labs CBC & BMP: 06/02/16 03:41 06/02/16 03:41
[2016-06-02] MEDS: ENOXAPARIN 30 MG/0.3 ML SYRINGE SUBCUT SCH (12:33)
--- NOTE | 2016-06-02 13:47 | Ultrasound Report ---
Exam: US renal Bilateral Date: 06/02/2016 12:07 PM Indication: Elevated BUN/creatinine Comparison: None Findings: The right kidney measures 7.6 x 3.9 x 4 cm. No hydronephrosis perinephric fluid collections or focal mass. Minimal increased echogenicity The left kidney is 8.8 x 4.5 x 4.4 cm. No hydronephrosis perinephric fluid collections or focal mass present. Very minimal increased echogenicity Impression: 1. Mild medical renal disease without obstructive uropathy. PROCEDURE INTERPRETED AT [facility] DEPARTMENT OF RADIOLOGY Final Report Signed by: Dr. Maxim Tucker
--- NOTE | 2016-06-02 15:29 | Nephrology Consult Note ---
History of Present Illness Chief complaint: Pt referred for "JERRY" History of present illness: Ms. Bowens is a 71 year old female admitted from cardiology clinic for SOB/ tachypnea. She reports feeling better. Creatinine 1.2 on admit up to 2.0 now 1.6 today. UA ordered early this am along with urinary indices to assess intrinsic vs prerenal have not been collected. Renal u/s reveals R 7.6 cm, L 8.8 cm mild increased echogenicity compared to liver parenchyma, c/w atrophic/ ischemic dz. No other significant findings. PMHx pHTN, unknown degree, RA, rheumatoid lung. No recent echocardiogram to review. UA: SG 1.010, pH 6.0, no protein/blood on dipstick, dipstick LE neg but 1 WBC/hpf on micro (not consistent as LE is more sensitive than microscopy), 1 RBC/hpf. She is on lasix 40mg bid at home and states she responds to this dosage, but "pee all the time". She is also on Tekturna a direct renin inhibitor, which can cause acute worsening of renal function. Home Medications Medication Instructions Recorded Confirmed Type Aliskiren [Tekturna] 150 mg PO QAM 01/27/15 06/01/16 History Mycophenolate Mofetil [Cellcept] 1,000 mg PO BID 01/27/15 06/01/16 History Montelukast Tab [Singulair Tab] 10 mg PO BEDTIME #60 tablet 04/08/15 06/01/16 Rx Levothyroxine Tab [Synthroid Tab] 200 mcg PO QAM 02/15/16 06/01/16 History Omeprazole [Prilosec] 40 mg PO QPM 02/15/16 06/01/16 History Albuterol/Ipratropium Neb [Duoneb] 3 ml RESP TX TID #90 vial 04/15/16 06/01/16 Rx Insulin Aspart Prot/Asp 70/30 15 unit SUBCUT BID 04/29/16 06/01/16 History [NovoLOG Mix 70/30] predniSONE TAB [PredniSONE] 10 mg PO QAM 04/29/16 06/01/16 History Sildenafil [Revatio] 10 mg PO TID #100 tablet 05/03/16 06/01/16 Rx Furosemide Tab [Lasix Tab] 40 mg PO BID #60 tablet 05/25/16 06/01/16 Rx Tamsulosin [Flomax] 0.4 mg PO DAILY #30 capsule 05/25/16 06/01/16 Rx Potassium Chloride Cap/Tab [K Dur] 10 meq PO DAILY W/BREAKFAST 06/01/16 History Allergies Allergy/AdvReac Type Severity Reaction Status Date / Time No Known Allergies Allergy Verified 04/07/16 18:47 Medical,Surgical,& Family Hx - Medical History Cardio: History of: Cardiac Dysrhythmia (in past), Hypertension No history of: CHF, NC, Pacemaker Neurology: No history of: Brain Aneurysm, Cerebral Hemorrhage, Cerebrovascular Accident , Cerebral Palsy, Dementia, Migraine, Multiple Sclerosis, Parkinson's Disease, Peripheral Neuropathy, Seizures, TIA, Vertigo, Neurologocal Cancer Endocrine: History of: Diabetes Mellitus (IDDM), Thyroid Disorder Rheumatology: History of;: Rheumatoid Arthritis Respiratory: History of: Pneumonia, Respiratory Problems (Pulmonary fibrosis and secondary pulmonary hypertension from primary rheuma) No history of: Asthma, COPD Gastrointestinal: History of: GERD, GI Problems (dysphagia) No history of: Hepatitis, Liver Problems Hematology: History of: Anemia No history of: Blood Transfusion Reaction Other: No history of: Anesthesia Reactions, Cancer - Surgical History Cardiac Surgeries: Patient Denies: Cardiac Catheterization, Carotid Endarterectomy Thoracic Surgeries: Patient denies;: Lobectomy Neurologic Surgeries: Patient denies: Brain Aneurysm, Cerebral Hemorrhage, Neurologic Surgery HEENT Surgeries: Surgical HX of: Eye Surgery (cataracts), Thyroid Surgery ( thyroidectomy-2002) Patient denies: Carotid Endarterectomy, Tonsilectomy & Adenoidectomy Abdominal Surgeries: Surgical HX of: Colonoscopy, EGD Patient denies: Abdominal Surgery, Appendectomy, Cholecystectomy, Hernia Repair Reproductive Surgeries: Patient denies;: Breast Surgery, Hysterectomy, Tubal Ligation Orthopedic Surgeries: Patient denies;: Orthopedic Surgery, Total Hip Replacement, Total Knee Replacement - Family History Family History: Reports;: Family Cancer (aunt- cervical cancer, aunt- breast cancer), Family Diabetes (mother) Denies;: Family Heart Disease - Social History Smoking Status: Never smoker Frequency of Alcohol Use: None Type of Drug Use: None Exam - Vital Signs Vital signs: Period Temp Pulse Resp BP Sys/Parks Pulse Ox Last 24 Hr 98.1 F-99.3 F 83-107 14-31 83-115/58-89 93-100 - General Appearance General appearance: well-developed, chronically ill EENT: ATNC, PERRL, mucous membranes dry, hearing intact, vision intact Neck: no JVD, no thyromegaly Respiratory: no kyphosis, rales Cardiology: no murmurs, no rub, no edema Gastrointestinal: normoactive bowel sounds, no tenderness Integumentary: no rash, warm and dry Neurologic: no focal deficit, no asterixis, alert and oriented x3 Musculoskeletal: no deformities, no erythema, no cyanosis Results - Labs CBC & BMP: 06/02/16 03:41 06/02/16 03:41 Assessment and Plan (1) CKD (chronic kidney disease) stage 3, GFR 30-59 ml/min Problem details: There is no indication of acute kidney injury. Her pHTN for which she is on revatio, requires preload to maintain forward c.o. Over diuresis to help with her "SOB" is can reduce renal blood flow which appears to already be compromised with small, ischemic appearing kidneys on u/s. Her daiily fluctuations in creatinine are most likely due to changes in renal perfusion and volume/preload. I would caution the use of tekturna in her physiology. Status: Acute Assessment and plan: Hold tekturna. Send urine for studies I ordered this am. Avoid overdiuresis. Renally dose all meds for eGFFR around 30cc/min. Avoid nephrotoxins to include NSAIDs, aminoglycosides, and IV contrast if possible. Current Visit: Yes (2) Cor pulmonale Status: Chronic Current Visit: No (3) Pulmonary fibrosis Status: Chronic Current Visit: No
[2016-06-02] MEDS: MONTELUKAST 10 MG TABLET PO SCH (20:47)
[2016-06-02 23:54] LABS: Apearance,Urine CLEAR (Clear); Bacteria,Urine Occasional /HPF (Few); Bilirubin,Urine Negative (Negative); Blood, Urine Small mg/dL (Negative); Glucose,Urine (UA) Negative (Negative); Ketones,Urine Negative (Negative); Mucus,Urine Occasional /LPF (Occasional); Nitrite,Urine Negative (Negative); Protein,Urine 100 MG/DL; RBC,Urine 1 /HPF (0-4); Squamous Epithelial Cell,Urine Occasional /HPF (0-10); Transitional Epi Cells,Urine Occasional /HPF (<1); Urine Color Yellow (Yellow); Urine Specific Gravity 1.015 (1.001-1.035); Urine Urobilinogen < 2.0 EU/DL (0.2-1.0); WBC,Urine 3 /HPF (0-6)
[2016-06-03] MEDS: methylPREDNISolone SOD SUC 40 MG/1 ML VIAL IV SCH ×2 (05:17→18:20)
[2016-06-03 07:19] LABS: Basophils % 0.2 % (0.0-0.8); Hematocrit 39.9 VOL% (35.7-47.0); Hemoglobin 12.3 GM/DL (12.0-16.0); Immature Granulocytes % 0.6 %; Immature Granulocytes Absolute 0.03 #; Lymphocytes # 1.3 10*3/uL (1.4-4.0); Lymphocytes % 27.9 % (21.3-54.2); Mean Corpuscular HGB Conc 30.8 GM/DL (32-36); Mean Corpuscular Hemoglobin 26 PG (27-34); Mean Corpuscular Volume 82.8 FL (87-102); Mean Platelet Volume 10.4 FL (9.6-12.0); Monocytes # 0.6 10*3/uL (0.11-0.8); Monocytes % 12.1 % (1.7-12.7); NRBC # 0.03 10*3/uL; Neutrophils # 2.8 10*3/uL (1.4-7.4); Neutrophils % 59.2 % (38.7-73.9); Platelet Count 200 T/CUMM (130-400); Red Blood Count 4.82 MC/CUMM (3.8-5.5); Red Cell Distribution Width 18.5 % (9.3-17.3); White Blood Count 4.8 T/CUMM (4-12)
[2016-06-03] MEDS: ALBUTEROL/IPRATROPIUM 3 ML NEB RESP TX SCH ×3 (07:25→20:09)
[2016-06-03 07:42] LABS: Calcium 8.2 MG/DL (8.5-10.1); Magnesium 2.1 MG/DL (1.8-2.4); Osmolality,Calculated 293.3 MOS/KG (273-304); Potassium 3.9 MMOL/L (3.5-5.1)
--- NOTE | 2016-06-03 08:06 | XRay Report ---
XR chest 1V portable Indication: Bronchitis, rheumatoid lung Comparison: 01 June 2016 Findings: The heart and mediastinum are normal in size and configuration. The pulmonary vascularity is normal in caliber. Interstitial densities in the lung bases are similar to previous exam. No other lung infiltrates, effusions, pneumothorax or other abnormality is demonstrated. Impression: No significant changes. PROCEDURE INTERPRETED AT [facility] DEPARTMENT OF RADIOLOGY Final Report Signed by: Dr. Saeed Azevedo
[2016-06-03] MEDS: POTASSIUM CHLORIDE 20 MEQ TABLET PO SCH (08:57)
[2016-06-03] MEDS: SILDENAFIL 20 MG TABLET PO SCH ×3 (09:03→21:26)
[2016-06-03] MEDS: PANTOPRAZOLE 40 MG TABLET PO SCH (09:07)
[2016-06-03] MEDS: predniSONE 10 MG TABLET PO SCH (09:07)
[2016-06-03] MEDS: FUROSEMIDE 40 MG TABLET PO SCH ×3 (09:07→21:13)
[2016-06-03] MEDS: TAMSULOSIN 0.4 MG CAPSULE PO SCH (09:07)
[2016-06-03] MEDS: LEVOTHYROXINE 200 MCG TABLET PO SCH (09:07)
--- NOTE | 2016-06-03 09:07 | Pulmonology Progress Note ---
Pulmonary - PN: Subj Interval history: This 71-year-old white female has rheumatoid arthritis and rheumatoid lung. She also has pulmonary hypertension. She is on Revatio. Mitral regurgitation. She came in with increased shortness of breath. Her chest x-ray does not look bad. She is hypotensive but has edema. She is on Tekturna. Her systolic blood pressures running 87 this morning. I think we need to hold the Tekturna. Defer to cardiology on adjusting heart medicines otherwise. She is better this morning and should be able to go to the floor. 06/03/2016 patient moved to floor yesterday. She is feeling a little better. Still having some bronchospasm. I do think she has acute bronchitis. Blood pressure has been on the low side. Tekturna is being held. Renal function stable with creatinine 1.6. Again she is immunocompromised due to her rheumatoid arthritis, rheumatoid lung, and medications for those. We are holding CellCept at present. Needs a few more days of IV medications. Exam (Progress Note) - Constitutional Vitals: Period Temp Pulse Resp BP Sys/Parks Pulse Ox Last 24 Hr 97.9 F-99.8 F 81-100 14-23 96-116/58-86 92-100 Exam: Patient's alert and afebrile. Weight stable. Pupils react to light. Throat is clear. Neck supple no bruits. Chest reveals a few rhonchi equal breath sounds. Heart normal rate and rhythm grade 1/6 systolic murmur left sternal border. Abdomen soft nontender no masses. Bowel sounds present. Extremities no clubbing or cyanosis trace of edema. Calves nontender. Little change from yesterday. Results - Labs CBC & BMP: 06/03/16 05:05 06/03/16 05:05 Lab Results: I have reviewed the past 24 hour labs - Diagnostic Findings Procedure: Chest x-ray: image reviewed by me (Chronic interstitial infiltrates. No acute changes. Heart showed a slightly enlarged but it is an AP film.) Assessment and Plan (1) Nonspecific interstitial pneumonitis Status: Acute Assessment and plan: This is related to her rheumatoid arthritis and she has indeed rheumatoid lung. She is on CellCept and prednisone for this long-term. She has increased risk of pneumonia because of the disease and medications. However there is no pneumonia on her x-ray. 06/02/2016 we will hold CellCept. She is immunocompromised and has a superimposed bronchitis. 06/03/2016 this is related to her rheumatoid arthritis. CellCept being held while treated for acute bronchitis. Current Visit: No (2) Cor pulmonale Status: Chronic Assessment and plan: She has edema. Her BNP is elevated. She also has mitral insufficiency. At present with a creatinine of 2 she is getting some IV fluids. We need to be very careful with that. Treat with oxygen and steroids. 06/02/2016 has peripheral edema but is hypotensive. Creatinine has come down to 1.6. 06/03/2016 trace of peripheral edema still. Blood pressure on low side. We are probably about right volume blanco. Current Visit: No (3) Mitral regurgitation Status: Chronic Assessment and plan: Defer to cardiology as far as any management of her mitral regurgitation. 06/03/2016 this of course leads to some of her right-sided failure as well. Defer to cardiology. Current Visit: No (4) Rheumatoid arthritis Status: Chronic Assessment and plan: She is on chronic medications for that and her arthritic problems are stable 06/03/2016 symptoms stable at present Current Visit: No Qualifiers: Laterality: bilateral (5) Acute kidney injury Status: Acute Assessment and plan: Creatinine is 2.0. It was 1.2 about 3 or 4 weeks ago. I will ask renal to see her. We need to watch this closely 06/02/2016 renal function improved with creatinine down to 1.6. 06/03/2016 creatinine stable at 1.6. Watch it closely. Current Visit: Yes
[2016-06-03] MEDS: INSULIN ASPART PROTAMINE/ASPART 70/30 100 UNIT/ML SUBCUT SCH ×2 (09:59→21:33)
--- NOTE | 2016-06-03 10:14 | Nephrology Progress Note ---
Nephrology - PN: Subj Interval history: Pt sitting up on bedside on am rounds. She states breathing is better. Creatinine stable at 1.6. Lungs sound better. FeUrea 38%, nondiagnostic for prerenal vs intrinsic renal process. "I just feel weak". Exam (PN)-Nephrology - Vital Signs Vital signs: Period Temp Pulse Resp BP Sys/Parks Pulse Ox Last 24 Hr 97.9 F-99.8 F 81-100 14-22 96-116/58-86 92-100 - General Appearance General appearance: well-developed, chronically ill EENT: ATNC, PERRL, mucous membranes dry, hearing intact, vision intact Neck: no JVD, no thyromegaly Respiratory: no kyphosis, clear Cardiology: no murmurs, no rub, edema Gastrointestinal: normoactive bowel sounds, no tenderness Integumentary: no rash, warm and dry Neurologic: no focal deficit, no asterixis, alert and oriented x3 Musculoskeletal: no deformities, no erythema Psychiatric: mood/affect appropriate, cooperative - Lab 06/03/16 05:05 06/03/16 05:05 Most recent lab results Calcium 8.2 MG/DL (8.5-10.1) L 06/03/16 05:05 Magnesium 2.1 MG/DL (1.8-2.4) 06/03/16 05:05 Assessment and Plan (1) CKD (chronic kidney disease) stage 3, GFR 30-59 ml/min Problem details: There is no indication of acute kidney injury. Her daiily fluctuations in creatinine are most likely due to changes in renal perfusion and volume/preload. I would caution restarting tekturna with her physiology. Status: Acute Assessment and plan: Hold tekturna. Avoid overdiuresis. Renally dose all meds for eGFFR around 30cc/min. Avoid nephrotoxins to include NSAIDs, aminoglycosides, and IV contrast if possible. Current Visit: Yes (2) Cor pulmonale Status: Chronic Current Visit: No (3) Pulmonary fibrosis Status: Chronic Current Visit: No
[2016-06-03] MEDS: ENOXAPARIN 30 MG/0.3 ML SYRINGE SUBCUT SCH (12:36)
--- NOTE | 2016-06-03 14:16 | Hospitalist Progress Note ---
Assessment and Plan - Time spent with patient Time spent with patient: Greater than 30 minutes (1) Acute exacerbation of chronic obstructive airways disease Status: Acute Current Visit: No (2) Rheumatoid arthritis Status: Chronic Current Visit: Yes Qualifiers: Laterality: bilateral (3) Nonspecific interstitial pneumonitis Status: Acute Current Visit: No (4) Acute bronchitis Status: Acute Current Visit: No (5) Diabetes mellitus Status: Chronic Current Visit: No (6) Acute renal failure Status: Acute Assessment and plan: Continue respiratory therapy and steroid. The posterior and also go along. Add sliding scale lispro for better blood glucose control. CellCept being held for now. On twice daily oral Lasix. Monitor input and output. DVT prophylaxis, GI prophylaxis while on steroids. 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 Also with acute kidney injury. She does report that she is feeling slightly better, still dyspneic on exertion. Still feels tightness of chest. No fever. Blood sugars are uncontrolled and this is likely because of steroids. We will add sliding scale insulin today and adjust insulin also go along. Exam - Constitutional Vitals: Period Temp Pulse Resp BP Sys/Parks Pulse Ox Last 24 Hr 97.9 F-99.8 F 79-100 16-20 96-116/58-85 92-98 Exam: General appearance: normal weight - Head Head exam: Present: normocephalic, atraumatic - Eye Eye exam: Present: EOMI Pupils: Present: BRANDI - ENT ENT exam: Present: normal exam - Neck Neck exam: Present: normal inspection - Respiratory Respiratory exam: Present: rhonchi + wheezes - Cardiovascular Cardiovascular exam: Present: regular rate and rhythm - GI/Abdominal GI/Abdominal exam: Present: normal bowel sounds, soft. Absent: tenderness, rebound - Extremities Exam Extremities exam: Present: normal inspection - Back Exam Back exam: Present: normal inspection - Neurological Exam Neurological exam: Present: alert, oriented X3 - Psychiatric Psychiatric exam: Present: normal affect, normal mood - Skin Skin exam: Present: warm, intact Results - Labs CBC & BMP: 06/03/16 05:05 06/03/16 05:05 Lab Results: I have reviewed the past 24 hour labs Specialty Discharge - Follow Up or Referrals Follow up with: Amy Willett DO [Physician] - 2 Weeks (With [facility] CMP CBC)
--- NOTE | 2016-06-03 14:48 | Cardiology Progress Note ---
I, Tracy Bauman RN, am scribing for, and in the presence of, Evert Gomez MD 14:46. Assessment and Plan (1) Acute on chronic systolic (congestive) heart failure Status: Acute Assessment and plan: I have examined and interviewed Mrs. Bowens. 1. 71-year-old with multiple medical problems clearly pulmonary fibrosis with significant hypertension admitted with acute on chronic systolic heart failure, greatly improved transferred from ICU 2. She is hemodynamic stable 3. No new recommendations 4. Follow-up with Dr. Erazo in clinic in approximately 2 weeks' time or sooner if needed 5. We'll sign off; please call me to primary discharge Current Visit: Yes (2) Acute renal failure Status: Acute Current Visit: Yes (3) Pulmonary fibrosis Status: Chronic Current Visit: Yes (4) Essential (primary) hypertension Status: Chronic Current Visit: Yes (5) Hypothyroidism Status: Chronic Current Visit: Yes (6) Mitral regurgitation Status: Chronic Current Visit: Yes (7) Rheumatoid arthritis Status: Chronic Current Visit: Yes Qualifiers: Laterality: bilateral (8) Type 2 diabetes mellitus Status: Chronic Current Visit: Yes Qualifiers: Diabetes mellitus complication status: without complication Cardiology - PN: Subj Interval history: Group Controller: Dr. Willett Ms. Bowens is a 71 year old female who is a new patient of Dr. Willett. She has a history of rheumatoid arthritis, pulmonary fibrosis, and severe pulmonary hypertension with right heart failure in the past. She has moderate mitral regurgitation and a history of hypothyroidism, type 2 diabetes mellitus, and hypertension. Risk factors are significant for: diabetes, hypertension. She went to see Dr. Willett 06/01/16 for hospital follow up and was noted to be tachypneic and was subsequently admitted to the hospital to hospitalist services. Ms. Bowens reports having progressive dyspnea on exertion for the past several weeks. She also reports orthopnea, having to sleep on 6 or 7 pills per night. She denies lower extremity edema but does complain of a dry cough that has worsened during the past several weeks as well. Recent echocardiogram done April 08, 2016 reveals mild concentric hypertrophy, EF 50 %, severe tricuspid regurgitation severe pulmonary hypertension, moderate mitral regurgitation, dilated right heart chambers, aortic valve sclerosis without stenosis. EKG from the clinic 06/01/16 shows sinus tachycardia, incomplete right bundle branch block, biatrial abnormality, right ventricular hypertrophy. Ms. Bowens is seen today sitting up in chair in no acute distress. Oxygen is in use via nasal cannula. She tells me she gets very short of breath when she gets up and she continues to have a dry cough. She denies any chest pain, palpitations, or dizziness. Exam (Progress Note) - Constitutional Vitals: Period Temp Pulse Resp BP Sys/Parks Pulse Ox Last 24 Hr 97.9 F-99.8 F 79-100 14-22 96-116/58-86 92-100 General appearance: normal weight, no acute distress - Head Head exam: Absent: abrasion, hematoma - Neck Neck exam: Absent: tenderness - Respiratory Respiratory exam: Present: rhonchi, other (Oxygen via nasal cannula). Absent: accessory muscle use, chest wall tenderness - Cardiovascular Cardiovascular exam: Present: regular rate and rhythm. Absent: rubs - GI/Abdominal GI/Abdominal exam: Present: normal bowel sounds, tenderness, soft. Absent: distended - Extremities Exam Extremities exam: Absent: edema - Neurological Exam Neurological exam: Present: alert, oriented X3 - Psychiatric Psychiatric exam: Present: normal affect, normal mood - Skin Skin exam: Present: warm, dry Result/EKG - Labs CBC & BMP: 06/03/16 05:05 06/03/16 05:05 Lab Results: I have reviewed the past 24 hour labs Labs: Laboratory Results - last 24 hr 06/02/16 06/02/16 06/02/16 12:02 20:41 22:50 WBC RBC Hgb Hct MCV MCH MCHC RDW Plt Count MPV Neut % (Auto) Lymph % (Auto) [place] % (Auto) Eos % (Auto) Baso % (Auto) Neut # (Auto) Lymph # (Auto) [place] # (Auto) Eos # (Auto) Baso # (Auto) Immature Gran % Nucleated RBC % Immature Gran # Nucleated RBCs # Sodium Potassium Chloride Carbon Dioxide Anion Gap BUN Creatinine GFR Calculation BUN/Creatinine Ratio Glucose POC Glucose 220 H 307 H Calculated Osmolality Calcium Magnesium Urine Color Urine Appearance Urine pH Ur Specific [place] Urine Protein Urine Glucose (UA) Urine Ketones Urine Blood Urine Nitrate Urine Bilirubin Urine Urobilinogen Urine Leukocytes Urine RBC Urine WBC Ur Squamous Epith Cells Ur Transition Epith Cell Urine Bacteria Urine Mucus Ur Culture Indicated? Ur Random Creatinine 115 U Random Total Protein Ur Random Urea Nitrogn 06/02/16 06/02/16 06/02/16 22:50 22:50 22:50 WBC RBC Hgb Hct MCV MCH MCHC RDW Plt Count MPV Neut % (Auto) Lymph % (Auto) [place] % (Auto) Eos % (Auto) Baso % (Auto) Neut # (Auto) Lymph # (Auto) [place] # (Auto) Eos # (Auto) Baso # (Auto) Immature Gran % Nucleated RBC % Immature Gran # Nucleated RBCs # Sodium Potassium Chloride Carbon Dioxide Anion Gap BUN Creatinine GFR Calculation BUN/Creatinine Ratio Glucose POC Glucose Calculated Osmolality Calcium Magnesium Urine Color Yellow Urine Appearance Clear Urine pH 5.0 Ur Specific [place] 1.015 Urine Protein 100 Urine Glucose (UA) Negative Urine Ketones Negative Urine Blood Small Urine Nitrate Negative Urine Bilirubin Negative Urine Urobilinogen < 2.0 H Urine Leukocytes Negative Urine RBC 1 Urine WBC 3 Ur Squamous Epith Cells Occasional Ur Transition Epith Cell Occasional Urine Bacteria Occasional Urine Mucus Occasional Ur Culture Indicated? Not indicated Ur Random Creatinine U Random Total Protein 128 Ur Random Urea Nitrogn 830 06/03/16 06/03/16 06/03/16 05:05 05:05 07:25 WBC 4.8 D RBC 4.82 Hgb 12.3 Hct 39.9 MCV 82.8 L MCH 26 L MCHC 30.8 L RDW 18.5 H Plt Count 200 MPV 10.4 Neut % (Auto) 59.2 Lymph % (Auto) 27.9 [place] % (Auto) 12.1 Eos % (Auto) 0.0 Baso % (Auto) 0.2 Neut # (Auto) 2.8 Lymph # (Auto) 1.3 L [place] # (Auto) 0.6 Eos # (Auto) 0.0 Baso # (Auto) 0.0 Immature Gran % 0.6 Nucleated RBC % 0.6 Immature Gran # 0.03 Nucleated RBCs # 0.03 Sodium 141 Potassium 3.9 Chloride 101 Carbon Dioxide 28 Anion Gap 15.9 H BUN 30 H Creatinine 1.60 H GFR Calculation 39 BUN/Creatinine Ratio 18.00 Glucose 230 H POC Glucose 229 H Calculated Osmolality 293.3 Calcium 8.2 L Magnesium 2.1 Urine Color Urine Appearance Urine pH Ur Specific [place] Urine Protein Urine Glucose (UA) Urine Ketones Urine Blood Urine Nitrate Urine Bilirubin Urine Urobilinogen Urine Leukocytes Urine RBC Urine WBC Ur Squamous Epith Cells Ur Transition Epith Cell Urine Bacteria Urine Mucus Ur Culture Indicated? Ur Random Creatinine U Random Total Protein Ur Random Urea Nitrogn 06/03/16 10:52 WBC RBC Hgb Hct MCV MCH MCHC RDW Plt Count MPV Neut % (Auto) Lymph % (Auto) [place] % (Auto) Eos % (Auto) Baso % (Auto) Neut # (Auto) Lymph # (Auto) [place] # (Auto) Eos # (Auto) Baso # (Auto) Immature Gran % Nucleated RBC % Immature Gran # Nucleated RBCs # Sodium Potassium Chloride Carbon Dioxide Anion Gap BUN Creatinine GFR Calculation BUN/Creatinine Ratio Glucose POC Glucose 360 H Calculated Osmolality Calcium Magnesium Urine Color Urine Appearance Urine pH Ur Specific [place] Urine Protein Urine Glucose (UA) Urine Ketones Urine Blood Urine Nitrate Urine Bilirubin Urine Urobilinogen Urine Leukocytes Urine RBC Urine WBC Ur Squamous Epith Cells Ur Transition Epith Cell Urine Bacteria Urine Mucus Ur Culture Indicated? Ur Random Creatinine U Random Total Protein Ur Random Urea Nitrogn Specialty Discharge - Follow Up or Referrals Follow up with: Amy Willett DO [Physician] - 2 Weeks (With [facility] CMP CBC) Patricia Brantley Randall Scott, MD, personally performed the services described in this documentation, ascribed by Tracy Bauman RN in my presence, and it is both accurate and complete [id number] .
[2016-06-03] MEDS: INSULIN LISPRO 100 UNIT/ML SUBCUT SCH ×2 (18:16→21:30)
[2016-06-03] MEDS: MONTELUKAST 10 MG TABLET PO SCH (21:26)
[2016-06-04] MEDS: ACETAMINOPHEN 325 MG TABLET PO PRN (04:45)
[2016-06-04 05:52] LABS: Calcium 8.8 MG/DL (8.5-10.1); Magnesium 2.2 MG/DL (1.8-2.4); Osmolality,Calculated 294.8 MOS/KG (273-304); Potassium 3.9 MMOL/L (3.5-5.1)
[2016-06-04] MEDS: ALBUTEROL/IPRATROPIUM 3 ML NEB RESP TX SCH ×3 (07:23→19:58)
[2016-06-04] MEDS: INSULIN ASPART PROTAMINE/ASPART 70/30 100 UNIT/ML SUBCUT SCH ×2 (08:25→21:34)
[2016-06-04] MEDS: INSULIN LISPRO 100 UNIT/ML SUBCUT SCH ×4 (08:25→22:11)
[2016-06-04] MEDS: predniSONE 10 MG TABLET PO SCH (08:26)
[2016-06-04] MEDS: POTASSIUM CHLORIDE 20 MEQ TABLET PO SCH (08:26)
[2016-06-04] MEDS: FUROSEMIDE 40 MG TABLET PO SCH ×2 (08:26→21:35)
[2016-06-04] MEDS: PANTOPRAZOLE 40 MG TABLET PO SCH (08:26)
[2016-06-04] MEDS: TAMSULOSIN 0.4 MG CAPSULE PO SCH (08:27)
[2016-06-04] MEDS: LEVOTHYROXINE 200 MCG TABLET PO SCH (08:30)
[2016-06-04] MEDS: SILDENAFIL 20 MG TABLET PO SCH ×3 (08:30→21:35)
--- NOTE | 2016-06-04 12:15 | Hospitalist Progress Note ---
Assessment and Plan - Time spent with patient Time spent with patient: Greater than 30 minutes (1) Acute exacerbation of chronic obstructive airways disease Status: Acute Current Visit: No (2) Rheumatoid arthritis Status: Chronic Current Visit: Yes Qualifiers: Laterality: bilateral (3) Nonspecific interstitial pneumonitis Status: Acute Current Visit: No (4) Acute bronchitis Status: Acute Current Visit: No (5) Diabetes mellitus Status: Chronic Current Visit: No (6) Acute renal failure Status: Acute Assessment and plan: Continue respiratory therapy and steroid. And taper steroids as we go along Continue sliding scale lispro for better blood glucose control. CellCept being held for now. Continue Lasix. Monitor input and output. Repeat chest x-ray in the morning DVT prophylaxis, GI prophylaxis while on steroids. Current Visit: Yes Hospitalist: Subjective Interval history: Still significant dyspnea on exertion though there is some improvement compared to when I last saw her. She is sitting up in chair. No fever. Blood sugars look better. Exam - Constitutional Vitals: Period Temp Pulse Resp BP Sys/Parks Pulse Ox Last 24 Hr 96.4 F-98.3 F 82-104 18-21 113-124/72-87 92-100 Exam: General appearance: normal weight - Head Head exam: Present: normocephalic, atraumatic - Eye Eye exam: Present: EOMI Pupils: Present: BRANDI - ENT ENT exam: Present: normal exam - Neck Neck exam: Present: normal inspection - Respiratory Respiratory exam: Present: rhonchi + wheezes and transmitted sounds - Cardiovascular Cardiovascular exam: Present: regular rate and rhythm - GI/Abdominal GI/Abdominal exam: Present: normal bowel sounds, soft. Absent: tenderness, rebound - Extremities Exam Extremities exam: Present: normal inspection - Back Exam Back exam: Present: normal inspection - Neurological Exam Neurological exam: Present: alert, oriented X3 - Psychiatric Psychiatric exam: Present: normal affect, normal mood - Skin Skin exam: Present: warm, intact Results - Labs CBC & BMP: 06/03/16 05:05 06/04/16 04:20 Lab Results: I have reviewed the past 24 hour labs Specialty Discharge - Follow Up or Referrals Follow up with: Amy Willett DO [Physician] - 2 Weeks (With [facility] CBC)
[2016-06-04] MEDS: ENOXAPARIN 30 MG/0.3 ML SYRINGE SUBCUT SCH (13:30)
--- NOTE | 2016-06-04 17:51 | Nephrology Progress Note ---
Nephrology - PN: Subj Interval history: Patient is resting comfortably no acute changes. Serum creatinine is stable. She is continues to have some coughing episodes. Exam (PN)-Nephrology - Vital Signs Vital signs: Period Temp Pulse Resp BP Sys/Parks Pulse Ox Last 24 Hr 96.2 F-98.3 F 82-104 18-21 109-124/72-87 92-100 - General Appearance General appearance: well-developed, well-nourished EENT: ATNC Neck: supple Respiratory: clear Cardiology: regular rate, regular rhythm Gastrointestinal: normoactive bowel sounds, no tenderness Neurologic: alert and oriented x3 Musculoskeletal: no clubbing Psychiatric: mood/affect appropriate - Lab 06/03/16 05:05 06/04/16 04:20 Most recent lab results Calcium 8.8 MG/DL (8.5-10.1) 06/04/16 04:20 Magnesium 2.2 MG/DL (1.8-2.4) 06/04/16 04:20 Assessment and Plan (1) Diabetes mellitus Status: Chronic Current Visit: No Qualifiers: Diabetes mellitus type: type 2 (2) Essential (primary) hypertension Status: Chronic Current Visit: Yes (3) Diabetes mellitus Status: Acute Current Visit: No Qualifiers: Diabetes mellitus type: type 2 Chronic kidney disease stage: stage 2 (mild ) Specialty Discharge - Follow Up or Referrals Follow up with: Amy Willett DO [Physician] - 2 Weeks (With [facility] CBC)
--- NOTE | 2016-06-04 20:23 | Pulmonology Progress Note ---
Pulmonary - PN: Subj Interval history: 71-year-old female with rheumatoid arthritis and rheumatoid lung admitted for increased shortness of breath. No acute events overnight. Patient admits to improvement in breathing with current therapies. No new complaints. Exam (Progress Note) - Constitutional Vitals: Period Temp Pulse Resp BP Sys/Parks Pulse Ox Last 24 Hr 96.2 F-98.3 F 82-98 18-20 109-124/72-87 92-100 General appearance: normal weight - Head Head exam: Present: normal inspection - Eye Eye exam: Present: EOMI Pupils: Present: BRANDI - Respiratory Respiratory exam: Present: clear to auscultation bilaterally. Absent: rales, rhonchi, wheezes - Cardiovascular Cardiovascular exam: Present: regular rate and rhythm - GI/Abdominal GI/Abdominal exam: Present: normal bowel sounds, soft. Absent: tenderness - Extremities Exam Extremities exam: Present: normal inspection - Neurological Exam Neurological exam: Present: alert, oriented X3, CN II-XII intact - Psychiatric Psychiatric exam: Present: normal affect - Skin Skin exam: Present: warm, dry Results - Labs CBC & BMP: 06/03/16 05:05 06/04/16 04:20 Assessment and Plan (1) Nonspecific interstitial pneumonitis Status: Acute Assessment and plan: Breathing improved with current therapies. Continue current management. Current Visit: No (2) Cor pulmonale Status: Chronic Assessment and plan: Patient appears euvolemic at this time. Continue current management. Current Visit: No (3) Acute kidney injury Status: Acute Assessment and plan: Creatinine continues to improve today. Trend. Current Visit: Yes Specialty Discharge - Follow Up or Referrals Follow up with: Amy Willett DO [Physician] - 2 Weeks (With [facility] CBC)
[2016-06-04] MEDS: MONTELUKAST 10 MG TABLET PO SCH (21:35)
[2016-06-05] MEDS: INSULIN LISPRO 100 UNIT/ML SUBCUT SCH ×4 (07:30→21:29)
[2016-06-05] MEDS: ALBUTEROL/IPRATROPIUM 3 ML NEB RESP TX SCH ×3 (07:52→19:24)
--- NOTE | 2016-06-05 08:17 | Nephrology Progress Note ---
Nephrology - PN: Subj Interval history: The patient is resting comfortably. Coughing is improving. She states she did get a little bit of rest last night. Exam (PN)-Nephrology - Vital Signs Vital signs: Period Temp Pulse Resp BP Sys/Parks Pulse Ox Last 24 Hr 96.2 F-98.4 F 77-100 18- 106-132/74-90 95-100 - General Appearance General appearance: well-developed, well-nourished EENT: ATNC Neck: supple Respiratory: clear Cardiology: no edema, regular rate, regular rhythm Gastrointestinal: normoactive bowel sounds, no tenderness Musculoskeletal: no clubbing Psychiatric: mood/affect appropriate, cooperative - Lab 06/03/16 05:05 06/04/16 04:20 Most recent lab results Calcium 8.8 MG/DL (8.5-10.1) 06/04/16 04:20 Magnesium 2.2 MG/DL (1.8-2.4) 06/04/16 04:20 Assessment and Plan (1) Diabetes mellitus Status: Chronic Current Visit: No Qualifiers: Diabetes mellitus type: type 2 (2) Essential (primary) hypertension Status: Chronic Current Visit: Yes (3) Diabetes mellitus Status: Chronic Current Visit: No Qualifiers: Diabetes mellitus type: type 2 Chronic kidney disease stage: stage 2 (mild ) Specialty Discharge - Follow Up or Referrals Follow up with: Amy Willett DO [Physician] - 2 Weeks (With [facility] CBC)
[2016-06-05] MEDS: predniSONE 10 MG TABLET PO SCH (08:38)
[2016-06-05] MEDS: FUROSEMIDE 40 MG TABLET PO SCH ×2 (08:38→16:35)
[2016-06-05] MEDS: LEVOTHYROXINE 200 MCG TABLET PO SCH (08:38)
[2016-06-05] MEDS: TAMSULOSIN 0.4 MG CAPSULE PO SCH (08:39)
[2016-06-05] MEDS: PANTOPRAZOLE 40 MG TABLET PO SCH (08:39)
[2016-06-05] MEDS: POTASSIUM CHLORIDE 20 MEQ TABLET PO SCH (08:39)
[2016-06-05] MEDS: INSULIN ASPART PROTAMINE/ASPART 70/30 100 UNIT/ML SUBCUT SCH ×2 (08:39→21:28)
[2016-06-05] MEDS: SILDENAFIL 20 MG TABLET PO SCH ×3 (08:39→21:29)
--- NOTE | 2016-06-05 10:16 | XRay Report ---
History: Shortness of breath. Rheumatoid arthritis Date: 06/05/2016 Study: Chest x-ray AP portable Comparison exam: June 03, 2016 There is continued cardiomegaly. The pulmonary vasculature is borderline prominent. The mediastinal contours are unchanged. There is some reticulonodular interstitial disease in the lung bases without change from the previous study, possibly related to the patient's known rheumatoid arthritis. There is no obvious new or worsening of infiltrate. There is no gross pleural effusion. Osseous structures are similar. Impression: Stable bibasilar interstitial disease, possibly related to the patient's known rheumatoid arthritis. Cardiomegaly and borderline pulmonary venous hypertension appearance PROCEDURE INTERPRETED AT [facility] DEPARTMENT OF RADIOLOGY Final Report Signed by: Dr. Hanny Arellano
--- NOTE | 2016-06-05 12:55 | Hospitalist Progress Note ---
Assessment and Plan - Time spent with patient Time spent with patient: Greater than 30 minutes (1) Acute exacerbation of chronic obstructive airways disease Status: Acute Current Visit: No (2) Rheumatoid arthritis Status: Chronic Current Visit: Yes Qualifiers: Laterality: bilateral (3) Nonspecific interstitial pneumonitis Status: Acute Current Visit: No (4) Acute bronchitis Status: Acute Current Visit: No (5) Diabetes mellitus Status: Chronic Current Visit: No Qualifiers: Diabetes mellitus type: type 2 (6) Acute renal failure Status: Acute Assessment and plan: Continue respiratory therapy and supplemental oxygen Continue sliding scale lispro for better blood glucose control. CellCept has been resumed Continue Lasix. Monitor input and output. Consult case management for placement DVT prophylaxis, GI prophylaxis while on steroids. Current Visit: Yes Hospitalist: Subjective Interval history: Respiratory status continues to improve. I think she may have reached her baseline, she is on nasal cannula oxygen at 3 L at home. She is currently on 3 L here she is saturating well. CellCept has been restarted Blood sugars look good She has deconditioning from acute illness, she has requested discharge to rehab. Will consult case management for placement. No fever. Her chest x-ray is not worsening, she has baseline bibasal infiltrate likely from her rheumatoid arthritis. Exam - Constitutional Vitals: Period Temp Pulse Resp BP Sys/Parks Pulse Ox Last 24 Hr 96.2 F-98.4 F 76-100 18-22 106-132/74-90 95-100 Exam: General appearance: normal weight - Head Head exam: Present: normocephalic, atraumatic - Eye Eye exam: Present: EOMI Pupils: Present: BRANDI - ENT ENT exam: Present: normal exam - Neck Neck exam: Present: normal inspection - Respiratory Respiratory exam: Present: Fewer rhonchi + wheezes and transmitted sounds - Cardiovascular Cardiovascular exam: Present: regular rate and rhythm - GI/Abdominal GI/Abdominal exam: Present: normal bowel sounds, soft. Absent: tenderness, rebound - Extremities Exam Extremities exam: Present: normal inspection - Back Exam Back exam: Present: normal inspection - Neurological Exam Neurological exam: Present: alert, oriented X3 - Psychiatric Psychiatric exam: Present: normal affect, normal mood - Skin Skin exam: Present: warm, intact Results - Labs CBC & BMP: 06/03/16 05:05 06/04/16 04:20 Lab Results: I have reviewed the past 24 hour labs Specialty Discharge - Follow Up or Referrals Follow up with: Amy Willett DO [Physician] - 2 Weeks (With [facility] CMP CBC)
[2016-06-05] MEDS: ENOXAPARIN 30 MG/0.3 ML SYRINGE SUBCUT SCH (13:10)
[2016-06-05] MEDS ORDERED: MAGNESIUM HYDROXIDE SUSP 30 ML UDCUP PO PRN (14:01)
[2016-06-05] MEDS: ACETAMINOPHEN 325 MG TABLET PO PRN (16:35)
[2016-06-05] MEDS: guaiFENesin/DM ER 600-30 MG TABLET PO PRN (21:29)
[2016-06-05] MEDS: MONTELUKAST 10 MG TABLET PO SCH (21:29)
[2016-06-06] MEDS: ALBUTEROL/IPRATROPIUM 3 ML NEB RESP TX SCH ×3 (07:15→19:10)
--- NOTE | 2016-06-06 08:36 | Nephrology Progress Note ---
Nephrology - PN: Subj Interval history: Pt has irritating cough. Deep, nonproductive. BPs well controlled off tekturna and clonidine. Last creatinine 1.5. Exam (PN)-Nephrology - Vital Signs Vital signs: Period Temp Pulse Resp BP Sys/Parks Pulse Ox Last 24 Hr 97.2 F-99.0 F 76-100 18-20 116-134/76-103 93-100 - General Appearance General appearance: well-developed, chronically ill EENT: ATNC, PERRL, mucous membranes dry, hearing intact, vision intact Neck: no JVD, no thyromegaly Respiratory: no kyphosis, rales, course breath sounds Cardiology: no murmurs, no rub, no edema Gastrointestinal: normoactive bowel sounds, no tenderness Integumentary: no rash, warm and dry Neurologic: no focal deficit, no asterixis, alert and oriented x3 Musculoskeletal: no deformities, no erythema - Lab 06/03/16 05:05 06/04/16 04:20 Most recent lab results Calcium 8.8 MG/DL (8.5-10.1) 06/04/16 04:20 Magnesium 2.2 MG/DL (1.8-2.4) 06/04/16 04:20 Assessment and Plan (1) CKD (chronic kidney disease) stage 3, GFR 30-59 ml/min Problem details: Stable CKD. Her daily fluctuations in creatinine are most likely due to changes in renal perfusion and volume/preload. I would caution restarting tekturna with her physiology. Status: Acute Assessment and plan: Avoid overdiuresis. Renally dose all meds for eGFFR around 40cc/min. Avoid nephrotoxins to include NSAIDs, aminoglycosides, and IV contrast if possible. Will sign off case at this time. Please call for any questions or concerns. Current Visit: Yes (2) Cor pulmonale Status: Chronic Current Visit: No (3) Pulmonary fibrosis Status: Chronic Current Visit: No Specialty Discharge - Follow Up or Referrals Follow up with: Amy Willett DO [Physician] - 2 Weeks (With [facility] CBC)
--- NOTE | 2016-06-06 08:41 | Pulmonology Progress Note ---
Pulmonary - PN: Subj Interval history: This 71-year-old white female has rheumatoid arthritis and rheumatoid lung. She also has pulmonary hypertension. She is on Revatio. Mitral regurgitation. She came in with increased shortness of breath. Her chest x-ray does not look bad. She is hypotensive but has edema. She is on Tekturna. Her systolic blood pressures running 87 this morning. I think we need to hold the Tekturna. Defer to cardiology on adjusting heart medicines otherwise. She is better this morning and should be able to go to the floor. 06/03/2016 patient moved to floor yesterday. She is feeling a little better. Still having some bronchospasm. I do think she has acute bronchitis. Blood pressure has been on the low side. Tekturna is being held. Renal function stable with creatinine 1.6. Again she is immunocompromised due to her rheumatoid arthritis, rheumatoid lung, and medications for those. We are holding CellCept at present. Needs a few more days of IV medications. 06/06/2016 patient still has a deep cough. I do think she has bronchitis. Will add Levaquin. Agree with plans for swing bed for physical therapy. Exam (Progress Note) - Constitutional Vitals: Period Temp Pulse Resp BP Sys/Parks Pulse Ox Last 24 Hr 97.2 F-99.0 F 76-100 18-20 116-134/76-103 93-100 Exam: Patient's alert and afebrile. Weight stable. Pupils react to light. Throat is clear. Neck supple no bruits. Chest reveals a few rhonchi equal breath sounds. Heart normal rate and rhythm grade 1/6 systolic murmur left sternal border. Abdomen soft nontender no masses. Bowel sounds present. Extremities no clubbing or cyanosis trace of edema. Calves nontender. Results - Labs CBC & BMP: 06/03/16 05:05 06/04/16 04:20 Lab Results: I have reviewed the past 24 hour labs - Diagnostic Findings Procedure: Chest x-ray: image reviewed by me (Yesterday's chest x-ray still shows some increased interstitial markings. Little change from previous.) Assessment and Plan (1) Nonspecific interstitial pneumonitis Status: Acute Assessment and plan: This is related to her rheumatoid arthritis and she has indeed rheumatoid lung. She is on CellCept and prednisone for this long-term. She has increased risk of pneumonia because of the disease and medications. However there is no pneumonia on her x-ray. 06/02/2016 we will hold CellCept. She is immunocompromised and has a superimposed bronchitis. 06/03/2016 this is related to her rheumatoid arthritis. CellCept being held while treated for acute bronchitis. 06/06/2016 being managed by medication for her rheumatoid arthritis. Current Visit: No (2) Cor pulmonale Status: Chronic Assessment and plan: She has edema. Her BNP is elevated. She also has mitral insufficiency. At present with a creatinine of 2 she is getting some IV fluids. We need to be very careful with that. Treat with oxygen and steroids. 06/02/2016 has peripheral edema but is hypotensive. Creatinine has come down to 1.6. 06/03/2016 trace of peripheral edema still. Blood pressure on low side. We are probably about right volume blanco. 06/06/2016 less edema. Current Visit: No (3) Mitral regurgitation Status: Chronic Assessment and plan: Defer to cardiology as far as any management of her mitral regurgitation. 06/03/2016 this of course leads to some of her right-sided failure as well. Defer to cardiology. 06/06/2016 part of her right-sided failure is related to the mitral regurgitation. Gently diuresing. Current Visit: Yes (4) Rheumatoid arthritis Status: Chronic Assessment and plan: She is on chronic medications for that and her arthritic problems are stable 06/03/2016 symptoms stable at present 06/06/2016 needs follow-up with rheumatology. Current Visit: Yes Qualifiers: Laterality: bilateral (5) Acute kidney injury Status: Acute Assessment and plan: Creatinine is 2.0. It was 1.2 about 3 or 4 weeks ago. I will ask renal to see her. We need to watch this closely 06/02/2016 renal function improved with creatinine down to 1.6. 06/03/2016 creatinine stable at 1.6. Watch it closely. 06/06/2016 creatinine stable at 1.5. Current Visit: Yes Specialty Discharge - Follow Up or Referrals Follow up with: Amy Willett DO [Physician] - 2 Weeks (With [facility] CMP CBC)
[2016-06-06] MEDS: LEVOFLOXACIN 500 MG TABLET PO SCH (08:55)
[2016-06-06] MEDS: PANTOPRAZOLE 40 MG TABLET PO SCH (08:55)
[2016-06-06] MEDS: predniSONE 10 MG TABLET PO SCH (08:55)
[2016-06-06] MEDS: SILDENAFIL 20 MG TABLET PO SCH ×3 (08:55→22:49)
[2016-06-06] MEDS: POTASSIUM CHLORIDE 20 MEQ TABLET PO SCH (08:55)
[2016-06-06] MEDS: guaiFENesin/DM ER 600-30 MG TABLET PO PRN (08:55)
[2016-06-06] MEDS: FUROSEMIDE 40 MG TABLET PO SCH ×2 (08:55→16:20)
[2016-06-06] MEDS: LEVOTHYROXINE 200 MCG TABLET PO SCH (08:55)
[2016-06-06] MEDS: TAMSULOSIN 0.4 MG CAPSULE PO SCH (08:55)
[2016-06-06] MEDS: INSULIN ASPART PROTAMINE/ASPART 70/30 100 UNIT/ML SUBCUT SCH ×2 (08:55→22:52)
[2016-06-06] MEDS: INSULIN LISPRO 100 UNIT/ML SUBCUT SCH ×4 (09:38→22:52)
[2016-06-06] MEDS: ENOXAPARIN 30 MG/0.3 ML SYRINGE SUBCUT SCH (14:11)
--- NOTE | 2016-06-06 17:05 | Hospitalist Progress Note ---
Assessment and Plan (1) Acute exacerbation of chronic obstructive airways disease Status: Acute Assessment and plan: Patient seems to be improving from an acute respiratory standpoint. Will continue current management as before. Continues on breathing treatments, prednisone, singulair, Levofloxacin, and cellcept. Will need acute rehab given overall debility. Will plan for STR at discharge. Additionally, may be some component of increased volume. Continue Lasix at current dose. Careful not to overdiurese. Add tessalon pearles for cough. Current Visit: Yes (2) Rheumatoid arthritis Status: Chronic Current Visit: Yes Qualifiers: Laterality: bilateral (3) Nonspecific interstitial pneumonitis Status: Acute Current Visit: No (4) Acute bronchitis Status: Acute Current Visit: No (5) Diabetes mellitus Status: Chronic Current Visit: No Qualifiers: Diabetes mellitus type: type 2 (6) Acute on chronic systolic (congestive) heart failure Status: Acute Current Visit: Yes (7) Pulmonary fibrosis Status: Chronic Current Visit: Yes (8) Essential (primary) hypertension Status: Chronic Current Visit: Yes (9) CKD (chronic kidney disease) stage 3, GFR 30-59 ml/min Problem details: Stable CKD. Her daily fluctuations in creatinine are most likely due to changes in renal perfusion and volume/preload. I would caution restarting tekturna with her physiology. Status: Acute Current Visit: Yes Hospitalist: Subjective Interval history: Patient seen while undergoing a breathing treatment. She reports that she still has increased dyspnea with minimal activity. Lungs noted to have faint crackles in the bases. Otherwise, moving air well but with course breath sounds. Largely still deconditioned. Plans are for STR upon discharge. Exam - Constitutional Vitals: Period Temp Pulse Resp BP Sys/Parks Pulse Ox Last 24 Hr 97.2 F-99.0 F 76-99 18-20 116-136/79-103 97-100 General appearance: no acute distress - Head Head exam: Present: normal inspection, normocephalic, atraumatic - Eye Eye exam: Present: EOMI - Respiratory Respiratory exam: Present: rales (Faint in the bases.), other (Good air movement but with course breath sounds.). Absent: wheezes - Cardiovascular Cardiovascular exam: Present: tachycardia - GI/Abdominal GI/Abdominal exam: Present: normal bowel sounds, soft. Absent: distended, tenderness - Extremities Exam Extremities exam: Present: normal inspection. Absent: edema - Neurological Exam Neurological exam: Present: alert, oriented X3, CN II-XII intact - Psychiatric Psychiatric exam: Present: normal affect, normal mood - Skin Skin exam: Present: normal color, warm, dry Results - Labs CBC & BMP: 06/03/16 05:05 06/04/16 04:20 Specialty Discharge - Follow Up or Referrals Follow up with: Amy Willett DO [Physician] - 2 Weeks (With [facility] CBC)
[2016-06-06] MEDS ORDERED: BENZONATATE 100 MG CAPSULE PO PRN (17:12)
[2016-06-06] MEDS: MONTELUKAST 10 MG TABLET PO SCH (22:50)
[2016-06-07] MEDS ORDERED: DEXTROSE 50% 25 GM/50 ML VIAL IV ONE (01:47)
[2016-06-07] MEDS ORDERED: DEXTROSE 50% 25 GM/50 ML VIAL IV PRN (02:01)
[2016-06-07 06:21] LABS: Basophils % 0.1 % (0.0-0.8); Eosinophils # 0.2 10*3/uL (0.0-0.87); Hematocrit 43.3 VOL% (35.7-47.0); Hemoglobin 13.1 GM/DL (12.0-16.0); Immature Granulocytes % 0.6 %; Immature Granulocytes Absolute 0.05 #; Lymphocytes # 3.3 10*3/uL (1.4-4.0); Lymphocytes % 39.6 % (21.3-54.2); Mean Corpuscular HGB Conc 30.3 GM/DL (32-36); Mean Corpuscular Hemoglobin 26 PG (27-34); Mean Corpuscular Volume 86.4 FL (87-102); Mean Platelet Volume 9.6 FL (9.6-12.0); Monocytes # 0.5 10*3/uL (0.11-0.8); Monocytes % 6.2 % (1.7-12.7); Neutrophils # 4.2 10*3/uL (1.4-7.4); Neutrophils % 51.5 % (38.7-73.9); Platelet Count 248 T/CUMM (130-400); Red Blood Count 5.01 MC/CUMM (3.8-5.5); Red Cell Distribution Width 18.6 % (9.3-17.3); White Blood Count 8.2 T/CUMM (4-12)
[2016-06-07 06:44] LABS: Band Neutrophils 1 % (0-10); Eosinophils 2 % (0-10); Hypochromasia 1+; Lymphocytes 39 % (20-55); Microcytosis 1+; Platelet Estimate Normal; Segmented Neutrophils 50 % (50-85); Total Cells Counted 100
[2016-06-07 07:02] LABS: Albumin 2.3 G/DL (3.4-5.0); Calcium 8.1 MG/DL (8.5-10.1); Osmolality,Calculated 286.8 MOS/KG (273-304); Phosphorous 2.2 MG/DL (2.5-4.9); Potassium 3.2 MMOL/L (3.5-5.1)
[2016-06-07] MEDS: ALBUTEROL/IPRATROPIUM 3 ML NEB RESP TX SCH ×3 (07:41→19:25)
[2016-06-07] MEDS: INSULIN LISPRO 100 UNIT/ML SUBCUT SCH ×4 (08:22→21:57)
[2016-06-07] MEDS: LEVOTHYROXINE 200 MCG TABLET PO SCH (08:30)
[2016-06-07] MEDS: guaiFENesin/DM ER 600-30 MG TABLET PO PRN ×2 (08:30→21:59)
[2016-06-07] MEDS: INSULIN ASPART PROTAMINE/ASPART 70/30 100 UNIT/ML SUBCUT SCH ×2 (08:31→22:02)
[2016-06-07] MEDS: predniSONE 10 MG TABLET PO SCH (08:31)
[2016-06-07] MEDS: LEVOFLOXACIN 500 MG TABLET PO SCH (08:31)
[2016-06-07] MEDS: TAMSULOSIN 0.4 MG CAPSULE PO SCH (08:31)
[2016-06-07] MEDS: FUROSEMIDE 40 MG TABLET PO SCH ×2 (08:31→16:45)
[2016-06-07] MEDS: SILDENAFIL 20 MG TABLET PO SCH ×3 (08:31→21:58)
[2016-06-07] MEDS: POTASSIUM CHLORIDE 20 MEQ TABLET PO SCH (08:31)
[2016-06-07] MEDS: PANTOPRAZOLE 40 MG TABLET PO SCH (08:31)
[2016-06-07] MEDS ORDERED: predniSONE 20 MG TABLET PO SCH (09:08)
--- NOTE | 2016-06-07 09:11 | Pulmonology Progress Note ---
Pulmonary - PN: Subj Interval history: This 71-year-old white female has rheumatoid arthritis and rheumatoid lung. She also has pulmonary hypertension. She is on Revatio. Mitral regurgitation. She came in with increased shortness of breath. Her chest x-ray does not look bad. She is hypotensive but has edema. She is on Tekturna. Her systolic blood pressures running 87 this morning. I think we need to hold the Tekturna. Defer to cardiology on adjusting heart medicines otherwise. She is better this morning and should be able to go to the floor. 06/03/2016 patient moved to floor yesterday. She is feeling a little better. Still having some bronchospasm. I do think she has acute bronchitis. Blood pressure has been on the low side. Tekturna is being held. Renal function stable with creatinine 1.6. Again she is immunocompromised due to her rheumatoid arthritis, rheumatoid lung, and medications for those. We are holding CellCept at present. Needs a few more days of IV medications. 06/06/2016 patient still has a deep cough. I do think she has bronchitis. Will add Levaquin. Agree with plans for swing bed for physical therapy. 06/07/2016 continues to have a cough., And bronchospasm. He has coarse rhonchi. Will increase prednisone to 40 mg daily. Not ready yet to resume her CellCept. Probably needs to be here a little longer before swing bed. Exam (Progress Note) - Constitutional Vitals: Period Temp Pulse Resp BP Sys/Parks Pulse Ox Last 24 Hr 97.4 F-98.1 F 77-103 17-20 101-129/67-98 94-100 Exam: Patient's alert and afebrile. Weight stable. Pupils react to light. Throat is clear. Neck supple no bruits. Chest reveals coarse rhonchi, equal breath sounds. Heart normal rate and rhythm grade 1/6 systolic murmur left sternal border. Abdomen soft nontender no masses. Bowel sounds present. Extremities no clubbing or cyanosis trace of edema. Calves nontender. Results - Labs CBC & BMP: 06/07/16 06:12 06/07/16 06:12 Lab Results: I have reviewed the past 24 hour labs Assessment and Plan (1) Nonspecific interstitial pneumonitis Status: Acute Assessment and plan: This is related to her rheumatoid arthritis and she has indeed rheumatoid lung. She is on CellCept and prednisone for this long-term. She has increased risk of pneumonia because of the disease and medications. However there is no pneumonia on her x-ray. 06/02/2016 we will hold CellCept. She is immunocompromised and has a superimposed bronchitis. 06/03/2016 this is related to her rheumatoid arthritis. CellCept being held while treated for acute bronchitis. 06/06/2016 being managed by medication for her rheumatoid arthritis. 06/07/2016 on low-dose prednisone. Increasing it to 40 mg daily because of persistent bronchitis. Also usually on CellCept but it is being held for the acute bronchitis. Current Visit: No (2) Cor pulmonale Status: Chronic Assessment and plan: She has edema. Her BNP is elevated. She also has mitral insufficiency. At present with a creatinine of 2 she is getting some IV fluids. We need to be very careful with that. Treat with oxygen and steroids. 06/02/2016 has peripheral edema but is hypotensive. Creatinine has come down to 1.6. 06/03/2016 trace of peripheral edema still. Blood pressure on low side. We are probably about right volume blanco. 06/06/2016 less edema. 06/07/2016 peripheral edema has resolved. Current Visit: No (3) Mitral regurgitation Status: Chronic Assessment and plan: Defer to cardiology as far as any management of her mitral regurgitation. 06/03/2016 this of course leads to some of her right-sided failure as well. Defer to cardiology. 06/06/2016 part of her right-sided failure is related to the mitral regurgitation. Gently diuresing. 06/07/2016 this is causing part of her right-sided heart failure as well. Current Visit: Yes (4) Rheumatoid arthritis Status: Chronic Assessment and plan: She is on chronic medications for that and her arthritic problems are stable 06/03/2016 symptoms stable at present 06/06/2016 needs follow-up with rheumatology. 06/07/2016 no active joint pains. Again will need rheumatology follow-up post discharge. Current Visit: Yes Qualifiers: Laterality: bilateral (5) Acute kidney injury Status: Acute Assessment and plan: Creatinine is 2.0. It was 1.2 about 3 or 4 weeks ago. I will ask renal to see her. We need to watch this closely 06/02/2016 renal function improved with creatinine down to 1.6. 06/03/2016 creatinine stable at 1.6. Watch it closely. 06/06/2016 creatinine stable at 1.5. Current Visit: Yes Specialty Discharge - Follow Up or Referrals Follow up with: Amy Willett DO [Physician] - 2 Weeks (With [facility] CMP CBC)
[2016-06-07] MEDS: ENOXAPARIN 30 MG/0.3 ML SYRINGE SUBCUT SCH (14:02)
--- NOTE | 2016-06-07 15:20 | Hospitalist Progress Note ---
Hospitalist: Subjective Interval history: Cough improving but she states I still feel weak and significant CUELLAR. Dry cough. on 3L oxygen. No cp. Tolerating po. No nausea or vomiting. +BM Exam - Constitutional Vitals: Period Temp Pulse Resp BP Sys/Parks Pulse Ox Last 24 Hr 97.3 F-98.1 F 77-103 17-20 101-125/67-93 94-100 Exam: GEN: A and O x 3 LUNGS: prolonged expiratory phase but no audible wheezing appreciated. Mild abd retractions CV: RRR no M ABD: soft, NT, ND, +BS EXT: Warm no c/c/e Results - Labs CBC & BMP: 06/07/16 06:12 06/07/16 06:12 - Impressions (1) Acute exacerbation of chronic obstructive airways disease/ Asthma Status: Acute Assessment and plan: Patient seems to be improving from an acute respiratory standpoint. Will continue current management as before. Continues on breathing treatments, prednisone, singulair, Levofloxacin, and cellcept. Will need acute rehab given overall debility. Will plan for STR at discharge. Additionally, may be some component of increased volume. Continue Lasix at current dose. Careful not to overdiurese. Cont Tessalon pearles for cough. Add Mucinex. Current Visit: Yes (2) Rheumatoid arthritis Status: Chronic Current Visit: Yes Qualifiers: Laterality: bilateral - cont current treatment (3) Nonspecific interstitial pneumonitis/ Pulmonary fibrosis Status: Acute Current Visit: No (4) Hypokalemia/ Hypophosphatemia Status: Acute Current Visit: No - replacing orally (5) Diabetes mellitus Status: Chronic Current Visit: No Qualifiers: Diabetes mellitus type: type 2 - Cont I.S.S. [place] ac, hs (6) Chronic systolic (congestive) heart failure Status: Acute Current Visit: Yes - cont medical management (7) Essential (primary) hypertension Status: Chronic Current Visit: Yes (8) CKD (chronic kidney disease) stage 3, GFR 30-59 ml/min Problem details: Stable CKD. Her daily fluctuations in creatinine are most likely due to changes in renal perfusion and volume/preload. I would caution restarting tekturna with her physiology. Status: Acute Current Visit: Yes D/W pt and nurse disease case manager. All questions answered. Specialty Discharge - Follow Up or Referrals Follow up with: Amy Willett DO [Physician] - 2 Weeks (With [facility] CMP CBC)
[2016-06-07] MEDS: POTASSIUM PHOS/SOD PHOS 250 MG TABLET PO SCH ×2 (16:46→21:58)
[2016-06-07] MEDS: MONTELUKAST 10 MG TABLET PO SCH (21:58)
[2016-06-08 05:40] LABS: Basophils % 0.1 % (0.0-0.8); Eosinophils # 0.1 10*3/uL (0.0-0.87); Eosinophils % 1.3 % (0.00-10.9); Hematocrit 42.1 VOL% (35.7-47.0); Hemoglobin 12.7 GM/DL (12.0-16.0); Immature Granulocytes % 0.4 %; Immature Granulocytes Absolute 0.04 #; Lymphocytes # 3.2 10*3/uL (1.4-4.0); Lymphocytes % 35.1 % (21.3-54.2); Mean Corpuscular HGB Conc 30.2 GM/DL (32-36); Mean Corpuscular Hemoglobin 25 PG (27-34); Mean Platelet Volume 9.4 FL (9.6-12.0); Monocytes # 0.6 10*3/uL (0.11-0.8); Monocytes % 6.4 % (1.7-12.7); Neutrophils # 5.2 10*3/uL (1.4-7.4); Neutrophils % 56.7 % (38.7-73.9); Platelet Count 263 T/CUMM (130-400); Red Blood Count 5.01 MC/CUMM (3.8-5.5); Red Cell Distribution Width 18.3 % (9.3-17.3); White Blood Count 9.1 T/CUMM (4-12)
[2016-06-08 06:15] LABS: Albumin 2.4 G/DL (3.4-5.0); Calcium 8.1 MG/DL (8.5-10.1); Osmolality,Calculated 289.8 MOS/KG (273-304); Potassium 3.3 MMOL/L (3.5-5.1)
[2016-06-08] MEDS: ALBUTEROL/IPRATROPIUM 3 ML NEB RESP TX SCH ×2 (07:25→14:32)
--- NOTE | 2016-06-08 07:59 | Pulmonology Progress Note ---
Pulmonary - PN: Subj Interval history: This 71-year-old white female has rheumatoid arthritis and rheumatoid lung. She also has pulmonary hypertension. She is on Revatio. Mitral regurgitation. She came in with increased shortness of breath. Her chest x-ray does not look bad. She is hypotensive but has edema. She is on Tekturna. Her systolic blood pressures running 87 this morning. I think we need to hold the Tekturna. Defer to cardiology on adjusting heart medicines otherwise. She is better this morning and should be able to go to the floor. 06/03/2016 patient moved to floor yesterday. She is feeling a little better. Still having some bronchospasm. I do think she has acute bronchitis. Blood pressure has been on the low side. Tekturna is being held. Renal function stable with creatinine 1.6. Again she is immunocompromised due to her rheumatoid arthritis, rheumatoid lung, and medications for those. We are holding CellCept at present. Needs a few more days of IV medications. 06/06/2016 patient still has a deep cough. I do think she has bronchitis. Will add Levaquin. Agree with plans for swing bed for physical therapy. 06/07/2016 continues to have a cough., And bronchospasm. He has coarse rhonchi. Will increase prednisone to 40 mg daily. Not ready yet to resume her CellCept. Probably needs to be here a little longer before swing bed. 06/08/2016 cough is definitely improved. Chest sounds better. Would probably do best to stay at 40 mg of prednisone daily for another 5-7 days and then wean it down to her baseline dose. Okay with me for her to go to swing bed. Would resume her CellCept in about 5 days. Exam (Progress Note) - Constitutional Vitals: Period Temp Pulse Resp BP Sys/Parks Pulse Ox Last 24 Hr 97.3 F-98.7 F 85-108 17-20 100-112/68-84 95-99 Exam: Patient's alert and afebrile. Weight stable. Pupils react to light. Throat is clear. Neck supple no bruits. Chest reveals mild rhonchi, equal breath sounds. Heart normal rate and rhythm grade 1/6 systolic murmur left sternal border. Abdomen soft nontender no masses. Bowel sounds present. Extremities no clubbing or cyanosis trace of edema. Calves nontender. Lungs definitely sound better than yesterday. Results - Labs CBC & BMP: 06/08/16 05:25 06/08/16 05:25 Lab Results: I have reviewed the past 24 hour labs Assessment and Plan (1) Nonspecific interstitial pneumonitis Status: Acute Assessment and plan: This is related to her rheumatoid arthritis and she has indeed rheumatoid lung. She is on CellCept and prednisone for this long-term. She has increased risk of pneumonia because of the disease and medications. However there is no pneumonia on her x-ray. 06/02/2016 we will hold CellCept. She is immunocompromised and has a superimposed bronchitis. 06/03/2016 this is related to her rheumatoid arthritis. CellCept being held while treated for acute bronchitis. 06/06/2016 being managed by medication for her rheumatoid arthritis. 06/07/2016 on low-dose prednisone. Increasing it to 40 mg daily because of persistent bronchitis. Also usually on CellCept but it is being held for the acute bronchitis. 06/08/2016 underlying interstitial pneumonia related to her rheumatoid arthritis. Normally on CellCept and low-dose prednisone. Holding CellCept for acute bronchitis and she is on higher dose of prednisone for now. Current Visit: No (2) Cor pulmonale Status: Chronic Assessment and plan: She has edema. Her BNP is elevated. She also has mitral insufficiency. At present with a creatinine of 2 she is getting some IV fluids. We need to be very careful with that. Treat with oxygen and steroids. 06/02/2016 has peripheral edema but is hypotensive. Creatinine has come down to 1.6. 06/03/2016 trace of peripheral edema still. Blood pressure on low side. We are probably about right volume blanco. 06/06/2016 less edema. 06/07/2016 peripheral edema has resolved. 06/08/2016 edema has resolved. Watch closely. She does have pulmonary hypertension. Current Visit: No (3) Mitral regurgitation Status: Chronic Assessment and plan: Defer to cardiology as far as any management of her mitral regurgitation. 06/03/2016 this of course leads to some of her right-sided failure as well. Defer to cardiology. 06/06/2016 part of her right-sided failure is related to the mitral regurgitation. Gently diuresing. 06/07/2016 this is causing part of her right-sided heart failure as well. 06/08/2016 her mitral regurgitation adds to the right sided failure. Current Visit: Yes (4) Rheumatoid arthritis Status: Chronic Assessment and plan: She is on chronic medications for that and her arthritic problems are stable 06/03/2016 symptoms stable at present 06/06/2016 needs follow-up with rheumatology. 06/07/2016 no active joint pains. Again will need rheumatology follow-up post discharge. Current Visit: Yes Qualifiers: Laterality: bilateral (5) Acute kidney injury Status: Acute Assessment and plan: Creatinine is 2.0. It was 1.2 about 3 or 4 weeks ago. I will ask renal to see her. We need to watch this closely 06/02/2016 renal function improved with creatinine down to 1.6. 06/03/2016 creatinine stable at 1.6. Watch it closely. 06/06/2016 creatinine stable at 1.5. 06/08/2016 creatinine back to normal for her at 1.1. Current Visit: Yes Specialty Discharge - Follow Up or Referrals Follow up with: Amy Willett DO [Physician] - 2 Weeks (With [facility] CMP CBC)
[2016-06-08] MEDS: INSULIN ASPART PROTAMINE/ASPART 70/30 100 UNIT/ML SUBCUT SCH (09:35)
[2016-06-08] MEDS: POTASSIUM CHLORIDE 20 MEQ TABLET PO SCH (09:44)
[2016-06-08] MEDS: PANTOPRAZOLE 40 MG TABLET PO SCH (09:44)
[2016-06-08] MEDS: LEVOFLOXACIN 500 MG TABLET PO SCH (09:44)
[2016-06-08] MEDS: POTASSIUM PHOS/SOD PHOS 250 MG TABLET PO SCH ×2 (09:44→13:41)
[2016-06-08] MEDS: LEVOTHYROXINE 200 MCG TABLET PO SCH (09:45)
[2016-06-08] MEDS: TAMSULOSIN 0.4 MG CAPSULE PO SCH (09:45)
[2016-06-08] MEDS: FUROSEMIDE 40 MG TABLET PO SCH (09:45)
[2016-06-08] MEDS: SILDENAFIL 20 MG TABLET PO SCH ×2 (09:45→14:15)
[2016-06-08] MEDS: INSULIN LISPRO 100 UNIT/ML SUBCUT SCH ×2 (09:46→13:42)
--- NOTE | 2016-06-08 10:37 | Discharge Summary ---
<Brandon Castellon - Last Filed: 06/08/16 11:31> Hospital Course - Hospital Course Hospital Course: Ms. Bowens is a 71 yr old patient with a history of ra, pulmonary fibrosis, pulmonary hypertension, hypertension, CHF, diabetes, and hypothyroidism that presented to the ED after being seen by Dr. Willett in clinic for shortness of breath and tachypnea. Pt had been having recurrent issues with breathing since . Additionally, the patient had just been seen in ED on 05/25 by another hospitalist and released after a consultation and treatment with lasix and steroids. The patient was admitted for further evaluation of symptoms. Cardiology was consulted with help for acute on chronic heart failure. Dr. Guo was consulted to see patient regarding pulmonary issues. Pt was also noted to have rise in creatinine from 1.2 to 2. Nephrology was consulted to see patient but cited rise in creatinine could be due in part to changes in renal perfusion due to treatment of sob with diuretic treatment. Tekturna was held as well as other nephrotoxic agents and patient creatinine has stabilized. Pulmonary continued to follow patient and patient was treated with IV antibiotics for bronchitis. Pt. also treated with steroids which was increased to 40 mg from normal home dose. Pt. will continue on this dose for next 5-7 days and then be weaned. Pt. has improved during stay and is ok to be discharged to [facility] facility. Pt. has follow up with Dr. Willett in 2 weeks. Specialty Discharge - Follow Up or Referrals Follow up with: Jerel Guo MD [Physician] - 07/06/16 12:30 pm (You will have a CXR and blood work done.) Amy Willett DO [Physician] - 2 Weeks (With [facility] [place] CBC) Discharge Plan - Discharge Data Disposition: Disch/Xfer-Ip Rehab Fac - Discharge Medications New Acetaminophen Tab [Tylenol Tab] 650 mg PO Q4H PRN #0 tablet PRN Reason: Fever, Headache, Mild Pain Acetaminophen Tab [Tylenol Tab] 325 mg PO Q4H PRN #0 tablet PRN Reason: fever, headache/body aches Benzonatate [Tessalon] 100 mg PO BID PRN #0 capsule PRN Reason: Cough Docusate Sodium Cap [Colace Cap] 100 mg PO BID PRN #0 capsule PRN Reason: Constipation HYDROcodone/ACETAMIN 5-325 [[place] 5-325] 1 tablet PO Q4H PRN #10 tablet PRN Reason: Pain Mild (1-3) Insulin Lispro [HumaLOG] See Protocol SUBCUT ACHS unit Magnesium Hydroxide Susp [Milk of Magnesia] 30 ml PO BID PRN #0 PRN Reason: Constipation Pantoprazole Tab [Protonix Tab] 40 mg PO DAILY tablet Potassium Phos/Sod Phos Tab [K Phos Neutral] 250 mg PO QID W/MEALS & HS 1 Days Levofloxacin Tab [Levaquin Tab] 500 mg PO DAILY #5 tablet guaiFENesin ER TAB [Mucinex] 600 mg PO BID tablet Continue Mycophenolate Mofetil [Cellcept] 1,000 mg PO BID Montelukast Tab [Singulair Tab] 10 mg PO BEDTIME #60 tablet Insulin Aspart Prot/Asp 70/30 [NovoLOG Mix 70/30] 15 unit SUBCUT BID Sildenafil [Revatio] 10 mg PO TID #100 tablet Levothyroxine Tab [Synthroid Tab] 200 mcg PO QAM Albuterol/Ipratropium Neb [Duoneb] 3 ml RESP TX TID #90 vial predniSONE TAB [PredniSONE] 10 mg PO QAM Furosemide Tab [Lasix Tab] 40 mg PO BID #60 tablet Tamsulosin [Flomax] 0.4 mg PO DAILY #30 capsule Potassium Chloride Cap/Tab [K Dur] 10 meq PO DAILY W/BREAKFAST Discontinued Aliskiren [Tekturna] 150 mg PO QAM Omeprazole [Prilosec] 40 mg PO QPM - Follow Up or Referral Follow Up: Jerel Guo MD [Physician] - 07/06/16 12:30 pm (You will have a CXR and blood work done.) Amy Willett DO [Physician] - 2 Weeks (With [facility] CBC) - Forms/Instructions Exam - Constitutional Vitals: Period Temp Pulse Resp BP Sys/Parks Pulse Ox Last 24 Hr 97.3 F-98.7 F 85-108 16-20 100-111/68-78 95-99 Discharge Results Procedures and tests throughout hospitalization: Pending Orders 06/09/16 04:00 CBC [Comp Blood Count Auto Diff] IN AM Renal Function Panel IN AM Labs on day of discharge: Labs from last 24 hours 06/08/16 06/08/16 06/08/16 11:27 07:37 07:07 WBC RBC Hgb Hct MCV MCH MCHC RDW Plt Count MPV Neut % (Auto) Lymph % (Auto) [place] % (Auto) Eos % (Auto) Baso % (Auto) Neut # (Auto) Lymph # (Auto) [place] # (Auto) Eos # (Auto) Baso # (Auto) Immature Gran % Nucleated RBC % Immature Gran # Nucleated RBCs # Sodium Potassium Chloride Carbon Dioxide Anion Gap BUN Creatinine GFR Calculation BUN/Creatinine Ratio Glucose POC Glucose 218 H 175 H < 20 L* Calculated Osmolality Calcium Phosphorus Albumin 06/08/16 06/08/16 06/07/16 05:25 05:25 20:09 WBC 9.1 RBC 5.01 Hgb 12.7 Hct 42.1 MCV 84.0 L MCH 25 L MCHC 30.2 L RDW 18.3 H Plt Count 263 MPV 9.4 L Neut % (Auto) 56.7 Lymph % (Auto) 35.1 [place] % (Auto) 6.4 Eos % (Auto) 1.3 Baso % (Auto) 0.1 Neut # (Auto) 5.2 Lymph # (Auto) 3.2 [place] # (Auto) 0.6 Eos # (Auto) 0.1 Baso # (Auto) 0.0 Immature Gran % 0.4 Nucleated RBC % 0.0 Immature Gran # 0.04 Nucleated RBCs # 0.00 Sodium 144 Potassium 3.3 L Chloride 101 Carbon Dioxide 34 H Anion Gap 12.3 BUN 19 H Creatinine 1.10 H GFR Calculation 62 BUN/Creatinine Ratio 17.00 Glucose 127 H POC Glucose 112 H Calculated Osmolality 289.8 Calcium 8.1 L Phosphorus 3.0 Albumin 2.4 L 06/07/16 16:10 WBC RBC Hgb Hct MCV MCH MCHC RDW Plt Count MPV Neut % (Auto) Lymph % (Auto) [place] % (Auto) Eos % (Auto) Baso % (Auto) Neut # (Auto) Lymph # (Auto) [place] # (Auto) Eos # (Auto) Baso # (Auto) Immature Gran % Nucleated RBC % Immature Gran # Nucleated RBCs # Sodium Potassium Chloride Carbon Dioxide Anion Gap BUN Creatinine GFR Calculation BUN/Creatinine Ratio Glucose POC Glucose 201 H Calculated Osmolality Calcium Phosphorus Albumin DS: Provider Date of admission: 06/01/16 11:50 Primary care physician: . No PCP Attending physician on admission: Андрей Miles MD Consults: 06/01/16 12:39 Consult to Physician [CONS] Routine Comment: ACUTE SOB Consulting Provider: Jerel Guo Consulting Provider Notified: Yes When should Consulting Provider be notified: Now Consult Notification Comment: 06/01/16 12:43 Consult to Pastoral Services [CONS] Routine Comment: Pastoral Screen: Request Hospital Director Visit Pastoral Screen Source of Request: Patient 06/01/16 13:16 Consult to Physician [CONS] Routine Comment: pt of dr argueta, direct adm sent from his office Consulting Provider: Cardiology - [facility] When should Consulting Provider be notified: Now 06/01/16 16:47 Consult to Physician [CONS] Routine Comment: Consulting Provider: Alexis Dave Consulting Provider Notified: Yes Consult to Specialist Group: Nephrology When should Consulting Provider be notified: In am Person Notified: PANCHO Date Notified: 06/02/16 Time Notified: 08:50 06/05/16 12:57 Consult to Case Mgmt/Social Srvs [CONS] Routine Reason for Case Mgmt/Social Srvs: Rehab 06/06/16 11:12 Consult to Physical Therapy [CONS] Routine Reason for Physical Therapy: Evaluate and Treat Discharging clinician: Brandon Castellon NP <Geetha Tapia - Last Filed: 06/08/16 12:13> Hospital Course - Hospital Course Hospital Course: Patient reports her shortness of breath is much improved. She is mobilizing secretions better after starting Mucinex. - Time spent with patient Time with patient DS: Greater than 30 minutes (43 minutes) Diagnosis - Discharge Diagnosis (1) Acute exacerbation of chronic obstructive airways disease Status: Acute (2) Acute kidney injury Status: Resolved (3) Acute on chronic systolic (congestive) heart failure Status: Acute (4) CKD (chronic kidney disease) stage 3, GFR 30-59 ml/min Status: Chronic (5) Essential (primary) hypertension Status: Chronic (6) Hypothyroidism Status: Chronic (7) Mitral regurgitation Status: Chronic (8) Pulmonary fibrosis Status: Chronic (9) Rheumatoid arthritis Status: Chronic (10) Type 2 diabetes mellitus Status: Chronic (11) Diabetes mellitus Status: Chronic Discharge Plan - Discharge Data Condition at Discharge: Stable Discharge Diet: heart healthy, low fat, low cholesterol Activity: as per physical therapy Contact your physician if you experience:: fever over 101, Difficulty voiding, Nausea/Vomiting, Bleeding, pain uncontrolled by pain medications Exam - Constitutional Exam: Awake alert and oriented 4 sitting in a chair in no acute distress Regular rate and rhythm normal S1-S2 mild systolic murmur Clear to auscultation bilaterally anteriorly with good aeration mild rale at the left lung base Abdomen is soft nontender nondistended with positive bowel sounds Extremities are warm and well-perfused no clubbing cyanosis or edema Neuro exam is nonfocal
[2016-06-08] MEDS: ENOXAPARIN 30 MG/0.3 ML SYRINGE SUBCUT SCH (13:41)
[2016-06-08 14:48] VITALS: BP 95/72
== END 2016-06-08 14:20 | disposition swing bed (61) | DRG 190 ==
LOC: N.ICU 11:50 → SUATTDRO 11:50 → N.5E 06-02 15:38
PROVIDERS: ADMIT Internal Medicine; ATTEND Pediatrics

== ENCOUNTER 2016-06-13 02:45 | Inpatient (IN) ==
[2016-06-13] MEDS ORDERED: methylPREDNISolone SOD SUC 125 MG/2 ML VIAL IV STA (03:04)
[2016-06-13] MEDS ORDERED: SODIUM CHLORIDE 0.9% 500 ML IV STA (03:04)
[2016-06-13] MEDS ORDERED: ALBUTEROL/IPRATROPIUM 3 ML NEB RESP TX STA (03:04)
[2016-06-13 03:13] LABS: ABG Base Excess 8.9 MMOL/L (-2.5-2.5); ABG HCO3 31.4 MMOL/L (20-26); ABG Oxygen Saturation 86.7 % (95-100); ABG PCO2 35.7 MM HG (35-48); ABG PH 7.562 (7.35-7.45); ABG PO2 53.5 MM HG (80-95); ABG TCO2 32.5 MMOL/L (23-27); Allen Test Positive
[2016-06-13 03:18] LABS: Basophils % 0.3 % (0.0-0.8); Eosinophils # 0.1 10*3/uL (0.0-0.87); Eosinophils % 0.7 % (0.00-10.9); Hematocrit 40.2 VOL% (35.7-47.0); Hemoglobin 12.8 GM/DL (12.0-16.0); Immature Granulocytes % 0.5 %; Immature Granulocytes Absolute 0.07 #; Lymphocytes # 3.5 10*3/uL (1.4-4.0); Lymphocytes % 27.4 % (21.3-54.2); Mean Corpuscular HGB Conc 31.8 GM/DL (32-36); Mean Corpuscular Hemoglobin 26 PG (27-34); Mean Corpuscular Volume 82.5 FL (87-102); Mean Platelet Volume 10.6 FL (9.6-12.0); Monocytes # 0.8 10*3/uL (0.11-0.8); Neutrophils # 8.3 10*3/uL (1.4-7.4); Neutrophils % 65.1 % (38.7-73.9); Platelet Count 284 T/CUMM (130-400); Red Blood Count 4.87 MC/CUMM (3.8-5.5); Red Cell Distribution Width 19.7 % (9.3-17.3); White Blood Count 12.8 T/CUMM (4-12)
[2016-06-13] MEDS ORDERED: methylPREDNISolone SOD SUC 125 MG/2 ML VIAL ONE (03:18)
[2016-06-13] MEDS ORDERED: LORazepam 2 MG/1 ML VIAL ONE (03:38)
[2016-06-13] MEDS ORDERED: LORazepam 2 MG/1 ML VIAL IV STA ×2 (03:45→03:47)
[2016-06-13 03:49] LABS: Albumin 2.4 G/DL (3.4-5.0); Bilirubin,Total 1.2 MG/DL (0.2-1.0); Calcium 8.1 MG/DL (8.5-10.1); Magnesium 1.2 MG/DL (1.8-2.4); Osmolality,Calculated 279.7 MOS/KG (273-304); Potassium 3.9 MMOL/L (3.5-5.1); Total Protein 5.5 G/DL (6.4-8.3)
[2016-06-13 04:00] LABS: Troponin I Only 0.102 NG/ML (0.00-0.045)
[2016-06-13] MEDS ORDERED: CEFEPIME 1,000 MG in SODIUM CHLORIDE 0.9% 100 ML IV STA (04:34)
[2016-06-13] MEDS ORDERED: VANCOMYCIN INJ 1,000 MG in SODIUM CHLORIDE 0.9% 250 ML IV STA (04:34)
[2016-06-13] MEDS ORDERED: NITROGLYCERIN SL 0.4 MG TABLET SL ONE (04:37)
[2016-06-13] MEDS ORDERED: DEXTROSE 50% 25 GM/50 ML VIAL IV PRN (04:44)
[2016-06-13] MEDS ORDERED: ONDANSETRON 4 MG/2 ML VIAL IV PRN (04:44)
[2016-06-13] MEDS ORDERED: ACETAMINOPHEN 325 MG TABLET PO PRN (04:44)
[2016-06-13] MEDS ORDERED: GLUCAGON 1 MG VIAL IM PRN (04:44)
--- NOTE | 2016-06-13 04:44 | Emergency Department Note ---
I, Jeana Rodriguez, am scribing for, and in the presence of, Samreen Henry DO 03:10. ICarl Catherine, DO, personally performed the services described in this documentation, ascribed by Jeana Rodriguez in my presence, and it is both accurate and complete 444 . Arrival - Arrival Mode of Arrival: Stretcher Limitations: No Limitations Source: Patient Time Seen by Provider: 06/13/16 02:47 - History of Present Illness HPI Narrative: Pt is a 71 y/o female that was brought to the ED from [facility] via EMS with c/o SOB that began about an hour ago. Pt has a Hx of pulmonary fibrosis but states it has never been this bad before. Pt denies anything unusual happening tonight. Pt was recently admitted to the hospital and treated for bronchitis with breathing treatments and steroids. Pt is currently being treated at [facility] for hyperglycemia. Pt states she is DM but her blood sugar has been fluctuating the last couple of days. Pt denies any other pain just difficulty breathing. Pt reports she does wear oxygen and taking TID breathing treatments at home. Pt states her last breathing treatment was about an hour ago and it helped open her lungs up. Pt's hotel associate is Dr. Montero and her educational assistant teacher is Dr. Guo. When pt was asked by the doctor if she wanted to be placed on the ventilator she states "yes if it will help me breathe." Pt denies previously being on the ventilator for sxs. No other complaints/pain in ED. Onset (ago): hour(s) Consistency: constant Severity: moderate Severity scale (1-10): 5 Quality: other Allergies/Adverse Reactions: Allergies Allergy/AdvReac Type Severity Reaction Status Date / Time No Known Allergies Allergy Verified 04/07/16 18:47 Home Medications: Home Medications Medication Instructions Recorded Confirmed Type Mycophenolate Mofetil [Cellcept] 1,000 mg PO BID 01/27/15 06/13/16 History Montelukast Tab [Singulair Tab] 10 mg PO BEDTIME #60 tablet 04/08/15 06/13/16 Rx Levothyroxine Tab [Synthroid Tab] 200 mcg PO QAM 02/15/16 06/13/16 History Albuterol/Ipratropium Neb [Duoneb] 3 ml RESP TX TID #90 vial 04/15/16 06/13/16 Rx Insulin Aspart Prot/Asp 70/30 15 unit SUBCUT BID 04/29/16 06/13/16 History [NovoLOG Mix 70/30] predniSONE TAB [PredniSONE] 10 mg PO QAM 04/29/16 06/13/16 History Sildenafil [Revatio] 10 mg PO TID #100 tablet 05/03/16 06/13/16 Rx Furosemide Tab [Lasix Tab] 40 mg PO BID #60 tablet 05/25/16 06/13/16 Rx Tamsulosin [Flomax] 0.4 mg PO DAILY #30 capsule 05/25/16 06/13/16 Rx Potassium Chloride Cap/Tab [K Dur] 10 meq PO DAILY W/BREAKFAST 06/01/16 History Acetaminophen Tab [Tylenol Tab] 325 mg PO Q4H PRN #0 tablet 06/08/16 06/13/16 Rx Acetaminophen Tab [Tylenol Tab] 650 mg PO Q4H PRN #0 tablet 06/08/16 06/13/16 Rx Benzonatate [Tessalon] 100 mg PO BID PRN #0 capsule 06/08/16 06/13/16 Rx Docusate Sodium Cap [Colace Cap] 100 mg PO BID PRN #0 capsule 06/08/16 06/13/16 Rx HYDROcodone/ACETAMIN 5-325 [[place] 1 tablet PO Q4H PRN #10 tablet 06/08/16 Rx 5-325] Insulin Lispro [HumaLOG] See Protocol SUBCUT ACHS unit 06/08/16 06/13/16 Rx Levofloxacin Tab [Levaquin Tab] 500 mg PO DAILY #5 tablet 06/08/16 06/13/16 Rx Magnesium Hydroxide Susp [Milk of 30 ml PO BID PRN #0 06/08/16 06/13/16 Rx Magnesia] Pantoprazole Tab [Protonix Tab] 40 mg PO DAILY tablet 06/08/16 06/13/16 Rx Potassium Phos/Sod Phos Tab [K 250 mg PO QID W/MEALS & HS 1 Days 06/08/16 Rx Phos Neutral] guaiFENesin ER TAB [Mucinex] 600 mg PO BID tablet 06/08/16 06/13/16 Rx Review of System - Review of System 12 point system: reviewed and no additional remarkable complaints except as stated - Review of System Constitutional: Absent: chills, fever Respiratory: Present: other (SOB) Cardiovascular: Absent: chest pain Gastrointestinal: Absent: abdominal pain, nausea, vomiting Musculoskeletal: Absent: arm pain, back pain, leg pain, neck pain Skin: Absent: rash Neurological: Absent: headache Psychiatric: Absent: anxiety Medical,Surgical,& Family Hx - Medical History Cardio: History of: Cardiac Dysrhythmia (in past), Hypertension No history of: CHF, IA, Pacemaker Neurology: No history of: Brain Aneurysm, Cerebral Hemorrhage, Cerebrovascular Accident , Cerebral Palsy, Dementia, Migraine, Multiple Sclerosis, Parkinson's Disease, Peripheral Neuropathy, Seizures, TIA, Vertigo, Neurologocal Cancer Endocrine: History of: Diabetes Mellitus (IDDM), Thyroid Disorder Rheumatology: History of;: Rheumatoid Arthritis Respiratory: History of: Pneumonia, Respiratory Problems (Pulmonary fibrosis and secondary pulmonary hypertension from primary rheuma) No history of: Asthma, COPD Gastrointestinal: History of: GERD, GI Problems (dysphagia) No history of: Hepatitis, Liver Problems Hematology: History of: Anemia No history of: Blood Transfusion Reaction Other: No history of: Anesthesia Reactions, Cancer - Surgical History Cardiac Surgeries: Patient Denies: Cardiac Catheterization, Carotid Endarterectomy Thoracic Surgeries: Patient denies;: Lobectomy Neurologic Surgeries: Patient denies: Brain Aneurysm, Cerebral Hemorrhage, Neurologic Surgery HEENT Surgeries: Surgical HX of: Eye Surgery (cataracts), Thyroid Surgery ( thyroidectomy-2002) Patient denies: Carotid Endarterectomy, Tonsilectomy & Adenoidectomy Abdominal Surgeries: Surgical HX of: Colonoscopy, EGD Patient denies: Abdominal Surgery, Appendectomy, Cholecystectomy, Hernia Repair Reproductive Surgeries: Patient denies;: Breast Surgery, Hysterectomy, Tubal Ligation Orthopedic Surgeries: Patient denies;: Orthopedic Surgery, Total Hip Replacement, Total Knee Replacement - Family History Family History: Reports;: Family Cancer (aunt- cervical cancer, aunt- breast cancer), Family Diabetes (mother), Family Hypertension (Mom) Denies;: Family Heart Disease - Social History Smoking Status: Never smoker Frequency of Alcohol Use: None Type of Drug Use: None Marital Status: Unknown Lives With:: Parent Functional capacity: independent ambulation Exam Vital Signs: Vital Signs Temperature 98.4 F 06/13/16 02:45 Pulse Rate 111 H 06/13/16 03:57 Respiratory Rate 28 H 06/13/16 03:57 Blood Pressure 91/67 06/13/16 02:45 O2 Sat by Pulse Oximetry 97 06/13/16 03:57 - General General appearance: alert, anxious - Head Head exam: Present: atraumatic, normocephalic - Eye Eye exam: Present: PERRL, EOMI - ENT ENT exam: Present: mucous membranes moist. Absent: mucous membranes dry - Neck Neck exam: Present: full ROM. Absent: tenderness - Chest Chest inspection: Present: symmetric chest wall rise. Absent: tenderness - Respiratory Respiratory exam: Present: accessory muscle use, respiratory distress, wheezes ( scattered wheezes) - Cardiovascular Cardiovascular exam: Present: regular rate, normal rhythm, normal heart sounds - Abdominal Exam Abdominal exam: Present: soft, normal bowel sounds. Absent: distention, tenderness, guarding - Extremities Exam Extremities exam: Present: full ROM. Absent: tenderness - Back Exam Back exam: Present: full ROM. Absent: tenderness - Neurological Exam Neurological exam: Present: alert, oriented X3, CN II-XII intact. Absent: motor sensory deficit - Psychiatric Psychiatric exam: Present: normal affect, anxious - Skin Skin exam: Present: warm, dry Course Course Narrative: This is a 71-year-old female is coming into the ER today from the swing bed unit for increasing shortness of breath. Ms. Bowens was admitted several days ago for treatment of an acute bronchitis and exacerbation of her pulmonary fibrosis. She states to me that she is on home O2 and takes breathing treatments at home as well. She reported that all evening she has had trouble they were having trouble keeping her blood sugar up and she is also coughing and congested. She feels very short of breath at this time. The patient normally states that she is able to take her treatments and her symptoms get better but they were not getting better tonight. She has not had any chest pain she has not had any fever she is on no chills abdominal pain vomiting or any other complaints. At arrival in the ER the patient was noted to be breathing fairly rapidly she did have coarse inspiratory and expiratory wheezing. Her O2 sat was remaining about 85-88% on 2 L. Physical exam she is awake alert her vital signs have been reviewed her O2 sat is about 85-88 on 2 L. HEENT exam is normal neck is supple heart has a regular rate and rhythm slightly tachycardic her lungs reveal coarse inspiratory and expiratory wheezing she is in a mild amount of respiratory distress at my exam. Her abdomen is rounded soft nontender with good bowel sounds no masses rebound or guarding is noted her extremities are intact her neurologic exam is normal. I initially gave the patient several DuoNeb treatments we gave her IV Solu- Medrol and this has improved her symptoms. She continued to be slightly hypoxic so we placed her on CPAP she is now doing much better her O2 sat is in the 90s. On her initial blood gas her CO2 was not elevated her O2 was 85. She has been tolerating the CPAP very well. Her x-ray does show to have probable right lower lobe pneumonia. We will treat this as a hospital-acquired pneumonia she will get IV vancomycin and IV Maxipime as well. I have placed a phone call to the hospitalist and he is in agreement with this admission. We will be placing the patient in ICU. - Reevaluation(s) Reevaluation #1: she is much better on the CPAP - oxygen is in the 90"s Time: 04:15 - Consultations Consultation #1: Dr. Sears has been consulted and agrees with admission to ICU for hospital acquired pneumonia Time: 04:43 Results - Labs CBC & BMP: 06/13/16 02:54 06/13/16 02:54 Lab Results: I have reviewed the patients labs Labs: Laboratory Tests 06/13/16 03:00 ABG pH 7.562 H ABG pO2 53.5 L ABG HCO3 31.4 H ABG Total CO2 32.5 H ABG O2 Saturation 86.7 L ABG Base Excess 8.9 H Laboratory Tests 06/13/16 02:54 WBC 12.8 H MCV 82.5 L MCH 26 L MCHC 31.8 L RDW 19.7 H Neut # (Auto) 8.3 H Laboratory Tests 06/13/16 02:54 BUN 25 H Creatinine 1.30 H Glucose 115 H Calcium 8.1 L Magnesium 1.2 L Total Bilirubin 1.20 H Troponin I 0.102 H Total Protein 5.5 L Albumin 2.4 L Albumin/Globulin Ratio 0.7 L - EKG EKG results: interpreted by ERMD - Impressions non specific - no STEMI noted - Diagnostic Findings Procedure: Chest x-ray: image reviewed by me (RLL pneumonia) Disposition Clinical Impression: Respiratory failure, Pneumonia Case discussed with: patient Disposition: Still a Patient Condition: Stable Time of Disposition: 04:44
[2016-06-13] MEDS ORDERED: VANCOMYCIN 1,000 MG VIAL ONE (04:58)
[2016-06-13] MEDS ORDERED: DOCUSATE SODIUM 100 MG CAPSULE PO PRN (05:00)
--- NOTE | 2016-06-13 05:14 | Hospitalist History & Physical ---
Assessment and Plan (1) Chest pain Status: Acute Assessment and plan: Patient was given 1 dose of sublingual nitroglycerin states she was feeling better. Unfortunately cannot use nitroglycerin on her because she is on sildenafil. If she gets chest pain again she will go on heparin. Will check troponins serially every 3 hours 3 draws with the first 1 to be done on the initial serum drawn at admission Current Visit: Yes (2) Sinus tachycardia Status: Acute Assessment and plan: Cause not clear this point it could be thyroxine that she gets i.e. iatrogenic hypothyroidism. Will check TSH. I will suggest instructed the nursing to obtain d-dimer does not also chance that the hypoxia is related to pulmonary embolism. Patient has been in an institution. Current Visit: Yes (3) Pneumonia Status: Acute Assessment and plan: Because patient has been in the hospital on in and out who broaden the antibiotic to cover for possibility of a hospital associated pneumonia. Put her on cefepime 1 g IV every 8 and vancomycin 1 g IV every 12. Reassess need of these antibiotics in 48 hours. Obtain sputum for Gram stain and culture and obtain 2 sets of blood cultures. Current Visit: Yes Qualifiers: Pneumonia type: due to unspecified organism Laterality: right Lung location: middle lobe of lung Qualified Code(s): J18.1 - Lobar pneumonia, unspecified organism (4) Respiratory failure Status: Acute Assessment and plan: This could be a combination of pulmonary fibrosis and pneumonia. Patient will be consulted to pulmonary services of Dr. Guo will knows her well. Is being admitted to hospital medicine in intensive care unit today. Genital monitor oxygenation continue CPAP as already stated by the emergency room. Told to monitor function of CPAP. Current Visit: Yes History of Present Illness Chief complaint: Respiratory distress/acute hypoxic respiratory failure History of present illness: Ms. Bowens is a 71 year old female that was brought to the ED from [facility] via EMS with c/o SOB that began about an hour ago. Pt has a Hx of pulmonary fibrosis but states it has never been this bad before. Pt denies anything unusual happening tonight. Pt was recently admitted to the hospital and treated for bronchitis with breathing treatments and steroids. Pt is currently being treated at [facility] for hyperglycemia. Pt states she is DM but her blood sugar has been fluctuating the last couple of days. Pt denies any other pain just difficulty breathing. Pt reports she does wear oxygen and taking TID breathing treatments at home. Pt states her last breathing treatment was about an hour ago and it helped open her lungs up. Pt's mosaic tile maker is Dr. Montero and her mines safety engineer is Dr. Guo. When pt was asked by the doctor if she wanted to be placed on the ventilator she states "yes if it will help me breathe." Pt denies previously being on the ventilator for sxs. Renal: To evaluate the patient she was tachycardic at 115 she was sleeping at the time with the CPAP on. Beats a minute saturation of oxygen was 95%. I woke her up and also if she was having chest pain she had noticed that patient was given sublingual nitroglycerin and she states he felt better unfortunately cannot continue to give her nitroglycerin because she is on sildenafil for treatment of the fibrosis; blood pressure remained well during my assessment. Chest x-ray was done in the emergency room that suggest a right middle lobe pneumonia, but could be pulmonary fibrosis. Home Medications Medication Instructions Recorded Confirmed Type Mycophenolate Mofetil [Cellcept] 1,000 mg PO BID 01/27/15 06/13/16 History Montelukast Tab [Singulair Tab] 10 mg PO BEDTIME #60 tablet 04/08/15 06/13/16 Rx Levothyroxine Tab [Synthroid Tab] 200 mcg PO QAM 02/15/16 06/13/16 History Albuterol/Ipratropium Neb [Duoneb] 3 ml RESP TX TID #90 vial 04/15/16 06/13/16 Rx Insulin Aspart Prot/Asp 70/30 15 unit SUBCUT BID 04/29/16 06/13/16 History [NovoLOG Mix 70/30] predniSONE TAB [PredniSONE] 10 mg PO QAM 04/29/16 06/13/16 History Sildenafil [Revatio] 10 mg PO TID #100 tablet 05/03/16 06/13/16 Rx Furosemide Tab [Lasix Tab] 40 mg PO BID #60 tablet 05/25/16 06/13/16 Rx Tamsulosin [Flomax] 0.4 mg PO DAILY #30 capsule 05/25/16 06/13/16 Rx Potassium Chloride Cap/Tab [K Dur] 10 meq PO DAILY W/BREAKFAST 06/01/16 History Acetaminophen Tab [Tylenol Tab] 325 mg PO Q4H PRN #0 tablet 06/08/16 06/13/16 Rx Acetaminophen Tab [Tylenol Tab] 650 mg PO Q4H PRN #0 tablet 06/08/16 06/13/16 Rx Benzonatate [Tessalon] 100 mg PO BID PRN #0 capsule 06/08/16 06/13/16 Rx Docusate Sodium Cap [Colace Cap] 100 mg PO BID PRN #0 capsule 06/08/16 06/13/16 Rx HYDROcodone/ACETAMIN 5-325 [[place] 1 tablet PO Q4H PRN #10 tablet 06/08/16 Rx 5-325] Insulin Lispro [HumaLOG] See Protocol SUBCUT ACHS unit 06/08/16 06/13/16 Rx Levofloxacin Tab [Levaquin Tab] 500 mg PO DAILY #5 tablet 06/08/16 06/13/16 Rx Magnesium Hydroxide Susp [Milk of 30 ml PO BID PRN #0 06/08/16 06/13/16 Rx Magnesia] Pantoprazole Tab [Protonix Tab] 40 mg PO DAILY tablet 06/08/16 06/13/16 Rx Potassium Phos/Sod Phos Tab [K 250 mg PO QID W/MEALS & HS 1 Days 06/08/16 Rx Phos Neutral] guaiFENesin ER TAB [Mucinex] 600 mg PO BID tablet 06/08/16 06/13/16 Rx Allergies Allergy/AdvReac Type Severity Reaction Status Date / Time No Known Allergies Allergy Verified 04/07/16 18:47 Medical,Surgical,& Family Hx - Medical History Cardio: History of: Cardiac Dysrhythmia (in past), Hypertension No history of: CHF, [place], Pacemaker Neurology: No history of: Brain Aneurysm, Cerebral Hemorrhage, Cerebrovascular Accident , Cerebral Palsy, Dementia, Migraine, Multiple Sclerosis, Parkinson's Disease, Peripheral Neuropathy, Seizures, TIA, Vertigo, Neurologocal Cancer Endocrine: History of: Diabetes Mellitus (IDDM), Thyroid Disorder Rheumatology: History of;: Rheumatoid Arthritis Respiratory: History of: Pneumonia, Respiratory Problems (Pulmonary fibrosis and secondary pulmonary hypertension from primary rheuma) No history of: Asthma, COPD Gastrointestinal: History of: GERD, GI Problems (dysphagia) No history of: Hepatitis, Liver Problems Hematology: History of: Anemia No history of: Blood Transfusion Reaction Other: No history of: Anesthesia Reactions, Cancer - Surgical History Cardiac Surgeries: Patient Denies: Cardiac Catheterization, Carotid Endarterectomy Thoracic Surgeries: Patient denies;: Lobectomy Neurologic Surgeries: Patient denies: Brain Aneurysm, Cerebral Hemorrhage, Neurologic Surgery HEENT Surgeries: Surgical HX of: Eye Surgery (cataracts), Thyroid Surgery ( thyroidectomy-2003) Patient denies: Carotid Endarterectomy, Tonsilectomy & Adenoidectomy Abdominal Surgeries: Surgical HX of: Colonoscopy, EGD Patient denies: Abdominal Surgery, Appendectomy, Cholecystectomy, Hernia Repair Reproductive Surgeries: Patient denies;: Breast Surgery, Hysterectomy, Tubal Ligation Orthopedic Surgeries: Patient denies;: Orthopedic Surgery, Total Hip Replacement, Total Knee Replacement - Family History Family History: Reports;: Family Cancer (aunt- cervical cancer, aunt- breast cancer), Family Diabetes (mother), Family Hypertension (Mom) Denies;: Family Heart Disease - Social History Smoking Status: Never smoker Frequency of Alcohol Use: None Type of Drug Use: None Review of systems: 12 system assessment was done. Patient is tachycardic oxygenating well at the time but area on she did have severe hypoxia prior to being on the CPAP. Patient is well-known to Dr. Guo will be consulted on this. She is being admitted to the ICU. Because she did complain of chest pain which was better by nitroglycerin we will check for possible of myocardial infarction the rest of the review of systems significant for the chief complaint and history of presenting illness. Exam - Constitutional Vitals: Period Temp Pulse Resp BP Sys/Parks Pulse Ox Last 24 Hr 98.4 F-98.4 F 110-114 27-32 91-91/67-67 81-98 General appearance: normal weight - Head Head exam: Present: normocephalic, atraumatic - Eye Eye exam: Present: EOMI Pupils: Present: BRANDI - ENT ENT exam: Present: normal oropharynx - Neck Neck exam: Present: normal inspection, other (Neck is supple no jugular venous distention no stridor) - Respiratory Respiratory exam: Present: other (Diffuse fine crackles) - Cardiovascular Cardiovascular exam: Present: tachycardia, other (Regular rhythm with sinus tachycardia well defined P waves) - GI/Abdominal GI/Abdominal exam: Present: normal bowel sounds, soft, other (No guarding no rebound no hepatosplenomegaly) - Extremities Exam Extremities exam: Present: normal inspection, full ROM, other (No edema noted no cyanosis) - Neurological Exam Neurological exam: Present: CN II-XII intact, other (Patient is arousable but sleepy after being given Ativan. She has a CPAP mask on.) - Psychiatric Psychiatric exam: Present: other (I could not assess out exactly because of mild /moderate sedation with Ativan) - Skin Skin exam: Present: normal color, warm, dry Results - Labs CBC & BMP: 06/13/16 02:54 06/13/16 02:54 Lab Results: I have reviewed the past 24 hour labs (Chest x-ray shows fibrosis and suggestion of right middle lobe pneumonia. She has tachycardia with a history of thyroid supplementation one wonders about overly supplemented)
--- NOTE | 2016-06-13 06:41 | EKG Report ---
Stationary ECG Study [facility] Test Date: 06/13/2016 4:42:12 AM Pat Name: LAW MARTE Department: Room: 112 Gender: F Steward/Stewardess Smoke Room: : 1945 Requested by: Samreen Henry Order Number: [id number] Reading MD: CHARLETTE MCKEE Intervals [place] Rate: 114 P: 51 MO: 124 QRS: 105 QRSD: 94 T: 53 QT: 338 QTc: 406 Interpretive Statements SINUS TACHYCARDIA LEFT ATRIAL ENLARGEMENT INCOMPLETE RIGHT BUNDLE BRANCH BLOCK POSSIBLE RIGHT VENTRICULAR HYPERTROPHY NONSPECIFIC T-WAVE ABNORMALITY Electronically Signed On 06-13-16 08:59:53 CDT by CHARLETTE MCKEE [email or web address]
[2016-06-13] MEDS: SODIUM CHLORIDE 0.9% 1,000 ML IV SCH ×2 (06:48→19:36)
[2016-06-13] MEDS ORDERED: ALBUTEROL/IPRATROPIUM 3 ML NEB RESP TX SCH (07:00)
[2016-06-13] MEDS ORDERED: LEVOTHYROXINE 200 MCG TABLET PO SCH (07:00)
--- NOTE | 2016-06-13 07:02 | XRay Report ---
History: Shortness of breath Date: 06/13/2016 Study: Chest x-ray AP portable Comparison exam: June 05, 2016 chest x-ray There is cardiomegaly. The mediastinal contours are unchanged. The pulmonary vasculature is not engorged. There is some reticulonodular interstitial disease in the lung bases as on the previous study in this patient with known rheumatoid arthritis. There is increased strandy atelectasis/infiltrate in the right lung base on the current exam. There is no gross pleural effusion. Osseous structures are unchanged. Impression: Increasing strandy atelectasis/infiltrate right lung base. Chronic bibasilar interstitial changes. Cardiomegaly PROCEDURE INTERPRETED AT [facility] DEPARTMENT OF RADIOLOGY Final Report Signed by: Dr. Hanny Arellano
[2016-06-13] MEDS: ALBUTEROL/IPRATROPIUM 3 ML NEB RESP TX SCH ×3 (08:06→19:59)
[2016-06-13] MEDS: POTASSIUM CHLORIDE 10 MEQ TABLET PO SCH (08:59)
[2016-06-13] MEDS: SILDENAFIL 20 MG TABLET PO SCH ×3 (08:59→20:24)
[2016-06-13] MEDS: PANTOPRAZOLE 40 MG TABLET PO SCH (08:59)
[2016-06-13] MEDS: LEVOTHYROXINE 100 MCG TABLET PO SCH (08:59)
[2016-06-13] MEDS: MYCOPHENOLATE MOFETIL 250 MG CAPSULE PO SCH (08:59)
[2016-06-13] MEDS: TAMSULOSIN 0.4 MG CAPSULE PO SCH (09:00)
[2016-06-13] MEDS: INSULIN ASPART PROTAMINE/ASPART 70/30 100 UNIT/ML SUBCUT SCH ×2 (09:00→20:24)
[2016-06-13] MEDS: FUROSEMIDE 40 MG TABLET PO SCH ×2 (09:00→15:39)
--- NOTE | 2016-06-13 09:00 | EKG Report ---
Stationary ECG Study [facility] Test Date: 06/13/2016 2:52:46 AM Pat Name: LAW MARTE Department: Room: 112 Gender: F Lead Pastor: : 1945 Requested by: Samreen Henry Order Number: [id number] Reading MD: CHARLETTE MCKEE Intervals [place] Rate: 110 P: 44 FL: 150 QRS: 105 QRSD: 90 T: 29 QT: 347 QTc: 412 Interpretive Statements SINUS TACHYCARDIA POSSIBLE RIGHT ATRIAL ENLARGEMENT LEFT ATRIAL ENLARGEMENT POSSIBLE RIGHT VENTRICULAR HYPERTROPHY NONSPECIFIC T-WAVE ABNORMALITY Electronically Signed On 06-13-16 08:59:34 CDT by CHARLETTE MCKEE [id number]
--- NOTE | 2016-06-13 09:27 | Pulmonology Consult Note ---
Assessment and Plan (1) Bronchopneumonia Status: Acute Assessment and plan: It appears she has an acute bronchopneumonia involving the right middle lobe probably right lower lobe as well. This came about while she was in a swing bed so we should cover her with broad-spectrum antibiotics such as we are doing with vancomycin and cefepime. She is also immunocompromised. Chronically on CellCept and prednisone Current Visit: No (2) Nonspecific interstitial pneumonitis Status: Acute Assessment and plan: This is associated with rheumatoid arthritis in her. Current Visit: No (3) Cor pulmonale Status: Chronic Assessment and plan: She does have pulmonary hypertension and has had recurrent episodes of right- sided heart failure. At present her legs are not edematous. Current Visit: No (4) Rheumatoid arthritis Status: Chronic Assessment and plan: Continuing medication for rheumatoid except we will hold her CellCept for now. Current Visit: No Qualifiers: Laterality: bilateral (5) Mitral regurgitation Status: Chronic Assessment and plan: She does have moderate mitral regurgitation which aggravates her pulmonary hypertension. Current Visit: No History of Present Illness Chief complaint: Shortness of breath, chest pain History of present illness: Ms. Bowens is a 71 year old female was here couple weeks ago with acute bronchitis. She was sent to the swing bed at the [facility]. Apparently she became more short of breath and had chest pain overnight. She came into the emergency room here was found to have a right middle lobe infiltrate probable pneumonia. She was hypoxemic. Admitted to ICU. Presently on facemask CPAP. She is immunosuppressed chronically taking CellCept and prednisone. She is a non-smoker. She has pulmonary hypertension and mitral regurgitation. She has had right-sided heart failure on previous admissions. She is not having any edema now. She does not think she has had fever. She had chest pain aggravated by deep breathing and coughing. She does have a history of renal insufficiency. She takes Flomax for her bladder. Also has hypothyroidism and is on Synthroid. Home Medications Medication Instructions Recorded Confirmed Type Mycophenolate Mofetil [Cellcept] 1,000 mg PO BID 01/27/15 06/13/16 History Montelukast Tab [Singulair Tab] 10 mg PO BEDTIME #60 tablet 04/08/15 06/13/16 Rx Levothyroxine Tab [Synthroid Tab] 200 mcg PO QAM 02/15/16 06/13/16 History Albuterol/Ipratropium Neb [Duoneb] 3 ml RESP TX TID #90 vial 04/15/16 06/13/16 Rx Insulin Aspart Prot/Asp 70/30 15 unit SUBCUT BID 04/29/16 06/13/16 History [NovoLOG Mix 70/30] predniSONE TAB [PredniSONE] 10 mg PO QAM 04/29/16 06/13/16 History Sildenafil [Revatio] 10 mg PO TID #100 tablet 05/03/16 06/13/16 Rx Furosemide Tab [Lasix Tab] 40 mg PO BID #60 tablet 05/25/16 06/13/16 Rx Tamsulosin [Flomax] 0.4 mg PO DAILY #30 capsule 05/25/16 06/13/16 Rx Potassium Chloride Cap/Tab [K Dur] 10 meq PO DAILY W/BREAKFAST 06/01/16 History Acetaminophen Tab [Tylenol Tab] 325 mg PO Q4H PRN #0 tablet 06/08/16 06/13/16 Rx Acetaminophen Tab [Tylenol Tab] 650 mg PO Q4H PRN #0 tablet 06/08/16 06/13/16 Rx Benzonatate [Tessalon] 100 mg PO BID PRN #0 capsule 06/08/16 06/13/16 Rx Docusate Sodium Cap [Colace Cap] 100 mg PO BID PRN #0 capsule 06/08/16 06/13/16 Rx HYDROcodone/ACETAMIN 5-325 [[place] 1 tablet PO Q4H PRN #10 tablet 06/08/16 Rx 5-325] Insulin Lispro [HumaLOG] See Protocol SUBCUT ACHS unit 06/08/16 06/13/16 Rx Levofloxacin Tab [Levaquin Tab] 500 mg PO DAILY #5 tablet 06/08/16 06/13/16 Rx Magnesium Hydroxide Susp [Milk of 30 ml PO BID PRN #0 06/08/16 06/13/16 Rx Magnesia] Pantoprazole Tab [Protonix Tab] 40 mg PO DAILY tablet 06/08/16 06/13/16 Rx Potassium Phos/Sod Phos Tab [K 250 mg PO QID W/MEALS & HS 1 Days 06/08/16 Rx Phos Neutral] guaiFENesin ER TAB [Mucinex] 600 mg PO BID tablet 06/08/16 06/13/16 Rx Allergies Allergy/AdvReac Type Severity Reaction Status Date / Time No Known Allergies Allergy Verified 04/07/16 18:47 12 point system: reviewed and no additional remarkable complaints except as stated - Constitutional Constitutional: Present: fatigue - Cardiovascular Cardiovascular: Present: chest pain at rest, dyspnea, dyspnea on exertion - Respiratory Respiratory: Present: cough, dyspnea, dyspnea on exertion - Musculoskeletal Musculoskeletal: Present: arthralgias - Hematologic/Lymphatic Hematologic/Lymphatic: Present: easy bruising Exam (Pulmonay) H&P - Constitutional Vitals: Period Temp Pulse Resp BP Sys/Parks Pulse Ox Last 24 Hr 109-113 22-30 109-115/81-85 93-98 Exam: She is afebrile. Pulse 110. O2 sat in the mid 90s on facemask CPAP. Blood pressure normal. Pupils react to light. Neck supple. Chest reveals some crackles in the bases and some rhonchi over the right lower and middle lobe. Heart rapid rate and rhythm, grade 1/6 systolic murmur left sternal border. Abdomen soft nontender bowel sounds present. Extremities no clubbing cyanosis edema. Calves nontender Medical,Surgical,& Family Hx - Medical History Cardio: History of: Cardiac Dysrhythmia (in past), Hypertension No history of: CHF, [place], Pacemaker Neurology: No history of: Brain Aneurysm, Cerebral Hemorrhage, Cerebrovascular Accident , Cerebral Palsy, Dementia, Migraine, Multiple Sclerosis, Parkinson's Disease, Peripheral Neuropathy, Seizures, TIA, Vertigo, Neurologocal Cancer Endocrine: History of: Diabetes Mellitus (IDDM), Thyroid Disorder Rheumatology: History of;: Rheumatoid Arthritis Respiratory: History of: Pneumonia, Respiratory Problems (Pulmonary fibrosis and secondary pulmonary hypertension from primary rheuma) No history of: Asthma, COPD Gastrointestinal: History of: GERD, GI Problems (dysphagia) No history of: Hepatitis, Liver Problems Hematology: History of: Anemia No history of: Blood Transfusion Reaction Other: No history of: Anesthesia Reactions, Cancer - Surgical History Cardiac Surgeries: Patient Denies: Cardiac Catheterization, Carotid Endarterectomy Thoracic Surgeries: Patient denies;: Lobectomy Neurologic Surgeries: Patient denies: Brain Aneurysm, Cerebral Hemorrhage, Neurologic Surgery HEENT Surgeries: Surgical HX of: Eye Surgery (cataracts), Thyroid Surgery ( thyroidectomy-2002) Patient denies: Carotid Endarterectomy, Tonsilectomy & Adenoidectomy Abdominal Surgeries: Surgical HX of: Colonoscopy, EGD Patient denies: Abdominal Surgery, Appendectomy, Cholecystectomy, Hernia Repair Reproductive Surgeries: Patient denies;: Breast Surgery, Hysterectomy, Tubal Ligation Orthopedic Surgeries: Patient denies;: Orthopedic Surgery, Total Hip Replacement, Total Knee Replacement - Family History Family History: Reports;: Family Cancer (aunt- cervical cancer, aunt- breast cancer), Family Diabetes (mother), Family Hypertension (Mom) Denies;: Family Heart Disease - Social History Smoking Status: Never smoker Frequency of Alcohol Use: None Type of Drug Use: None Results - Labs CBC & BMP: 06/13/16 02:54 06/13/16 02:54 Lab Results: I have reviewed the past 24 hour labs - Diagnostic Findings Procedure: Chest x-ray: image reviewed by me (Chronic interstitial lung disease. Acute infiltrate in the area of the right middle lobe)
[2016-06-13] MEDS: methylPREDNISolone SOD SUC 40 MG/1 ML VIAL IV SCH ×2 (13:55→20:24)
[2016-06-13] MEDS: CEFEPIME 1,000 MG in SODIUM CHLORIDE 0.9% 100 ML IV SCH (15:39)
[2016-06-13] MEDS: MONTELUKAST 10 MG TABLET PO SCH (20:24)
[2016-06-13] MEDS: BENZONATATE 100 MG CAPSULE PO PRN (20:35)
[2016-06-13] MEDS: VANCOMYCIN INJ 1,000 MG in SODIUM CHLORIDE 0.9% 250 ML IV SCH (23:18)
[2016-06-14] MEDS: methylPREDNISolone SOD SUC 40 MG/1 ML VIAL IV SCH ×3 (03:20→20:28)
[2016-06-14] MEDS: CEFEPIME 1,000 MG in SODIUM CHLORIDE 0.9% 100 ML IV SCH ×2 (03:20→15:37)
[2016-06-14 03:50] LABS: ABG Base Excess 3.1 MMOL/L (-2.5-2.5); ABG HCO3 25.9 MMOL/L (20-26); ABG Oxygen Saturation 95.5 % (95-100); ABG PCO2 33.9 MM HG (35-48); ABG PH 7.501 (7.35-7.45); ABG PO2 83.1 MM HG (80-95); ABG TCO2 26.9 MMOL/L (23-27)
[2016-06-14 05:16] LABS: Basophils % 0.1 % (0.0-0.8); Hematocrit 39.6 VOL% (35.7-47.0); Hemoglobin 12.6 GM/DL (12.0-16.0); Immature Granulocytes % 0.7 %; Immature Granulocytes Absolute 0.08 #; Lymphocytes # 0.9 10*3/uL (1.4-4.0); Lymphocytes % 8.1 % (21.3-54.2); Mean Corpuscular HGB Conc 31.8 GM/DL (32-36); Mean Corpuscular Hemoglobin 26 PG (27-34); Mean Platelet Volume 9.9 FL (9.6-12.0); Monocytes # 0.3 10*3/uL (0.11-0.8); Monocytes % 2.8 % (1.7-12.7); Neutrophils % 88.3 % (38.7-73.9); Platelet Count 269 T/CUMM (130-400); Red Blood Count 4.89 MC/CUMM (3.8-5.5); Red Cell Distribution Width 19.8 % (9.3-17.3); White Blood Count 11.3 T/CUMM (4-12)
[2016-06-14 05:45] LABS: Calcium 8.1 MG/DL (8.5-10.1); Magnesium 1.5 MG/DL (1.8-2.4); Osmolality,Calculated 295.7 MOS/KG (273-304); Potassium 3.9 MMOL/L (3.5-5.1)
[2016-06-14] MEDS: LEVOTHYROXINE 100 MCG TABLET PO SCH (06:34)
--- NOTE | 2016-06-14 07:10 | Pulmonology Progress Note ---
Pulmonary - PN: Subj Interval history: This 71-year-old white female has interstitial lung disease associated with rheumatoid arthritis. He has had frequent admissions with bronchitis or pneumonia. This time it appears she has a right middle lobe pneumonia. She is immunocompromised from her immunosuppressive medication for her rheumatoid arthritis. We are holding CellCept at present. She has been on facemask BiPAP overnight and oxygen saturations have been good. Think we can get by with nasal oxygen during the daytime. We will try that today. Try to get her to eat then too. Exam (Progress Note) - Constitutional Vitals: Period Temp Pulse Resp BP Sys/Parks Pulse Ox Last 24 Hr 96.4 F-98.2 F 106-136 17-33 91-130/76-101 91-100 Exam: Patient's alert. Heart rate is a little fast at 110. Vital signs otherwise normal. Pupils react to light. Face mask CPAP in place. Neck is supple no bruits. Chest shows a few rhonchi over the right middle lobe and some crackles in the bases. Heart rapid rate normal rhythm. Grade 1/6 systolic murmur left sternal border. No gallops. Abdomen soft nontender no masses. Remedies no clubbing cyanosis or edema. Calves nontender Results - Labs CBC & BMP: 06/14/16 04:56 06/14/16 04:56 Lab Results: I have reviewed the past 24 hour labs Assessment and Plan (1) Bronchopneumonia Status: Acute Assessment and plan: It appears she has an acute bronchopneumonia involving the right middle lobe probably right lower lobe as well. This came about while she was in a swing bed so we should cover her with broad-spectrum antibiotics such as we are doing with vancomycin and cefepime. She is also immunocompromised. Chronically on CellCept and prednisone 06-14-16 right middle lobe bronchopneumonia on empiric antibiotics. A little better this morning. Current Visit: No (2) Nonspecific interstitial pneumonitis Status: Acute Assessment and plan: This is associated with rheumatoid arthritis in her. 06/14/16 this is related to her rheumatoid arthritis. Presently on high-dose steroids as well as antibiotics. Current Visit: No (3) Cor pulmonale Status: Chronic Assessment and plan: She does have pulmonary hypertension and has had recurrent episodes of right- sided heart failure. At present her legs are not edematous. 06/14/16 she has a history of cor pulmonale secondary to pulmonary hypertension and has mitral regurgitation. No peripheral edema. We need to be cautious about hydration. We will stop her saline. Current Visit: No (4) Rheumatoid arthritis Status: Chronic Assessment and plan: Continuing medication for rheumatoid except we will hold her CellCept for now. Current Visit: No Qualifiers: Laterality: bilateral (5) Mitral regurgitation Status: Chronic Assessment and plan: She does have moderate mitral regurgitation which aggravates her pulmonary hypertension. Current Visit: No
[2016-06-14] MEDS: INSULIN ASPART PROTAMINE/ASPART 70/30 100 UNIT/ML SUBCUT SCH ×2 (08:24→20:29)
[2016-06-14] MEDS: TAMSULOSIN 0.4 MG CAPSULE PO SCH (08:25)
[2016-06-14] MEDS: FUROSEMIDE 40 MG TABLET PO SCH ×2 (08:25→15:36)
[2016-06-14] MEDS: POTASSIUM CHLORIDE 10 MEQ TABLET PO SCH (08:25)
[2016-06-14] MEDS: SILDENAFIL 20 MG TABLET PO SCH ×3 (08:25→20:28)
[2016-06-14] MEDS: PANTOPRAZOLE 40 MG TABLET PO SCH (08:25)
[2016-06-14] MEDS: ALBUTEROL/IPRATROPIUM 3 ML NEB RESP TX SCH ×3 (08:44→19:30)
--- NOTE | 2016-06-14 09:13 | Hospitalist Progress Note ---
Assessment and Plan (1) Acute exacerbation of chronic obstructive airways disease Status: Acute Assessment and plan: The patient appears to have acute exacerbation of her chronic inflammatory lung disease causing worse cor pulmonale and respiratory failure. The patient has narrowly avoided intubation. We hope that she will be improved enough by tomorrow to go to the floor. We will continue present therapies. Current Visit: No (2) Rheumatoid arthritis Status: Chronic Current Visit: No Qualifiers: Laterality: bilateral (3) Acute on chronic respiratory failure Status: Acute Current Visit: No Hospitalist: Subjective Interval history: Mrs. Bowens has pulmonary hypertension which is likely due to rheumatoid lung disease. The patient has superimposed pneumonia. The patient is improving with treatment of lung infection. Magnesium is low and will be repleted. I coordinated care with Dr. Slater today. The patient does not complain of palpitations or angina. She still has shortness of breath but with incremental improvement from yesterday. Exam - Constitutional Vitals: Period Temp Pulse Resp BP Sys/Parks Pulse Ox Last 24 Hr 96.4 F-98.2 F 104-136 17-33 91-130/76-101 92-100 Exam: Constitutional System: Mild to moderate distress. No tremulousness. Using BiPAP at night Head: Normocephalic, atraumatic. Ears, Nose and Throat System: No evidence of Otitis or Mastoiditis. No epistaxis or discharge Eyes System: Pupils equal, round, and reactive. Extraocular muscles intact. Neck: Supple, without adenopathy, No jugular venous distention. No thyromegaly , neck mass, or prior surgery apparent. Respiratory System: Chest reduced lung volumes with some Velcro sounds to auscultation. Cardiovascular System: Heart with regular rate and rhythm. No murmur. GI System: Abdomen soft, nontender. Normo active bowel sounds present. Musculoskeletal System: limbs with no pedal edema. Full distal pulses. Neurological System: No discernable sensory deficit. No aphasia Psychiatric System: Conversation is rational Results - Labs CBC & BMP: 06/14/16 04:56 06/14/16 04:56 Lab Results: I have reviewed the past 24 hour labs
[2016-06-14] MEDS: INSULIN LISPRO 100 UNIT/ML SUBCUT SCH ×2 (16:02→20:16)
[2016-06-14] MEDS: VANCOMYCIN INJ 1,000 MG in SODIUM CHLORIDE 0.9% 250 ML IV SCH (16:30)
[2016-06-14] MEDS: BENZONATATE 100 MG CAPSULE PO PRN (20:28)
[2016-06-14] MEDS: MONTELUKAST 10 MG TABLET PO SCH (20:28)
[2016-06-15] MEDS: methylPREDNISolone SOD SUC 40 MG/1 ML VIAL IV SCH ×3 (03:42→21:07)
[2016-06-15] MEDS: CEFEPIME 1,000 MG in SODIUM CHLORIDE 0.9% 100 ML IV SCH ×2 (03:42→16:12)
[2016-06-15] MEDS: LEVOTHYROXINE 100 MCG TABLET PO SCH (06:04)
--- NOTE | 2016-06-15 07:02 | Pulmonology Progress Note ---
Pulmonary - PN: Subj Interval history: This 71-year-old white female has interstitial lung disease associated with rheumatoid arthritis. He has had frequent admissions with bronchitis or pneumonia. This time it appears she has a right middle lobe pneumonia. She is immunocompromised from her immunosuppressive medication for her rheumatoid arthritis. We are holding CellCept at present. She has been on facemask BiPAP overnight and oxygen saturations have been good. Think we can get by with nasal oxygen during the daytime. We will try that today. Try to get her to eat then too. 06/15/2016 patient feeling much better today. Chest x-ray looks a little better. Oxygen saturations improved. Blood sugars are little high. Should be able to move to the floor today. I am adding metformin. Not quite ready to reduce steroids yet. 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 Continuing sliding scale. Cor pulmonale is controlled, no peripheral edema. Exam (Progress Note) - Constitutional Vitals: Period Temp Pulse Resp BP Sys/Parks Pulse Ox Last 24 Hr 97.2 F-98.8 F 30-120 18-111 90-137/70-103 90-100 Exam: Patient's alert. Heart rate is a little fast at 105. Vital signs otherwise normal. Pupils react to light. On nasal biprong's at present. Oxygen saturations in the mid to upper 90s. Neck is supple no bruits. Chest shows a few rhonchi over the right middle lobe and some crackles in the bases. Heart rapid rate normal rhythm. Grade 1/6 systolic murmur left sternal border. No gallops. Abdomen soft nontender no masses. Remedies no clubbing cyanosis or edema. Calves nontender Results - Labs CBC & BMP: 06/14/16 04:56 06/14/16 04:56 Lab Results: I have reviewed the past 24 hour labs - Diagnostic Findings Procedure: Chest x-ray: image reviewed by me (Cardiomegaly as before. Right diaphragm slightly elevated. Patchy infiltrate at right base but less than before. Definitely improved x-ray.) Assessment and Plan (1) Bronchopneumonia Status: Acute Assessment and plan: It appears she has an acute bronchopneumonia involving the right middle lobe probably right lower lobe as well. This came about while she was in a swing bed so we should cover her with broad-spectrum antibiotics such as we are doing with vancomycin and cefepime. She is also immunocompromised. Chronically on CellCept and prednisone 06-14-16 right middle lobe bronchopneumonia on empiric antibiotics. A little better this morning. 06/15/2016 continuing empiric antibiotics for bronchopneumonia. Cultures negative thus far. Current Visit: No (2) Nonspecific interstitial pneumonitis Status: Acute Assessment and plan: This is associated with rheumatoid arthritis in her. 06/14/16 this is related to her rheumatoid arthritis. Presently on high-dose steroids as well as antibiotics. 06/15/2016 chronic underlying interstitial lung disease. Current Visit: No (3) Cor pulmonale Status: Chronic Assessment and plan: She does have pulmonary hypertension and has had recurrent episodes of right- sided heart failure. At present her legs are not edematous. 06/14/16 she has a history of cor pulmonale secondary to pulmonary hypertension and has mitral regurgitation. No peripheral edema. We need to be cautious about hydration. We will stop her saline. 317 weight stable, no peripheral edema. Cor pulmonale controlled. Current Visit: No (4) Rheumatoid arthritis Status: Chronic Assessment and plan: Continuing medication for rheumatoid except we will hold her CellCept for now. Current Visit: No Qualifiers: Laterality: bilateral (5) Mitral regurgitation Status: Chronic Assessment and plan: She does have moderate mitral regurgitation which aggravates her pulmonary hypertension. Current Visit: No
[2016-06-15] MEDS: ALBUTEROL/IPRATROPIUM 3 ML NEB RESP TX SCH ×3 (07:11→19:07)
--- NOTE | 2016-06-15 07:48 | XRay Report ---
Referring Physician: Jerel Guo MD Exam: XR chest 1V portable Date: June 15, 2016 at 3:24 AM Reason: Interstitial lung disease, pneumonia Comparison: Chest one view portable June 13, 2016, chest PA and lateral January 11, 2012 Findings: The cardiac silhouette is again enlarged, and there is persistent mild elevation of the right hemidiaphragm. There are scattered reticulonodular opacities within both lower lung zones. This could reflect interstitial lung disease, especially given the chronicity of these findings. However, the opacities within the right lower lung zone have slightly improved, which could represent improving superimposed pneumonia. No pneumothorax or definite pleural fluid is identified. The osseous structures appear stable. Impression: There is again suggestion of interstitial lung disease. There is slight improved aeration of the right lower lung zone, which could represent improving pneumonia. PROCEDURE INTERPRETED AT [facility] DEPARTMENT OF RADIOLOGY Final Report Signed by: Dr. Ursula Lindsey
[2016-06-15] MEDS: PANTOPRAZOLE 40 MG TABLET PO SCH (08:44)
[2016-06-15] MEDS: FUROSEMIDE 40 MG TABLET PO SCH ×2 (08:44→16:11)
[2016-06-15] MEDS: TAMSULOSIN 0.4 MG CAPSULE PO SCH (08:44)
[2016-06-15] MEDS: POTASSIUM CHLORIDE 10 MEQ TABLET PO SCH (08:44)
[2016-06-15] MEDS: metFORMIN 500 MG TABLET PO SCH ×2 (08:44→18:27)
[2016-06-15] MEDS: SILDENAFIL 20 MG TABLET PO SCH ×3 (08:44→21:06)
[2016-06-15] MEDS: INSULIN ASPART PROTAMINE/ASPART 70/30 100 UNIT/ML SUBCUT SCH ×2 (08:46→21:08)
[2016-06-15] MEDS: INSULIN LISPRO 100 UNIT/ML SUBCUT SCH ×4 (08:47→21:07)
--- NOTE | 2016-06-15 09:28 | Hospitalist Progress Note ---
Assessment and Plan (1) Acute exacerbation of chronic obstructive airways disease Status: Acute Assessment and plan: The patient appears to have acute exacerbation of her chronic inflammatory lung disease causing worse cor pulmonale and respiratory failure. The patient has narrowly avoided intubation. The patient has improved well enough to go to telemetry. The patient will continue on moderate dose steroid medications and her anti-diabetes medications will be reinforced. We will recheck electrolytes tomorrow. Current Visit: No (2) Rheumatoid arthritis Status: Chronic Current Visit: No Qualifiers: Laterality: bilateral (3) Acute on chronic respiratory failure Status: Acute Current Visit: No Hospitalist: Subjective Interval history: The patient has good improvement with her breathlessness and is only requiring nasal prongs oxygen. The patient has less swelling today. Blood glucose is elevated. The patient denies angina. Exam - Constitutional Vitals: Period Temp Pulse Resp BP Sys/Parks Pulse Ox Last 24 Hr 97.2 F-98.8 F 104-120 18-34 90-137/70-103 90-100 Exam: Constitutional System: Minimal distress. No tremulousness. Using BiPAP at night Head: Normocephalic, atraumatic. Ears, Nose and Throat System: No evidence of Otitis or Mastoiditis. No epistaxis or discharge Eyes System: Pupils equal, round, and reactive. Extraocular muscles intact. Neck: Supple, without adenopathy, No jugular venous distention. No thyromegaly , neck mass, or prior surgery apparent. Respiratory System: Chest improved lung volumes with some Velcro sounds to auscultation. Cardiovascular System: Heart with regular rate and rhythm. No murmur. GI System: Abdomen soft, nontender. Normo active bowel sounds present. Musculoskeletal System: limbs with no pedal edema. Full distal pulses. Neurological System: No discernable sensory deficit. No aphasia Psychiatric System: Conversation is rational Results - Labs CBC & BMP: 06/14/16 04:56 06/14/16 04:56 Lab Results: I have reviewed the past 24 hour labs
[2016-06-15] MEDS: VANCOMYCIN INJ 1,000 MG in SODIUM CHLORIDE 0.9% 250 ML IV SCH (11:55)
[2016-06-15] MEDS: MONTELUKAST 10 MG TABLET PO SCH (21:06)
[2016-06-15] MEDS: MYCOPHENOLATE MOFETIL 250 MG CAPSULE PO SCH (21:06)
[2016-06-16] MEDS: methylPREDNISolone SOD SUC 40 MG/1 ML VIAL IV SCH (03:53)
[2016-06-16] MEDS: CEFEPIME 1,000 MG in SODIUM CHLORIDE 0.9% 100 ML IV SCH ×2 (03:53→15:38)
[2016-06-16 04:53] LABS: Basophils % 0.1 % (0.0-0.8); Hematocrit 43.1 VOL% (35.7-47.0); Hemoglobin 13.2 GM/DL (12.0-16.0); Immature Granulocytes % 1.1 %; Immature Granulocytes Absolute 0.18 #; Lymphocytes # 1.1 10*3/uL (1.4-4.0); Lymphocytes % 6.3 % (21.3-54.2); Mean Corpuscular HGB Conc 30.6 GM/DL (32-36); Mean Corpuscular Hemoglobin 26 PG (27-34); Mean Corpuscular Volume 84.7 FL (87-102); Mean Platelet Volume 11.2 FL (9.6-12.0); Monocytes # 0.8 10*3/uL (0.11-0.8); Monocytes % 4.7 % (1.7-12.7); Neutrophils # 14.9 10*3/uL (1.4-7.4); Neutrophils % 87.8 % (38.7-73.9); Platelet Count 186 T/CUMM (130-400); Red Blood Count 5.09 MC/CUMM (3.8-5.5); Red Cell Distribution Width 20.8 % (9.3-17.3); White Blood Count 16.9 T/CUMM (4-12)
[2016-06-16] MEDS: VANCOMYCIN INJ 1,000 MG in SODIUM CHLORIDE 0.9% 250 ML IV SCH (04:53)
[2016-06-16 05:24] LABS: Calcium 9.1 MG/DL (8.5-10.1); Magnesium 1.8 MG/DL (1.8-2.4); Osmolality,Calculated 295.1 MOS/KG (273-304); Potassium 3.7 MMOL/L (3.5-5.1)
[2016-06-16 05:30] LABS: Troponin I Only 0.127 NG/ML (0.00-0.045)
[2016-06-16] MEDS: ALBUTEROL/IPRATROPIUM 3 ML NEB RESP TX SCH ×3 (06:54→20:02)
[2016-06-16] MEDS: LEVOTHYROXINE 100 MCG TABLET PO SCH (06:58)
--- NOTE | 2016-06-16 07:26 | Pulmonology Progress Note ---
Pulmonary - PN: Subj Interval history: This 71-year-old white female has interstitial lung disease associated with rheumatoid arthritis. He has had frequent admissions with bronchitis or pneumonia. This time it appears she has a right middle lobe pneumonia. She is immunocompromised from her immunosuppressive medication for her rheumatoid arthritis. We are holding CellCept at present. She has been on facemask BiPAP overnight and oxygen saturations have been good. Think we can get by with nasal oxygen during the daytime. We will try that today. Try to get her to eat then too. 06/15/2016 patient feeling much better today. Chest x-ray looks a little better. Oxygen saturations improved. Blood sugars are little high. Should be able to move to the floor today. I am adding metformin. Not quite ready to reduce steroids yet. 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 Continuing sliding scale. Cor pulmonale is controlled, no peripheral edema. 06/16/2016 patient is feeling better. Tapering steroids. Probably could go to oral antibiotics tomorrow. Exam (Progress Note) - Constitutional Vitals: Period Temp Pulse Resp BP Sys/Parks Pulse Ox Last 24 Hr 97 F-97.6 F 109-127 18-31 96-124/68-96 90-100 Exam: Patient's alert. Heart rate is a little fast at 105. Vital signs otherwise normal. Pupils react to light. On nasal biprong's at present. Oxygen saturations in the mid to upper 90s. Neck is supple no bruits. Chest shows a few rhonchi over the right middle lobe and some crackles in the bases. Heart rapid rate normal rhythm. Grade 1/6 systolic murmur left sternal border. No gallops. Abdomen soft nontender no masses. Remedies no clubbing cyanosis or edema. Calves nontender. Little change from yesterday. Results - Labs CBC & BMP: 06/16/16 04:34 06/16/16 04:34 Lab Results: I have reviewed the past 24 hour labs Assessment and Plan (1) Bronchopneumonia Status: Acute Assessment and plan: It appears she has an acute bronchopneumonia involving the right middle lobe probably right lower lobe as well. This came about while she was in a swing bed so we should cover her with broad-spectrum antibiotics such as we are doing with vancomycin and cefepime. She is also immunocompromised. Chronically on CellCept and prednisone 06-14-16 right middle lobe bronchopneumonia on empiric antibiotics. A little better this morning. 06/15/2016 continuing empiric antibiotics for bronchopneumonia. Cultures negative thus far. 06/16/2016 continuing empiric antibiotics. Probably could change to oral antibiotics tomorrow. Cultures have been negative. Current Visit: No (2) Nonspecific interstitial pneumonitis Status: Acute Assessment and plan: This is associated with rheumatoid arthritis in her. 06/14/16 this is related to her rheumatoid arthritis. Presently on high-dose steroids as well as antibiotics. 06/15/2016 chronic underlying interstitial lung disease. 06/16/2016 changing to oral prednisone. This is interstitial pneumonitis associated with rheumatoid disease. Current Visit: No (3) Cor pulmonale Status: Chronic Assessment and plan: She does have pulmonary hypertension and has had recurrent episodes of right- sided heart failure. At present her legs are not edematous. 06/14/16 she has a history of cor pulmonale secondary to pulmonary hypertension and has mitral regurgitation. No peripheral edema. We need to be cautious about hydration. We will stop her saline. 06/15/16 weight stable, no peripheral edema. Cor pulmonale controlled. 06/16/2016 again no peripheral edema. Current Visit: No (4) Rheumatoid arthritis Status: Chronic Assessment and plan: Continuing medication for rheumatoid except we will hold her CellCept for now. Current Visit: No Qualifiers: Laterality: bilateral (5) Mitral regurgitation Status: Chronic Assessment and plan: She does have moderate mitral regurgitation which aggravates her pulmonary hypertension. Current Visit: No
[2016-06-16] MEDS: PANTOPRAZOLE 40 MG TABLET PO SCH (08:36)
[2016-06-16] MEDS: TAMSULOSIN 0.4 MG CAPSULE PO SCH (08:36)
[2016-06-16] MEDS: SILDENAFIL 20 MG TABLET PO SCH ×3 (08:36→21:08)
[2016-06-16] MEDS: POTASSIUM CHLORIDE 10 MEQ TABLET PO SCH (08:36)
[2016-06-16] MEDS: metFORMIN 500 MG TABLET PO SCH ×2 (08:36→16:47)
[2016-06-16] MEDS: FUROSEMIDE 40 MG TABLET PO SCH ×2 (08:36→15:37)
[2016-06-16] MEDS: INSULIN ASPART PROTAMINE/ASPART 70/30 100 UNIT/ML SUBCUT SCH ×2 (08:37→21:08)
[2016-06-16] MEDS: INSULIN LISPRO 100 UNIT/ML SUBCUT SCH ×4 (08:37→21:07)
[2016-06-16] MEDS: MYCOPHENOLATE MOFETIL 250 MG CAPSULE PO SCH ×2 (08:38→21:07)
[2016-06-16] MEDS ORDERED: predniSONE 20 MG TABLET PO SCH (09:00)
--- NOTE | 2016-06-16 14:41 | Hospitalist Progress Note ---
Assessment and Plan (1) Acute exacerbation of chronic obstructive airways disease Status: Acute Assessment and plan: The patient appears to have acute exacerbation of her chronic inflammatory lung disease causing worse cor pulmonale and respiratory failure. The patient has narrowly avoided intubation. The patient has improved well enough to transition to oral steroids. The patient will continue on moderate dose steroid medications and her anti-diabetes medications have been reinforced and she now has improved glucose control. We will recheck electrolytes tomorrow. Current Visit: No (2) Rheumatoid arthritis Status: Chronic Current Visit: No Qualifiers: Laterality: bilateral (3) Acute on chronic respiratory failure Status: Acute Current Visit: No Hospitalist: Subjective Interval history: The patient is breathing a little better each day. She has less congestion and lung volumes are improving. The patient is now on oral steroids. She continues on IV antibiotics Exam - Constitutional Vitals: Period Temp Pulse Resp BP Sys/Parks Pulse Ox Last 24 Hr 97 F-98.4 F 107-127 18-24 96-125/68-89 92-100 Exam: Constitutional System: Minimal distress. No tremulousness. Using BiPAP at night Head: Normocephalic, atraumatic. Ears, Nose and Throat System: No evidence of Otitis or Mastoiditis. No epistaxis or discharge Eyes System: Pupils equal, round, and reactive. Extraocular muscles intact. Neck: Supple, without adenopathy, No jugular venous distention. No thyromegaly , neck mass, or prior surgery apparent. Respiratory System: Chest improved lung volumes with less Velcro sounds to auscultation. Cardiovascular System: Heart with regular rate and rhythm. No murmur. GI System: Abdomen soft, nontender. Normo active bowel sounds present. Musculoskeletal System: limbs with no pedal edema. Full distal pulses. Neurological System: No discernable sensory deficit. No aphasia Psychiatric System: Conversation is rational Results - Labs CBC & BMP: 06/16/16 04:34 06/16/16 04:34 Lab Results: I have reviewed the past 24 hour labs
[2016-06-16] MEDS: BENZONATATE 100 MG CAPSULE PO PRN (15:37)
[2016-06-16] MEDS: MONTELUKAST 10 MG TABLET PO SCH (21:08)
[2016-06-17] VITALS: BP 90/58
[2016-06-17] MEDS ORDERED: NOREPINEPHRINE 4 MG/4 ML VIAL IV ONE (01:15)
[2016-06-17] MEDS ORDERED: ETOMIDATE 20 MG/10 ML VIAL IV ONE (01:18)
[2016-06-17] MEDS ORDERED: SODIUM CHLORIDE 0.9% 1,000 ML IV ONE (01:19)
[2016-06-17] MEDS ORDERED: NOREPINEPHRINE 8 MG in SODIUM CHLORIDE 0.9% 242 ML IV SCH (01:30)
--- NOTE | 2016-06-17 01:36 | Hospitalist Progress Note ---
Hospitalist: Subjective Interval history: code loli called , pt was found unresponsive , no pulse no bp no spontaneous respiration, , CPR started pt was intubated by Dr Carmichael, cpr contiuned , All ACLS protocal was applied, pt could not able to be revived, pt was declared at 1.29AM at 05\05\2017 cause of , acute cardiorespiratory failure sec to interestial lung(ILD) disease secondary to pneumonia family tried to be contacted unable to reach by now will try later. Exam - Constitutional Vitals: Period Temp Pulse Resp BP Sys/Parks Pulse Ox Last 24 Hr 97.1 F-98.4 F 106-118 18-28 90-125/58-89 87-100 Results - Labs CBC & BMP: 06/16/16 04:34 06/16/16 04:34
[2016-06-17 01:47] LABS: Albumin 2.3 G/DL (3.4-5.0); Bilirubin,Total 0.9 MG/DL (0.2-1.0); CKMB % 3.4 %; Osmolality,Calculated 295.5 MOS/KG (273-304); Potassium 4.8 MMOL/L (3.5-5.1); Total Protein 5.3 G/DL (6.4-8.3)
[2016-06-17 01:48] LABS: Troponin I Only 0.114 NG/ML (0.00-0.045)
--- NOTE | 2016-06-17 02:41 | Event Note ---
ER note/code note/procedure note Called to the floor for a code patient was found unresponsive no pulse ACLS protocol started. Patient was intubated successfully first attempt using a 7.5 ET tube with a Monge #4, vocal cords seem to pass successfully through without complication and CO2 color change positive auscultation was heard over both lungs patient's O2 saturation improved. After several rounds of medication resuscitation patient was revived pulses regained in the care was turned over to the hospitalist at the bedside and transferred to the ICU
--- NOTE | 2016-06-17 09:07 | Discharge Summary ---
Hospital Course - Hospital Course Hospital Course: Mrs. Bowens is a 71-year-old lady with significant rheumatoid lung disease. The patient was admitted to intensive care unit and treated for superimposed pneumonia causing respiratory failure. The patient had improvement of the reversible portion of her lung disease but remains with severe rheumatoid irreversible condition. The patient was transferred to telemetry monitoring. On the patrol conductor of the patient's demise she had sudden onset shortness of breath followed by cardiac arrest. ACLS protocol was initiated but unsuccessful. - Time spent with patient Time with patient DS: Less than 30 minutes Diagnosis - Discharge Diagnosis (1) Acute exacerbation of chronic obstructive airways disease Status: Acute (2) Rheumatoid arthritis Status: Chronic (3) Acute on chronic respiratory failure Status: Acute Discharge Plan - Discharge Data Disposition: Condition at Discharge: - Discharge Medications No Action Mycophenolate Mofetil [Cellcept] 1,000 mg PO BID Montelukast Tab [Singulair Tab] 10 mg PO BEDTIME #60 tablet Insulin Aspart Prot/Asp 70/30 [NovoLOG Mix 70/30] 15 unit SUBCUT BID Sildenafil [Revatio] 10 mg PO TID #100 tablet Acetaminophen Tab [Tylenol Tab] 650 mg PO Q4H PRN #0 tablet PRN Reason: Fever, Headache, Mild Pain Acetaminophen Tab [Tylenol Tab] 325 mg PO Q4H PRN #0 tablet PRN Reason: fever, headache/body aches Benzonatate [Tessalon] 100 mg PO BID PRN #0 capsule PRN Reason: Cough Docusate Sodium Cap [Colace Cap] 100 mg PO BID PRN #0 capsule PRN Reason: Constipation HYDROcodone/ACETAMIN 5-325 [Angwin 5-325] 1 tablet PO Q4H PRN #10 tablet PRN Reason: Pain Mild (1-3) Insulin Lispro [HumaLOG] See Protocol SUBCUT ACHS unit Magnesium Hydroxide Susp [Milk of Magnesia] 30 ml PO BID PRN #0 PRN Reason: Constipation Pantoprazole Tab [Protonix Tab] 40 mg PO DAILY tablet Potassium Phos/Sod Phos Tab [K Phos Neutral] 250 mg PO QID W/MEALS & HS 1 Days Levothyroxine Tab [Synthroid Tab] 200 mcg PO QAM Albuterol/Ipratropium Neb [Duoneb] 3 ml RESP TX TID #90 vial predniSONE TAB [PredniSONE] 10 mg PO QAM Furosemide Tab [Lasix Tab] 40 mg PO BID #60 tablet Tamsulosin [Flomax] 0.4 mg PO DAILY #30 capsule Potassium Chloride Cap/Tab [K Dur] 10 meq PO DAILY W/BREAKFAST Levofloxacin Tab [Levaquin Tab] 500 mg PO DAILY #5 tablet guaiFENesin ER TAB [Mucinex] 600 mg PO BID tablet - Follow Up or Referral - Forms/Instructions Exam - Constitutional Vitals: Period Temp Pulse Resp BP Sys/Parks Pulse Ox Last 24 Hr 97.1 F-97.9 F 106-118 18-28 90-99/58-80 87-99 Discharge Results Labs on day of discharge: Labs from last 24 hours 06/17/16 06/16/16 06/16/16 01:22 20:32 16:23 Sodium 139 Potassium 4.8 Chloride 105 Carbon Dioxide 18 L Anion Gap 20.8 H BUN 50 H Creatinine 1.70 H GFR Calculation 38 BUN/Creatinine Ratio 29.00 H Glucose 215 H POC Glucose 274 H 276 H Calculated Osmolality 295.5 Calcium 8.0 L Total Bilirubin 0.90 AST 69 H ALT 56 Alkaline Phosphatase 109 Total Creatine Kinase 163 D CK-MB (CK-2) 5.6 H CK and CKMB Interp 3.4 Troponin I 0.114 H Total Protein 5.3 L Albumin 2.3 L Globulin 3.0 Albumin/Globulin Ratio 0.7 L 06/16/16 11:38 Sodium Potassium Chloride Carbon Dioxide Anion Gap BUN Creatinine GFR Calculation BUN/Creatinine Ratio Glucose POC Glucose 173 H Calculated Osmolality Calcium Total Bilirubin AST ALT Alkaline Phosphatase Total Creatine Kinase CK-MB (CK-2) CK and CKMB Interp Troponin I Total Protein Albumin Globulin Albumin/Globulin Ratio DS: Provider Date of admission: 06/13/16 04:44 Primary care physician: . No PCP Attending physician on admission: Maurice Sears MD Consults: 06/13/16 05:09 Consult to Physician [CONS] Routine Comment: Dr guo(pul) Consulting Provider: Jerel Guo Consult to Specialist Group: Pulmonology When should Consulting Provider be notified: In am 06/13/16 05:59 Consult to Pastoral Services [CONS] Routine Comment: Pastoral Screen: Request Upper And Bottom Lacer Hand Visit 06/13/16 06:03 Consult to Pharmacy [CONS] Routine Reason for Pharmacy Consult: Dose/Manage Vancomycin Discharging clinician: Vinnie Min MD
--- NOTE | 2016-06-23 11:23 | Physician Query Form ---
CLICK EDIT DOCUMENT TO SELECT QUERY ANSWER --> OK --> SIGN Leisa Meyer RN, CCDS Certified Clinical Detective Sergeant W) [phone] (f) [phone] [email or web address] PROVIDERS: Make your selection(s) from the choices in EACH section by typing an "x" and enter comments in the comment section. Please use your independent medical judgment in providing your response. This request does not imply that any particular answer is desired or expected. CLINICAL INDICATORS: (Providers should not edit this section) The medical record indicates that the patient was admitted with respiratory failure, pneumonia, Pulse of 111#, RR of 28#, BP of 91/67, WBC of 12.8# and the patient was placed on Vancomycin and Norepinephrine for a very short time. Please clarify which, if any, of the following is the etiology of the above symptoms and treatment rendered: ( ) Severe Sepsis (sepsis with acute organ failure) - Please specify type acute organ failure: ( X) Sepsis due to a localized infection, please specify site:lungs ( ) Sepsis due to a device, implant or graft, please specify: ( ) Localized infection only, without systemic illness, please specify site: ( ) Bacteremia (abnormal lab finding only, does not indicate systemic illness) ( ) Other condition, please specify: ( ) Clinically unable to determine Criteria for Sepsis (SIRS due to an infection) should be based on 2 or more of the following being present: Temperature > 101F or < 96.8F WBC > 12,000 or < 4,000, or > 10% bands Tachycardia HR > 90 beats/minute Tachypnea RR > 20 breaths/minute or PaCO2 > 32mmHg Lactate level > 2.0 mmol/L (>4 is equivalent to severe sepsis) Altered Mental Status Mottling of skin or prolonged capillary refill Non-diabetic hyperglycemia (blood sugar >120 mg/dl) Other evidence of acute organ failure associated with sepsis ( severe sepsis) COMMENTS: Use of terms such as suspected, likely, or probable (associated with a specific diagnosis that is being evaluated, monitored, or treated as if it exists) are acceptable and can be restated in the discharge summary if not ruled out. MTDD
== END 2016-06-17 01:29 | disposition expired | DRG 871 ==
LOC: EDUNIT# → EDBD → N.ED 02:45 → N.EDINP 04:44 → SUATTDRO 04:44 → N.ICU 05:32 → N.TELES 06-15 14:08 → N.CC 06-15 14:08
PROVIDERS: ADMIT Internal Medicine Infectious Disease; ATTEND Internal Medicine